=== PATIENT | female | born 1960 | race Caucasian/White ===

== ENCOUNTER 2016-11-16 07:48 | Day surgery (SDC) | payer MEDICARE, MEDICAID ==
[~2016-11-16 07:48] MED LIST: Lactated Ringers 1,000 ML IV SCH; Lidocaine 1% 4 ML ONE; Lidocaine 1%/Sod Bicarbonate in NS 8.4% 1 ML Syringe IV PRN; Propofol 200 MG/20 ML SDV ONE; Sodium Chloride 0.9% 10 ML Syringe FLUSH PRN
--- NOTE | 2016-11-16 08:18 | PCM.PREANE ---
Preanesthetic Assessment - Physical Assessment Height: 1.46 m Weight: 95.708 kg - Allergies Allergies/Adverse Reactions: Allergies Allergy/AdvReac Type Severity Reaction Status Date / Time penicillin V Allergy Cannot Verified 06/10/15 17:02 Remember vancomycin Allergy Cannot Verified 06/10/15 17:02 Remember PreAnesthesia Questionnaire HEENT History: Reports: Glaucoma, Hard of hearing Cardiovascular History: Reports: Arrhythmia, High cholesterol, Hypertension Other Cardiovascular History: svt and pvc Respiratory History: Reports: Sleep apnea Genitourinary History: Reports: STD, Other (see below) Other Genitourinary History: stress incontinence. 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) Other OB/BYN History: menopause Other Musculoskeletal History: congenital musculoskeletal deformity of spine, internal derangement of knee, scoliosis Neurological History: Reports: Other (see below) Other Neuro History: bells palsy Other Psychiatric History: mental retardation, personality disorder Endocrine/Metabolic History: Reports: Diabetes, type II Hematologic History: Reports: Anemia Other Dermatologic History: dermatophytosis of nail - Past Surgical History GI Surgical History: Reports: Cholecystectomy Female Surgical History: Reports: section Other Female Surgeries/Procedures: c/s x2 Other Musculoskeletal Surgeries/Procedures:: lumbago with sciatica left side, neuralgia, neuritis, cranial radiculopathy. neck surgery 5th and 6th cranial nerve root foraminotomy - SUBSTANCE USE Smoking Status *Q: Former Smoker Tobacco Use Within Last Twelve Months: No Other Tobacco Use Within Last Twelve Months: quit in 1988 Recreational Drug Use History: No - HOME MEDS Home Medications: Home Meds Carboxymethylcellulose Sodium [Lubricant Eye Drops] 1 drop EYEBOTH DAILY [History] Cholecalciferol (Vitamin D3) [Vitamin D3] 1 tab PO DAILY 11/13/16 [History] Fluticasone Propionate [Flonase] 50 mcg NASBOTH ASDIRECTED 11/13/16 [History] Garlic 1 tab PO DAILY 11/13/16 [History] Latanoprost [Xalatan 0.005% Ophth Soln] 1 drop EYEBOTH DAILY 11/13/16 [History] Nitroglycerin [Nitrostat] 1 tab SL ASDIRECTED PRN 11/13/16 [History] Simvastatin [Zocor] 40 mg PO DAILY 11/13/16 [History] Valsartan/Hydrochlorothiazide [Valsartan-Hctz 160-12.5 mg Tab] 1 tab PO DAILY [History] Vitamin B6-pyridOXINE 1 tab PO BID 11/13/16 [History] metFORMIN [Glucophage] 500 mg PO BID 11/13/16 [History] - CURRENT (IN HOUSE) MEDS Current Meds: Current Medications Lactated Ringer's (Ringers, Lactated) 1,000 mls @ 125 mls/hr IV ASDIRECTED CANDIE Stop: 11/16/16 23:00 Lidocaine/Sodium Bicarbonate (Buffered Lidocaine 1% In Ns 8.4%) 0.25 ml IV ONETIME PRN PRN Reason: Prior to IV Start Stop: 11/16/16 18:00 Sodium Chloride (Saline Flush) 10 ml FLUSH ASDIRECTED PRN PRN Reason: Keep Vein Open Stop: 11/16/16 18:00 Discontinued Medications Lidocaine HCl (Xylocaine-Mpf 1%) Confirm Administered Dose 4 mls @ as directed .ROUTE .STK-MED ONE Stop: 11/16/16 07:16 Propofol (Diprivan 20 Ml) Confirm Administered Dose 200 mg .ROUTE .STK-MED ONE Stop: 11/16/16 07:16 Preanesthetic Assessment - ANESTHESIA/TRANSFUSION/FAMILY HX Anesthesia/Transfusion History: No Prior Transfusion(s), Prior Anesthesia Type of Anesthesia Reaction: Denies: Allergy, Anesthesia Awareness, Excessive Somnolence, Excessive Nausea/Vomiting, Excessive Itching, Excessive Shivering, Malignant Hyperthermia, Malignant Hyperthermia, Family History, Pseudocholinesterase Deficiency, Pseudocholinesterase Deficiency, Family History of, Urinary Retention, Unknown, Other (see below) Family History of Anesthesia Reaction: No Intubation History: Unknown - 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: no symptoms (Personality disorder and MR noted), numbness ( Lumbago with sciatica of left side noted., neuralgial neuritis, radiculopathy of cervical region (neck surgery of C5 & C60 cervical nerve root forminotomy.) Respiratory: Reports: no symptoms (history of ADEN has CPAP but does not use it currently./quit smoking in 1988) Cardiovascular: Reports: no symptoms (angiogram October 2016:), blood pressure problem (History of PVC's and SVT), dyspnea on exertion, palpitations (Has had history SVT, and PVC's.) GI: Reports: no symptoms (GERD), diarrhea Other: Reports: Diabetes (BS at 0829= 111.), Sinus Problem, Anxiety - PHYSICAL ASSESSMENT HR: 75 O2 Sat by Pulse Oximetry: 90 RR: 16 BP: 132/74 Temp: 36.3 C Height: 1.46 m Weight: 91.172 kg NPO Status Date: 11/15/16 NPO Status Time: 13:00 ASA Class: 2 Mental Status: Alert & Oriented x3 Airway Class: Mallampati = 3 Dentition: Reports: Missing Tooth/Teeth, Caries Thyro-Mental Finger Breadths: 3 Mouth Opening Finger Breadths: 2 ROM/Head Extension: Limited/Partial Respiratory Status: lungs clear to auscultation bilaterally Cardiovascular Status: regular rate & rhythm, normal S1, S2, no murmur - LAB Values: reviewed and noted. - ALLERGIES Allergies/Adverse Reactions: Allergies Allergy/AdvReac Type Severity Reaction Status Date / Time penicillin V Allergy Cannot Verified 06/10/15 17:02 Remember vancomycin Allergy Cannot Verified 06/10/15 17:02 Remember - ANESTHESIA PLAN Preop Beta Bang: No Anesthesia Type Planned: MAC - ACKNOWLEDGEMENTS Pt an Appropriate Candidate for the Planned Anesthesia: Yes Alternatives and Risks of Anesthesia Discussed w Pt/Guardian: Yes Pt/Guardian Understands and Agrees with Anesthesia Plan: Yes
[2016-11-16] MEDS ORDERED: fentaNYL 250 MCG/5 ML SDV ONE ×2 (08:55)
[2016-11-16] MEDS ORDERED: Simethicone Drops 40 MG/0.6 ML 30 ML Bottle ONE (08:58)
--- NOTE | 2016-11-16 09:29 | PCM.OPNOTE ---
- General Post-Op/Procedure Note Date of Surgery/Procedure: 11/16/16 Operative Procedure(s): EG/colonoscopy Pre Op Diagnosis: anemia Post-Op Diagnosis: Same Anesthesia Technique: MAC Primary Surgeon: Shaquille West EBL in mLs: 0 Complications: None Condition: Good
--- NOTE | 2016-11-16 09:43 | PCM48HPAN ---
Post Anesthesia Note - EVALUATION WITHIN 48HRS OF ANESTHETIC Vital Signs in Normal Range: Yes Patient Participated in Evaluation: Yes Respiratory Function Stable: Yes Airway Patent: Yes Cardiovascular Function Stable: Yes Hydration Status Stable: Yes Pain Control Satisfactory: Yes Nausea and Vomiting Control Satisfactory: Yes Mental Status Recovered: Yes
[2016-11-16 09:45] VITALS: BP 140/99
[2016-11-16] MEDS ORDERED: fentaNYL 100 MCG/2 ML SDV ONE (09:46)
--- NOTE | 2016-11-16 14:05 | OR ---
DATE OF OPERATION: 11/16/2016 SURGEON: Shaquille West MD PREOPERATIVE DIAGNOSIS: Anemia. POSTOPERATIVE DIAGNOSIS: Anemia. OPERATION PERFORMED: Esophagogastroscopy. FINDINGS: Large hiatal hernia which would coil the scope and would not allow the scope to advance further. The GE junction did not show any acute disease as was the esophagus. However, because of hypoxia and her obesity and filling up of the stomach with air, it was felt that she is too high risk to proceed further with the upper GI endoscopy. DESCRIPTION OF PROCEDURE: The patient was taken to the endoscopy room, placed in a supine position, connected to monitoring equipment, placed in the left lateral position. Bite block was inserted. Video Olympus gastroscope placed in a posterior oropharynx under direct vision, threaded past the cricopharyngeus, down the esophagus, into the stomach. The stomach, part of it was a large hiatal hernia in which the scope coiled and would not advance in the lower part. Did see the GE junction which did not show any acute disease. However, was unable to advance because of the curl, the scope down into the lower part of the stomach and the duodenum. At this point of the case, she became hypoxic and the scope was slowly withdrawn. No further attempts were made to proceed further. She felt to be high risk. The patient tolerated the procedure and IV sedation will be continued for further endoscopy for anemia, that is colonoscopy. ANESTHESIA: ESTIMATED BLOOD LOSS: MMODAL /[id number]
--- NOTE | 2016-11-16 14:06 | OR ---
DATE OF OPERATION: 11/16/2016 SURGEON: Shaquille West MD PREOPERATIVE DIAGNOSIS: Anemia. POSTOPERATIVE DIAGNOSIS: Anemia. OPERATION PERFORMED: Colonoscopy to cecum. ANESTHESIA: Done under IV sedation. FINDINGS: Normal study. RECOMMENDATION: Repeat colonoscopy in 10 years. DESCRIPTION OF PROCEDURE: The patient having been taken to the operating room and having been given IV sedation for upper GI endoscopy, this was continued for colonoscopy. She was placed in left lateral position. The perianal area was inspected, it was normal. Rectal exam showed good sphincter tone. A video Olympus colonoscope was then introduced into the rectum and threaded up without problem to the cecum, where the appendicular orifice, ileocecal valve was noted. Prep was excellent throughout the colon. [place] Cleansing score grade A and the scope slowly withdrawn showing the cecum, ascending colon, transverse colon, descending colon, sigmoid colon, and rectum. The patient findings were normal study. The patient tolerated the procedure, sent to recovery room in a stable condition, will be followed up in the clinic. ESTIMATED BLOOD LOSS: MMODAL /[id number]
== END 2016-11-16 10:28 | disposition home or self-care (01) ==
LOC: JD.SDS 07:48
PROVIDERS: ATTEND Surgery
PROC: 0DJ08ZZ Inspection of Upper Intestinal Tract, Via Natural or Artificial Opening Endoscopic (ICD-10-PCS; principal; 2016-11-16)
PROC: 0DJD8ZZ Inspection of Lower Intestinal Tract, Via Natural or Artificial Opening Endoscopic (ICD-10-PCS; 2016-11-16)
DX: K44.9 Diaphragmatic hernia without obstruction or gangrene (principal); D64.9 Anemia, unspecified; R09.02 Hypoxemia; E66.9 Obesity, unspecified; Q67.5 Congenital deformity of spine; I10 Essential (primary) hypertension; G47.33 Obstructive sleep apnea (adult) (pediatric); E78.00 Pure hypercholesterolemia, unspecified; E11.9 Type 2 diabetes mellitus without complications; F79 Unspecified intellectual disabilities; Z87.891 Personal history of nicotine dependence; Z88.0 Allergy status to penicillin; Z88.1 Allergy status to other antibiotic agents; Z79.51 Long term (current) use of inhaled steroids; Z79.84 Long term (current) use of oral hypoglycemic drugs; Z79.899 Other long term (current) drug therapy; Z98.890 Other specified postprocedural states; Z90.49 Acquired absence of other specified parts of digestive tract; Z68.41 Body mass index [BMI] 40.0-44.9, adult
CPT/HCPCS: 43235; 45378; 82962; A9270; J3010; J7120; J2704

== ENCOUNTER 2017-05-09 14:57 | Emergency (ER) | payer MEDICARE, MEDICAID ==
[2017-05-09 15:22] VITALS: BP 109/77
[2017-05-09] MEDS ORDERED: Doxycycline 100 MG Cap PO ONE (15:55)
[2017-05-09] MEDS ORDERED: Ibuprofen 600 MG Tab PO ONE (15:56)
--- NOTE | 2017-05-09 16:00 | EDM.PDOC ---
ED HPI GENERAL MEDICAL PROBLEM - General Chief Complaint: Bite:Animal, Insect Stated Complaint: BEE STING ON RIGHT FOOT Time Seen by Provider: 05/09/17 15:45 Source of Information: Reports: Patient History Limitations: Reports: No Limitations - History of Present Illness INITIAL COMMENTS - FREE TEXT/NARRATIVE: 56-year-old female presents to the ED after being stung by either a wasp or bee on the plantar surface of her right foot. She went out to the garbage can and was stung by a wasp or bee that she probably stepped on. She is a diabetic and feet are quite dirty. She was concerned that the stinger might still be in place. Onset: Today Onset Date: 05/09/17 Onset Time: 14:00 Duration: Minutes: Location: Reports: Lower Extremity, Right (Plantar surface medially.) Quality: Reports: Ache, Burning, Throbbing Severity: Moderate Improves with: Reports: None Worsens with: Reports: Other Context: Reports: Other (hymenoptera sting). 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) Right Feet Pain Score (Numeric/FACES): 8 - Related Data Allergies Allergy/AdvReac Type Severity Reaction Status Date / Time penicillin V Allergy Cannot Verified 05/09/17 15:17 Remember vancomycin Allergy Cannot Verified 05/09/17 15:17 Remember Home Meds: Home Meds Carboxymethylcellulose Sodium [Lubricant Eye Drops] 1 drop EYEBOTH DAILY [History] Cholecalciferol (Vitamin D3) [Vitamin D3] 1 tab PO DAILY 11/13/16 [History] Latanoprost [Xalatan 0.005% Ophth Soln] 1 drop EYEBOTH DAILY 11/13/16 [History] Nitroglycerin [Nitrostat] 1 tab SL ASDIRECTED PRN 11/13/16 [History] Simvastatin [Zocor] 40 mg PO DAILY 11/13/16 [History] Valsartan/Hydrochlorothiazide [Valsartan-Hctz 160-12.5 mg Tab] 1 tab PO DAILY [History] Vitamin B6-pyridOXINE 1 tab PO BID 11/13/16 [History] metFORMIN [Glucophage] 500 mg PO BID 11/13/16 [History] Doxycycline [Vibramycin] 100 mg PO Q12HR #10 cap 05/09/17 [Rx] Past Medical History HEENT History: Reports: Glaucoma, Hard of Hearing Cardiovascular History: Reports: Arrhythmia, High Cholesterol, Hypertension Other Cardiovascular History: svt and pvc Respiratory History: Reports: Sleep Apnea Genitourinary History: Reports: STD, Other (See Below) Other Genitourinary History: stress incontinence. 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) Other OB/BYN History: menopause Other Musculoskeletal History: congenital musculoskeletal deformity of spine, internal derangement of knee, scoliosis Neurological History: Reports: Other (See Below) Other Neuro History: bells palsy Other Psychiatric History: mental retardation, personality disorder Endocrine/Metabolic History: Reports: Diabetes, Type II Hematologic History: Reports: Anemia Other Dermatologic History: dermatophytosis of nail - Past Surgical History Female Surgical History: Reports: Section Social & Family History - Tobacco Use Smoking Status *Q: Former Smoker - Recreational Drug Use Recreational Drug Use: No - Living Situation & Occupation Living situation: Reports: Single Occupation: Disabled ED ROS GENERAL - Review of Systems Review Of Systems: See Below Constitutional: Reports: Weakness, Fatigue (Chronically). Denies: Fever, Chills , Malaise HEENT: Reports: No Symptoms, Other (No filling like her throat is closing up.) Respiratory: Reports: Shortness of Breath. Denies: Wheezing, Pleuritic Chest Pain (Only on exertion no worse than normal), Cough, Sputum Cardiovascular: Reports: No Symptoms Endocrine: Reports: Fatigue GI/Abdominal: Reports: No Symptoms : Reports: Frequency, Incontinence (Urgent stress component) Musculoskeletal: Reports: Joint Pain (Knees hips low back and neck at times) Skin: Reports: Other (Hymenoptera sting plantar surface right foot with localized erythema and swelling) Neurological: Reports: No Symptoms Psychiatric: Reports: No Symptoms Hematologic/Lymphatic: Reports: No Symptoms Immunologic: Reports: No Symptoms ED EXAM, ANIMAL BITE - Physical Exam Exam: See Below General Appearance: Alert, WD/WN, No Apparent Distress Eye Exam: Bilateral Eye: Normal Inspection Throat/Mouth: Normal Inspection, Normal Lips, Normal Oropharynx, Other Neck: Normal Inspection (Uvula and floor the mouth are normal.), Supple, Non- Tender, Full Range of Motion. No: Lymphadenopathy (L), Lymphadenopathy (R) Respiratory/Chest: No Respiratory Distress, Lungs Clear, Normal Breath Sounds, No Accessory Muscle Use, Decreased Breath Sounds. No: Wheezing Cardiovascular: Regular Rate, Rhythm. No: Normal Peripheral Pulses Peripheral Pulses: 1+: Posterior Tibial (L), Posterior Tibial (R), Dorsalis Pedis (L), Dorsalis Pedis (R) GI/Abdominal: Normal Bowel Sounds, Soft, Non-Tender, No Organomegaly, Other ( Moderate obesity limits ability to palpate solid organs.) Back Exam: Normal Inspection, Full Range of Motion. No: CVA Tenderness (L), CVA Tenderness (R) Extremities: Other (Inspection of her right foot indicates a puncture wound to the plantar surface medially. There is no stinger in the wound. There is localized erythema and swelling of about 4 cm in diameter. Area is moderately tender to touch.) Neurological: Alert, Oriented, CN II-XII Intact, Normal Cognition. No: Normal Gait Psychiatric: Normal Affect Skin Exam: Normal Color, Warm/Dry Course - Vital Signs Last Recorded V/S: Last Vital Signs Temp 36.6 C 05/09/17 15:17 Pulse 82 05/09/17 15:17 Resp 20 05/09/17 15:17 BP 109/77 05/09/17 15:17 Pulse Ox 90 L 05/09/17 15:17 - Orders/Labs/Meds Meds: Medications Discontinued Medications Generic Name Dose Route Start Last Admin Trade Name Freq PRN Reason Stop Dose Admin Doxycycline Hyclate 200 mg 05/09/17 15:55 05/09/17 16:04 Vibramycin PO 05/09/17 15:56 200 mg ONETIME ONE Administration Ibuprofen 600 mg 05/09/17 15:56 05/09/17 16:03 Motrin PO 05/09/17 15:57 600 mg ONETIME ONE Administration - Radiology Interpretation Free Text/Narrative:: 56-year-old female presents the ED with eye hymenoptera sting to her plantar surface of her right foot. Of note she is a type II diabetic for greater than 6 years. The feet themselves are extremely dirty. I feel the risk of infection is fairly high from the hymenoptera sting. Of note there was no stinger in the wound. There fell out or it was a wasp that stung her. She has a localized allergic reaction. Plan Motrin 600 mg by mouth and doxycycline 200 mg by mouth. Wound was cleansed with Hibiclens and bacitracin and a bandage applied. Continue Motrin as needed for pain relief which is usually only 1 day. Benadryl 50 mg every 6 hours if needed for itch and/or burning although I would prefer her not to take this medication due to her other meds that she has on board. Departure - Departure Time of Disposition: 16:03 Disposition: Home, Self-Care 01 Condition: Fair Clinical Impression: Hymenoptera sting Qualifiers: Encounter type: initial encounter Injury intent: accidental or unintentional Qualified Code(s): T63.481A - Toxic effect of venom of other arthropod, accidental (unintentional), initial encounter - Discharge Information Prescriptions: Doxycycline [Vibramycin] 100 mg PO Q12HR #10 cap Instructions: Insect Bite Referrals: Zak Hopson MD [Physician] - Forms: ED Department Discharge Additional Instructions: Evaluation the emergency room in regards to a bee or wasp sting to the sole of your right foot. No stinger was found in the puncture wound suggesting this was mostly scaly I wasp sting. You have developed a localized allergic response with swelling and redness of 0.4 cm in diameter. Motrin 600 mg every 6 hours as necessary for pain relief for 1 day. May use Benadryl 50 mg every 6 hours if needed for burning and itch. Of note this medication will cause significant sedation however. The wound was cleansed and topical antibiotic was placed in the emergency room. The feet were quite dirty and I think the risk of infection is much higher because of your diabetes. I therefore gave you first dose of antibiotic doxycycline in the emergency room. You need to fill prescription for doxycycline antibiotic 100 mg twice daily for the next 5 days tomorrow. Daily cleanse the wound with soap and water and place bacitracin ointment for the next 3 days to prevent any secondary wound infection or diabetes. If any signs of infection do develop such as increased redness swelling 3 days from now and follow-up with your personal doctor.
== END 2017-05-09 16:26 | disposition home or self-care (01) ==
LOC: JD.ED 14:57
DX: T63.481A Toxic effect of venom of other arthropod, accidental (unintentional), initial encounter (principal); E78.00 Pure hypercholesterolemia, unspecified; I10 Essential (primary) hypertension; E11.9 Type 2 diabetes mellitus without complications; Z88.0 Allergy status to penicillin; Z88.1 Allergy status to other antibiotic agents; Z79.84 Long term (current) use of oral hypoglycemic drugs; Z79.899 Other long term (current) drug therapy; Z87.891 Personal history of nicotine dependence
CPT/HCPCS: 99282; A9270; 99283

== ENCOUNTER 2017-08-24 16:26 | Inpatient (IN) | payer MEDICARE, MEDICAID ==
[2017-08-24] MEDS ORDERED: Sodium Chloride 0.9% 10 ML Syringe FLUSH PRN (16:38)
[2017-08-24] MEDS ORDERED: Albuterol/Ipratropium 3.0-0.5 MG/3 ML Neb Soln NEB ONE (16:40)
[2017-08-24] MEDS ORDERED: methylPREDNISolone Sodium Succinate 125 MG/2 ML SDV IVPUSH ONE (16:40)
[2017-08-24] MEDS ORDERED: Levofloxacin/Dextrose 5%-Water 750 MG in Premix Bag 1 BAG IV ONE (16:40)
[2017-08-24] MEDS ORDERED: Acetaminophen 325 MG Tab PO ONE (16:55)
[2017-08-24] MEDS ORDERED: Sodium Chloride 0.9% 500 ML IV ONE (16:56)
--- NOTE | 2017-08-24 18:29 | EDM.PDOC ---
ED HPI GENERAL MEDICAL PROBLEM - General Chief Complaint: Respiratory Problem Stated Complaint: [facility] Time Seen by Provider: 08/24/17 16:29 Source of Information: Reports: Patient, EMS History Limitations: Reports: No Limitations - History of Present Illness INITIAL COMMENTS - FREE TEXT/NARRATIVE: The patient presents with a cough, fever and shortness of breath. When EMS got there her oxygen saturations were in the 70s. She was given oxygen and a breathing treatment. She says she started feeling sick about 4 days ago. She had a fever, chills, cough, congestion and runny nose. She has no abdominal pain, nausea or vomiting. [facility] takes care of the patient. Onset: Gradual Duration: Day(s): (4) Severity: Moderate Improves with: Reports: None Worsens with: Reports: None Associated Symptoms: Reports: Cough, Fever/Chills, Shortness of Breath. 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, IV/IO, Oxygen, See EMS Report chest area Pain Score (Numeric/FACES): 6 - Related Data Allergies Allergy/AdvReac Type Severity Reaction Status Date / Time penicillin V Allergy Cannot Verified 08/24/17 16:41 Remember vancomycin Allergy Cannot Verified 08/24/17 16:41 Remember Home Meds: Home Meds Carboxymethylcellulose Sodium [Lubricant Eye Drops] 1 drop EYEBOTH DAILY [History] Cholecalciferol (Vitamin D3) [Vitamin D3] 1 tab PO DAILY 11/13/16 [History] Latanoprost [Xalatan 0.005% Ophth Soln] 1 drop EYEBOTH DAILY 11/13/16 [History] Nitroglycerin [Nitrostat] 1 tab SL ASDIRECTED PRN 11/13/16 [History] Simvastatin [Zocor] 40 mg PO DAILY 11/13/16 [History] Valsartan/Hydrochlorothiazide [Valsartan-Hctz 160-12.5 mg Tab] 1 tab PO DAILY [History] Vitamin B6-pyridOXINE 1 tab PO BID 11/13/16 [History] metFORMIN [Glucophage] 500 mg PO BID 11/13/16 [History] Multivitamin with Iron [Multivitamins with Iron] 1 each PO DAILY 08/24/17 [ History] Past Medical History HEENT History: Reports: Glaucoma, Hard of Hearing Cardiovascular History: Reports: Arrhythmia, High Cholesterol, Hypertension Other Cardiovascular History: svt and pvc Respiratory History: Reports: Sleep Apnea Genitourinary History: Reports: STD, Other (See Below) Other Genitourinary History: stress incontinence. 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) Other OB/BYN History: menopause Other Musculoskeletal History: congenital musculoskeletal deformity of spine, internal derangement of knee, scoliosis Neurological History: Reports: Other (See Below) Other Neuro History: bells palsy Other Psychiatric History: mental retardation, personality disorder, SAD Endocrine/Metabolic History: Reports: Diabetes, Type II Hematologic History: Reports: Anemia Other Dermatologic History: dermatophytosis of nail - Past Surgical History Other Respiratory Surgeries/Procedures: states that her CPAP machine "was taken away" GI Surgical History: Reports: Cholecystectomy Female Surgical History: Reports: Section Social & Family History - Family History Family Medical History: Noncontributory - Tobacco Use Smoking Status *Q: Former Smoker Used Tobacco, but Quit: Yes Month Tobacco Last Used: 08/2016 Second Hand Smoke Exposure: No - Caffeine Use Caffeine Use: Reports: Coffee, Soda - Recreational Drug Use Recreational Drug Use: No - Living Situation & Occupation Living situation: Reports: Single Occupation: Disabled ED ROS GENERAL - Review of Systems Review Of Systems: See Below Constitutional: Reports: Fever, Chills, Malaise, Weakness, Fatigue HEENT: Reports: No Symptoms Respiratory: Reports: Shortness of Breath, Cough Cardiovascular: Reports: No Symptoms Endocrine: Reports: Fatigue GI/Abdominal: Reports: No Symptoms : Reports: No Symptoms Musculoskeletal: Reports: No Symptoms ED EXAM, GENERAL - Physical Exam Exam: See Below Exam Limited By: No Limitations General Appearance: Alert, No Apparent Distress Ears: Normal External Exam Nose: Normal Inspection Head: Atraumatic, Normocephalic Neck: Normal Inspection Respiratory/Chest: No Respiratory Distress, Decreased Breath Sounds, Rhonchi Cardiovascular: Regular Rate, Rhythm, No Edema, No Murmur GI/Abdominal: Soft, Non-Tender, No Organomegaly, No Mass Back Exam: Normal Inspection Extremities: Normal Inspection Neurological: Alert, Oriented, No Motor/Sensory Deficits Course - Vital Signs Last Recorded V/S: Last Vital Signs Temp 98.6 F 08/24/17 18:45 Pulse 105 H 08/24/17 16:28 Resp 25 H 08/24/17 18:45 BP 109/76 08/24/17 18:45 Pulse Ox 92 L 08/24/17 18:45 - Orders/Labs/Meds Orders: Active Orders 24 hr Category Date Time Status Cardiac Monitoring [RC] . DIRECTED Care 08/24/17 16:38 Active Oxygen Therapy [RC] PRN Care 08/24/17 16:38 Active Peripheral IV Care [RC] . DIRECTED Care 08/24/17 16:39 Active RT Aerosol Therapy [RC] ASDIRECTED Care 08/24/17 16:40 Active Chest 1V Frontal [CR] Stat Exams 08/24/17 16:39 Taken CULTURE BLOOD [BC] Stat Lab 08/24/17 16:50 Received CULTURE BLOOD [BC] Stat Lab 08/24/17 17:05 Received Sodium Chloride 0.9% [Normal Saline] 2,350 ml Med 08/24/17 17:21 Active IV ONETIME Sodium Chloride 0.9% [Saline Flush] Med 08/24/17 16:38 Active 10 ml FLUSH ASDIRECTED PRN Blood Culture x2 Reflex Set [OM.PC] Stat Oth 08/24/17 16:39 Ordered Peripheral IV Insertion Adult [OM.PC] Stat Oth 08/24/17 16:38 Ordered Medication Orders Sodium Chloride (Normal Saline) 2,350 mls @ 1,000 mls/hr IV ONETIME ONE Stop: 08/24/17 19:41 Sodium Chloride (Saline Flush) 10 ml FLUSH ASDIRECTED PRN PRN Reason: Keep Vein Open Last Admin: 08/24/17 16:53 Dose: 10 ml Labs: Laboratory Tests 08/24/17 08/24/17 08/24/17 Range/Units 16:50 16:50 17:05 WBC 13.45 H (3.98-10.04) K/mm3 RBC 5.06 (3.98-5.22) M/mm3 Hgb 14.5 (11.2-15.7) gm/L Hct 46.8 H (34.1-44.9) % MCV 92.5 (79.4-94.8) fl MCH 28.7 (25.6-32.2) pg MCHC 31.0 L (32.2-35.5) g/dl RDW Std Deviation 46.7 H (36.4-46.3) fL Plt Count 261 (182-369) K/mm3 MPV 9.8 (9.4-12.3) fl Neut % (Auto) 65.2 (34.0-71.1) % Lymph % (Auto) 20.0 (19.3-51.7) % Rich % (Auto) 14.1 H (4.7-12.5) % Eos % (Auto) 0 L (0.7-5.8) Baso % (Auto) 0.6 (0.1-1.2) % Neut # (Auto) 8.77 H (1.56-6.13) K/mm3 Lymph # (Auto) 2.69 (1.18-3.74) K/mm3 Rich # (Auto) 1.89 H (0.24-0.36) K/mm3 Eos # (Auto) 0.00 L (0.04-0.36) K/mm3 Baso # (Auto) 0.08 (0.01-0.08) K/mm3 Manual Slide Review Abnormal smear Sodium 138 (136-145) mEq/L Potassium 3.5 (3.5-5.1) mEq/L Chloride 99 (98-107) mEq/L Carbon Dioxide 30 (21-32) mEq/L Anion Gap 12.5 (5-15) BUN 27 H (7-18) mg/dL Creatinine 1.3 H (0.55-1.02) mg/dL Est Cr Clr Drug Dosing 34.29 mL/min Estimated GFR (MDRD) 42 (>60) mL/min BUN/Creatinine Ratio 20.8 H (14-18) Glucose 138 H (74-106) mg/dL Lactic Acid 1.8 (0.4-2.0) mmol/L Calcium 8.7 (8.5-10.1) mg/dL Total Bilirubin 0.3 (0.2-1.0) mg/dL AST 103 H (15-37) U/L ALT 44 (14-59) U/L Alkaline Phosphatase 87 (46-116) U/L C-Reactive Protein 6.2 H* (<1.0) mg/dL Total Protein 8.1 (6.4-8.2) g/dl Albumin 3.6 (3.4-5.0) g/dl Globulin 4.5 gm/dL Albumin/Globulin Ratio 0.8 L (1-2) Meds: Medications Generic Name Dose Route Start Last Admin Trade Name Sandra PRN Reason Stop Dose Admin Sodium Chloride 2,350 mls @ 1,000 mls/hr 08/24/17 17:21 Normal Saline IV 08/24/17 19:41 ONETIME ONE Sodium Chloride 10 ml 08/24/17 16:38 08/24/17 16:53 Saline Flush FLUSH 10 ml ASDIRECTED PRN Administration Keep Vein Open Discontinued Medications Generic Name Dose Route Start Last Admin Trade Name Sandra PRN Reason Stop Dose Admin Acetaminophen 975 mg 08/24/17 16:55 08/24/17 17:12 Tylenol PO 08/24/17 16:56 975 mg NOW ONE Administration Albuterol/Ipratropium 3 ml 08/24/17 16:40 08/24/17 16:56 Duoneb 3.0-0.5 Mg/3 Ml NEB 08/24/17 16:41 3 ml ONETIME ONE Administration Levofloxacin/Dextrose 750 mg/ 150 mls @ 100 mls/hr 08/24/17 16:40 08/24/17 17 :03 Premix IV 08/24/17 18:09 100 mls/hr ONETIME ONE Administration Sodium Chloride 500 mls @ 1,000 mls/hr 08/24/17 16:56 08/24/17 17:02 Normal Saline IV 08/24/17 17:25 1,000 mls/hr .BOLUS ONE Administration Methylprednisolone Sodium Succinate 125 mg 08/24/17 16:40 08/24/17 17:07 Solu-Medrol IVPUSH 08/24/17 16:41 125 mg ONETIME ONE Administration - Re-Assessments/Exams Free Text/Narrative Re-Assessment/Exam: 08/24/17 18:30 I ordered an IV NS 30mL/kg bolus, oxygen, duoneb, labs, blood cultures and CXR. Her CXR shows a left perihilar infiltrate. Her WBC is elevated at 13.45. Her creatinine was elevated at 1.3. Her glucose was elevated at 138. Her AST was elevated at 103. Her CRP was elevated at 6.2. It appears she is septic from pneumonia. 08/24/17 19:13 Her influenza is negative. I talked with Dr Perez and she agreed to the admission. Departure - Departure Time of Disposition: 19:15 Disposition: Admitted As Inpatient 66 Condition: Serious Clinical Impression: Hypoxia Pneumonia Qualifiers: Pneumonia type: due to unspecified organism Laterality: left Lung location: upper lobe of lung Qualified Code(s): J18.1 - Lobar pneumonia, unspecified organism Sepsis Qualifiers: Sepsis type: sepsis due to unspecified organism Qualified Code(s): A41.9 - Sepsis, unspecified organism - Discharge Information - My Orders Last 24 Hours: My Active Orders 08/24/17 16:38 Cardiac Monitoring [RC] . DIRECTED Oxygen Therapy [RC] PRN Sodium Chloride 0.9% [Saline Flush] 10 ml FLUSH ASDIRECTED PRN Peripheral IV Insertion Adult [OM.PC] Stat 08/24/17 16:39 Peripheral IV Care [RC] . DIRECTED Chest 1V Frontal [CR] Stat Blood Culture x2 Reflex Set [OM.PC] Stat 08/24/17 16:40 RT Aerosol Therapy [RC] ASDIRECTED 08/24/17 16:50 CULTURE BLOOD [BC] Stat 08/24/17 17:05 CULTURE BLOOD [BC] Stat 08/24/17 17:21 Sodium Chloride 0.9% [Normal Saline] 2,350 ml IV ONETIME - Assessment/Plan Last 24 Hours: My Active Orders 08/24/17 16:38 Cardiac Monitoring [RC] . DIRECTED Oxygen Therapy [RC] PRN Sodium Chloride 0.9% [Saline Flush] 10 ml FLUSH ASDIRECTED PRN Peripheral IV Insertion Adult [OM.PC] Stat 08/24/17 16:39 Peripheral IV Care [RC] . DIRECTED Chest 1V Frontal [CR] Stat Blood Culture x2 Reflex Set [OM.PC] Stat 08/24/17 16:40 RT Aerosol Therapy [RC] ASDIRECTED 08/24/17 16:50 CULTURE BLOOD [BC] Stat 08/24/17 17:05 CULTURE BLOOD [BC] Stat 08/24/17 17:21 Sodium Chloride 0.9% [Normal Saline] 2,350 ml IV ONETIME
[2017-08-24] MEDS ORDERED: Sodium Chloride 0.9% 1,000 ML ONE (21:31)
--- NOTE | 2017-08-24 21:54 | PCM.HP ---
H&P History of Present Illness - General Date of Service: 08/24/17 Admit Problem/Dx: Admission Diagnosis/Problem Admission Diagnosis/Problem Pneumonia Source of Information: Patient, Provider, RN, RN Notes Reviewed History Limitations: Reports: No Limitations - History of Present Illness Initial Comments - Free Text/Narative: Alice Jhaveri is a 57yo female who presents to our ED today with a cough, fever, shortness of breath via ambulance. Paramedics reports that the patient's oxygen saturations were in the 70s upon their arrival. They gave her oxygen and a DuoNeb. He reports symptoms began about 4 days prior. She reports fever, chills, cough, congestion, runny nose. She denies abdominal pain, nausea, or vomiting. [facility] take care of her. Upon ED arrival temp was 100.9. Pulse 105. Respirations 25. Blood pressure 176. Saturations 90%. Labs were obtained: The CBC is elevated at 13.45. Hemoglobin 14.5. Hematocrit high at 46.8. She is normocytic. Pulses were good at 261,000. Sodium was good at 138. Potassium 3.5. Chloride 99. Carbon dioxide 30. Anion gap 12.5. BUN is 27. Creatinine 1.3. EGFR is 42. Glucose was high at 138. Lactic acid was 1.8. Calcium was 8.7. Bilirubin 0.3. AST was elevated at 103, ALT was 44, alkaline phosphatase 87. CRP is high at 6.2. She was given 2350 mls NS , which is 30 mL/kg. DuoNeb were given. Blood cultures were obtained. Chest x-ray shows a left perihilar infiltrate. She was given 125 mg grams Solu-Medrol, acetaminophen 975 mg for fever. She is also given 750 mg Levaquin. Influenza was negative. She carries a history of: Glaucoma, arrhythmias of SVT and PVCs, HLD, HTN, sleep apnea, stress incontinence, scoliosis, mental retardation, personality disorder, SED, type II DM, anemia. She reportedly had a CPAP machine however she states it was "taken away." She is a former smoker. She is a full code. Her PCP is Dr. Ty at [facility] here in [place]. chest area Pain Score (Numeric/FACES): 6 - Related Data Allergies/Adverse Reactions: Allergies Allergy/AdvReac Type Severity Reaction Status Date / Time penicillin V Allergy Cannot Verified 08/24/17 16:41 Remember vancomycin Allergy Cannot Verified 08/24/17 16:41 Remember Home Medications: Home Meds Carboxymethylcellulose Sodium [Lubricant Eye Drops] 1 drop EYEBOTH DAILY [History] Cholecalciferol (Vitamin D3) [Vitamin D3] 1 tab PO DAILY 11/13/16 [History] Latanoprost [Xalatan 0.005% Ophth Soln] 1 drop EYEBOTH DAILY 11/13/16 [History] Nitroglycerin [Nitrostat] 1 tab SL ASDIRECTED PRN 11/13/16 [History] Simvastatin [Zocor] 40 mg PO DAILY 11/13/16 [History] Valsartan/Hydrochlorothiazide [Valsartan-Hctz 160-12.5 mg Tab] 1 tab PO DAILY [History] Vitamin B6-pyridOXINE 1 tab PO BID 11/13/16 [History] metFORMIN [Glucophage] 500 mg PO BID 11/13/16 [History] Multivitamin with Iron [Multivitamins with Iron] 1 each PO DAILY 08/24/17 [ History] Past Medical History HEENT History: Reports: Glaucoma, Hard of Hearing Cardiovascular History: Reports: Arrhythmia, High Cholesterol, Hypertension Other Cardiovascular History: svt and pvc Respiratory History: Reports: Sleep Apnea Genitourinary History: Reports: STD, Other (See Below) Other Genitourinary History: stress incontinence. 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) Other OB/BYN History: menopause Musculoskeletal History: Reports: Back Pain, Chronic Other Musculoskeletal History: congenital musculoskeletal deformity of spine, internal derangement of knee, scoliosis Neurological History: Reports: Other (See Below) Other Neuro History: bells palsy Other Psychiatric History: mental retardation, personality disorder, SAD Endocrine/Metabolic History: Reports: Diabetes, Type II Hematologic History: Reports: Anemia Other Dermatologic History: dermatophytosis of nail - Past Surgical History Other Respiratory Surgeries/Procedures: states that her CPAP machine "was taken away" GI Surgical History: Reports: Cholecystectomy Female Surgical History: Reports: Section Neurological Surgical History: Reports: Scoliosis Social & Family History - Family History Family Medical History: Noncontributory - Tobacco Use Smoking Status *Q: Unknown Ever Smoked Used Tobacco, but Quit: Yes Month Tobacco Last Used: 08/2016 Second Hand Smoke Exposure: No - Caffeine Use Caffeine Use: Reports: Coffee, Soda - Recreational Drug Use Recreational Drug Use: No - Living Situation & Occupation Living situation: Reports: Single Occupation: Disabled H&P Review of Systems - Review of Systems: Review Of Systems: See Below General: Reports: Fever, Chills, Malaise, Weakness, Fatigue HEENT: Reports: Rhinitis, Sinus Congestion. Denies: Ear Pain, Eye Pain, Headaches, Sore Throat Pulmonary: Reports: Shortness of Breath, Wheezing, Cough. Denies: Pleuritic Chest Pain, Sputum Cardiovascular: Reports: No Symptoms. Denies: Chest Pain, Palpitations, Dyspnea on Exertion, Edema, Lightheadedness, Blood Pressure Problem Gastrointestinal: Reports: No Symptoms. Denies: Abdominal Pain, Constipation, Diarrhea, Nausea, Vomiting Genitourinary: Reports: No Symptoms. Denies: Dysuria, Frequency, Burning, Pain , Urgency Musculoskeletal: Reports: No Symptoms Skin: Reports: No Symptoms Psychiatric: Reports: No Symptoms Neurological: Reports: No Symptoms Hematologic/Lymphatic: Reports: No Symptoms Immunologic: Reports: No Symptoms Exam - Exam Exam: See Below - Vital Signs Vital Signs: Last Vital Signs Temp 97.8 F 08/24/17 20:00 Pulse 91 08/24/17 20:00 Resp 22 H 08/24/17 20:00 BP 105/57 L 08/24/17 20:00 Pulse Ox 91 L 08/24/17 20:00 Weight: 205 lb 14.4 oz - Exam Quality Assessment: Supplemental Oxygen, Other (Obese) General: Alert, Oriented, Cooperative. No: Mild Distress HEENT: Conjunctiva Clear, EACs Clear, EOMI, Hearing Intact, Mucosa Moist & [place] , Nares Patent, Normal Nasal Septum, Posterior Pharynx Clear, PERRLA Neck: Supple, Trachea Midline. No: JVD, Thyromegaly Lungs: Decreased Breath Sounds, Rhonchi, Wheezing, Other (Tachypneic ) Cardiovascular: Regular Rate, Regular Rhythm. No: Systolic Murmur, Diastolic Murmur GI/Abdominal Exam: Soft, Non-Tender, No Organomegaly, No Distention, No Abnormal Bruit, No Mass, Pelvis Stable, Abnormal Bowel Sounds (hyperactive ) (Female) Exam: Deferred Rectal (Female) Exam: Deferred Back Exam: Normal Inspection Extremities: Normal Inspection, Normal Range of Motion, Non-Tender, No Pedal Edema, Normal Capillary Refill Peripheral Pulses: 2+: Radial (L), Radial (R), Posterior Tibial (L), Posterior Tibial (R), Dorsalis Pedis (L), Dorsalis Pedis (R) Skin: Warm, Dry, Intact Neurological: Cranial Nerves Intact (grossly ) Neuro Extensive - Mental Status: Alert, Oriented x3, Normal Mood/Affect, Memory Intact. No: Normal Cognition Neuro Extensive - Motor, Sensory, Reflexes: CN II-XII Intact (Grossly ), Normal Gait Psychiatric: Alert, Normal Affect, Normal Mood - Patient Data Result Diagrams: 08/24/17 16:50 08/24/17 16:50 *Q Meaningful Use (ADM) - VTE *Q VTE Criteria *Q: - Stroke *Q Stroke Criteria *Q: - AMI *Q AMI Criteria *Q: - Problem List (1) Pneumonia SNOMED Code(s): 355882763 ICD Code: J18.9 - PNEUMONIA, UNSPECIFIED ORGANISM Status: Acute Priority : High Current Visit: Yes Qualifiers: Pneumonia type: due to unspecified organism Laterality: left Lung location: upper lobe of lung Qualified Code(s): J18.1 - Lobar pneumonia, unspecified organism (2) Hypoxia SNOMED Code(s): 497913035 ICD Code: R09.02 - HYPOXEMIA Status: Acute Priority: High Current Visit : Yes (3) Sepsis SNOMED Code(s): 36183690 ICD Code: A41.9 - SEPSIS, UNSPECIFIED ORGANISM Status: Acute Priority: High Current Visit: Yes Qualifiers: Sepsis type: sepsis due to unspecified organism Qualified Code(s): A41.9 - Sepsis, unspecified organism (4) Acute renal failure SNOMED Code(s): 51772343 ICD Code: N17.9 - ACUTE KIDNEY FAILURE, UNSPECIFIED Status: Acute Current Visit: Yes (5) Acute kidney injury SNOMED Code(s): 39341650 ICD Code: N17.9 - ACUTE KIDNEY FAILURE, UNSPECIFIED Status: Acute Priority: Medium Current Visit: Yes Problem List Initiated/Reviewed/Updated: Yes Orders Last 24hrs: Active Orders 24 hr Category Date Time Status Patient Status [ADT] Routine ADT 08/24/17 19:35 Active Medication Orders Sodium Chloride (Saline Flush) 10 ml FLUSH ASDIRECTED PRN PRN Reason: Keep Vein Open Last Admin: 08/24/17 16:53 Dose: 10 ml Assessment/Plan Comment:: I/P: Acute Pneumonia: -Non-productive cough, fever, SOB -EMS found oxygen saturations to be in 70's -Fever of 100.9 in ED - Tylenol given -WBC 13.45 -CRP 6.2 -Levaquin 750mg given in ED - Continue -Of note: She is allergic to PCN and vancomycin -Sputum culture - ordered -RT/IS/Acapella -Duo-Nebs PRN -Humidified O2 and nasal saline for congestion - Titrate O2 as needed, attempt to wean -Solumedrol -Fluids as ordered -Repeat CXR in 48 hours Sepsis -HR>90, tachypneic, hypotension, fever of 100.9, renal injury -Likely due to pneumonia -Lactic acid 1.8 -2350 fluid bolus given in ED -Blood cultures - pending -Fluids as ordered -Treatment as above Acute renal injury -Unsure of baseline -Bun 27, creatinine 1.3, eGFR 42 -Avoid nephrotoxic medications -Pharmacy to renally dose meds -Fluids -Continue to monitor Chronic: Hx/o Arrhythmias - SVT and PVCs HLD HTN - stable Sleep apnea Stress incontinence Scoliosis Mental retardation Personality disorder SAD Type II DM - Insulin per protocol, Glucose checks QIDAC and bedtime Anemia - stable Plan: CM for discharge planning PT/OT Routine AM Labs Other orders as indicated above Home medications as ordered DVT/PE prophylaxis: Lovenox and ambulation Code status: Full Code, PCP is Dr. Ty at [facility] here in [place].
[2017-08-24] MEDS ORDERED: Ondansetron 4 MG Tab.DIS PO PRN (22:19)
[2017-08-24] MEDS ORDERED: Ondansetron 4 MG/2 ML SDV IV PRN (22:19)
[2017-08-24] MEDS ORDERED: Docusate Sodium 100 MG Cap PO PRN (22:19)
[2017-08-24] MEDS ORDERED: Acetaminophen 325 MG Tab PO PRN (22:19)
[2017-08-24] MEDS ORDERED: HYDROmorphone 0.5 MG/0.5 ML Syringe IVPUSH PRN (22:19)
[2017-08-24] MEDS ORDERED: Polyethylene Glycol 3350 Powder 17 GM Packet PO PRN (22:19)
[2017-08-24] MEDS ORDERED: Bisacodyl 5 MG Tab PO PRN (22:19)
[2017-08-24] MEDS ORDERED: 50% Dextrose in Water 50 ML Syringe IVPUSH PRN (22:24)
[2017-08-24] MEDS ORDERED: Sodium Chloride 0.65% Nasal Spray 45 ML Bottle NAS PRN (22:26)
[2017-08-24] MEDS ORDERED: Nitroglycerin 0.4 MG Tab.SL SL PRN (22:34)
[2017-08-25] MEDS: Sodium Chloride 0.9% 1,000 ML IV SCH ×2 (01:16→17:14)
[2017-08-25] MEDS ORDERED: methylPREDNISolone Sodium Succinate 125 MG/2 ML SDV IVPUSH SCH (09:00)
--- NOTE | 2017-08-25 09:15 | CR ---
Chest: Portable view of the chest was obtained. Comparison: No prior chest x-ray. Heart is enlarged. Air is noted behind the heart suspicious for hiatal hernia or diaphragmatic hernia. Pulmonary vessels are congested. Mild atelectasis is seen within the left base. Scoliosis is noted within the spine. No acute bony abnormality is identified. Impression: 1. Mild cardiomegaly. 2. Mild left basilar atelectasis. 3. Possible hiatal hernia or diaphragmatic hernia behind the heart. 4. Mild pulmonary vascular congestion. Diagnostic code #3
[2017-08-25] MEDS: Enoxaparin 40 MG/0.4 ML Syringe SUBCUT SCH (09:25)
[2017-08-25] MEDS: Hydrochlorothiazide 12.5 MG Cap PO SCH (09:26)
[2017-08-25] MEDS: Losartan 100 MG Tab PO SCH (09:26)
[2017-08-25] MEDS: Cholecalciferol (Vitamin D3) 1,000 Unit Tab PO SCH (09:26)
[2017-08-25] MEDS: Vitamin B6-pyridOXINE 50 MG Tab PO SCH ×2 (09:26→20:58)
[2017-08-25] MEDS: Simvastatin 40 MG Tab PO SCH (09:27)
[2017-08-25] MEDS: Multivitamins,Therapeutic Tab PO SCH (09:27)
[2017-08-25] MEDS: Insulin Aspart 100 Units/ML 3 ML Pen SUBCUT SCH ×4 (09:27→21:15)
[2017-08-25] MEDS: Latanoprost 0.005% Ophth Soln 2.5 ML Bottle EYEBOTH SCH (09:28)
[2017-08-25] MEDS: Hypromellose 0.5% Ophth Soln 15 ML Bottle EYEBOTH SCH (09:28)
[2017-08-25] MEDS: Albuterol 0.083% 2.5 MG/3 ML Neb Soln NEB PRN (09:48)
--- NOTE | 2017-08-25 18:05 | PCM.PN ---
- General Info Date of Service: 08/25/17 Functional Status: Reports: Tolerating Diet - Review of Systems General: Reports: Weakness HEENT: Reports: No Symptoms Pulmonary: Reports: Shortness of Breath Cardiovascular: Reports: No Symptoms Gastrointestinal: Reports: No Symptoms Genitourinary: Reports: No Symptoms Musculoskeletal: Reports: No Symptoms Skin: Reports: No Symptoms Neurological: Reports: No Symptoms Psychiatric: Reports: No Symptoms - Patient Data Vitals - Most Recent: Last Vital Signs Temp 37.2 C 08/25/17 16:00 Pulse 82 08/25/17 16:00 Resp 20 08/25/17 16:00 BP 150/93 H 08/25/17 16:00 Pulse Ox 94 L 08/25/17 16:00 Weight - Most Recent: 94.483 kg I&O - Last 24 Hours: Intake & Output 08/25/17 08/25/17 08/25/17 06:59 14:59 22:59 Intake Total 1800 250 923 Output Total 325 Balance 1800 -75 923 Lab Results Last 24 Hours: Laboratory Results - last 24 hr 08/25/17 08/25/17 08/25/17 Range/Units 05:14 05:14 06:39 WBC 9.37 (3.98-10.04) K/mm3 RBC 4.21 (3.98-5.22) M/mm3 Hgb 12.5 (11.2-15.7) gm/L Hct 40.0 (34.1-44.9) % MCV 95.0 H (79.4-94.8) fl MCH 29.7 (25.6-32.2) pg MCHC 31.3 L (32.2-35.5) g/dl RDW Std Deviation 48.2 H (36.4-46.3) fL Plt Count 234 (182-369) K/mm3 MPV 9.9 (9.4-12.3) fl Neut % (Auto) 81.8 H (34.0-71.1) % Lymph % (Auto) 13.4 L (19.3-51.7) % [place] % (Auto) 4.4 L (4.7-12.5) % Eos % (Auto) 0 L (0.7-5.8) Baso % (Auto) 0.4 (0.1-1.2) % Neut # (Auto) 7.66 H (1.56-6.13) K/mm3 Lymph # (Auto) 1.26 (1.18-3.74) K/mm3 [place] # (Auto) 0.41 H (0.24-0.36) K/mm3 Eos # (Auto) 0.00 L (0.04-0.36) K/mm3 Baso # (Auto) 0.04 (0.01-0.08) K/mm3 Sodium 142 (136-145) mEq/L Potassium 4.1 (3.5-5.1) mEq/L Chloride 105 (98-107) mEq/L Carbon Dioxide 28 (21-32) mEq/L Anion Gap 13.1 (5-15) BUN 23 H (7-18) mg/dL Creatinine 0.9 (0.55-1.02) mg/dL Est Cr Clr Drug Dosing 49.54 mL/min Estimated GFR (MDRD) > 60 (>60) mL/min BUN/Creatinine Ratio 25.6 H (14-18) Glucose 151 H (74-106) mg/dL POC Glucose 155 H (70-105) mg/dL Calcium 7.9 L (8.5-10.1) mg/dL Magnesium 2.1 (1.8-2.4) mg/dl C-Reactive Protein 3.5 H* (<1.0) mg/dL 08/25/17 08/25/17 Range/Units 12:55 17:18 WBC (3.98-10.04) K/mm3 RBC (3.98-5.22) M/mm3 Hgb (11.2-15.7) gm/L Hct (34.1-44.9) % MCV (79.4-94.8) fl MCH (25.6-32.2) pg MCHC (32.2-35.5) g/dl RDW Std Deviation (36.4-46.3) fL Plt Count (182-369) K/mm3 MPV (9.4-12.3) fl Neut % (Auto) (34.0-71.1) % Lymph % (Auto) (19.3-51.7) % [place] % (Auto) (4.7-12.5) % Eos % (Auto) (0.7-5.8) Baso % (Auto) (0.1-1.2) % Neut # (Auto) (1.56-6.13) K/mm3 Lymph # (Auto) (1.18-3.74) K/mm3 [place] # (Auto) (0.24-0.36) K/mm3 Eos # (Auto) (0.04-0.36) K/mm3 Baso # (Auto) (0.01-0.08) K/mm3 Sodium (136-145) mEq/L Potassium (3.5-5.1) mEq/L Chloride (98-107) mEq/L Carbon Dioxide (21-32) mEq/L Anion Gap (5-15) BUN (7-18) mg/dL Creatinine (0.55-1.02) mg/dL Est Cr Clr Drug Dosing mL/min Estimated GFR (MDRD) (>60) mL/min BUN/Creatinine Ratio (14-18) Glucose (74-106) mg/dL POC Glucose 129 H 181 H (70-105) mg/dL Calcium (8.5-10.1) mg/dL Magnesium (1.8-2.4) mg/dl C-Reactive Protein (<1.0) mg/dL Med Orders - Current: Current Medications Acetaminophen (Tylenol) 650 mg PO Q4H PRN PRN Reason: Pain (Mild 1-3)/fever Hydrocodone Bitart/Acetaminophen ([place] 325-5 Mg) 1 tab PO Q4H PRN PRN Reason: Pain (moderate 4-6) Albuterol (Proventil Neb Soln) 2.5 mg NEB Q4HRRT PRN PRN Reason: Shortness Of Breath/wheezing Last Admin: 08/25/17 09:48 Dose: 2.5 mg Artificial Tears (Isopto Tears 0.5% Ophth Soln) 0 ml EYEBOTH DAILY [facility] Last Admin: 08/25/17 09:28 Dose: 1 drop Bisacodyl (Dulcolax) 5 mg PO DAILY PRN PRN Reason: Constipation Cholecalciferol (Vitamin D3) 5,000 units PO DAILY [facility] Last Admin: 08/25/17 09:26 Dose: 5,000 units Dextrose/Water (Dextrose 50% In Water) 50 ml IVPUSH ASDIRECTED PRN PRN Reason: hypoglycemia Docusate Sodium (Colace) 100 mg PO BID PRN PRN Reason: Constipation Enoxaparin Sodium (Lovenox) 40 mg SUBCUT DAILY [facility] Last Admin: 08/25/17 09:25 Dose: 40 mg Hydrochlorothiazide (Hydrochlorothiazide) 12.5 mg PO DAILY [facility] Last Admin: 08/25/17 09:26 Dose: 12.5 mg Hydromorphone HCl (Dilaudid) 0.25 mg IVPUSH Q2H PRN PRN Reason: Pain (severe 7-10) Levofloxacin/Dextrose 750 mg/ (Premix) 150 mls @ 100 mls/hr IV Q24H [facility] Sodium Chloride (Normal Saline) 1,000 mls @ 100 mls/hr IV ASDIRECTED [facility] Last Admin: 08/25/17 17:14 Dose: 100 mls/hr Insulin Aspart (Novolog) 0 unit SUBCUT QIDACANDBED [facility] PRN Reason: Protocol Last Admin: 08/25/17 17:22 Dose: 1 unit Latanoprost (Xalatan 0.005% Ophth Soln) 0 ml EYEBOTH DAILY [facility] Last Admin: 08/25/17 09:28 Dose: 1 drop Losartan Potassium (Cozaar) 100 mg PO DAILY [facility] Last Admin: 08/25/17 09:26 Dose: 100 mg Methylprednisolone Sodium Succinate (Solu-Medrol) 80 mg IVPUSH BID [facility] Multivitamins (Thera) 1 each PO DAILY [facility] Last Admin: 08/25/17 09:27 Dose: 1 each Nitroglycerin (Nitrostat) 4 mg SL ASDIRECTED PRN PRN Reason: Chest Pain Ondansetron HCl (Zofran Odt) 4 mg PO Q6H PRN PRN Reason: nausea, able to take PO Ondansetron HCl (Zofran) 4 mg IV Q6H PRN PRN Reason: Nausea/Vomiting Polyethylene Glycol (Miralax) 17 gm PO DAILY PRN PRN Reason: Constipation Pyridoxine HCl (Vitamin B6-Pyridoxine) 50 mg PO BID [facility] Last Admin: 08/25/17 09:26 Dose: 50 mg Senna/Docusate Sodium (Senna Plus) 1 tab PO BID PRN PRN Reason: Constipation Simvastatin (Zocor) 40 mg PO DAILY [facility] Last Admin: 08/25/17 09:27 Dose: 40 mg Sodium Chloride (Saline Flush) 10 ml FLUSH ASDIRECTED PRN PRN Reason: Keep Vein Open Last Admin: 08/24/17 16:53 Dose: 10 ml Sodium Chloride ([place] Nasal [place]) 0 ml ANNETTE Q4H PRN PRN Reason: Nasal dryness Last Admin: 08/25/17 05:00 Dose: 1 spray Temazepam (Restoril) 7.5 mg PO BEDTIME PRN PRN Reason: Sleep Discontinued Medications Acetaminophen (Tylenol) 975 mg PO NOW ONE Stop: 08/24/17 16:56 Last Admin: 08/24/17 17:12 Dose: 975 mg Albuterol/Ipratropium (Duoneb 3.0-0.5 Mg/3 Ml) 3 ml NEB ONETIME ONE Stop: 08/24/17 16:41 Last Admin: 08/24/17 16:56 Dose: 3 ml Levofloxacin/Dextrose 750 mg/ (Premix) 150 mls @ 100 mls/hr IV ONETIME ONE Stop: 08/24/17 18:09 Last Admin: 08/24/17 17:03 Dose: 100 mls/hr Sodium Chloride (Normal Saline) 500 mls @ 1,000 mls/hr IV .BOLUS ONE Stop: 08/24/17 17:25 Last Admin: 08/24/17 17:02 Dose: 1,000 mls/hr Sodium Chloride (Normal Saline) 2,350 mls @ 1,000 mls/hr IV ONETIME ONE Stop: 08/24/17 19:41 Last Admin: 08/24/17 20:08 Dose: 1,000 mls/hr Sodium Chloride (Normal Saline) Confirm Administered Dose 1,000 mls @ as directed .ROUTE .STK-MED ONE Stop: 08/24/17 21:32 Last Admin: 08/25/17 01:15 Dose: 850 ml Methylprednisolone Sodium Succinate (Solu-Medrol) 125 mg IVPUSH ONETIME ONE Stop: 08/24/17 16:41 Last Admin: 08/24/17 17:07 Dose: 125 mg Methylprednisolone Sodium Succinate (Solu-Medrol) 85 mg IVPUSH DAILY [facility] Last Admin: 08/25/17 09:24 Dose: 85 mg - Exam Quality Assessment: Supplemental Oxygen, DVT Prophylaxis General: Alert, Oriented, Cooperative, No Acute Distress HEENT: Pupils Equal, Pupils Reactive Neck: Trachea Midline Lungs: Normal Respiratory Effort, Decreased Breath Sounds, Wheezing Cardiovascular: Regular Rate, Regular Rhythm GI/Abdominal Exam: Normal Bowel Sounds, Soft, Non-Tender, No Organomegaly, No Distention (Female) Exam: Deferred Back Exam: Normal Inspection Extremities: Normal Inspection Skin: Warm Neurological: No New Focal Deficit Psy/Mental Status: Alert, Normal Affect, Normal Mood - Problem List Review Problem List Initiated/Reviewed/Updated: Yes - My Orders Last 24 Hours: My Active Orders 08/25/17 09:00 Hydrochlorothiazide 12.5 mg PO DAILY 08/25/17 11:58 Patient Status [ADT] Routine 08/25/17 15:15 Evaluate for Home Oxygen [RT Evaluate for Home Oxygen] [RC] Click to Edit - Plan Plan:: I/P: Acute Pneumonia: -Non-productive cough, fever, SOB -EMS found oxygen saturations to be in 70's -Fever of 100.9 in ED - Tylenol given -WBC 13.45 -CRP 6.2 -Levaquin 750mg given in ED - Continue -Of note: She is allergic to PCN and vancomycin -Sputum culture - ordered -RT/IS/Acapella -Duo-Nebs PRN -Humidified O2 and nasal saline for congestion - Titrate O2 as needed, attempt to wean -Solumedrol -Fluids as ordered -Repeat CXR in 48 hours Sepsis -HR>90, tachypneic, hypotension, fever of 100.9, renal injury -Likely due to pneumonia -Lactic acid 1.8 -2350 fluid bolus given in ED -Blood cultures - pending -Fluids as ordered -Treatment as above Acute renal injury -Unsure of baseline -Bun 27, creatinine 1.3, eGFR 42 -Avoid nephrotoxic medications -Pharmacy to renally dose meds -Fluids -Continue to monitor Chronic: Hx/o Arrhythmias - SVT and PVCs HLD HTN - stable Sleep apnea Stress incontinence Scoliosis Mental retardation Personality disorder SAD Type II DM - Insulin per protocol, Glucose checks QIDAC and bedtime Anemia - stable Plan: CM for discharge planning PT/OT Routine AM Labs Other orders as indicated above Home medications as ordered DVT/PE prophylaxis: Lovenox and ambulation Code status: Full Code, PCP is Dr. Ty at [facility] here in [place].
[2017-08-25] MEDS: methylPREDNISolone Sodium Succinate 125 MG/2 ML SDV IVPUSH SCH (20:57)
[2017-08-26] MEDS: Albuterol 0.083% 2.5 MG/3 ML Neb Soln NEB PRN ×3 (06:13→15:38)
[2017-08-26] MEDS: Insulin Aspart 100 Units/ML 3 ML Pen SUBCUT SCH ×4 (07:12→23:51)
[2017-08-26] MEDS: Sodium Chloride 0.9% 1,000 ML IV SCH ×2 (07:13→18:41)
[2017-08-26] MEDS: Cholecalciferol (Vitamin D3) 1,000 Unit Tab PO SCH (09:06)
[2017-08-26] MEDS: Enoxaparin 40 MG/0.4 ML Syringe SUBCUT SCH (09:07)
[2017-08-26] MEDS: methylPREDNISolone Sodium Succinate 125 MG/2 ML SDV IVPUSH SCH ×2 (09:07→21:39)
[2017-08-26] MEDS: Vitamin B6-pyridOXINE 50 MG Tab PO SCH ×2 (09:07→21:35)
[2017-08-26] MEDS: Simvastatin 40 MG Tab PO SCH (09:07)
[2017-08-26] MEDS: Multivitamins,Therapeutic Tab PO SCH (09:07)
[2017-08-26] MEDS: Losartan 100 MG Tab PO SCH (09:10)
[2017-08-26] MEDS: Hydrochlorothiazide 12.5 MG Cap PO SCH (09:10)
[2017-08-26] MEDS: Hypromellose 0.5% Ophth Soln 15 ML Bottle EYEBOTH SCH (09:10)
[2017-08-26] MEDS: Latanoprost 0.005% Ophth Soln 2.5 ML Bottle EYEBOTH SCH (09:11)
--- NOTE | 2017-08-26 09:18 | CR ---
Chest: Two views of the chest were obtained. Comparison: Prior chest x-ray of 08/24/17. Elevated left hemidiaphragm versus diaphragmatic hernia is again noted. Lung markings are mildly increased which appear stable. No acute infiltrates are seen. Elevated diaphragm causes left sided atelectasis. Heart is mildly enlarged. Scoliosis is noted within the spine. Impression: 1. Large hiatal hernia or diaphragmatic hernia. This is stable from prior exam. 2. Increased lung markings which appear stable. 3. Other incidental findings. Nothing acute is appreciated. Diagnostic code #3
--- NOTE | 2017-08-26 16:04 | PCM.PN ---
- General Info Date of Service: 08/26/17 Functional Status: Reports: Tolerating Diet - Review of Systems General: Reports: Weakness, Malaise HEENT: Reports: No Symptoms Pulmonary: Reports: Shortness of Breath, Cough Cardiovascular: Reports: No Symptoms Gastrointestinal: Reports: No Symptoms Genitourinary: Reports: No Symptoms Musculoskeletal: Reports: No Symptoms Skin: Reports: No Symptoms Neurological: Reports: No Symptoms Psychiatric: Reports: Confusion - Patient Data Vitals - Most Recent: Last Vital Signs Temp 37.2 C 08/26/17 15:18 Pulse 89 08/26/17 15:18 Resp 21 H 08/26/17 15:18 BP 100/53 L 08/26/17 15:18 Pulse Ox 94 L 08/26/17 15:39 Weight - Most Recent: 96.252 kg I&O - Last 24 Hours: Intake & Output 08/26/17 08/26/17 08/26/17 06:59 14:59 22:59 Intake Total 1423 Balance 1423 Lab Results Last 24 Hours: Laboratory Results - last 24 hr 08/25/17 08/25/17 08/26/17 Range/Units 17:18 20:59 05:58 WBC 15.24 H (3.98-10.04) K/mm3 RBC 4.22 (3.98-5.22) M/mm3 Hgb 12.3 (11.2-15.7) gm/L Hct 40.3 (34.1-44.9) % MCV 95.5 H (79.4-94.8) fl MCH 29.1 (25.6-32.2) pg MCHC 30.5 L (32.2-35.5) g/dl RDW Std Deviation 46.5 H (36.4-46.3) fL Plt Count 212 (182-369) K/mm3 MPV 10.1 (9.4-12.3) fl Neut % (Auto) 85.7 H (34.0-71.1) % Lymph % (Auto) 6.7 L (19.3-51.7) % [place] % (Auto) 7.0 (4.7-12.5) % Eos % (Auto) 0.1 L (0.7-5.8) Baso % (Auto) 0.1 (0.1-1.2) % Neut # (Auto) 13.06 H (1.56-6.13) K/mm3 Lymph # (Auto) 1.02 L (1.18-3.74) K/mm3 [place] # (Auto) 1.07 H (0.24-0.36) K/mm3 Eos # (Auto) 0.01 L (0.04-0.36) K/mm3 Baso # (Auto) 0.02 (0.01-0.08) K/mm3 Manual Slide Review Abnormal smear Sodium (136-145) mEq/L Potassium (3.5-5.1) mEq/L Chloride (98-107) mEq/L Carbon Dioxide (21-32) mEq/L Anion Gap (5-15) BUN (7-18) mg/dL Creatinine (0.55-1.02) mg/dL Est Cr Clr Drug Dosing mL/min Estimated GFR (MDRD) (>60) mL/min BUN/Creatinine Ratio (14-18) Glucose (74-106) mg/dL POC Glucose 181 H 195 H (70-105) mg/dL Calcium (8.5-10.1) mg/dL Magnesium (1.8-2.4) mg/dl C-Reactive Protein (<1.0) mg/dL 08/26/17 08/26/17 08/26/17 Range/Units 05:58 07:07 11:36 WBC (3.98-10.04) K/mm3 RBC (3.98-5.22) M/mm3 Hgb (11.2-15.7) gm/L Hct (34.1-44.9) % MCV (79.4-94.8) fl MCH (25.6-32.2) pg MCHC (32.2-35.5) g/dl RDW Std Deviation (36.4-46.3) fL Plt Count (182-369) K/mm3 MPV (9.4-12.3) fl Neut % (Auto) (34.0-71.1) % Lymph % (Auto) (19.3-51.7) % [place] % (Auto) (4.7-12.5) % Eos % (Auto) (0.7-5.8) Baso % (Auto) (0.1-1.2) % Neut # (Auto) (1.56-6.13) K/mm3 Lymph # (Auto) (1.18-3.74) K/mm3 [place] # (Auto) (0.24-0.36) K/mm3 Eos # (Auto) (0.04-0.36) K/mm3 Baso # (Auto) (0.01-0.08) K/mm3 Manual Slide Review Sodium 140 (136-145) mEq/L Potassium 4.4 (3.5-5.1) mEq/L Chloride 107 (98-107) mEq/L Carbon Dioxide 27 (21-32) mEq/L Anion Gap 10.4 (5-15) BUN 24 H (7-18) mg/dL Creatinine 0.8 (0.55-1.02) mg/dL Est Cr Clr Drug Dosing 55.73 mL/min Estimated GFR (MDRD) > 60 (>60) mL/min BUN/Creatinine Ratio 30.0 H (14-18) Glucose 159 H (74-106) mg/dL POC Glucose 152 H 161 H (70-105) mg/dL Calcium 8.5 (8.5-10.1) mg/dL Magnesium 2.2 (1.8-2.4) mg/dl C-Reactive Protein 1.4 H* (<1.0) mg/dL Med Orders - Current: Current Medications Acetaminophen (Tylenol) 650 mg PO Q4H PRN PRN Reason: Pain (Mild 1-3)/fever Hydrocodone Bitart/Acetaminophen ([place] 325-5 Mg) 1 tab PO Q4H PRN PRN Reason: Pain (moderate 4-6) Albuterol (Proventil Neb Soln) 2.5 mg NEB Q4HRRT PRN PRN Reason: Shortness Of Breath/wheezing Last Admin: 08/26/17 15:38 Dose: 2.5 mg Artificial Tears (Isopto Tears 0.5% Ophth Soln) 0 ml EYEBOTH DAILY [facility] Last Admin: 08/26/17 09:10 Dose: 1 drop Bisacodyl (Dulcolax) 5 mg PO DAILY PRN PRN Reason: Constipation Cholecalciferol (Vitamin D3) 5,000 units PO DAILY [facility] Last Admin: 08/26/17 09:06 Dose: 5,000 units Dextrose/Water (Dextrose 50% In Water) 50 ml IVPUSH ASDIRECTED PRN PRN Reason: hypoglycemia Docusate Sodium (Colace) 100 mg PO BID PRN PRN Reason: Constipation Enoxaparin Sodium (Lovenox) 40 mg SUBCUT DAILY [facility] Last Admin: 08/26/17 09:07 Dose: 40 mg Hydrochlorothiazide (Hydrochlorothiazide) 12.5 mg PO DAILY [facility] Last Admin: 08/26/17 09:10 Dose: 12.5 mg Hydromorphone HCl (Dilaudid) 0.25 mg IVPUSH Q2H PRN PRN Reason: Pain (severe 7-10) Levofloxacin/Dextrose 750 mg/ (Premix) 150 mls @ 100 mls/hr IV Q24H [facility] Sodium Chloride (Normal Saline) 1,000 mls @ 100 mls/hr IV ASDIRECTED [facility] Last Admin: 08/26/17 07:13 Dose: 100 mls/hr Insulin Aspart (Novolog) 0 unit SUBCUT QIDACANDBED [facility] PRN Reason: Protocol Last Admin: 08/26/17 12:00 Dose: 1 unit Latanoprost (Xalatan 0.005% Ophth Soln) 0 ml EYEBOTH DAILY [facility] Last Admin: 08/26/17 09:11 Dose: 1 drop Losartan Potassium (Cozaar) 100 mg PO DAILY [facility] Last Admin: 08/26/17 09:10 Dose: 100 mg Methylprednisolone Sodium Succinate (Solu-Medrol) 80 mg IVPUSH BID [facility] Last Admin: 08/26/17 09:07 Dose: 80 mg Multivitamins (Thera) 1 each PO DAILY [facility] Last Admin: 08/26/17 09:07 Dose: 1 each Nitroglycerin (Nitrostat) 4 mg SL ASDIRECTED PRN PRN Reason: Chest Pain Ondansetron HCl (Zofran Odt) 4 mg PO Q6H PRN PRN Reason: nausea, able to take PO Ondansetron HCl (Zofran) 4 mg IV Q6H PRN PRN Reason: Nausea/Vomiting Polyethylene Glycol (Miralax) 17 gm PO DAILY PRN PRN Reason: Constipation Pyridoxine HCl (Vitamin B6-Pyridoxine) 50 mg PO BID [facility] Last Admin: 08/26/17 09:07 Dose: 50 mg Senna/Docusate Sodium (Senna Plus) 1 tab PO BID PRN PRN Reason: Constipation Simvastatin (Zocor) 40 mg PO DAILY [facility] Last Admin: 08/26/17 09:07 Dose: 40 mg Sodium Chloride (Saline Flush) 10 ml FLUSH ASDIRECTED PRN PRN Reason: Keep Vein Open Last Admin: 08/24/17 16:53 Dose: 10 ml Sodium Chloride ([place] Nasal [place]) 0 ml ANNETTE Q4H PRN PRN Reason: Nasal dryness Last Admin: 08/25/17 05:00 Dose: 1 spray Temazepam (Restoril) 7.5 mg PO BEDTIME PRN PRN Reason: Sleep Discontinued Medications Acetaminophen (Tylenol) 975 mg PO NOW ONE Stop: 08/24/17 16:56 Last Admin: 08/24/17 17:12 Dose: 975 mg Albuterol/Ipratropium (Duoneb 3.0-0.5 Mg/3 Ml) 3 ml NEB ONETIME ONE Stop: 08/24/17 16:41 Last Admin: 08/24/17 16:56 Dose: 3 ml Levofloxacin/Dextrose 750 mg/ (Premix) 150 mls @ 100 mls/hr IV ONETIME ONE Stop: 08/24/17 18:09 Last Admin: 08/24/17 17:03 Dose: 100 mls/hr Sodium Chloride (Normal Saline) 500 mls @ 1,000 mls/hr IV .BOLUS ONE Stop: 08/24/17 17:25 Last Admin: 08/24/17 17:02 Dose: 1,000 mls/hr Sodium Chloride (Normal Saline) 2,350 mls @ 1,000 mls/hr IV ONETIME ONE Stop: 08/24/17 19:41 Last Admin: 08/24/17 20:08 Dose: 1,000 mls/hr Sodium Chloride (Normal Saline) Confirm Administered Dose 1,000 mls @ as directed .ROUTE .STK-MED ONE Stop: 08/24/17 21:32 Last Admin: 08/25/17 01:15 Dose: 850 ml Methylprednisolone Sodium Succinate (Solu-Medrol) 125 mg IVPUSH ONETIME ONE Stop: 08/24/17 16:41 Last Admin: 08/24/17 17:07 Dose: 125 mg Methylprednisolone Sodium Succinate (Solu-Medrol) 85 mg IVPUSH DAILY [facility] Last Admin: 08/25/17 09:24 Dose: 85 mg - Exam Quality Assessment: Supplemental Oxygen, DVT Prophylaxis General: Alert, Oriented, No Acute Distress HEENT: Pupils Equal, Pupils Reactive, EOMI Neck: Trachea Midline Lungs: Normal Respiratory Effort, Decreased Breath Sounds, Wheezing Cardiovascular: Regular Rate GI/Abdominal Exam: Normal Bowel Sounds, Soft, Non-Tender, No Organomegaly, No Distention (Female) Exam: Deferred Back Exam: Normal Inspection Extremities: Normal Inspection Skin: Warm Neurological: No New Focal Deficit, Normal Speech Psy/Mental Status: Alert - Problem List Review Problem List Initiated/Reviewed/Updated: Yes - My Orders Last 24 Hours: My Active Orders 08/25/17 15:15 Evaluate for Home Oxygen [RT Evaluate for Home Oxygen] [RC] Click to Edit 08/26/17 10:21 Consult to Dip Painter [Consult to Diabetic Nurse Specialist] [CONS] Routine - Plan Plan:: I/P: Acute Pneumonia: -Non-productive cough, fever, SOB -EMS found oxygen saturations to be in 70's -Fever of 100.9 in ED - Tylenol given -WBC 13.45 -CRP 6.2 -Levaquin 750mg given in ED - Continue -Of note: She is allergic to PCN and vancomycin -Sputum culture - ordered -RT/IS/Acapella -Duo-Nebs PRN -Humidified O2 and nasal saline for congestion - Titrate O2 as needed, attempt to wean -Solumedrol -Fluids as ordered -Repeat CXR in 48 hours -Stanley martinez, scheduled Sepsis -HR>90, tachypneic, hypotension, fever of 100.9, renal injury -Likely due to pneumonia -Lactic acid 1.8 -2350 fluid bolus given in ED -Blood cultures - pending -Fluids as ordered -Treatment as above Acute renal injury -Unsure of baseline -Bun 27, creatinine 1.3, eGFR 42 -Avoid nephrotoxic medications -Pharmacy to renally dose meds -Fluids -Continue to monitor Chronic: Hx/o Arrhythmias - SVT and PVCs HLD HTN - stable Sleep apnea Stress incontinence Scoliosis Mental retardation Personality disorder SAD Type II DM - Insulin per protocol, Glucose checks QIDAC and bedtime Anemia - stable Plan: CM for discharge planning PT/OT Routine AM Labs Other orders as indicated above Home medications as ordered DVT/PE prophylaxis: Lovenox and ambulation Code status: Full Code, PCP is Dr. Ty at [facility] here in [place].
[2017-08-26] MEDS: Levofloxacin/Dextrose 5%-Water 750 MG in Premix Bag 1 BAG IV SCH (17:25)
[2017-08-26] MEDS ORDERED: guaiFENesin/Dextromethorphan 100-10 MG/5 ML Soln 5 ML Cup PO PRN (19:19)
[2017-08-26] MEDS: Benzonatate 100 MG Cap PO SCH (21:36)
[2017-08-27] MEDS: Sodium Chloride 0.9% 1,000 ML IV SCH (05:11)
[2017-08-27] MEDS: Insulin Aspart 100 Units/ML 3 ML Pen SUBCUT SCH ×4 (06:26→21:44)
[2017-08-27] MEDS: Hydrochlorothiazide 12.5 MG Cap PO SCH (09:41)
[2017-08-27] MEDS: Losartan 100 MG Tab PO SCH (09:42)
[2017-08-27] MEDS: Cholecalciferol (Vitamin D3) 1,000 Unit Tab PO SCH (09:43)
[2017-08-27] MEDS: Simvastatin 40 MG Tab PO SCH (09:46)
[2017-08-27] MEDS: Benzonatate 100 MG Cap PO SCH ×3 (09:46→21:44)
[2017-08-27] MEDS: Vitamin B6-pyridOXINE 50 MG Tab PO SCH ×2 (09:48→21:43)
[2017-08-27] MEDS: Multivitamins,Therapeutic Tab PO SCH (09:49)
[2017-08-27] MEDS: methylPREDNISolone Sodium Succinate 125 MG/2 ML SDV IVPUSH SCH ×2 (09:50→18:30)
[2017-08-27] MEDS: Latanoprost 0.005% Ophth Soln 2.5 ML Bottle EYEBOTH SCH (09:54)
[2017-08-27] MEDS: Hypromellose 0.5% Ophth Soln 15 ML Bottle EYEBOTH SCH (09:56)
[2017-08-27] MEDS: Enoxaparin 40 MG/0.4 ML Syringe SUBCUT SCH (09:59)
[2017-08-27] MEDS ORDERED: Codeine/guaiFENesin 100-10 MG/5 ML Syrup 5 ML Cup PO PRN (10:40)
[2017-08-27] MEDS: Albuterol 0.083% 2.5 MG/3 ML Neb Soln NEB PRN (14:51)
[2017-08-27] MEDS: Levofloxacin/Dextrose 5%-Water 750 MG in Premix Bag 1 BAG IV SCH (17:35)
--- NOTE | 2017-08-27 17:45 | PCM.PN ---
- General Info Date of Service: 08/27/17 Subjective Update: Feels better, but cough and SOB remain a problem. Functional Status: Reports: Tolerating Diet - Review of Systems General: Reports: Weakness, Malaise HEENT: Reports: No Symptoms Pulmonary: Reports: Shortness of Breath Cardiovascular: Reports: No Symptoms Gastrointestinal: Reports: No Symptoms Genitourinary: Reports: No Symptoms Musculoskeletal: Reports: No Symptoms Skin: Reports: No Symptoms Neurological: Reports: No Symptoms Psychiatric: Reports: No Symptoms - Patient Data Vitals - Most Recent: Last Vital Signs Temp 36.8 C 08/27/17 16:35 Pulse 89 08/27/17 17:00 Resp 24 H 08/27/17 16:35 BP 106/68 08/27/17 16:35 Pulse Ox 93 L 08/27/17 17:00 Weight - Most Recent: 98.883 kg I&O - Last 24 Hours: Intake & Output 08/27/17 08/27/17 08/27/17 06:59 14:59 22:59 Intake Total 2300 180 Output Total 850 Balance 1450 180 Lab Results Last 24 Hours: Laboratory Results - last 24 hr 08/26/17 08/27/17 08/27/17 Range/Units 22:33 06:18 07:31 WBC 16.60 H (3.98-10.04) K/mm3 RBC 4.38 (3.98-5.22) M/mm3 Hgb 12.7 (11.2-15.7) gm/L Hct 41.2 (34.1-44.9) % MCV 94.1 (79.4-94.8) fl MCH 29.0 (25.6-32.2) pg MCHC 30.8 L (32.2-35.5) g/dl RDW Std Deviation 46.2 (36.4-46.3) fL Plt Count 246 (182-369) K/mm3 MPV 9.7 (9.4-12.3) fl Neut % (Auto) 87.2 H (34.0-71.1) % Lymph % (Auto) 5.2 L (19.3-51.7) % [place] % (Auto) 6.9 (4.7-12.5) % Eos % (Auto) 0 L (0.7-5.8) Baso % (Auto) 0.1 (0.1-1.2) % Neut # (Auto) 14.47 H (1.56-6.13) K/mm3 Lymph # (Auto) 0.87 L (1.18-3.74) K/mm3 [place] # (Auto) 1.15 H (0.24-0.36) K/mm3 Eos # (Auto) 0.00 L (0.04-0.36) K/mm3 Baso # (Auto) 0.01 (0.01-0.08) K/mm3 Manual Slide Review Abnormal smear Sodium (136-145) mEq/L Potassium (3.5-5.1) mEq/L Chloride (98-107) mEq/L Carbon Dioxide (21-32) mEq/L Anion Gap (5-15) BUN (7-18) mg/dL Creatinine (0.55-1.02) mg/dL Est Cr Clr Drug Dosing mL/min Estimated GFR (MDRD) (>60) mL/min BUN/Creatinine Ratio (14-18) Glucose (74-106) mg/dL POC Glucose 115 H 129 H (70-105) mg/dL Calcium (8.5-10.1) mg/dL Magnesium (1.8-2.4) mg/dl C-Reactive Protein (<1.0) mg/dL Mycoplasma pneumon IgM (NEGATIVE) 08/27/17 08/27/17 08/27/17 Range/Units 07:31 07:31 11:50 WBC (3.98-10.04) K/mm3 RBC (3.98-5.22) M/mm3 Hgb (11.2-15.7) gm/L Hct (34.1-44.9) % MCV (79.4-94.8) fl MCH (25.6-32.2) pg MCHC (32.2-35.5) g/dl RDW Std Deviation (36.4-46.3) fL Plt Count (182-369) K/mm3 MPV (9.4-12.3) fl Neut % (Auto) (34.0-71.1) % Lymph % (Auto) (19.3-51.7) % [place] % (Auto) (4.7-12.5) % Eos % (Auto) (0.7-5.8) Baso % (Auto) (0.1-1.2) % Neut # (Auto) (1.56-6.13) K/mm3 Lymph # (Auto) (1.18-3.74) K/mm3 [place] # (Auto) (0.24-0.36) K/mm3 Eos # (Auto) (0.04-0.36) K/mm3 Baso # (Auto) (0.01-0.08) K/mm3 Manual Slide Review Sodium 142 (136-145) mEq/L Potassium 4.6 (3.5-5.1) mEq/L Chloride 106 (98-107) mEq/L Carbon Dioxide 30 (21-32) mEq/L Anion Gap 10.6 (5-15) BUN 21 H (7-18) mg/dL Creatinine 0.9 (0.55-1.02) mg/dL Est Cr Clr Drug Dosing 49.54 mL/min Estimated GFR (MDRD) > 60 (>60) mL/min BUN/Creatinine Ratio 23.3 H (14-18) Glucose 128 H (74-106) mg/dL POC Glucose 119 H (70-105) mg/dL Calcium 8.6 (8.5-10.1) mg/dL Magnesium 2.1 (1.8-2.4) mg/dl C-Reactive Protein 0.6 (<1.0) mg/dL Mycoplasma pneumon IgM Negative (NEGATIVE) Med Orders - Current: Current Medications Acetaminophen (Tylenol) 650 mg PO Q4H PRN PRN Reason: Pain (Mild 1-3)/fever Hydrocodone Bitart/Acetaminophen ([place] 325-5 Mg) 1 tab PO Q4H PRN PRN Reason: Pain (moderate 4-6) Albuterol (Proventil Neb Soln) 2.5 mg NEB Q4HRRT PRN PRN Reason: Shortness Of Breath/wheezing Last Admin: 08/27/17 14:51 Dose: 2.5 mg Albuterol/Ipratropium (Duoneb 3.0-0.5 Mg/3 Ml) 3 ml NEB QID CANDIE Artificial Tears (Isopto Tears 0.5% Ophth Soln) 0 ml EYEBOTH DAILY [facility] Last Admin: 08/27/17 09:56 Dose: 1 drop Benzonatate (Tessalon Perles) 200 mg PO TID [facility] Last Admin: 08/27/17 15:20 Dose: 200 mg Bisacodyl (Dulcolax) 5 mg PO DAILY PRN PRN Reason: Constipation Cholecalciferol (Vitamin D3) 5,000 units PO DAILY [facility] Last Admin: 08/27/17 09:43 Dose: 5,000 units Dextrose/Water (Dextrose 50% In Water) 50 ml IVPUSH ASDIRECTED PRN PRN Reason: hypoglycemia Docusate Sodium (Colace) 100 mg PO BID PRN PRN Reason: Constipation Enoxaparin Sodium (Lovenox) 40 mg SUBCUT DAILY [facility] Last Admin: 08/27/17 09:59 Dose: 40 mg Guaifenesin/Codeine Phosphate (Robitussin Ac) 10 ml PO Q4H PRN PRN Reason: Cough Last Admin: 08/27/17 17:40 Dose: 10 ml Hydrochlorothiazide (Hydrochlorothiazide) 12.5 mg PO DAILY [facility] Last Admin: 08/27/17 09:41 Dose: 12.5 mg Hydromorphone HCl (Dilaudid) 0.25 mg IVPUSH Q2H PRN PRN Reason: Pain (severe 7-10) Levofloxacin/Dextrose 750 mg/ (Premix) 150 mls @ 100 mls/hr IV Q24H [facility] Stop: 08/27/17 20:00 Last Admin: 08/27/17 17:35 Dose: 100 mls/hr Insulin Aspart (Novolog) 0 unit SUBCUT QIDACANDBED [facility] PRN Reason: Protocol Last Admin: 08/27/17 14:21 Dose: Not Given Latanoprost (Xalatan 0.005% Ophth Soln) 0 ml EYEBOTH DAILY [facility] Last Admin: 08/27/17 09:54 Dose: 1 drop Levofloxacin (Levaquin) 500 mg PO Q24H [facility] Losartan Potassium (Cozaar) 100 mg PO DAILY [facility] Last Admin: 08/27/17 09:42 Dose: 100 mg Methylprednisolone Sodium Succinate (Solu-Medrol) 125 mg IVPUSH Q8H [facility] Multivitamins (Thera) 1 each PO DAILY [facility] Last Admin: 08/27/17 09:49 Dose: 1 each Nitroglycerin (Nitrostat) 4 mg SL ASDIRECTED PRN PRN Reason: Chest Pain Ondansetron HCl (Zofran Odt) 4 mg PO Q6H PRN PRN Reason: nausea, able to take PO Ondansetron HCl (Zofran) 4 mg IV Q6H PRN PRN Reason: Nausea/Vomiting Polyethylene Glycol (Miralax) 17 gm PO DAILY PRN PRN Reason: Constipation Pyridoxine HCl (Vitamin B6-Pyridoxine) 50 mg PO BID [facility] Last Admin: 08/27/17 09:48 Dose: 50 mg Senna/Docusate Sodium (Senna Plus) 1 tab PO BID PRN PRN Reason: Constipation Simvastatin (Zocor) 40 mg PO DAILY [facility] Last Admin: 08/27/17 09:46 Dose: 40 mg Sodium Chloride (Saline Flush) 10 ml FLUSH ASDIRECTED PRN PRN Reason: Keep Vein Open Last Admin: 08/24/17 16:53 Dose: 10 ml Sodium Chloride ([place] Nasal [place]) 0 ml ANNETTE Q4H PRN PRN Reason: Nasal dryness Last Admin: 08/25/17 05:00 Dose: 1 spray Temazepam (Restoril) 7.5 mg PO BEDTIME PRN PRN Reason: Sleep Discontinued Medications Acetaminophen (Tylenol) 975 mg PO NOW ONE Stop: 08/24/17 16:56 Last Admin: 08/24/17 17:12 Dose: 975 mg Albuterol/Ipratropium (Duoneb 3.0-0.5 Mg/3 Ml) 3 ml NEB ONETIME ONE Stop: 08/24/17 16:41 Last Admin: 08/24/17 16:56 Dose: 3 ml Guaifenesin/Phenylephrine HCl (Robitussin Dm) 10 ml PO Q4H PRN PRN Reason: Cough Levofloxacin/Dextrose 750 mg/ (Premix) 150 mls @ 100 mls/hr IV ONETIME ONE Stop: 08/24/17 18:09 Last Admin: 08/24/17 17:03 Dose: 100 mls/hr Sodium Chloride (Normal Saline) 500 mls @ 1,000 mls/hr IV .BOLUS ONE Stop: 08/24/17 17:25 Last Admin: 08/24/17 17:02 Dose: 1,000 mls/hr Sodium Chloride (Normal Saline) 2,350 mls @ 1,000 mls/hr IV ONETIME ONE Stop: 08/24/17 19:41 Last Admin: 08/24/17 20:08 Dose: 1,000 mls/hr Sodium Chloride (Normal Saline) Confirm Administered Dose 1,000 mls @ as directed .ROUTE .STK-MED ONE Stop: 08/24/17 21:32 Last Admin: 08/25/17 01:15 Dose: 850 ml Sodium Chloride (Normal Saline) 1,000 mls @ 100 mls/hr IV ASDIRECTED [facility] Last Admin: 08/27/17 05:11 Dose: 100 mls/hr Methylprednisolone Sodium Succinate (Solu-Medrol) 125 mg IVPUSH ONETIME ONE Stop: 08/24/17 16:41 Last Admin: 08/24/17 17:07 Dose: 125 mg Methylprednisolone Sodium Succinate (Solu-Medrol) 85 mg IVPUSH DAILY [facility] Last Admin: 08/25/17 09:24 Dose: 85 mg Methylprednisolone Sodium Succinate (Solu-Medrol) 80 mg IVPUSH BID [facility] Last Admin: 08/27/17 09:50 Dose: 80 mg - Exam Quality Assessment: Supplemental Oxygen, DVT Prophylaxis General: Alert, Oriented, Cooperative, No Acute Distress HEENT: Pupils Equal, Pupils Reactive Neck: Trachea Midline, No JVD Lungs: Decreased Breath Sounds, Wheezing Cardiovascular: Regular Rate, Regular Rhythm GI/Abdominal Exam: Normal Bowel Sounds, Soft, Non-Tender, No Organomegaly, No Distention (Female) Exam: Deferred Back Exam: Normal Inspection Extremities: Normal Inspection Skin: Warm Neurological: No New Focal Deficit, Normal Speech Psy/Mental Status: Alert - Problem List Review Problem List Initiated/Reviewed/Updated: Yes - My Orders Last 24 Hours: My Active Orders 08/26/17 18:45 STREP PNEUMONIAE ANTIGEN [MREF] Routine 08/26/17 21:00 Benzonatate [Tessalon Perles] 200 mg PO TID 08/27/17 10:40 Codeine/guaiFENesin [Robitussin AC] 10 ml PO Q4H PRN 08/27/17 17:37 RT Aerosol Therapy [RC] ASDIRECTED 08/27/17 17:45 methylPREDNISolone Sod Succ [Solu-MEDROL] 125 mg IVPUSH Q8H 08/27/17 18:00 Albuterol/Ipratropium [DuoNeb 3.0-0.5 MG/3 ML] 3 ml NEB QID 08/28/17 17:00 Levofloxacin [Levaquin] 500 mg PO Q24H - Plan Plan:: I/P: Acute Pneumonia: -Non-productive cough, fever, SOB -EMS found oxygen saturations to be in 70's -Fever of 100.9 in ED - Tylenol given -WBC 13.45 -CRP 6.2 -Levaquin 750mg given in ED - Continue -Of note: She is allergic to PCN and vancomycin -Sputum culture - ordered -RT/IS/Acapella -Duo-Nebs PRN -Humidified O2 and nasal saline for congestion - Titrate O2 as needed, attempt to wean -Solumedrol-->increase -Nebs scheduled and prn; pulmonary toilet -Fluids as ordered -Repeat CXR in 48 hours -Stanley martinez, scheduled Sepsis -HR>90, tachypneic, hypotension, fever of 100.9, renal injury -Likely due to pneumonia -Lactic acid 1.8 -2350 fluid bolus given in ED -Blood cultures - pending -Fluids as ordered -Treatment as above Acute renal injury -Unsure of baseline -Bun 27, creatinine 1.3, eGFR 42 -Avoid nephrotoxic medications -Pharmacy to renally dose meds -Fluids -Continue to monitor Chronic: Hx/o Arrhythmias - SVT and PVCs HLD HTN - stable Sleep apnea Stress incontinence Scoliosis Mental retardation Personality disorder SAD Type II DM - Insulin per protocol, Glucose checks QIDAC and bedtime Anemia - stable Plan: CM for discharge planning PT/OT Routine AM Labs Other orders as indicated above Home medications as ordered DVT/PE prophylaxis: Lovenox and ambulation Code status: Full Code, PCP is Dr. Ty at [facility] here in [place].
[2017-08-27] MEDS: Albuterol/Ipratropium 3.0-0.5 MG/3 ML Neb Soln NEB SCH ×2 (18:08→21:53)
[2017-08-28] MEDS: methylPREDNISolone Sodium Succinate 125 MG/2 ML SDV IVPUSH SCH ×3 (01:26→16:51)
[2017-08-28] MEDS: Albuterol/Ipratropium 3.0-0.5 MG/3 ML Neb Soln NEB SCH ×4 (06:40→21:51)
[2017-08-28] MEDS: Multivitamins,Therapeutic Tab PO SCH (08:57)
[2017-08-28] MEDS: Cholecalciferol (Vitamin D3) 1,000 Unit Tab PO SCH (08:57)
[2017-08-28] MEDS: Losartan 100 MG Tab PO SCH (08:57)
[2017-08-28] MEDS: Latanoprost 0.005% Ophth Soln 2.5 ML Bottle EYEBOTH SCH (08:58)
[2017-08-28] MEDS: Vitamin B6-pyridOXINE 50 MG Tab PO SCH ×2 (08:58→20:48)
[2017-08-28] MEDS: Hypromellose 0.5% Ophth Soln 15 ML Bottle EYEBOTH SCH (08:58)
[2017-08-28] MEDS: Hydrochlorothiazide 12.5 MG Cap PO SCH (08:58)
[2017-08-28] MEDS: Simvastatin 40 MG Tab PO SCH (08:58)
[2017-08-28] MEDS: Benzonatate 100 MG Cap PO SCH ×3 (08:58→20:47)
[2017-08-28] MEDS: Enoxaparin 40 MG/0.4 ML Syringe SUBCUT SCH (08:58)
[2017-08-28] MEDS: Insulin Aspart 100 Units/ML 3 ML Pen SUBCUT SCH ×4 (08:59→21:03)
--- NOTE | 2017-08-28 16:52 | PCM.PN ---
- General Info Date of Service: 08/28/17 Functional Status: Reports: Tolerating Diet, Urinating - Review of Systems General: Reports: Weakness HEENT: Reports: No Symptoms Pulmonary: Reports: Shortness of Breath Cardiovascular: Reports: No Symptoms Gastrointestinal: Reports: No Symptoms Genitourinary: Reports: No Symptoms Musculoskeletal: Reports: No Symptoms Skin: Reports: No Symptoms Neurological: Reports: No Symptoms Psychiatric: Reports: No Symptoms - Patient Data Vitals - Most Recent: Last Vital Signs Temp 36.7 C 08/28/17 12:03 Pulse 96 08/28/17 12:03 Resp 18 08/28/17 12:03 BP 122/76 08/28/17 12:03 Pulse Ox 94 L 08/28/17 15:19 Weight - Most Recent: 98.339 kg I&O - Last 24 Hours: Intake & Output 08/28/17 08/28/17 08/28/17 06:59 14:59 22:59 Intake Total 580 240 200 Output Total 575 475 Balance 5 240 -275 Lab Results Last 24 Hours: Laboratory Results - last 24 hr 08/27/17 08/27/17 08/28/17 Range/Units 17:25 20:53 06:24 WBC (3.98-10.04) K/mm3 RBC (3.98-5.22) M/mm3 Hgb (11.2-15.7) gm/L Hct (34.1-44.9) % MCV (79.4-94.8) fl MCH (25.6-32.2) pg MCHC (32.2-35.5) g/dl RDW Std Deviation (36.4-46.3) fL Plt Count (182-369) K/mm3 MPV (9.4-12.3) fl Neut % (Auto) (34.0-71.1) % Lymph % (Auto) (19.3-51.7) % [place] % (Auto) (4.7-12.5) % Eos % (Auto) (0.7-5.8) Baso % (Auto) (0.1-1.2) % Neut # (Auto) (1.56-6.13) K/mm3 Lymph # (Auto) (1.18-3.74) K/mm3 [place] # (Auto) (0.24-0.36) K/mm3 Eos # (Auto) (0.04-0.36) K/mm3 Baso # (Auto) (0.01-0.08) K/mm3 Manual Slide Review Sodium (136-145) mEq/L Potassium (3.5-5.1) mEq/L Chloride (98-107) mEq/L Carbon Dioxide (21-32) mEq/L Anion Gap (5-15) BUN (7-18) mg/dL Creatinine (0.55-1.02) mg/dL Est Cr Clr Drug Dosing mL/min Estimated GFR (MDRD) (>60) mL/min BUN/Creatinine Ratio (14-18) Glucose (74-106) mg/dL POC Glucose 156 H 186 H 176 H (70-105) mg/dL Calcium (8.5-10.1) mg/dL Magnesium (1.8-2.4) mg/dl C-Reactive Protein (<1.0) mg/dL 08/28/17 08/28/17 08/28/17 Range/Units 06:25 06:25 11:11 WBC 12.51 H (3.98-10.04) K/mm3 RBC 4.20 (3.98-5.22) M/mm3 Hgb 12.2 (11.2-15.7) gm/L Hct 39.5 (34.1-44.9) % MCV 94.0 (79.4-94.8) fl MCH 29.0 (25.6-32.2) pg MCHC 30.9 L (32.2-35.5) g/dl RDW Std Deviation 46.1 (36.4-46.3) fL Plt Count 247 (182-369) K/mm3 MPV 9.5 (9.4-12.3) fl Neut % (Auto) 89.7 H (34.0-71.1) % Lymph % (Auto) 4.7 L (19.3-51.7) % [place] % (Auto) 5.0 (4.7-12.5) % Eos % (Auto) 0 L (0.7-5.8) Baso % (Auto) 0.1 (0.1-1.2) % Neut # (Auto) 11.23 H (1.56-6.13) K/mm3 Lymph # (Auto) 0.59 L (1.18-3.74) K/mm3 [place] # (Auto) 0.62 H (0.24-0.36) K/mm3 Eos # (Auto) 0.00 L (0.04-0.36) K/mm3 Baso # (Auto) 0.01 (0.01-0.08) K/mm3 Manual Slide Review Abnormal smear Sodium 143 (136-145) mEq/L Potassium 4.4 (3.5-5.1) mEq/L Chloride 105 (98-107) mEq/L Carbon Dioxide 32 (21-32) mEq/L Anion Gap 10.4 (5-15) BUN 23 H (7-18) mg/dL Creatinine 0.9 (0.55-1.02) mg/dL Est Cr Clr Drug Dosing 49.54 mL/min Estimated GFR (MDRD) > 60 (>60) mL/min BUN/Creatinine Ratio 25.6 H (14-18) Glucose 167 H (74-106) mg/dL POC Glucose 185 H (70-105) mg/dL Calcium 9.0 (8.5-10.1) mg/dL Magnesium 2.3 (1.8-2.4) mg/dl C-Reactive Protein < 0.2 (<1.0) mg/dL 08/28/17 Range/Units 16:22 WBC (3.98-10.04) K/mm3 RBC (3.98-5.22) M/mm3 Hgb (11.2-15.7) gm/L Hct (34.1-44.9) % MCV (79.4-94.8) fl MCH (25.6-32.2) pg MCHC (32.2-35.5) g/dl RDW Std Deviation (36.4-46.3) fL Plt Count (182-369) K/mm3 MPV (9.4-12.3) fl Neut % (Auto) (34.0-71.1) % Lymph % (Auto) (19.3-51.7) % [place] % (Auto) (4.7-12.5) % Eos % (Auto) (0.7-5.8) Baso % (Auto) (0.1-1.2) % Neut # (Auto) (1.56-6.13) K/mm3 Lymph # (Auto) (1.18-3.74) K/mm3 [place] # (Auto) (0.24-0.36) K/mm3 Eos # (Auto) (0.04-0.36) K/mm3 Baso # (Auto) (0.01-0.08) K/mm3 Manual Slide Review Sodium (136-145) mEq/L Potassium (3.5-5.1) mEq/L Chloride (98-107) mEq/L Carbon Dioxide (21-32) mEq/L Anion Gap (5-15) BUN (7-18) mg/dL Creatinine (0.55-1.02) mg/dL Est Cr Clr Drug Dosing mL/min Estimated GFR (MDRD) (>60) mL/min BUN/Creatinine Ratio (14-18) Glucose (74-106) mg/dL POC Glucose 148 H (70-105) mg/dL Calcium (8.5-10.1) mg/dL Magnesium (1.8-2.4) mg/dl C-Reactive Protein (<1.0) mg/dL Ge Results Last 24 Hours: Microbiology 08/26/17 18:45 Streptococcus pneumoniae Antigen (M - Final Urine - Bladder Med Orders - Current: Current Medications Acetaminophen (Tylenol) 650 mg PO Q4H PRN PRN Reason: Pain (Mild 1-3)/fever Hydrocodone Bitart/Acetaminophen ([place] 325-5 Mg) 1 tab PO Q4H PRN PRN Reason: Pain (moderate 4-6) Albuterol (Proventil Neb Soln) 2.5 mg NEB Q4HRRT PRN PRN Reason: Shortness Of Breath/wheezing Last Admin: 08/27/17 14:51 Dose: 2.5 mg Albuterol/Ipratropium (Duoneb 3.0-0.5 Mg/3 Ml) 3 ml NEB QIDRT [facility] Last Admin: 08/28/17 15:19 Dose: 3 ml Artificial Tears (Isopto Tears 0.5% Ophth Soln) 0 ml EYEBOTH DAILY [facility] Last Admin: 08/28/17 08:58 Dose: 1 drop Benzonatate (Tessalon Perles) 200 mg PO TID [facility] Last Admin: 08/28/17 16:36 Dose: 200 mg Bisacodyl (Dulcolax) 5 mg PO DAILY PRN PRN Reason: Constipation Cholecalciferol (Vitamin D3) 5,000 units PO DAILY [facility] Last Admin: 08/28/17 08:57 Dose: 5,000 units Dextrose/Water (Dextrose 50% In Water) 50 ml IVPUSH ASDIRECTED PRN PRN Reason: hypoglycemia Docusate Sodium (Colace) 100 mg PO BID PRN PRN Reason: Constipation Enoxaparin Sodium (Lovenox) 40 mg SUBCUT DAILY [facility] Last Admin: 08/28/17 08:58 Dose: 40 mg Guaifenesin/Codeine Phosphate (Robitussin Ac) 10 ml PO Q4H PRN PRN Reason: Cough Last Admin: 08/27/17 17:40 Dose: 10 ml Hydrochlorothiazide (Hydrochlorothiazide) 12.5 mg PO DAILY [facility] Last Admin: 08/28/17 08:58 Dose: 12.5 mg Hydromorphone HCl (Dilaudid) 0.25 mg IVPUSH Q2H PRN PRN Reason: Pain (severe 7-10) Insulin Aspart (Novolog) 0 unit SUBCUT QIDACANDBED [facility] PRN Reason: Protocol Last Admin: 08/28/17 16:36 Dose: Not Given Latanoprost (Xalatan 0.005% Ophth Soln) 0 ml EYEBOTH DAILY [facility] Last Admin: 08/28/17 08:58 Dose: 1 drop Levofloxacin (Levaquin) 500 mg PO Q24H [facility] Last Admin: 08/28/17 16:36 Dose: 500 mg Losartan Potassium (Cozaar) 100 mg PO DAILY [facility] Last Admin: 08/28/17 08:57 Dose: 100 mg Methylprednisolone Sodium Succinate (Solu-Medrol) 125 mg IVPUSH Q8H [facility] Last Admin: 08/28/17 08:59 Dose: 125 mg Multivitamins (Thera) 1 each PO DAILY [facility] Last Admin: 08/28/17 08:57 Dose: 1 each Nitroglycerin (Nitrostat) 4 mg SL ASDIRECTED PRN PRN Reason: Chest Pain Ondansetron HCl (Zofran Odt) 4 mg PO Q6H PRN PRN Reason: nausea, able to take PO Ondansetron HCl (Zofran) 4 mg IV Q6H PRN PRN Reason: Nausea/Vomiting Polyethylene Glycol (Miralax) 17 gm PO DAILY PRN PRN Reason: Constipation Pyridoxine HCl (Vitamin B6-Pyridoxine) 50 mg PO BID [facility] Last Admin: 08/28/17 08:58 Dose: 50 mg Senna/Docusate Sodium (Senna Plus) 1 tab PO BID PRN PRN Reason: Constipation Simvastatin (Zocor) 40 mg PO DAILY [facility] Last Admin: 08/28/17 08:58 Dose: 40 mg Sodium Chloride (Saline Flush) 10 ml FLUSH ASDIRECTED PRN PRN Reason: Keep Vein Open Last Admin: 08/24/17 16:53 Dose: 10 ml Sodium Chloride ([place] Nasal [place]) 0 ml ANNETTE Q4H PRN PRN Reason: Nasal dryness Last Admin: 08/25/17 05:00 Dose: 1 spray Temazepam (Restoril) 7.5 mg PO BEDTIME PRN PRN Reason: Sleep Discontinued Medications Acetaminophen (Tylenol) 975 mg PO NOW ONE Stop: 08/24/17 16:56 Last Admin: 08/24/17 17:12 Dose: 975 mg Albuterol/Ipratropium (Duoneb 3.0-0.5 Mg/3 Ml) 3 ml NEB ONETIME ONE Stop: 08/24/17 16:41 Last Admin: 08/24/17 16:56 Dose: 3 ml Albuterol/Ipratropium (Duoneb 3.0-0.5 Mg/3 Ml) 3 ml NEB QID [facility] Last Admin: 08/27/17 21:53 Dose: 3 ml Guaifenesin/Phenylephrine HCl (Robitussin Dm) 10 ml PO Q4H PRN PRN Reason: Cough Levofloxacin/Dextrose 750 mg/ (Premix) 150 mls @ 100 mls/hr IV ONETIME ONE Stop: 08/24/17 18:09 Last Admin: 08/24/17 17:03 Dose: 100 mls/hr Sodium Chloride (Normal Saline) 500 mls @ 1,000 mls/hr IV .BOLUS ONE Stop: 08/24/17 17:25 Last Admin: 08/24/17 17:02 Dose: 1,000 mls/hr Sodium Chloride (Normal Saline) 2,350 mls @ 1,000 mls/hr IV ONETIME ONE Stop: 08/24/17 19:41 Last Admin: 08/24/17 20:08 Dose: 1,000 mls/hr Sodium Chloride (Normal Saline) Confirm Administered Dose 1,000 mls @ as directed .ROUTE .STK-MED ONE Stop: 08/24/17 21:32 Last Admin: 08/25/17 01:15 Dose: 850 ml Levofloxacin/Dextrose 750 mg/ (Premix) 150 mls @ 100 mls/hr IV Q24H [facility] Stop: 08/27/17 20:00 Last Admin: 08/27/17 17:35 Dose: 100 mls/hr Sodium Chloride (Normal Saline) 1,000 mls @ 100 mls/hr IV ASDIRECTED [facility] Last Admin: 08/27/17 05:11 Dose: 100 mls/hr Methylprednisolone Sodium Succinate (Solu-Medrol) 125 mg IVPUSH ONETIME ONE Stop: 08/24/17 16:41 Last Admin: 08/24/17 17:07 Dose: 125 mg Methylprednisolone Sodium Succinate (Solu-Medrol) 85 mg IVPUSH DAILY [facility] Last Admin: 08/25/17 09:24 Dose: 85 mg Methylprednisolone Sodium Succinate (Solu-Medrol) 80 mg IVPUSH BID [facility] Last Admin: 08/27/17 09:50 Dose: 80 mg - Exam Quality Assessment: Supplemental Oxygen, DVT Prophylaxis General: Alert, Oriented, Cooperative, No Acute Distress HEENT: Pupils Equal, Pupils Reactive, EOMI Neck: Supple, Trachea Midline Lungs: Normal Respiratory Effort, Decreased Breath Sounds Cardiovascular: Regular Rate, Regular Rhythm GI/Abdominal Exam: Normal Bowel Sounds, Soft, Non-Tender, No Organomegaly, No Distention (Female) Exam: Deferred Back Exam: Normal Inspection Extremities: Normal Inspection Skin: Warm Neurological: No New Focal Deficit Psy/Mental Status: Alert - Problem List Review Problem List Initiated/Reviewed/Updated: Yes - My Orders Last 24 Hours: My Active Orders 08/27/17 17:37 RT Aerosol Therapy [RC] ASDIRECTED 08/27/17 17:45 methylPREDNISolone Sod Succ [Solu-MEDROL] 125 mg IVPUSH Q8H 08/28/17 06:00 Albuterol/Ipratropium [DuoNeb 3.0-0.5 MG/3 ML] 3 ml NEB QIDRT 08/28/17 17:00 Levofloxacin [Levaquin] 500 mg PO Q24H - Plan Plan:: I/P: Acute Pneumonia: -Non-productive cough, fever, SOB -EMS found oxygen saturations to be in 70's -Fever of 100.9 in ED - Tylenol given -WBC 13.45 -CRP 6.2 -Levaquin 750mg given in ED - Continue -Of note: She is allergic to PCN and vancomycin -Sputum culture - ordered -RT/IS/Acapella -Duo-Nebs PRN -Humidified O2 and nasal saline for congestion - Titrate O2 as needed, attempt to wean -Solumedrol-->increase with decreased wheezing -Nebs scheduled and prn; pulmonary toilet -Fluids as ordered -Repeat CXR in 48 hours -Stanley martinez, scheduled Sepsis -HR>90, tachypneic, hypotension, fever of 100.9, renal injury -Likely due to pneumonia -Lactic acid 1.8 -2350 fluid bolus given in ED -Blood cultures -Fluids as ordered -Treatment as above Acute renal injury -Unsure of baseline -Bun 27, creatinine 1.3, eGFR 42 -Avoid nephrotoxic medications -Pharmacy to renally dose meds -Fluids -Continue to monitor Chronic: Hx/o Arrhythmias - SVT and PVCs HLD HTN - stable Sleep apnea Stress incontinence Scoliosis Mental retardation Personality disorder SAD Type II DM - Insulin per protocol, Glucose checks QIDAC and bedtime Anemia - stable Plan: CM for discharge planning PT/OT Routine AM Labs Other orders as indicated above Home medications as ordered DVT/PE prophylaxis: Lovenox and ambulation Code status: Full Code, PCP is Dr. Ty at [facility] here in [place]. LOS>96 hours with slow response to antibiotics
[2017-08-28] MEDS ORDERED: Levofloxacin 500 MG Tab PO SCH (17:00)
[2017-08-29] MEDS ORDERED: Pneumococcal Polyvalent-23 Vaccine 0.5 ML SDV IM ONE (00:14)
[2017-08-29] MEDS ORDERED: FLU Vacc QS 2017-18 (6mos UP)/PF 60 MCG/0.5 ML Syringe IM ONE (01:00)
[2017-08-29] MEDS: methylPREDNISolone Sodium Succinate 125 MG/2 ML SDV IVPUSH SCH ×3 (01:39→18:16)
[2017-08-29] MEDS ORDERED: methylPREDNISolone Sodium Succinate 125 MG/2 ML SDV IVPUSH SCH (02:00)
[2017-08-29] MEDS: Acetaminophen/HYDROcodone 325-5 MG Tab PO PRN ×2 (05:33→17:08)
[2017-08-29] MEDS: Albuterol/Ipratropium 3.0-0.5 MG/3 ML Neb Soln NEB SCH ×4 (06:17→21:36)
[2017-08-29] MEDS: Insulin Aspart 100 Units/ML 3 ML Pen SUBCUT SCH ×4 (08:18→21:07)
[2017-08-29] MEDS: Cholecalciferol (Vitamin D3) 1,000 Unit Tab PO SCH (09:21)
[2017-08-29] MEDS: Vitamin B6-pyridOXINE 50 MG Tab PO SCH ×2 (09:24→21:06)
[2017-08-29] MEDS: Simvastatin 40 MG Tab PO SCH (09:24)
[2017-08-29] MEDS: Multivitamins,Therapeutic Tab PO SCH (09:24)
[2017-08-29] MEDS: Benzonatate 100 MG Cap PO SCH ×3 (09:24→21:06)
[2017-08-29] MEDS: Losartan 100 MG Tab PO SCH (09:25)
[2017-08-29] MEDS: Hydrochlorothiazide 12.5 MG Cap PO SCH (09:26)
[2017-08-29] MEDS: Enoxaparin 40 MG/0.4 ML Syringe SUBCUT SCH (09:35)
[2017-08-29] MEDS: Latanoprost 0.005% Ophth Soln 2.5 ML Bottle EYEBOTH SCH (09:36)
[2017-08-29] MEDS: Hypromellose 0.5% Ophth Soln 15 ML Bottle EYEBOTH SCH (09:36)
[2017-08-29] MEDS: Levofloxacin 500 MG Tab PO SCH (11:28)
--- NOTE | 2017-08-29 13:23 | PCM.PN ---
- General Info Date of Service: 08/29/17 Functional Status: Reports: Tolerating Diet, Ambulating - Review of Systems General: Reports: Weakness HEENT: Reports: No Symptoms Pulmonary: Reports: No Symptoms Cardiovascular: Reports: No Symptoms Gastrointestinal: Reports: No Symptoms Genitourinary: Reports: No Symptoms Musculoskeletal: Reports: No Symptoms Skin: Reports: No Symptoms Neurological: Reports: No Symptoms Psychiatric: Reports: No Symptoms - Patient Data Vitals - Most Recent: Last Vital Signs Temp 36.8 C 08/29/17 08:14 Pulse 86 08/29/17 08:14 Resp 20 08/29/17 08:14 BP 129/78 08/29/17 09:25 Pulse Ox 86 L 08/29/17 09:39 Weight - Most Recent: 97.432 kg I&O - Last 24 Hours: Intake & Output 08/28/17 08/29/17 08/29/17 22:59 06:59 14:59 Intake Total 380 980 420 Output Total 875 725 Balance -495 255 420 Lab Results Last 24 Hours: Laboratory Results - last 24 hr 08/28/17 08/28/17 08/29/17 Range/Units 16:22 20:46 06:21 POC Glucose 148 H 144 H 158 H (70-105) mg/dL 08/29/17 Range/Units 11:29 POC Glucose 198 H (70-105) mg/dL Ge Results Last 24 Hours: Microbiology 08/26/17 18:45 Streptococcus pneumoniae Antigen (M - Final Urine - Bladder Med Orders - Current: Current Medications Acetaminophen (Tylenol) 650 mg PO Q4H PRN PRN Reason: Pain (Mild 1-3)/fever Hydrocodone Bitart/Acetaminophen ([place] 325-5 Mg) 1 tab PO Q4H PRN PRN Reason: Pain (moderate 4-6) Last Admin: 08/29/17 05:33 Dose: 1 tab Albuterol (Proventil Neb Soln) 2.5 mg NEB Q4HRRT PRN PRN Reason: Shortness Of Breath/wheezing Last Admin: 08/27/17 14:51 Dose: 2.5 mg Albuterol/Ipratropium (Duoneb 3.0-0.5 Mg/3 Ml) 3 ml NEB QIDRT CANDIE Last Admin: 08/29/17 09:39 Dose: 3 ml Artificial Tears (Isopto Tears 0.5% Ophth Soln) 0 ml EYEBOTH DAILY [facility] Last Admin: 08/29/17 09:36 Dose: 1 drop Benzonatate (Tessalon Perles) 200 mg PO TID [facility] Last Admin: 08/29/17 09:24 Dose: 200 mg Bisacodyl (Dulcolax) 5 mg PO DAILY PRN PRN Reason: Constipation Cholecalciferol (Vitamin D3) 5,000 units PO DAILY [facility] Last Admin: 08/29/17 09:21 Dose: 5,000 units Dextrose/Water (Dextrose 50% In Water) 50 ml IVPUSH ASDIRECTED PRN PRN Reason: hypoglycemia Docusate Sodium (Colace) 100 mg PO BID PRN PRN Reason: Constipation Enoxaparin Sodium (Lovenox) 40 mg SUBCUT DAILY [facility] Last Admin: 08/29/17 09:35 Dose: 40 mg Guaifenesin/Codeine Phosphate (Robitussin Ac) 10 ml PO Q4H PRN PRN Reason: Cough Last Admin: 08/27/17 17:40 Dose: 10 ml Hydrochlorothiazide (Hydrochlorothiazide) 12.5 mg PO DAILY [facility] Last Admin: 08/29/17 09:26 Dose: 12.5 mg Hydromorphone HCl (Dilaudid) 0.25 mg IVPUSH Q2H PRN PRN Reason: Pain (severe 7-10) Insulin Aspart (Novolog) 0 unit SUBCUT QIDACANDBED [facility] PRN Reason: Protocol Last Admin: 08/29/17 11:31 Dose: 1 unit Latanoprost (Xalatan 0.005% Ophth Soln) 0 ml EYEBOTH DAILY [facility] Last Admin: 08/29/17 09:36 Dose: 1 drop Levofloxacin (Levaquin) 500 mg PO Q24H [facility] Last Admin: 08/29/17 11:28 Dose: 500 mg Losartan Potassium (Cozaar) 100 mg PO DAILY [facility] Last Admin: 08/29/17 09:25 Dose: 100 mg Methylprednisolone Sodium Succinate (Solu-Medrol) 125 mg IVPUSH Q8H [facility] Last Admin: 08/29/17 09:28 Dose: 125 mg Multivitamins (Thera) 1 each PO DAILY [facility] Last Admin: 08/29/17 09:24 Dose: 1 each Nitroglycerin (Nitrostat) 4 mg SL ASDIRECTED PRN PRN Reason: Chest Pain Ondansetron HCl (Zofran Odt) 4 mg PO Q6H PRN PRN Reason: nausea, able to take PO Ondansetron HCl (Zofran) 4 mg IV Q6H PRN PRN Reason: Nausea/Vomiting Polyethylene Glycol (Miralax) 17 gm PO DAILY PRN PRN Reason: Constipation Pyridoxine HCl (Vitamin B6-Pyridoxine) 50 mg PO BID [facility] Last Admin: 08/29/17 09:24 Dose: 50 mg Senna/Docusate Sodium (Senna Plus) 1 tab PO BID PRN PRN Reason: Constipation Simvastatin (Zocor) 40 mg PO DAILY [facility] Last Admin: 08/29/17 09:24 Dose: 40 mg Sodium Chloride (Saline Flush) 10 ml FLUSH ASDIRECTED PRN PRN Reason: Keep Vein Open Last Admin: 08/24/17 16:53 Dose: 10 ml Sodium Chloride (Weld Nasal [place]) 0 ml ANNETTE Q4H PRN PRN Reason: Nasal dryness Last Admin: 08/25/17 05:00 Dose: 1 spray Temazepam (Restoril) 7.5 mg PO BEDTIME PRN PRN Reason: Sleep Discontinued Medications Acetaminophen (Tylenol) 975 mg PO NOW ONE Stop: 08/24/17 16:56 Last Admin: 08/24/17 17:12 Dose: 975 mg Albuterol/Ipratropium (Duoneb 3.0-0.5 Mg/3 Ml) 3 ml NEB ONETIME ONE Stop: 08/24/17 16:41 Last Admin: 08/24/17 16:56 Dose: 3 ml Albuterol/Ipratropium (Duoneb 3.0-0.5 Mg/3 Ml) 3 ml NEB QID [facility] Last Admin: 08/27/17 21:53 Dose: 3 ml Guaifenesin/Phenylephrine HCl (Robitussin Dm) 10 ml PO Q4H PRN PRN Reason: Cough Levofloxacin/Dextrose 750 mg/ (Premix) 150 mls @ 100 mls/hr IV ONETIME ONE Stop: 08/24/17 18:09 Last Admin: 08/24/17 17:03 Dose: 100 mls/hr Sodium Chloride (Normal Saline) 500 mls @ 1,000 mls/hr IV .BOLUS ONE Stop: 08/24/17 17:25 Last Admin: 08/24/17 17:02 Dose: 1,000 mls/hr Sodium Chloride (Normal Saline) 2,350 mls @ 1,000 mls/hr IV ONETIME ONE Stop: 08/24/17 19:41 Last Admin: 08/24/17 20:08 Dose: 1,000 mls/hr Sodium Chloride (Normal Saline) Confirm Administered Dose 1,000 mls @ as directed .ROUTE .STK-MED ONE Stop: 08/24/17 21:32 Last Admin: 08/25/17 01:15 Dose: 850 ml Levofloxacin/Dextrose 750 mg/ (Premix) 150 mls @ 100 mls/hr IV Q24H [facility] Stop: 08/27/17 20:00 Last Admin: 08/27/17 17:35 Dose: 100 mls/hr Sodium Chloride (Normal Saline) 1,000 mls @ 100 mls/hr IV ASDIRECTED [facility] Last Admin: 08/27/17 05:11 Dose: 100 mls/hr Influenza Virus Vaccine (Pharmacy To Dose - Influenza Vaccine) 1 each IM ONETIME ONE Stop: 08/29/17 00:15 Influenza Virus Vaccine (Flulaval Quad [id number]) 60 mcg IM .ONCE ONE Stop: 08/29/17 01:01 Levofloxacin (Levaquin) 500 mg PO Q24H [facility] Last Admin: 08/28/17 16:36 Dose: 500 mg Methylprednisolone Sodium Succinate (Solu-Medrol) 125 mg IVPUSH ONETIME ONE Stop: 08/24/17 16:41 Last Admin: 08/24/17 17:07 Dose: 125 mg Methylprednisolone Sodium Succinate (Solu-Medrol) 85 mg IVPUSH DAILY [facility] Last Admin: 08/25/17 09:24 Dose: 85 mg Methylprednisolone Sodium Succinate (Solu-Medrol) 80 mg IVPUSH BID [facility] Last Admin: 08/27/17 09:50 Dose: 80 mg Pneumococcal Polyvalent Vaccine (Pneumovax 23) 0.5 ml IM .ONCE ONE Stop: 08/29/17 00:15 - Exam Quality Assessment: DVT Prophylaxis General: Alert, Oriented HEENT: Pupils Equal, Pupils Reactive Neck: Trachea Midline, No JVD Lungs: Normal Respiratory Effort Cardiovascular: Regular Rate, Regular Rhythm GI/Abdominal Exam: Normal Bowel Sounds, Soft, Non-Tender, No Organomegaly, No Distention (Female) Exam: Deferred Back Exam: Normal Inspection Extremities: Normal Inspection, Normal Range of Motion, Non-Tender, No Pedal Edema Skin: Warm Neurological: No New Focal Deficit Psy/Mental Status: Alert - Problem List Review Problem List Initiated/Reviewed/Updated: Yes - My Orders Last 24 Hours: My Active Orders 08/29/17 10:15 Levofloxacin [Levaquin] 500 mg PO Q24H - Plan Plan:: I/P: Acute Pneumonia: -Non-productive cough, fever, SOB -EMS found oxygen saturations to be in 70's -Fever of 100.9 in ED - Tylenol given -WBC 13.45 -CRP 6.2 -Levaquin 750mg given in ED - Continue -Of note: She is allergic to PCN and vancomycin -Sputum culture - ordered -RT/IS/Acapella -Duo-Nebs PRN -Humidified O2 and nasal saline for congestion - Titrate O2 as needed, attempt to wean -Solumedrol-->increase with decreased wheezing -Nebs scheduled and prn; pulmonary toilet -Fluids as ordered -Repeat CXR in 48 hours -Stanley martinez, scheduled Sepsis -HR>90, tachypneic, hypotension, fever of 100.9, renal injury -Likely due to pneumonia -Lactic acid 1.8 -2350 fluid bolus given in ED -Blood cultures -Fluids as ordered -Treatment as above Acute renal injury -Unsure of baseline -Bun 27, creatinine 1.3, eGFR 42 -Avoid nephrotoxic medications -Pharmacy to renally dose meds -Fluids -Continue to monitor Chronic: Hx/o Arrhythmias - SVT and PVCs HLD HTN - stable Sleep apnea Stress incontinence Scoliosis Mental retardation Personality disorder SAD Type II DM - Insulin per protocol, Glucose checks QIDAC and bedtime Anemia - stable Plan: CM for discharge planning PT/OT Routine AM Labs Other orders as indicated above Home medications as ordered DVT/PE prophylaxis: Lovenox and ambulation Code status: Full Code, PCP is Dr. Ty at [facility] here in [place]. LOS>96 hours with slow response to antibiotics; dc 24-48 hours.
[2017-08-29] MEDS ORDERED: Haloperidol Lactate 5 MG/ML SDV IVPUSH ONE (17:50)
[2017-08-29] MEDS ORDERED: LORazepam 2 MG/ML MDV IVPUSH ONE (17:51)
[2017-08-29] MEDS: Temazepam 7.5 MG Cap PO PRN (21:19)
[2017-08-30] MEDS ORDERED: Haloperidol Lactate 5 MG/ML SDV IVPUSH PRN (02:00)
[2017-08-30] MEDS ORDERED: LORazepam 2 MG/ML MDV IVPUSH PRN (02:00)
[2017-08-30] MEDS: methylPREDNISolone Sodium Succinate 125 MG/2 ML SDV IVPUSH SCH ×3 (02:24→18:06)
[2017-08-30] MEDS: Albuterol/Ipratropium 3.0-0.5 MG/3 ML Neb Soln NEB SCH ×4 (06:24→20:42)
--- NOTE | 2017-08-30 08:28 | PCM.DCSUM1 ---
Discharge Summary - Hospital Course Free Text/Narrative:: Alice Jhaveri is a 57yo female who presents to our ED today with a cough, fever, shortness of breath via ambulance. Paramedics reports that the patient's oxygen saturations were in the 70s upon their arrival. They gave her oxygen and a DuoNeb. He reports symptoms began about 4 days prior. She reports fever, chills, cough, congestion, runny nose. She denies abdominal pain, nausea, or vomiting. [facility] [place] take care of her. Upon ED arrival temp was 100.9. Pulse 105. Respirations 25. Blood pressure 176. Saturations 90%. Labs were obtained: The CBC is elevated at 13.45. Hemoglobin 14.5. Hematocrit high at 46.8. She is normocytic. Pulses were good at 261,000. Sodium was good at 138. Potassium 3.5. Chloride 99. Carbon dioxide 30. Anion gap 12.5. BUN is 27. Creatinine 1.3. EGFR is 42. Glucose was high at 138. Lactic acid was 1.8. Calcium was 8.7. Bilirubin 0.3. AST was elevated at 103, ALT was 44, alkaline phosphatase 87. CRP is high at 6.2. She was given 2350 mls NS , which is 30 mL/kg. DuoNeb were given. Blood cultures were obtained. Chest x-ray shows a left perihilar infiltrate. She was given 125 mg grams Solu-Medrol, acetaminophen 975 mg for fever. She is also given 750 mg Levaquin. Influenza was negative. She carries a history of: Glaucoma, arrhythmias of SVT and PVCs, HLD, HTN, sleep apnea, stress incontinence, scoliosis, mental retardation, personality disorder, SED, type II DM, anemia. She reportedly had a CPAP machine however she states it was "taken away." She is a former smoker. She is a full code. Her PCP is Dr. Ty at [facility] here in [place]. - Discharge Data Discharge Date: 08/30/17 (admit date 08/24/17) Discharge Disposition: Home, Self-Care 01 Condition: Fair - Discharge Diagnosis/Problem(s) (1) Pneumonia SNOMED Code(s): 619901159 ICD Code: J18.9 - PNEUMONIA, UNSPECIFIED ORGANISM Status: Acute Priority : High Current Visit: Yes Qualifiers: Pneumonia type: due to unspecified organism Laterality: left Lung location: upper lobe of lung Qualified Code(s): J18.1 - Lobar pneumonia, unspecified organism (2) Sepsis SNOMED Code(s): 72520049 ICD Code: A41.9 - SEPSIS, UNSPECIFIED ORGANISM Status: Resolved Priority : High Current Visit: Yes Qualifiers: Sepsis type: sepsis due to unspecified organism Qualified Code(s): A41.9 - Sepsis, unspecified organism (3) Hypoxia SNOMED Code(s): 359223196 ICD Code: R09.02 - HYPOXEMIA Status: Acute Priority: High Current Visit : Yes (4) Acute renal failure SNOMED Code(s): 33559810 ICD Code: N17.9 - ACUTE KIDNEY FAILURE, UNSPECIFIED Status: Resolved Current Visit: Yes (5) Acute kidney injury SNOMED Code(s): 82082606 ICD Code: N17.9 - ACUTE KIDNEY FAILURE, UNSPECIFIED Status: Resolved Priority: Medium Current Visit: Yes - Patient Summary/Data Operative Procedure(s) Performed: None Complications: None Consults: Consultations 08/24/17 22:19 Consult to Case Management [CONS] Routine OT Evaluation and Treatment [CONS] Routine PT Evaluation and Treatment [CONS] Routine Respiratory Care Assess and Treatment [CONS] Routine 08/26/17 10:21 Consult to Sr. Merchandise Planner [Consult to Diabetic Nurse Specialist] [CONS] Routine Labs Pending at D/C: None Recommended Follow-up Testing/Procedures: Patient DC instructions: Orders at desk to sign for bed with box spring, lift chair, tub transfer bench, bed rail, briefs (depends) bedside commode Home oxygen at 2L/NC at this time, 24 hours per day- Nebulizer treatments 3 times daily Follow up with Dr. Ty within 5 days of discharge. [employer] to increase services to 8 hours per day. Shower or bathe daily. Planned Operative Procedure(s) after DC: None Hospital Course: I/P: Acute Pneumonia: -Non-productive cough, fever, SOB; EMS found oxygen saturations to be in 70's ; Fever of 100.9 in ED - Tylenol given -WBC 13.45 and CRP 6.2 initially -Levaquin 750mg given in ED - Continue, -Of note: She is allergic to PCN and vancomycin -Sputum culture - negative -RT/IS/Acapella; RT/Duo-Nebs PRN -Humidified O2 and nasal saline for congestion - Titrate O2 as needed, attempt to wean -Solumedrol-->increase with decreased wheezing, Will DC on prednisone taper Acute renal injury--resolved and stable renal function -Unsure of baseline -Bun 27, creatinine 1.3, eGFR 42 -Avoid nephrotoxic medications; Pharmacy to renally dose meds -Fluids, Continue to monitor Sepsis--RESOLVED -HR>90, tachypneic, hypotension, fever of 100.9, renal injury -Likely due to pneumonia -Lactic acid 1.8 -2350 fluid bolus given in ED -Blood cultures -Fluids as ordered -Treatment as above Chronic: Hx/o Arrhythmias - SVT and PVCs HLD HTN - stable Sleep apnea Stress incontinence Scoliosis Mental retardation Personality disorder SAD Type II DM - Insulin per protocol, Glucose checks QIDAC and bedtime Anemia - stable Plan: CM for discharge planning--Plans DC home today with increased services from support systems (up to 8 hrs per day) PT/OT DVT/PE prophylaxis: Lovenox and ambulation Code status: Full Code, PCP is Dr. Ty at [facility] here in [place]. LOS>96 hours with slow response to antibiotics; dc 24-48 hours. - Patient Instructions Diet: Heart Healthy Diet, Drink 8-10+ Glasses/Day, Diabetic Diet Activity: Apply Ice (ambulate 4 times daily) Driving: Do Not Drive Showering/Bathing: May Shower (shower daily with assistance as/if needed) Notify Provider of: Fever, Increased Pain, Nausea and/or Vomiting (worsening cough or shortness of breath) - Discharge Plan Prescriptions/Med Rec: Albuterol/Ipratropium [DuoNeb 3.0-0.5 MG/3 ML] 3 ml NEB TID #1 box Benzonatate [Tessalon Perles] 200 mg PO TID #40 cap Bifidobacter. Bifidum/B.Longum [Florajen Bifidoblend] 460 mg PO DAILY #30 capsule Levofloxacin [Levaquin] 500 mg PO DAILY #5 tablet Multivitamins,Therapeutic [Thera] 1 each PO DAILY #30 tablet Prednisone [IJD: Prednisone] 10 mg PO DAILY #30 tab Home Medications: Home Meds Carboxymethylcellulose Sodium [Lubricant Eye Drops] 1 drop EYEBOTH DAILY [History] Cholecalciferol (Vitamin D3) [Vitamin D3] 1 tab PO DAILY 11/13/16 [History] Latanoprost [Xalatan 0.005% Ophth Soln] 1 drop EYEBOTH DAILY 11/13/16 [History] Nitroglycerin [Nitrostat] 1 tab SL ASDIRECTED PRN 11/13/16 [History] Simvastatin [Zocor] 40 mg PO DAILY 11/13/16 [History] Vitamin B6-pyridOXINE 1 tab PO BID 11/13/16 [History] metFORMIN [Glucophage] 500 mg PO BID 11/13/16 [History] B1/B2/B3/B5/B6/Iron/Meth/Choln [Geritol Tonic] 15 ml PO DAILY 08/25/17 [History] Valsartan/Hydrochlorothiazide [Diovan Hct 160-12.5 mg Tab] 1 tab PO DAILY [History] Albuterol/Ipratropium [DuoNeb 3.0-0.5 MG/3 ML] 3 ml NEB TID #1 box 08/30/17 [Rx] Benzonatate [Tessalon Perles] 200 mg PO TID #40 cap 08/30/17 [Rx] Bifidobacter. Bifidum/B.Longum [Florajen Bifidoblend] 460 mg PO DAILY #30 capsule 08/30/17 [Rx] Levofloxacin [Levaquin] 500 mg PO DAILY #5 tablet 08/30/17 [Rx] Multivitamins,Therapeutic [Thera] 1 each PO DAILY #30 tablet 08/30/17 [Rx] Prednisone [IJD: Prednisone] 10 mg PO DAILY #30 tab 08/30/17 [Rx] Patient Handouts: Hypoxemia, Community-Acquired Pneumonia, Adult, [id number] Referrals: Juwan Ty MD [Primary Care Provider] - - Discharge Summary/Plan Comment DC Time >30 min.: Yes (45 min) - General Info Date of Service: 08/30/17 Admission Dx/Problem (Free Text: Admission Diagnosis/Problem Admission Diagnosis/Problem Pneumonia Doing well, VSS; O2 at 2L at 92% currently (patient with [facility], noncompliant with CPAP--does not ever wear; will likely need supplemental oxygen- especially at night retirement) Plans for DC home today with increased services, 8 hrs per day, from [employer]. Functional Status: Reports: Pain Controlled, Tolerating Diet, Ambulating, Urinating, Incentive Spirometry - Review of Systems General: Reports: No Symptoms HEENT: Reports: No Symptoms Pulmonary: Reports: Shortness of Breath (chronic), Cough (improved) Cardiovascular: Reports: No Symptoms. Denies: Chest Pain Gastrointestinal: Reports: No Symptoms. Denies: Abdominal Pain, Diarrhea, Nausea, Vomiting Genitourinary: Reports: No Symptoms Musculoskeletal: Reports: No Symptoms Psychiatric: Reports: Other (demanding and manipulative with staff--consistent with dx personality disorder) - Patient Data Vitals - Most Recent: Last Vital Signs Temp 97.9 F 08/30/17 02:23 Pulse 90 08/30/17 02:23 Resp 20 08/30/17 02:23 BP 130/90 08/30/17 02:23 Pulse Ox 92 L 08/30/17 06:24 Weight - Most Recent: 209 lb 1.6 oz I&O - Last 24 hours: Intake & Output 08/29/17 08/30/17 08/30/17 22:59 06:59 14:59 Intake Total 820 700 Output Total 700 750 Balance 120 -50 Lab Results - Last 24 hrs: Laboratory Results - last 24 hr 08/29/17 08/29/17 08/29/17 Range/Units 11:29 17:12 21:01 WBC (3.98-10.04) K/mm3 RBC (3.98-5.22) M/mm3 Hgb (11.2-15.7) gm/L Hct (34.1-44.9) % MCV (79.4-94.8) fl MCH (25.6-32.2) pg MCHC (32.2-35.5) g/dl RDW Std Deviation (36.4-46.3) fL Plt Count (182-369) K/mm3 MPV (9.4-12.3) fl Neut % (Auto) (34.0-71.1) % Lymph % (Auto) (19.3-51.7) % [place] % (Auto) (4.7-12.5) % Eos % (Auto) (0.7-5.8) Baso % (Auto) (0.1-1.2) % Neut # (Auto) (1.56-6.13) K/mm3 Lymph # (Auto) (1.18-3.74) K/mm3 [place] # (Auto) (0.24-0.36) K/mm3 Eos # (Auto) (0.04-0.36) K/mm3 Baso # (Auto) (0.01-0.08) K/mm3 Manual Slide Review Sodium (136-145) mEq/L Potassium (3.5-5.1) mEq/L Chloride (98-107) mEq/L Carbon Dioxide (21-32) mEq/L Anion Gap (5-15) BUN (7-18) mg/dL Creatinine (0.55-1.02) mg/dL Est Cr Clr Drug Dosing mL/min Estimated GFR (MDRD) (>60) mL/min BUN/Creatinine Ratio (14-18) Glucose (74-106) mg/dL POC Glucose 198 H 256 H 163 H (70-105) mg/dL Calcium (8.5-10.1) mg/dL Magnesium (1.8-2.4) mg/dl C-Reactive Protein (<1.0) mg/dL 08/30/17 08/30/17 08/30/17 Range/Units 06:30 06:30 07:59 WBC 13.05 H (3.98-10.04) K/mm3 RBC 4.46 (3.98-5.22) M/mm3 Hgb 12.9 (11.2-15.7) gm/L Hct 41.6 (34.1-44.9) % MCV 93.3 (79.4-94.8) fl MCH 28.9 (25.6-32.2) pg MCHC 31.0 L (32.2-35.5) g/dl RDW Std Deviation 44.8 (36.4-46.3) fL Plt Count 265 (182-369) K/mm3 MPV 9.7 (9.4-12.3) fl Neut % (Auto) 88.8 H (34.0-71.1) % Lymph % (Auto) 4.8 L (19.3-51.7) % [place] % (Auto) 5.4 (4.7-12.5) % Eos % (Auto) 0 L (0.7-5.8) Baso % (Auto) 0.1 (0.1-1.2) % Neut # (Auto) 11.59 H (1.56-6.13) K/mm3 Lymph # (Auto) 0.63 L (1.18-3.74) K/mm3 [place] # (Auto) 0.70 H (0.24-0.36) K/mm3 Eos # (Auto) 0.00 L (0.04-0.36) K/mm3 Baso # (Auto) 0.01 (0.01-0.08) K/mm3 Manual Slide Review Abnormal smear Sodium 144 (136-145) mEq/L Potassium 3.9 (3.5-5.1) mEq/L Chloride 102 (98-107) mEq/L Carbon Dioxide 37 H (21-32) mEq/L Anion Gap 8.9 (5-15) BUN 27 H (7-18) mg/dL Creatinine 0.9 (0.55-1.02) mg/dL Est Cr Clr Drug Dosing 49.54 mL/min Estimated GFR (MDRD) > 60 (>60) mL/min BUN/Creatinine Ratio 30.0 H (14-18) Glucose 150 H (74-106) mg/dL POC Glucose 164 H (70-105) mg/dL Calcium 8.8 (8.5-10.1) mg/dL Magnesium 2.3 (1.8-2.4) mg/dl C-Reactive Protein < 0.2 (<1.0) mg/dL Med Orders - Current: Current Medications Acetaminophen (Tylenol) 650 mg PO Q4H PRN PRN Reason: Pain (Mild 1-3)/fever Last Admin: 08/29/17 21:15 Dose: 650 mg Albuterol (Proventil Neb Soln) 2.5 mg NEB Q4HRRT PRN PRN Reason: Shortness Of Breath/wheezing Last Admin: 08/27/17 14:51 Dose: 2.5 mg Albuterol/Ipratropium (Duoneb 3.0-0.5 Mg/3 Ml) 3 ml NEB QIDRT [facility] Last Admin: 08/30/17 06:24 Dose: 3 ml Artificial Tears (Isopto Tears 0.5% Ophth Soln) 0 ml EYEBOTH DAILY [facility] Last Admin: 08/29/17 09:36 Dose: 1 drop Benzonatate (Tessalon Perles) 200 mg PO TID [facility] Last Admin: 08/29/17 21:06 Dose: 200 mg Bisacodyl (Dulcolax) 5 mg PO DAILY PRN PRN Reason: Constipation Cholecalciferol (Vitamin D3) 5,000 units PO DAILY [facility] Last Admin: 08/29/17 09:21 Dose: 5,000 units Dextrose/Water (Dextrose 50% In Water) 50 ml IVPUSH ASDIRECTED PRN PRN Reason: hypoglycemia Docusate Sodium (Colace) 100 mg PO BID PRN PRN Reason: Constipation Enoxaparin Sodium (Lovenox) 40 mg SUBCUT DAILY [facility] Last Admin: 08/29/17 09:35 Dose: 40 mg Guaifenesin/Codeine Phosphate (Robitussin Ac) 10 ml PO Q4H PRN PRN Reason: Cough Last Admin: 08/27/17 17:40 Dose: 10 ml Haloperidol Lactate (Haldol) 1 mg IVPUSH Q8H PRN PRN Reason: restlessness Hydrochlorothiazide (Hydrochlorothiazide) 12.5 mg PO DAILY [facility] Last Admin: 08/29/17 09:26 Dose: 12.5 mg Hydromorphone HCl (Dilaudid) 0.25 mg IVPUSH Q2H PRN PRN Reason: Pain (severe 7-10) Insulin Aspart (Novolog) 0 unit SUBCUT QIDACANDBED [facility] PRN Reason: Protocol Last Admin: 08/29/17 21:07 Dose: 1 unit Latanoprost (Xalatan 0.005% Ophth Soln) 0 ml EYEBOTH DAILY [facility] Last Admin: 08/29/17 09:36 Dose: 1 drop Levofloxacin (Levaquin) 500 mg PO Q24H [facility] Last Admin: 08/29/17 11:28 Dose: 500 mg Lorazepam (Ativan) 1 mg IVPUSH Q8H PRN PRN Reason: Anxiety Losartan Potassium (Cozaar) 100 mg PO DAILY [facility] Last Admin: 08/29/17 09:25 Dose: 100 mg Methylprednisolone Sodium Succinate (Solu-Medrol) 80 mg IVPUSH Q8H [facility] Last Admin: 08/30/17 02:24 Dose: 80 mg Multivitamins (Thera) 1 each PO DAILY [facility] Last Admin: 08/29/17 09:24 Dose: 1 each Nitroglycerin (Nitrostat) 4 mg SL ASDIRECTED PRN PRN Reason: Chest Pain Ondansetron HCl (Zofran Odt) 4 mg PO Q6H PRN PRN Reason: nausea, able to take PO Ondansetron HCl (Zofran) 4 mg IV Q6H PRN PRN Reason: Nausea/Vomiting Polyethylene Glycol (Miralax) 17 gm PO DAILY PRN PRN Reason: Constipation Pyridoxine HCl (Vitamin B6-Pyridoxine) 50 mg PO BID [facility] Last Admin: 08/29/17 21:06 Dose: 50 mg Senna/Docusate Sodium (Senna Plus) 1 tab PO BID PRN PRN Reason: Constipation Simvastatin (Zocor) 40 mg PO DAILY [facility] Last Admin: 08/29/17 09:24 Dose: 40 mg Sodium Chloride (Saline Flush) 10 ml FLUSH ASDIRECTED PRN PRN Reason: Keep Vein Open Last Admin: 08/24/17 16:53 Dose: 10 ml Sodium Chloride (Sac Nasal [place]) 0 ml ANNETTE Q4H PRN PRN Reason: Nasal dryness Last Admin: 08/25/17 05:00 Dose: 1 spray Temazepam (Restoril) 7.5 mg PO BEDTIME PRN PRN Reason: Sleep Last Admin: 08/29/17 21:19 Dose: 7.5 mg Discontinued Medications Acetaminophen (Tylenol) 975 mg PO NOW ONE Stop: 08/24/17 16:56 Last Admin: 08/24/17 17:12 Dose: 975 mg Hydrocodone Bitart/Acetaminophen ([place] 325-5 Mg) 1 tab PO Q4H PRN PRN Reason: Pain (moderate 4-6) Last Admin: 08/29/17 17:08 Dose: 1 tab Albuterol/Ipratropium (Duoneb 3.0-0.5 Mg/3 Ml) 3 ml NEB ONETIME ONE Stop: 08/24/17 16:41 Last Admin: 08/24/17 16:56 Dose: 3 ml Albuterol/Ipratropium (Duoneb 3.0-0.5 Mg/3 Ml) 3 ml NEB QID [facility] Last Admin: 08/27/17 21:53 Dose: 3 ml Guaifenesin/Phenylephrine HCl (Robitussin Dm) 10 ml PO Q4H PRN PRN Reason: Cough Haloperidol Lactate (Haldol) 1 mg IVPUSH ONETIME ONE Stop: 08/29/17 17:51 Last Admin: 08/29/17 18:14 Dose: 1 mg Levofloxacin/Dextrose 750 mg/ (Premix) 150 mls @ 100 mls/hr IV ONETIME ONE Stop: 08/24/17 18:09 Last Admin: 08/24/17 17:03 Dose: 100 mls/hr Sodium Chloride (Normal Saline) 500 mls @ 1,000 mls/hr IV .BOLUS ONE Stop: 08/24/17 17:25 Last Admin: 08/24/17 17:02 Dose: 1,000 mls/hr Sodium Chloride (Normal Saline) 2,350 mls @ 1,000 mls/hr IV ONETIME ONE Stop: 08/24/17 19:41 Last Admin: 08/24/17 20:08 Dose: 1,000 mls/hr Sodium Chloride (Normal Saline) Confirm Administered Dose 1,000 mls @ as directed .ROUTE .STK-MED ONE Stop: 08/24/17 21:32 Last Admin: 08/25/17 01:15 Dose: 850 ml Levofloxacin/Dextrose 750 mg/ (Premix) 150 mls @ 100 mls/hr IV Q24H [facility] Stop: 08/27/17 20:00 Last Admin: 08/27/17 17:35 Dose: 100 mls/hr Sodium Chloride (Normal Saline) 1,000 mls @ 100 mls/hr IV ASDIRECTED [facility] Last Admin: 08/27/17 05:11 Dose: 100 mls/hr Influenza Virus Vaccine (Pharmacy To Dose - Influenza Vaccine) 1 each IM ONETIME ONE Stop: 08/29/17 00:15 Influenza Virus Vaccine (Flulaval Quad 0140-1148) 60 mcg IM .ONCE ONE Stop: 08/29/17 01:01 Levofloxacin (Levaquin) 500 mg PO Q24H [facility] Last Admin: 08/28/17 16:36 Dose: 500 mg Lorazepam (Ativan) 1 mg IVPUSH ONETIME ONE Stop: 08/29/17 17:52 Last Admin: 08/29/17 18:11 Dose: 1 mg Methylprednisolone Sodium Succinate (Solu-Medrol) 125 mg IVPUSH ONETIME ONE Stop: 01/02/18 16:41 Last Admin: 08/24/17 17:07 Dose: 125 mg Methylprednisolone Sodium Succinate (Solu-Medrol) 85 mg IVPUSH DAILY [facility] Last Admin: 08/25/17 09:24 Dose: 85 mg Methylprednisolone Sodium Succinate (Solu-Medrol) 80 mg IVPUSH BID [facility] Last Admin: 08/27/17 09:50 Dose: 80 mg Methylprednisolone Sodium Succinate (Solu-Medrol) 125 mg IVPUSH Q8H [facility] Last Admin: 08/29/17 18:16 Dose: 125 mg Methylprednisolone Sodium Succinate (Solu-Medrol) 80 mg IVPUSH Q8H [facility] Pneumococcal Polyvalent Vaccine (Pneumovax 23) 0.5 ml IM .ONCE ONE Stop: 08/29/17 00:15 - Exam Quality Assessment: Reports: Supplemental Oxygen, DVT Prophylaxis General: Reports: Alert, Oriented, Cooperative, No Acute Distress HEENT: Reports: Pupils Equal, EOMI, Mucous Membr. Moist/Rosine Neck: Reports: Supple Lungs: Reports: Normal Respiratory Effort, Decreased Breath Sounds (bases) Cardiovascular: Reports: Regular Rate, Regular Rhythm GI/Abdominal Exam: Normal Bowel Sounds, Soft, Non-Tender (Female) Exam: Deferred Rectal (Female) Exam: Deferred Extremities: Normal Inspection, No Pedal Edema, Normal Capillary Refill Neurological: Reports: No New Focal Deficit Psy/Mental Status: Reports: Alert, Labile Mood (intermittent--consistent with personality disorder) *Q Meaningful Use (DIS) - VTE *Q VTE Criteria *Q: - Stroke *Q Stroke Criteria *Q: - AMI *Q AMI Criteria *Q:
--- NOTE | 2017-08-30 09:31 | CR ---
Chest: Two views of the chest were obtained. Comparison: Prior chest x-ray of 08/26/17. Left-sided diaphragmatic hernia or large hiatal hernia is seen. This is stable from prior exam. Lung markings are mildly increased which appear stable. No acute infiltrates are seen. Scoliosis is noted within the spine. Impression: 1. Findings as noted above which are stable from prior chest x-ray. Nothing acute is appreciated. Diagnostic code #3
[2017-08-30] MEDS: Hydrochlorothiazide 12.5 MG Cap PO SCH (09:41)
[2017-08-30] MEDS: Enoxaparin 40 MG/0.4 ML Syringe SUBCUT SCH (09:42)
[2017-08-30] MEDS: Multivitamins,Therapeutic Tab PO SCH (09:42)
[2017-08-30] MEDS: Losartan 100 MG Tab PO SCH (09:42)
[2017-08-30] MEDS: Simvastatin 40 MG Tab PO SCH (09:42)
[2017-08-30] MEDS: Insulin Aspart 100 Units/ML 3 ML Pen SUBCUT SCH ×4 (09:43→23:20)
[2017-08-30] MEDS: Levofloxacin 500 MG Tab PO SCH (09:43)
[2017-08-30] MEDS: Vitamin B6-pyridOXINE 50 MG Tab PO SCH ×2 (09:43→21:21)
[2017-08-30] MEDS: Benzonatate 100 MG Cap PO SCH ×3 (09:43→21:21)
[2017-08-30] MEDS: Cholecalciferol (Vitamin D3) 1,000 Unit Tab PO SCH (09:44)
[2017-08-30] MEDS: Hypromellose 0.5% Ophth Soln 15 ML Bottle EYEBOTH SCH (09:44)
[2017-08-30] MEDS: Latanoprost 0.005% Ophth Soln 2.5 ML Bottle EYEBOTH SCH (09:45)
--- NOTE | 2017-08-30 13:48 | PCM.SN ---
- Free Text/Narrative Note: DC postponed today, patient is requesting SNF placement; paperwork to be filled out today. She is stable medically however has displayed inappropriate behavior toward the nursing staff, see nursing care notes for details.
[2017-08-31] MEDS: methylPREDNISolone Sodium Succinate 125 MG/2 ML SDV IVPUSH SCH ×3 (01:42→17:37)
[2017-08-31] MEDS: Albuterol/Ipratropium 3.0-0.5 MG/3 ML Neb Soln NEB SCH ×4 (06:29→20:47)
[2017-08-31] MEDS: Insulin Aspart 100 Units/ML 3 ML Pen SUBCUT SCH ×4 (08:58→21:59)
[2017-08-31] MEDS: Hypromellose 0.5% Ophth Soln 15 ML Bottle EYEBOTH SCH (08:59)
[2017-08-31] MEDS: Latanoprost 0.005% Ophth Soln 2.5 ML Bottle EYEBOTH SCH (09:00)
[2017-08-31] MEDS: Benzonatate 100 MG Cap PO SCH ×3 (09:01→21:59)
[2017-08-31] MEDS: Losartan 100 MG Tab PO SCH (09:01)
[2017-08-31] MEDS: Multivitamins,Therapeutic Tab PO SCH (09:01)
[2017-08-31] MEDS: Cholecalciferol (Vitamin D3) 1,000 Unit Tab PO SCH (09:01)
[2017-08-31] MEDS: Vitamin B6-pyridOXINE 50 MG Tab PO SCH ×2 (09:01→21:59)
[2017-08-31] MEDS: Hydrochlorothiazide 12.5 MG Cap PO SCH (09:02)
[2017-08-31] MEDS: Simvastatin 40 MG Tab PO SCH (09:02)
[2017-08-31] MEDS: Enoxaparin 40 MG/0.4 ML Syringe SUBCUT SCH (09:02)
[2017-08-31] MEDS: Levofloxacin 500 MG Tab PO SCH (09:22)
--- NOTE | 2017-08-31 21:54 | PCM.PN ---
- General Info Date of Service: 08/31/17 Admission Dx/Problem (Free Text): Admission Diagnosis/Problem Admission Diagnosis/Problem Pneumonia Subjective Update: Follow Up Functional Status: Reports: Pain Controlled, Tolerating Diet, Ambulating, Urinating. Denies: New Symptoms - Review of Systems General: Denies: Fever, Weakness, Fatigue, Malaise, Chills HEENT: Reports: No Symptoms Pulmonary: Reports: Cough. Denies: Shortness of Breath, Wheezing Cardiovascular: Denies: Chest Pain, Dyspnea on Exertion, Lightheadedness Gastrointestinal: Denies: Abdominal Pain, Nausea, Vomiting Genitourinary: Reports: No Symptoms Musculoskeletal: Reports: No Symptoms Skin: Denies: Cyanosis, Mottled, Pallor, Diaphoresis, Rash Neurological: Denies: Confusion, Difficulty Walking, Weakness, Gait Disturbance Psychiatric: Denies: Depression, Anxiety, Agitation, Hallucinations Systems Review Comment:: No significant overnight or acute issues. She slept okay. She reports no shortness of breath but her sats drop after her walk with PT. She has no trouble with ambulation. She feels a little bit better. Currently, she is on 4L NC sating at 88-92%. Her CO2 is 41 this am. She reports no new complaints. - Patient Data Vitals - Most Recent: Last Vital Signs Temp 37.1 C 08/31/17 20:09 Pulse 89 08/31/17 20:09 Resp 24 H 08/31/17 20:09 BP 132/88 08/31/17 20:09 Pulse Ox 93 L 08/31/17 20:47 Weight - Most Recent: 92.351 kg I&O - Last 24 Hours: Intake & Output 08/31/17 08/31/17 08/31/17 06:59 14:59 22:59 Intake Total 200 120 520 Output Total 900 600 Balance -700 120 -80 Lab Results Last 24 Hours: Laboratory Results - last 24 hr 08/30/17 08/31/17 08/31/17 Range/Units 21:56 06:00 06:21 WBC 13.24 H (3.98-10.04) K/mm3 RBC 4.69 (3.98-5.22) M/mm3 Hgb 13.5 (11.2-15.7) gm/L Hct 43.5 (34.1-44.9) % MCV 92.8 (79.4-94.8) fl MCH 28.8 (25.6-32.2) pg MCHC 31.0 L (32.2-35.5) g/dl RDW Std Deviation 44.1 (36.4-46.3) fL Plt Count 296 (182-369) K/mm3 MPV 9.9 (9.4-12.3) fl Neut % (Auto) 83.9 H (34.0-71.1) % Lymph % (Auto) 4.9 L (19.3-51.7) % Harlan % (Auto) 9.7 (4.7-12.5) % Eos % (Auto) 0 L (0.7-5.8) Baso % (Auto) 0.1 (0.1-1.2) % Neut # (Auto) 11.11 H (1.56-6.13) K/mm3 Lymph # (Auto) 0.65 L (1.18-3.74) K/mm3 Harlan # (Auto) 1.29 H (0.24-0.36) K/mm3 Eos # (Auto) 0.00 L (0.04-0.36) K/mm3 Baso # (Auto) 0.01 (0.01-0.08) K/mm3 Manual Slide Review Normal smear Sodium (136-145) mEq/L Potassium (3.5-5.1) mEq/L Chloride (98-107) mEq/L Carbon Dioxide (21-32) mEq/L Anion Gap (5-15) BUN (7-18) mg/dL Creatinine (0.55-1.02) mg/dL Est Cr Clr Drug Dosing mL/min Estimated GFR (MDRD) (>60) mL/min BUN/Creatinine Ratio (14-18) Glucose (74-106) mg/dL POC Glucose 161 H 139 H (70-105) mg/dL Calcium (8.5-10.1) mg/dL Magnesium (1.8-2.4) mg/dl C-Reactive Protein (<1.0) mg/dL 08/31/17 08/31/17 08/31/17 Range/Units 06:21 10:59 17:20 WBC (3.98-10.04) K/mm3 RBC (3.98-5.22) M/mm3 Hgb (11.2-15.7) gm/L Hct (34.1-44.9) % MCV (79.4-94.8) fl MCH (25.6-32.2) pg MCHC (32.2-35.5) g/dl RDW Std Deviation (36.4-46.3) fL Plt Count (182-369) K/mm3 MPV (9.4-12.3) fl Neut % (Auto) (34.0-71.1) % Lymph % (Auto) (19.3-51.7) % Harlan % (Auto) (4.7-12.5) % Eos % (Auto) (0.7-5.8) Baso % (Auto) (0.1-1.2) % Neut # (Auto) (1.56-6.13) K/mm3 Lymph # (Auto) (1.18-3.74) K/mm3 Harlan # (Auto) (0.24-0.36) K/mm3 Eos # (Auto) (0.04-0.36) K/mm3 Baso # (Auto) (0.01-0.08) K/mm3 Manual Slide Review Sodium 146 H (136-145) mEq/L Potassium 3.7 (3.5-5.1) mEq/L Chloride 99 (98-107) mEq/L Carbon Dioxide 41 H* (21-32) mEq/L Anion Gap 9.7 (5-15) BUN 25 H (7-18) mg/dL Creatinine 0.9 (0.55-1.02) mg/dL Est Cr Clr Drug Dosing 49.54 mL/min Estimated GFR (MDRD) > 60 (>60) mL/min BUN/Creatinine Ratio 27.8 H (14-18) Glucose 133 H (74-106) mg/dL POC Glucose 179 H 180 H (70-105) mg/dL Calcium 8.8 (8.5-10.1) mg/dL Magnesium 2.3 (1.8-2.4) mg/dl C-Reactive Protein < 0.2 (<1.0) mg/dL 08/31/17 Range/Units 21:31 WBC (3.98-10.04) K/mm3 RBC (3.98-5.22) M/mm3 Hgb (11.2-15.7) gm/L Hct (34.1-44.9) % MCV (79.4-94.8) fl MCH (25.6-32.2) pg MCHC (32.2-35.5) g/dl RDW Std Deviation (36.4-46.3) fL Plt Count (182-369) K/mm3 MPV (9.4-12.3) fl Neut % (Auto) (34.0-71.1) % Lymph % (Auto) (19.3-51.7) % Harlan % (Auto) (4.7-12.5) % Eos % (Auto) (0.7-5.8) Baso % (Auto) (0.1-1.2) % Neut # (Auto) (1.56-6.13) K/mm3 Lymph # (Auto) (1.18-3.74) K/mm3 Harlan # (Auto) (0.24-0.36) K/mm3 Eos # (Auto) (0.04-0.36) K/mm3 Baso # (Auto) (0.01-0.08) K/mm3 Manual Slide Review Sodium (136-145) mEq/L Potassium (3.5-5.1) mEq/L Chloride (98-107) mEq/L Carbon Dioxide (21-32) mEq/L Anion Gap (5-15) BUN (7-18) mg/dL Creatinine (0.55-1.02) mg/dL Est Cr Clr Drug Dosing mL/min Estimated GFR (MDRD) (>60) mL/min BUN/Creatinine Ratio (14-18) Glucose (74-106) mg/dL POC Glucose 192 H (70-105) mg/dL Calcium (8.5-10.1) mg/dL Magnesium (1.8-2.4) mg/dl C-Reactive Protein (<1.0) mg/dL Med Orders - Current: Current Medications Acetaminophen (Tylenol) 650 mg PO Q4H PRN PRN Reason: Pain (Mild 1-3)/fever Last Admin: 08/29/17 21:15 Dose: 650 mg Albuterol (Proventil Neb Soln) 2.5 mg NEB Q4HRRT PRN PRN Reason: Shortness Of Breath/wheezing Last Admin: 08/27/17 14:51 Dose: 2.5 mg Albuterol/Ipratropium (Duoneb 3.0-0.5 Mg/3 Ml) 3 ml NEB QIDRT [facility] Last Admin: 08/31/17 20:47 Dose: 3 ml Artificial Tears (Isopto Tears 0.5% Ophth Soln) 0 ml EYEBOTH DAILY [facility] Last Admin: 08/31/17 08:59 Dose: 1 drop Benzonatate (Tessalon Perles) 200 mg PO TID [facility] Last Admin: 08/31/17 14:51 Dose: 200 mg Bisacodyl (Dulcolax) 5 mg PO DAILY PRN PRN Reason: Constipation Cholecalciferol (Vitamin D3) 5,000 units PO DAILY [facility] Last Admin: 08/31/17 09:01 Dose: 5,000 units Dextrose/Water (Dextrose 50% In Water) 50 ml IVPUSH ASDIRECTED PRN PRN Reason: hypoglycemia Docusate Sodium (Colace) 100 mg PO BID PRN PRN Reason: Constipation Enoxaparin Sodium (Lovenox) 40 mg SUBCUT DAILY [facility] Last Admin: 08/31/17 09:02 Dose: 40 mg Guaifenesin/Codeine Phosphate (Robitussin Ac) 10 ml PO Q4H PRN PRN Reason: Cough Last Admin: 08/27/17 17:40 Dose: 10 ml Haloperidol Lactate (Haldol) 1 mg IVPUSH Q8H PRN PRN Reason: restlessness Hydrochlorothiazide (Hydrochlorothiazide) 12.5 mg PO DAILY [facility] Last Admin: 08/31/17 09:02 Dose: 12.5 mg Hydromorphone HCl (Dilaudid) 0.25 mg IVPUSH Q2H PRN PRN Reason: Pain (severe 7-10) Insulin Aspart (Novolog) 0 unit SUBCUT QIDACANDBED [facility] PRN Reason: Protocol Last Admin: 08/31/17 17:37 Dose: 1 unit Latanoprost (Xalatan 0.005% Ophth Soln) 0 ml EYEBOTH DAILY [facility] Last Admin: 08/31/17 09:00 Dose: 1 drop Levofloxacin (Levaquin) 500 mg PO Q24H [facility] Last Admin: 08/31/17 09:22 Dose: 500 mg Lorazepam (Ativan) 1 mg IVPUSH Q8H PRN PRN Reason: Anxiety Losartan Potassium (Cozaar) 100 mg PO DAILY [facility] Last Admin: 08/31/17 09:01 Dose: 100 mg Methylprednisolone Sodium Succinate (Solu-Medrol) 80 mg IVPUSH Q8H [facility] Last Admin: 08/31/17 17:37 Dose: 80 mg Multivitamins (Thera) 1 each PO DAILY [facility] Last Admin: 08/31/17 09:01 Dose: 1 each Nitroglycerin (Nitrostat) 4 mg SL ASDIRECTED PRN PRN Reason: Chest Pain Ondansetron HCl (Zofran Odt) 4 mg PO Q6H PRN PRN Reason: nausea, able to take PO Ondansetron HCl (Zofran) 4 mg IV Q6H PRN PRN Reason: Nausea/Vomiting Polyethylene Glycol (Miralax) 17 gm PO DAILY PRN PRN Reason: Constipation Pyridoxine HCl (Vitamin B6-Pyridoxine) 50 mg PO BID [facility] Last Admin: 08/31/17 09:01 Dose: 50 mg Senna/Docusate Sodium (Senna Plus) 1 tab PO BID PRN PRN Reason: Constipation Last Admin: 08/30/17 09:52 Dose: 1 tab Simvastatin (Zocor) 40 mg PO DAILY [facility] Last Admin: 08/31/17 09:02 Dose: 40 mg Sodium Chloride (Saline Flush) 10 ml FLUSH ASDIRECTED PRN PRN Reason: Keep Vein Open Last Admin: 08/24/17 16:53 Dose: 10 ml Sodium Chloride ([place] Nasal [place]) 0 ml ANNETTE Q4H PRN PRN Reason: Nasal dryness Last Admin: 08/25/17 05:00 Dose: 1 spray Temazepam (Restoril) 7.5 mg PO BEDTIME PRN PRN Reason: Sleep Last Admin: 08/29/17 21:19 Dose: 7.5 mg Discontinued Medications Acetaminophen (Tylenol) 975 mg PO NOW ONE Stop: 08/24/17 16:56 Last Admin: 08/24/17 17:12 Dose: 975 mg Hydrocodone Bitart/Acetaminophen ([place] 325-5 Mg) 1 tab PO Q4H PRN PRN Reason: Pain (moderate 4-6) Last Admin: 08/29/17 17:08 Dose: 1 tab Albuterol/Ipratropium (Duoneb 3.0-0.5 Mg/3 Ml) 3 ml NEB ONETIME ONE Stop: 08/24/17 16:41 Last Admin: 08/24/17 16:56 Dose: 3 ml Albuterol/Ipratropium (Duoneb 3.0-0.5 Mg/3 Ml) 3 ml NEB QID CANDIE Last Admin: 08/27/17 21:53 Dose: 3 ml Guaifenesin/Phenylephrine HCl (Robitussin Dm) 10 ml PO Q4H PRN PRN Reason: Cough Haloperidol Lactate (Haldol) 1 mg IVPUSH ONETIME ONE Stop: 08/29/17 17:51 Last Admin: 08/29/17 18:14 Dose: 1 mg Levofloxacin/Dextrose 750 mg/ (Premix) 150 mls @ 100 mls/hr IV ONETIME ONE Stop: 08/24/17 18:09 Last Admin: 08/24/17 17:03 Dose: 100 mls/hr Sodium Chloride (Normal Saline) 500 mls @ 1,000 mls/hr IV .BOLUS ONE Stop: 08/24/17 17:25 Last Admin: 08/24/17 17:02 Dose: 1,000 mls/hr Sodium Chloride (Normal Saline) 2,350 mls @ 1,000 mls/hr IV ONETIME ONE Stop: 08/24/17 19:41 Last Admin: 08/24/17 20:08 Dose: 1,000 mls/hr Sodium Chloride (Normal Saline) Confirm Administered Dose 1,000 mls @ as directed .ROUTE .STK-MED ONE Stop: 08/24/17 21:32 Last Admin: 08/25/17 01:15 Dose: 850 ml Levofloxacin/Dextrose 750 mg/ (Premix) 150 mls @ 100 mls/hr IV Q24H CANDIE Stop: 08/27/17 20:00 Last Admin: 08/27/17 17:35 Dose: 100 mls/hr Sodium Chloride (Normal Saline) 1,000 mls @ 100 mls/hr IV ASDIRECTED [facility] Last Admin: 08/27/17 05:11 Dose: 100 mls/hr Influenza Virus Vaccine (Pharmacy To Dose - Influenza Vaccine) 1 each IM ONETIME ONE Stop: 08/29/17 00:15 Influenza Virus Vaccine (Flulaval Quad [id number]) 60 mcg IM .ONCE ONE Stop: 08/29/17 01:01 Levofloxacin (Levaquin) 500 mg PO Q24H [facility] Last Admin: 08/28/17 16:36 Dose: 500 mg Lorazepam (Ativan) 1 mg IVPUSH ONETIME ONE Stop: 08/29/17 17:52 Last Admin: 08/29/17 18:11 Dose: 1 mg Methylprednisolone Sodium Succinate (Solu-Medrol) 125 mg IVPUSH ONETIME ONE Stop: 08/24/17 16:41 Last Admin: 08/24/17 17:07 Dose: 125 mg Methylprednisolone Sodium Succinate (Solu-Medrol) 85 mg IVPUSH DAILY [facility] Last Admin: 08/25/17 09:24 Dose: 85 mg Methylprednisolone Sodium Succinate (Solu-Medrol) 80 mg IVPUSH BID [facility] Last Admin: 08/27/17 09:50 Dose: 80 mg Methylprednisolone Sodium Succinate (Solu-Medrol) 125 mg IVPUSH Q8H [facility] Last Admin: 08/29/17 18:16 Dose: 125 mg Methylprednisolone Sodium Succinate (Solu-Medrol) 80 mg IVPUSH Q8H [facility] Pneumococcal Polyvalent Vaccine (Pneumovax 23) 0.5 ml IM .ONCE ONE Stop: 08/29/17 00:15 - Exam Quality Assessment: Supplemental Oxygen General: Alert, Cooperative, No Acute Distress, Other (Morbidly Obese) HEENT: Pupils Equal, Pupils Reactive, EOMI, Mucous Membr. Moist/[place] Neck: Supple, Trachea Midline, No Thyromegaly Lungs: Normal Respiratory Effort, Decreased Breath Sounds Cardiovascular: Regular Rate, Regular Rhythm GI/Abdominal Exam: Normal Bowel Sounds, Soft, Non-Tender, No Organomegaly, No Distention, No Abnormal Bruit, No Mass, Other (Obese) (Female) Exam: Deferred Back Exam: Normal Inspection, Decreased Range of Motion Extremities: Normal Inspection, Normal Range of Motion, Non-Tender, No Pedal Edema, Normal Capillary Refill Peripheral Pulses: 2+: Dorsalis Pedis (L), Dorsalis Pedis (R) Skin: Warm, Dry, Intact Neurological: No New Focal Deficit Psy/Mental Status: Alert, Normal Affect, Normal Mood - Problem List Review Problem List Initiated/Reviewed/Updated: Yes - My Orders Last 24 Hours: My Active Orders 08/31/17 10:05 Consult to Physician [CONS] Routine 08/31/17 10:06 Notify Provider Consults [RC] ASDIRECTED - Plan Plan:: I/P: Acute: Pneumonia -Risk Factor: Large Hiatal Hernia -Non-productive cough, fever, SOB -EMS found oxygen saturations to be in 70's; now at 3-4L NC sating at 88-93% -Afebrile since admission -WBC 13.45-->13.24; CRP 6.2 -->0.2 (normal) -Still on Levaquin 750 mg daily -Of note: She is allergic to PCN and Vancomycin -Sputum culture-ordered; Mycoplasma and Strep pneumonia Ag-negative -Continue RT/IS/Acapella and Duo-Nebs PRN; Humidified O2 and nasal saline for congestion - Titrate O2 as needed, attempt to wean -Solumedrol changed to 60 mg IVP Q12H, Nebs scheduled and prn; pulmonary toilet -Repeat CXR this am: no acute infiltrate -Stanley martinez, scheduled Hypercapnea - CO2 level of 41; has been normal since admission - Carries a hx/o ADEN - Monitor and repeat level Leukocytosis - 2/2 Steroids-dose cut down to 60 mg BID - CRP is normal Left Sided Diaphragmatic Hernia/Large Hiatal Hernia - Stable - H2B for acid reflux Resolved: S/p Sepsis -HR>90, tachypneic, hypotension, fever of 100.9, renal injury -Likely due to pneumonia -Lactic acid 1.8 -2350 fluid bolus given in ED -Blood cultures -Fluids as ordered -Treatment as above S/p Acute Renal Injury -Unsure of baseline -Bun 27, creatinine 1.3, eGFR 42-at baseline -Avoid nephrotoxic medications -Pharmacy to renally dose meds -Fluids -Continue to monitor Chronic: Hx/o Arrhythmias - SVT and PVCs HLD HTN - stable Sleep apnea Stress incontinence Scoliosis Mental retardation Personality disorder SAD Type II DM - Insulin per protocol-changed to Medium level, Glucose checks QIDAC and bedtime Anemia - stable Obesity with BMI of 39.8 Plan: She is clinically stable Continue current treatment with PT/OT SW/CM for discharge planning Routine AM Labs Other orders as indicated above DVT/PE prophylaxis: Lovenox and ambulation Encourage to ambulated as tolerated Code status: Full Code, PCP is Dr. Ty at [facility] here in [place]. LOS>96 hours pending placement to [place]
[2017-08-31] MEDS: Temazepam 7.5 MG Cap PO PRN (21:59)
[2017-09-01] MEDS: methylPREDNISolone Sodium Succinate 125 MG/2 ML SDV IVPUSH SCH ×3 (02:31→18:06)
[2017-09-01] MEDS: Albuterol/Ipratropium 3.0-0.5 MG/3 ML Neb Soln NEB SCH ×4 (06:06→21:04)
[2017-09-01] MEDS: Insulin Aspart 100 Units/ML 3 ML Pen SUBCUT SCH ×4 (06:18→21:51)
[2017-09-01] MEDS ORDERED: methylPREDNISolone Sodium Succinate 40 MG/1 ML SDV IVPUSH SCH (09:00)
--- NOTE | 2017-09-01 09:24 | PCM.PN ---
- General Info Date of Service: 09/01/17 Admission Dx/Problem (Free Text): Admission Diagnosis/Problem Admission Diagnosis/Problem Pneumonia Subjective Update: Follow Up Functional Status: Reports: Pain Controlled, Tolerating Diet, Ambulating, Urinating. Denies: New Symptoms - Review of Systems General: Denies: Fever, Weakness, Chills HEENT: Reports: No Symptoms Pulmonary: Denies: Shortness of Breath Cardiovascular: Denies: Chest Pain, Palpitations, Dyspnea on Exertion Gastrointestinal: Denies: Nausea, Vomiting Genitourinary: Reports: No Symptoms Musculoskeletal: Reports: No Symptoms, Neck Pain Skin: Denies: Cyanosis, Mottled, Pallor, Diaphoresis, Pruritis, Rash Neurological: Denies: Confusion, Difficulty Walking, Weakness, Gait Disturbance Psychiatric: Denies: Depression, Anxiety, Agitation, Hallucinations Systems Review Comment:: No significant overnight or acute issues. She slept good. She report no new complaints except of the lovenox injection. She is alert and awake. - Patient Data Vitals - Most Recent: Last Vital Signs Temp 36.9 C 09/01/17 07:57 Pulse 90 09/01/17 07:57 Resp 19 09/01/17 07:57 BP 114/75 09/01/17 07:57 Pulse Ox 92 L 09/01/17 07:57 Weight - Most Recent: 91.399 kg I&O - Last 24 Hours: Intake & Output 08/31/17 09/01/17 09/01/17 22:59 06:59 14:59 Intake Total 520 250 Output Total 600 750 Balance -80 -500 Lab Results Last 24 Hours: Laboratory Results - last 24 hr 08/31/17 08/31/17 08/31/17 Range/Units 10:59 17:20 21:31 WBC (3.98-10.04) K/mm3 RBC (3.98-5.22) M/mm3 Hgb (11.2-15.7) gm/L Hct (34.1-44.9) % MCV (79.4-94.8) fl MCH (25.6-32.2) pg MCHC (32.2-35.5) g/dl RDW Std Deviation (36.4-46.3) fL Plt Count (182-369) K/mm3 MPV (9.4-12.3) fl Neut % (Auto) (34.0-71.1) % Lymph % (Auto) (19.3-51.7) % [place] % (Auto) (4.7-12.5) % Eos % (Auto) (0.7-5.8) Baso % (Auto) (0.1-1.2) % Neut # (Auto) (1.56-6.13) K/mm3 Lymph # (Auto) (1.18-3.74) K/mm3 [place] # (Auto) (0.24-0.36) K/mm3 Eos # (Auto) (0.04-0.36) K/mm3 Baso # (Auto) (0.01-0.08) K/mm3 Manual Slide Review Sodium (136-145) mEq/L Potassium (3.5-5.1) mEq/L Chloride (98-107) mEq/L Carbon Dioxide (21-32) mEq/L Anion Gap (5-15) BUN (7-18) mg/dL Creatinine (0.55-1.02) mg/dL Est Cr Clr Drug Dosing mL/min Estimated GFR (MDRD) (>60) mL/min BUN/Creatinine Ratio (14-18) Glucose (74-106) mg/dL POC Glucose 179 H 180 H 192 H (70-105) mg/dL Calcium (8.5-10.1) mg/dL Magnesium (1.8-2.4) mg/dl C-Reactive Protein (<1.0) mg/dL 09/01/17 09/01/17 09/01/17 Range/Units 05:55 05:55 06:06 WBC 15.54 H (3.98-10.04) K/mm3 RBC 4.55 (3.98-5.22) M/mm3 Hgb 13.2 (11.2-15.7) gm/L Hct 42.4 (34.1-44.9) % MCV 93.2 (79.4-94.8) fl MCH 29.0 (25.6-32.2) pg MCHC 31.1 L (32.2-35.5) g/dl RDW Std Deviation 45.1 (36.4-46.3) fL Plt Count 283 (182-369) K/mm3 MPV 10.0 (9.4-12.3) fl Neut % (Auto) 78.7 H (34.0-71.1) % Lymph % (Auto) 7.5 L (19.3-51.7) % [place] % (Auto) 12.4 (4.7-12.5) % Eos % (Auto) 0.1 L (0.7-5.8) Baso % (Auto) 0.1 (0.1-1.2) % Neut # (Auto) 12.24 H (1.56-6.13) K/mm3 Lymph # (Auto) 1.17 L (1.18-3.74) K/mm3 [place] # (Auto) 1.93 H (0.24-0.36) K/mm3 Eos # (Auto) 0.01 L (0.04-0.36) K/mm3 Baso # (Auto) 0.01 (0.01-0.08) K/mm3 Manual Slide Review Abnormal smear Sodium 145 (136-145) mEq/L Potassium 3.5 (3.5-5.1) mEq/L Chloride 101 (98-107) mEq/L Carbon Dioxide 38 H (21-32) mEq/L Anion Gap 9.5 (5-15) BUN 28 H (7-18) mg/dL Creatinine 0.9 (0.55-1.02) mg/dL Est Cr Clr Drug Dosing 49.54 mL/min Estimated GFR (MDRD) > 60 (>60) mL/min BUN/Creatinine Ratio 31.1 H (14-18) Glucose 122 H (74-106) mg/dL POC Glucose 96 (70-105) mg/dL Calcium 9.1 (8.5-10.1) mg/dL Magnesium 2.5 H (1.8-2.4) mg/dl C-Reactive Protein < 0.2 (<1.0) mg/dL Med Orders - Current: Current Medications Acetaminophen (Tylenol) 650 mg PO Q4H PRN PRN Reason: Pain (Mild 1-3)/fever Last Admin: 08/29/17 21:15 Dose: 650 mg Albuterol (Proventil Neb Soln) 2.5 mg NEB Q4HRRT PRN PRN Reason: Shortness Of Breath/wheezing Last Admin: 08/27/17 14:51 Dose: 2.5 mg Albuterol/Ipratropium (Duoneb 3.0-0.5 Mg/3 Ml) 3 ml NEB QIDRT [facility] Last Admin: 09/01/17 06:06 Dose: 3 ml Artificial Tears (Isopto Tears 0.5% Ophth Soln) 0 ml EYEBOTH DAILY [facility] Last Admin: 08/31/17 08:59 Dose: 1 drop Benzonatate (Tessalon Perles) 200 mg PO TID [facility] Last Admin: 08/31/17 21:59 Dose: 200 mg Bisacodyl (Dulcolax) 5 mg PO DAILY PRN PRN Reason: Constipation Cholecalciferol (Vitamin D3) 5,000 units PO DAILY [facility] Last Admin: 08/31/17 09:01 Dose: 5,000 units Dextrose/Water (Dextrose 50% In Water) 50 ml IVPUSH ASDIRECTED PRN PRN Reason: hypoglycemia Docusate Sodium (Colace) 100 mg PO BID PRN PRN Reason: Constipation Enoxaparin Sodium (Lovenox) 40 mg SUBCUT DAILY [facility] Last Admin: 08/31/17 09:02 Dose: 40 mg Guaifenesin/Codeine Phosphate (Robitussin Ac) 10 ml PO Q4H PRN PRN Reason: Cough Last Admin: 08/27/17 17:40 Dose: 10 ml Haloperidol Lactate (Haldol) 1 mg IVPUSH Q8H PRN PRN Reason: restlessness Hydrochlorothiazide (Hydrochlorothiazide) 12.5 mg PO DAILY [facility] Last Admin: 08/31/17 09:02 Dose: 12.5 mg Hydromorphone HCl (Dilaudid) 0.25 mg IVPUSH Q2H PRN PRN Reason: Pain (severe 7-10) Insulin Aspart (Novolog) 0 unit SUBCUT QIDACANDBED [facility] PRN Reason: Protocol Last Admin: 09/01/17 06:18 Dose: Not Given Latanoprost (Xalatan 0.005% Ophth Soln) 0 ml EYEBOTH DAILY [facility] Last Admin: 08/31/17 09:00 Dose: 1 drop Levofloxacin (Levaquin) 500 mg PO Q24H [facility] Last Admin: 08/31/17 09:22 Dose: 500 mg Lorazepam (Ativan) 1 mg IVPUSH Q8H PRN PRN Reason: Anxiety Losartan Potassium (Cozaar) 100 mg PO DAILY [facility] Last Admin: 08/31/17 09:01 Dose: 100 mg Methylprednisolone Sodium Succinate (Solu-Medrol) 40 mg IVPUSH Q12H [facility] Multivitamins (Thera) 1 each PO DAILY [facility] Last Admin: 08/31/17 09:01 Dose: 1 each Nitroglycerin (Nitrostat) 4 mg SL ASDIRECTED PRN PRN Reason: Chest Pain Ondansetron HCl (Zofran Odt) 4 mg PO Q6H PRN PRN Reason: nausea, able to take PO Ondansetron HCl (Zofran) 4 mg IV Q6H PRN PRN Reason: Nausea/Vomiting Polyethylene Glycol (Miralax) 17 gm PO DAILY PRN PRN Reason: Constipation Pyridoxine HCl (Vitamin B6-Pyridoxine) 50 mg PO BID [facility] Last Admin: 08/31/17 21:59 Dose: 50 mg Senna/Docusate Sodium (Senna Plus) 1 tab PO BID PRN PRN Reason: Constipation Last Admin: 08/30/17 09:52 Dose: 1 tab Simvastatin (Zocor) 40 mg PO DAILY [facility] Last Admin: 08/31/17 09:02 Dose: 40 mg Sodium Chloride (Saline Flush) 10 ml FLUSH ASDIRECTED PRN PRN Reason: Keep Vein Open Last Admin: 08/24/17 16:53 Dose: 10 ml Sodium Chloride ([place]y Nasal [place]) 0 ml ANNETTE Q4H PRN PRN Reason: Nasal dryness Last Admin: 08/25/17 05:00 Dose: 1 spray Temazepam (Restoril) 7.5 mg PO BEDTIME PRN PRN Reason: Sleep Last Admin: 08/31/17 21:59 Dose: 7.5 mg Discontinued Medications Acetaminophen (Tylenol) 975 mg PO NOW ONE Stop: 08/24/17 16:56 Last Admin: 08/24/17 17:12 Dose: 975 mg Hydrocodone Bitart/Acetaminophen ([place] 325-5 Mg) 1 tab PO Q4H PRN PRN Reason: Pain (moderate 4-6) Last Admin: 08/29/17 17:08 Dose: 1 tab Albuterol/Ipratropium (Duoneb 3.0-0.5 Mg/3 Ml) 3 ml NEB ONETIME ONE Stop: 08/24/17 16:41 Last Admin: 08/24/17 16:56 Dose: 3 ml Albuterol/Ipratropium (Duoneb 3.0-0.5 Mg/3 Ml) 3 ml NEB QID [facility] Last Admin: 08/27/17 21:53 Dose: 3 ml Guaifenesin/Phenylephrine HCl (Robitussin Dm) 10 ml PO Q4H PRN PRN Reason: Cough Haloperidol Lactate (Haldol) 1 mg IVPUSH ONETIME ONE Stop: 08/29/17 17:51 Last Admin: 08/29/17 18:14 Dose: 1 mg Levofloxacin/Dextrose 750 mg/ (Premix) 150 mls @ 100 mls/hr IV ONETIME ONE Stop: 08/24/17 18:09 Last Admin: 08/24/17 17:03 Dose: 100 mls/hr Sodium Chloride (Normal Saline) 500 mls @ 1,000 mls/hr IV .BOLUS ONE Stop: 08/24/17 17:25 Last Admin: 08/24/17 17:02 Dose: 1,000 mls/hr Sodium Chloride (Normal Saline) 2,350 mls @ 1,000 mls/hr IV ONETIME ONE Stop: 08/24/17 19:41 Last Admin: 08/24/17 20:08 Dose: 1,000 mls/hr Sodium Chloride (Normal Saline) Confirm Administered Dose 1,000 mls @ as directed .ROUTE .STK-MED ONE Stop: 08/24/17 21:32 Last Admin: 08/25/17 01:15 Dose: 850 ml Levofloxacin/Dextrose 750 mg/ (Premix) 150 mls @ 100 mls/hr IV Q24H CANDIE Stop: 08/27/17 20:00 Last Admin: 08/27/17 17:35 Dose: 100 mls/hr Sodium Chloride (Normal Saline) 1,000 mls @ 100 mls/hr IV ASDIRECTED [facility] Last Admin: 08/27/17 05:11 Dose: 100 mls/hr Influenza Virus Vaccine (Pharmacy To Dose - Influenza Vaccine) 1 each IM ONETIME ONE Stop: 08/29/17 00:15 Influenza Virus Vaccine (Flulaval Quad [id number]) 60 mcg IM .ONCE ONE Stop: 08/29/17 01:01 Levofloxacin (Levaquin) 500 mg PO Q24H [facility] Last Admin: 08/28/17 16:36 Dose: 500 mg Lorazepam (Ativan) 1 mg IVPUSH ONETIME ONE Stop: 08/29/17 17:52 Last Admin: 08/29/17 18:11 Dose: 1 mg Methylprednisolone Sodium Succinate (Solu-Medrol) 125 mg IVPUSH ONETIME ONE Stop: 08/24/17 16:41 Last Admin: 08/24/17 17:07 Dose: 125 mg Methylprednisolone Sodium Succinate (Solu-Medrol) 85 mg IVPUSH DAILY [facility] Last Admin: 08/25/17 09:24 Dose: 85 mg Methylprednisolone Sodium Succinate (Solu-Medrol) 80 mg IVPUSH BID [facility] Last Admin: 08/27/17 09:50 Dose: 80 mg Methylprednisolone Sodium Succinate (Solu-Medrol) 125 mg IVPUSH Q8H [facility] Last Admin: 08/29/17 18:16 Dose: 125 mg Methylprednisolone Sodium Succinate (Solu-Medrol) 80 mg IVPUSH Q8H [facility] Methylprednisolone Sodium Succinate (Solu-Medrol) 80 mg IVPUSH Q8H [facility] Last Admin: 09/01/17 02:31 Dose: Not Given Pneumococcal Polyvalent Vaccine (Pneumovax 23) 0.5 ml IM .ONCE ONE Stop: 08/29/17 00:15 - Exam Quality Assessment: Supplemental Oxygen General: Alert, Cooperative, No Acute Distress, Other (Morbidly Obese) HEENT: Pupils Equal, Pupils Reactive, EOMI, Mucous Membr. Moist/[place] Neck: Supple, Trachea Midline, No JVD, No Thyromegaly, Other (short and thick) Lungs: Clear to Auscultation, Normal Respiratory Effort, Decreased Breath Sounds Cardiovascular: Regular Rate, Regular Rhythm GI/Abdominal Exam: Normal Bowel Sounds, Soft, Non-Tender, No Organomegaly, No Distention, No Abnormal Bruit, Other (Obese) (Female) Exam: Deferred Back Exam: Normal Inspection, Decreased Range of Motion Extremities: Normal Inspection, Normal Range of Motion, Non-Tender, No Pedal Edema, Normal Capillary Refill Peripheral Pulses: 2+: Dorsalis Pedis (L), Dorsalis Pedis (R) Skin: Warm, Dry, Intact, Ecchymosis (abdomen) Neurological: No New Focal Deficit Psy/Mental Status: Alert, Normal Affect, Normal Mood - Problem List Review Problem List Initiated/Reviewed/Updated: Yes - My Orders Last 24 Hours: My Active Orders 08/31/17 10:05 Consult to Physician [CONS] Routine 08/31/17 10:06 Notify Provider Consults [RC] ASDIRECTED 09/01/17 09:00 methylPREDNISolone Sod Succ [Solu-MEDROL] 40 mg IVPUSH Q12H - Plan Plan:: I/P: Acute: Pneumonia -Risk Factor: Large Hiatal Hernia -Non-productive cough, fever, SOB -EMS found oxygen saturations to be in 70's; now at 3-4L NC sating at 88-93% -Afebrile since admission -WBC 13.45-->13.24; CRP 6.2 -->0.2 (normal) -D/c Levaquin 750 mg daily -Of note: She is allergic to PCN and Vancomycin -Sputum culture-ordered; Mycoplasma and Strep pneumonia Ag-negative -Continue RT/IS/Acapella and Duo-Nebs PRN; Humidified O2 and nasal saline for congestion - Titrate O2 as needed, attempt to wean -D/c Solumedrol changed to 60 mg IVP Q12H -Continue Nebs scheduled and prn; pulmonary toilet -Repeat CXR yesterday: no acute infiltrate -Stanley martinez, scheduled Hypercapnea, Improved - CO2 level of 41--> 38 - Carries a hx/o ADEN - Monitor and repeat level Leukocytosis - 2/2 Steroids-d/c'd - CRP is normal Left Sided Diaphragmatic Hernia/Large Hiatal Hernia - Stable - H2B for acid reflux Resolved: S/p Sepsis -HR>90, tachypneic, hypotension, fever of 100.9, renal injury -Likely due to pneumonia -Lactic acid 1.8 -2350 fluid bolus given in ED -Blood cultures -Fluids as ordered -Treatment as above S/p Acute Renal Injury -Unsure of baseline -Bun 27, creatinine 1.3, eGFR 42-at baseline -Avoid nephrotoxic medications -Pharmacy to renally dose meds -Fluids -Continue to monitor Chronic: Hx/o Arrhythmias - SVT and PVCs HLD HTN - stable Sleep apnea Stress incontinence Scoliosis Mental retardation Personality disorder SAD Type II DM - Improved BS -Insulin per protocol-changed to Medium level, Glucose checks QIDAC and bedtime Anemia - stable Obesity with BMI of 39.8 Plan: She remains is clinically stable Continue current treatment with PT/OT SW/CM for discharge planning Routine AM Labs Other orders as indicated above DVT/PE prophylaxis: Lovenox and ambulation Encourage to ambulated as tolerated Code status: Full Code, PCP is Dr. Ty at [facility] here in [place] Patient will let me know if she wants to switch to SCDs for DVT prophylaxis LOS>96 hours pending placement to NH vs Home
[2017-09-01] MEDS: Simvastatin 40 MG Tab PO SCH (09:41)
[2017-09-01] MEDS: Levofloxacin 500 MG Tab PO SCH (09:41)
[2017-09-01] MEDS: Hydrochlorothiazide 12.5 MG Cap PO SCH (09:41)
[2017-09-01] MEDS: Multivitamins,Therapeutic Tab PO SCH (09:42)
[2017-09-01] MEDS: Vitamin B6-pyridOXINE 50 MG Tab PO SCH ×2 (09:42→22:37)
[2017-09-01] MEDS: Losartan 100 MG Tab PO SCH (09:42)
[2017-09-01] MEDS: Cholecalciferol (Vitamin D3) 1,000 Unit Tab PO SCH (09:43)
[2017-09-01] MEDS: Benzonatate 100 MG Cap PO SCH ×3 (09:43→22:37)
[2017-09-01] MEDS: Enoxaparin 40 MG/0.4 ML Syringe SUBCUT SCH (09:44)
[2017-09-01] MEDS: Hypromellose 0.5% Ophth Soln 15 ML Bottle EYEBOTH SCH (09:53)
[2017-09-01] MEDS: Latanoprost 0.005% Ophth Soln 2.5 ML Bottle EYEBOTH SCH (09:54)
[2017-09-01] MEDS: FLUoxetine 20 MG Cap PO SCH (16:29)
--- NOTE | 2017-09-01 17:58 | CONS ---
CONSULTING PHYSICIAN: Lenin Muñoz MD DATE OF CONSULTATION: 09/01/2017 This is a 60-minute inpatient clinical event. IDENTIFICATION: The patient is a 57-year-old female who was admitted to the inpatient medical unit at [facility] in [place], [place] on 08/24/2017. She is seen for psychiatric evaluation. CHIEF COMPLAINT: "I got pneumonia." HISTORY OF PRESENT ILLNESS: The patient is a 57-year-old female who reports that she is "supposed to go to the halfway in [place]" when she is medically stabilized. She was recently admitted "last Wednesday" about 8 days ago because of complications with shortness of breath and was subsequently diagnosed with pneumonia. The patient states that she has been "feeling a little bit better" since she has been on the medical unit. She does not endorse symptoms of depression. She states that she "just lost a dog in February" that she has been thinking about and she also notes that she had a sister that 3 years ago and then a stepbrother "also " and that not too distant past. The patient states that she gets sad thinking about these losses. She also feels a little bit lonely, tends to isolate and not go out too much because "I do not have much money." She endorses crying episodes and poor sleep patterns. She does deny mood swings and reports she has good appetite. She has never been on any antidepressant medications. She is worried about her dog and 2 cats, but she does have a lady looking after them now and is hopeful once she gets stronger, she will be able to go back home. She denies that she is suicidal or homicidal at this point in time. She denies that she is psychotic delusional paranoid. She is open to trying medications to help with her mood, but she states "I do not want to be on too many medications. I get scared of being overmedicated." MEDICATIONS: At the time of presentation, no psychiatric medications are currently being prescribed. ALLERGIES: 1. Penicillin. 2. Vancomycin. PAST MEDICAL HISTORY: Significant for pneumonia. REVIEW OF SYSTEMS: Aside from pulmonary, all other major organ systems appear intact. Overall, this point in time without any acute difficulties or complications. FAMILY PSYCHIATRIC AND CD HISTORY: None reported. PAST PSYCHIATRIC AND CD HISTORY: The patient denies any past psychiatric medication history or past psychiatric hospitalizations or previous suicide attempts. SOCIAL HISTORY: The patient was born in [place], [place], raised in both [place] and [place]. She has never been . Denies any current relationships. Now, she has 2 girls from a previous relationship and one son in [place] and other one lives in [place]. 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 She lives in [place], [place] by herself with two cats and a dog. She is raised Nondenominational. MENTAL STATUS EXAM: The patient is a 57-year-old white female, in no apparent distress. Speech is of increased latency of response, shortened duration of utterance. Psychomotor activity is within normal limits. There is no abnormal motor movements or tics observed. Gait and station are not observed. The patient is lying in bed during the consult. The patient is cognitively oriented x3. Mood is depressed. Affect is consistent with stated mood restricted and tearful at times throughout the interview, but cooperative overall for the purposes of the inpatient consult. There is no behavioral or stated evidence of acute suicidal or homicidal ideation or acute psychotic, delusional, or paranoid symptoms. Thought processes are significant for some thought blocking. However, there are no manic symptoms, loose associations evident. Judgment and insight appear somewhat impaired secondary to severity of the patient's thought blocking, but motivation for help is good. VITALS: 116/62, 97, 32, 98.4 degrees. IMPRESSION: [place] I. 1. Major depressive disorder, severe, F32.3. [place] II: None. [place] III: 1. Pneumonia. 2. Suspected obesity. [place] IV: Severe. [place] V: 50 to 55. PLAN: 1. Begin Prozac 20 mg q.a.m. for symptoms of depression. 2. Other medications as dosed and prescribed by the patient's primary medical treatment team. 3. Pastoral guidance while the patient remains on the unit. 4. Recommend the patient to follow up with Outpatient Psychiatry to assess overall function efficacy of her newly initiated psychiatric medication regimen within 3-4 weeks after the patient is discharged from the hospital setting and transferred to the halfway setting for further convalescence. 5. We will continue to follow up with the patient on an as-needed basis while she remains on the inpatient medical unit. 6. We will follow up with the patient sooner, if any complications in the interim. 7. Crisis plan is in place. TYSON /[id number]
[2017-09-01] MEDS: Temazepam 7.5 MG Cap PO PRN (22:37)
[2017-09-02] MEDS: Albuterol/Ipratropium 3.0-0.5 MG/3 ML Neb Soln NEB SCH ×4 (05:53→21:13)
[2017-09-02] MEDS: Insulin Aspart 100 Units/ML 3 ML Pen SUBCUT SCH ×4 (07:35→23:40)
[2017-09-02] MEDS: Multivitamins,Therapeutic Tab PO SCH (09:33)
[2017-09-02] MEDS: FLUoxetine 20 MG Cap PO SCH (09:33)
[2017-09-02] MEDS: Vitamin B6-pyridOXINE 50 MG Tab PO SCH ×2 (09:33→21:53)
[2017-09-02] MEDS: Benzonatate 100 MG Cap PO SCH ×3 (09:34→21:52)
[2017-09-02] MEDS: Simvastatin 40 MG Tab PO SCH (09:35)
[2017-09-02] MEDS: Cholecalciferol (Vitamin D3) 1,000 Unit Tab PO SCH (09:36)
[2017-09-02] MEDS: Hydrochlorothiazide 12.5 MG Cap PO SCH (09:37)
[2017-09-02] MEDS: Losartan 100 MG Tab PO SCH (09:38)
[2017-09-02] MEDS: Enoxaparin 40 MG/0.4 ML Syringe SUBCUT SCH (09:39)
[2017-09-02] MEDS: Hypromellose 0.5% Ophth Soln 15 ML Bottle EYEBOTH SCH (09:41)
[2017-09-02] MEDS: Latanoprost 0.005% Ophth Soln 2.5 ML Bottle EYEBOTH SCH (09:41)
--- NOTE | 2017-09-02 14:52 | PCM.PN ---
- General Info Date of Service: 09/02/17 Admission Dx/Problem (Free Text): Admission Diagnosis/Problem Admission Diagnosis/Problem Pneumonia Subjective Update: Follow Up Functional Status: Reports: Pain Controlled, Tolerating Diet, Ambulating, Urinating. Denies: New Symptoms - Review of Systems General: Denies: Fever, Weakness, Fatigue, Malaise, Chills HEENT: Reports: No Symptoms Pulmonary: Denies: Shortness of Breath Cardiovascular: Denies: Chest Pain Gastrointestinal: Denies: Abdominal Pain, Nausea, Vomiting Genitourinary: Reports: No Symptoms Musculoskeletal: Reports: No Symptoms Skin: Denies: Cyanosis, Mottled, Pallor, Diaphoresis Neurological: Denies: Confusion, Difficulty Walking, Weakness, Gait Disturbance Psychiatric: Denies: Depression, Mood Lability, Anxiety, Agitation, Hallucinations, Suicidal Ideation Systems Review Comment:: No significant overnight or acute issues. She is essentially the same. She report no new complaints. - Patient Data Vitals - Most Recent: Last Vital Signs Temp 36.9 C 09/02/17 07:52 Pulse 85 09/02/17 07:52 Resp 19 09/02/17 07:52 BP 122/70 09/02/17 09:38 Pulse Ox 92 L 09/02/17 09:15 Weight - Most Recent: 89.857 kg I&O - Last 24 Hours: Intake & Output 09/01/17 09/02/17 09/02/17 22:59 06:59 14:59 Intake Total 720 550 Output Total 1150 700 Balance -430 -150 Lab Results Last 24 Hours: Laboratory Results - last 24 hr 09/01/17 09/01/17 09/02/17 Range/Units 16:19 21:44 05:44 WBC 16.12 H (3.98-10.04) K/mm3 RBC 4.85 (3.98-5.22) M/mm3 Hgb 14.1 (11.2-15.7) gm/L Hct 45.9 H (34.1-44.9) % MCV 94.6 (79.4-94.8) fl MCH 29.1 (25.6-32.2) pg MCHC 30.7 L (32.2-35.5) g/dl RDW Std Deviation 46.5 H (36.4-46.3) fL Plt Count 290 (182-369) K/mm3 MPV 9.9 (9.4-12.3) fl Neut % (Auto) 71.2 H (34.0-71.1) % Lymph % (Auto) 14.1 L (19.3-51.7) % [place] % (Auto) 13.1 H (4.7-12.5) % Eos % (Auto) 0.7 (0.7-5.8) Baso % (Auto) 0.1 (0.1-1.2) % Neut # (Auto) 11.46 H (1.56-6.13) K/mm3 Lymph # (Auto) 2.28 (1.18-3.74) K/mm3 [place] # (Auto) 2.11 H (0.24-0.36) K/mm3 Eos # (Auto) 0.12 (0.04-0.36) K/mm3 Baso # (Auto) 0.02 (0.01-0.08) K/mm3 Manual Slide Review Normal smear Sodium (136-145) mEq/L Potassium (3.5-5.1) mEq/L Chloride (98-107) mEq/L Carbon Dioxide (21-32) mEq/L Anion Gap (5-15) BUN (7-18) mg/dL Creatinine (0.55-1.02) mg/dL Est Cr Clr Drug Dosing mL/min Estimated GFR (MDRD) (>60) mL/min BUN/Creatinine Ratio (14-18) Glucose (74-106) mg/dL POC Glucose 138 H 126 H (70-105) mg/dL Calcium (8.5-10.1) mg/dL Magnesium (1.8-2.4) mg/dl C-Reactive Protein (<1.0) mg/dL 09/02/17 09/02/17 09/02/17 Range/Units 05:44 06:57 07:22 WBC (3.98-10.04) K/mm3 RBC (3.98-5.22) M/mm3 Hgb (11.2-15.7) gm/L Hct (34.1-44.9) % MCV (79.4-94.8) fl MCH (25.6-32.2) pg MCHC (32.2-35.5) g/dl RDW Std Deviation (36.4-46.3) fL Plt Count (182-369) K/mm3 MPV (9.4-12.3) fl Neut % (Auto) (34.0-71.1) % Lymph % (Auto) (19.3-51.7) % [place] % (Auto) (4.7-12.5) % Eos % (Auto) (0.7-5.8) Baso % (Auto) (0.1-1.2) % Neut # (Auto) (1.56-6.13) K/mm3 Lymph # (Auto) (1.18-3.74) K/mm3 [place] # (Auto) (0.24-0.36) K/mm3 Eos # (Auto) (0.04-0.36) K/mm3 Baso # (Auto) (0.01-0.08) K/mm3 Manual Slide Review Sodium 144 (136-145) mEq/L Potassium 3.6 (3.5-5.1) mEq/L Chloride 102 (98-107) mEq/L Carbon Dioxide 40 H (21-32) mEq/L Anion Gap 5.6 (5-15) BUN 31 H (7-18) mg/dL Creatinine 0.9 (0.55-1.02) mg/dL Est Cr Clr Drug Dosing 49.54 mL/min Estimated GFR (MDRD) > 60 (>60) mL/min BUN/Creatinine Ratio 34.4 H (14-18) Glucose 86 (74-106) mg/dL POC Glucose 75 96 (70-105) mg/dL Calcium 8.7 (8.5-10.1) mg/dL Magnesium 2.5 H (1.8-2.4) mg/dl C-Reactive Protein < 0.2 (<1.0) mg/dL 09/02/17 Range/Units 11:04 WBC (3.98-10.04) K/mm3 RBC (3.98-5.22) M/mm3 Hgb (11.2-15.7) gm/L Hct (34.1-44.9) % MCV (79.4-94.8) fl MCH (25.6-32.2) pg MCHC (32.2-35.5) g/dl RDW Std Deviation (36.4-46.3) fL Plt Count (182-369) K/mm3 MPV (9.4-12.3) fl Neut % (Auto) (34.0-71.1) % Lymph % (Auto) (19.3-51.7) % [place] % (Auto) (4.7-12.5) % Eos % (Auto) (0.7-5.8) Baso % (Auto) (0.1-1.2) % Neut # (Auto) (1.56-6.13) K/mm3 Lymph # (Auto) (1.18-3.74) K/mm3 [place] # (Auto) (0.24-0.36) K/mm3 Eos # (Auto) (0.04-0.36) K/mm3 Baso # (Auto) (0.01-0.08) K/mm3 Manual Slide Review Sodium (136-145) mEq/L Potassium (3.5-5.1) mEq/L Chloride (98-107) mEq/L Carbon Dioxide (21-32) mEq/L Anion Gap (5-15) BUN (7-18) mg/dL Creatinine (0.55-1.02) mg/dL Est Cr Clr Drug Dosing mL/min Estimated GFR (MDRD) (>60) mL/min BUN/Creatinine Ratio (14-18) Glucose (74-106) mg/dL POC Glucose 88 (70-105) mg/dL Calcium (8.5-10.1) mg/dL Magnesium (1.8-2.4) mg/dl C-Reactive Protein (<1.0) mg/dL Med Orders - Current: Current Medications Acetaminophen (Tylenol) 650 mg PO Q4H PRN PRN Reason: Pain (Mild 1-3)/fever Last Admin: 08/29/17 21:15 Dose: 650 mg Albuterol (Proventil Neb Soln) 2.5 mg NEB Q4HRRT PRN PRN Reason: Shortness Of Breath/wheezing Last Admin: 08/27/17 14:51 Dose: 2.5 mg Albuterol/Ipratropium (Duoneb 3.0-0.5 Mg/3 Ml) 3 ml NEB QIDRT CANDIE Last Admin: 09/02/17 09:14 Dose: 3 ml Artificial Tears (Isopto Tears 0.5% Ophth Soln) 0 ml EYEBOTH DAILY [facility] Last Admin: 09/02/17 09:41 Dose: 1 drop Benzonatate (Tessalon Perles) 200 mg PO TID [facility] Last Admin: 09/02/17 09:34 Dose: 200 mg Bisacodyl (Dulcolax) 5 mg PO DAILY PRN PRN Reason: Constipation Cholecalciferol (Vitamin D3) 5,000 units PO DAILY [facility] Last Admin: 09/02/17 09:36 Dose: 5,000 units Dextrose/Water (Dextrose 50% In Water) 50 ml IVPUSH ASDIRECTED PRN PRN Reason: hypoglycemia Docusate Sodium (Colace) 100 mg PO BID PRN PRN Reason: Constipation Enoxaparin Sodium (Lovenox) 40 mg SUBCUT DAILY [facility] Last Admin: 09/02/17 09:39 Dose: 40 mg Fluoxetine HCl (Prozac) 20 mg PO DAILY [facility] Last Admin: 09/02/17 09:33 Dose: 20 mg Guaifenesin/Codeine Phosphate (Robitussin Ac) 10 ml PO Q4H PRN PRN Reason: Cough Last Admin: 08/27/17 17:40 Dose: 10 ml Haloperidol Lactate (Haldol) 1 mg IVPUSH Q8H PRN PRN Reason: restlessness Hydrochlorothiazide (Hydrochlorothiazide) 12.5 mg PO DAILY [facility] Last Admin: 09/02/17 09:37 Dose: 12.5 mg Hydromorphone HCl (Dilaudid) 0.25 mg IVPUSH Q2H PRN PRN Reason: Pain (severe 7-10) Insulin Aspart (Novolog) 0 unit SUBCUT QIDACANDBED [facility] PRN Reason: Protocol Last Admin: 09/02/17 12:19 Dose: Not Given Latanoprost (Xalatan 0.005% Ophth Soln) 0 ml EYEBOTH DAILY [facility] Last Admin: 09/02/17 09:41 Dose: 1 drop Lorazepam (Ativan) 1 mg IVPUSH Q8H PRN PRN Reason: Anxiety Losartan Potassium (Cozaar) 100 mg PO DAILY [facility] Last Admin: 09/02/17 09:38 Dose: 100 mg Multivitamins (Thera) 1 each PO DAILY [facility] Last Admin: 09/02/17 09:33 Dose: 1 each Nitroglycerin (Nitrostat) 4 mg SL ASDIRECTED PRN PRN Reason: Chest Pain Ondansetron HCl (Zofran Odt) 4 mg PO Q6H PRN PRN Reason: nausea, able to take PO Ondansetron HCl (Zofran) 4 mg IV Q6H PRN PRN Reason: Nausea/Vomiting Polyethylene Glycol (Miralax) 17 gm PO DAILY PRN PRN Reason: Constipation Pyridoxine HCl (Vitamin B6-Pyridoxine) 50 mg PO BID [facility] Last Admin: 09/02/17 09:33 Dose: 50 mg Senna/Docusate Sodium (Senna Plus) 1 tab PO BID PRN PRN Reason: Constipation Last Admin: 08/30/17 09:52 Dose: 1 tab Simvastatin (Zocor) 40 mg PO DAILY [facility] Last Admin: 09/02/17 09:35 Dose: 40 mg Sodium Chloride (Saline Flush) 10 ml FLUSH ASDIRECTED PRN PRN Reason: Keep Vein Open Last Admin: 08/24/17 16:53 Dose: 10 ml Sodium Chloride ([place] Nasal [place]) 0 ml ANNETTE Q4H PRN PRN Reason: Nasal dryness Last Admin: 08/25/17 05:00 Dose: 1 spray Temazepam (Restoril) 7.5 mg PO BEDTIME PRN PRN Reason: Sleep Last Admin: 09/01/17 22:37 Dose: 7.5 mg Discontinued Medications Acetaminophen (Tylenol) 975 mg PO NOW ONE Stop: 08/24/17 16:56 Last Admin: 08/24/17 17:12 Dose: 975 mg Hydrocodone Bitart/Acetaminophen ([place] 325-5 Mg) 1 tab PO Q4H PRN PRN Reason: Pain (moderate 4-6) Last Admin: 08/29/17 17:08 Dose: 1 tab Albuterol/Ipratropium (Duoneb 3.0-0.5 Mg/3 Ml) 3 ml NEB ONETIME ONE Stop: 08/24/17 16:41 Last Admin: 08/24/17 16:56 Dose: 3 ml Albuterol/Ipratropium (Duoneb 3.0-0.5 Mg/3 Ml) 3 ml NEB QID [facility] Last Admin: 08/27/17 21:53 Dose: 3 ml Guaifenesin/Phenylephrine HCl (Robitussin Dm) 10 ml PO Q4H PRN PRN Reason: Cough Haloperidol Lactate (Haldol) 1 mg IVPUSH ONETIME ONE Stop: 08/29/17 17:51 Last Admin: 08/29/17 18:14 Dose: 1 mg Levofloxacin/Dextrose 750 mg/ (Premix) 150 mls @ 100 mls/hr IV ONETIME ONE Stop: 08/24/17 18:09 Last Admin: 08/24/17 17:03 Dose: 100 mls/hr Sodium Chloride (Normal Saline) 500 mls @ 1,000 mls/hr IV .BOLUS ONE Stop: 08/24/17 17:25 Last Admin: 08/24/17 17:02 Dose: 1,000 mls/hr Sodium Chloride (Normal Saline) 2,350 mls @ 1,000 mls/hr IV ONETIME ONE Stop: 08/24/17 19:41 Last Admin: 08/24/17 20:08 Dose: 1,000 mls/hr Sodium Chloride (Normal Saline) Confirm Administered Dose 1,000 mls @ as directed .ROUTE .STK-MED ONE Stop: 08/24/17 21:32 Last Admin: 08/25/17 01:15 Dose: 850 ml Levofloxacin/Dextrose 750 mg/ (Premix) 150 mls @ 100 mls/hr IV Q24H [facility] Stop: 08/27/17 20:00 Last Admin: 08/27/17 17:35 Dose: 100 mls/hr Sodium Chloride (Normal Saline) 1,000 mls @ 100 mls/hr IV ASDIRECTED [facility] Last Admin: 08/27/17 05:11 Dose: 100 mls/hr Influenza Virus Vaccine (Pharmacy To Dose - Influenza Vaccine) 1 each IM ONETIME ONE Stop: 08/29/17 00:15 Influenza Virus Vaccine (Flulaval Quad [id number]) 60 mcg IM .ONCE ONE Stop: 08/29/17 01:01 Levofloxacin (Levaquin) 500 mg PO Q24H [facility] Last Admin: 08/28/17 16:36 Dose: 500 mg Levofloxacin (Levaquin) 500 mg PO Q24H [facility] Last Admin: 09/01/17 09:41 Dose: 500 mg Lorazepam (Ativan) 1 mg IVPUSH ONETIME ONE Stop: 08/29/17 17:52 Last Admin: 08/29/17 18:11 Dose: 1 mg Methylprednisolone Sodium Succinate (Solu-Medrol) 125 mg IVPUSH ONETIME ONE Stop: 08/24/17 16:41 Last Admin: 08/24/17 17:07 Dose: 125 mg Methylprednisolone Sodium Succinate (Solu-Medrol) 85 mg IVPUSH DAILY [facility] Last Admin: 08/25/17 09:24 Dose: 85 mg Methylprednisolone Sodium Succinate (Solu-Medrol) 80 mg IVPUSH BID [facility] Last Admin: 08/27/17 09:50 Dose: 80 mg Methylprednisolone Sodium Succinate (Solu-Medrol) 125 mg IVPUSH Q8H [facility] Last Admin: 08/29/17 18:16 Dose: 125 mg Methylprednisolone Sodium Succinate (Solu-Medrol) 80 mg IVPUSH Q8H [facility] Methylprednisolone Sodium Succinate (Solu-Medrol) 80 mg IVPUSH Q8H [facility] Last Admin: 09/01/17 18:06 Dose: Not Given Methylprednisolone Sodium Succinate (Solu-Medrol) 40 mg IVPUSH Q12H [facility] Last Admin: 09/01/17 09:51 Dose: 40 mg Pneumococcal Polyvalent Vaccine (Pneumovax 23) 0.5 ml IM .ONCE ONE Stop: 08/29/17 00:15 - Exam Quality Assessment: Supplemental Oxygen General: Alert, Cooperative, No Acute Distress, Other (Obese) HEENT: Pupils Equal, Pupils Reactive, EOMI, Mucous Membr. Moist/[place] Neck: Supple, Trachea Midline, Other (short and thick) Lungs: Normal Respiratory Effort, Decreased Breath Sounds, Other (poor inspiratory and expiratory effort) Cardiovascular: Regular Rate, Regular Rhythm GI/Abdominal Exam: Normal Bowel Sounds, Soft, Non-Tender, No Organomegaly, No Distention, No Abnormal Bruit, Other (Obese) (Female) Exam: Deferred Back Exam: Normal Inspection, Decreased Range of Motion Extremities: Normal Inspection, Normal Range of Motion, Non-Tender, No Pedal Edema, Normal Capillary Refill Peripheral Pulses: 2+: Dorsalis Pedis (L), Dorsalis Pedis (R) Skin: Warm, Dry, Intact Neurological: No New Focal Deficit Psy/Mental Status: Alert, Normal Affect, Normal Mood - Problem List Review Problem List Initiated/Reviewed/Updated: Yes - My Orders Last 24 Hours: My Active Orders 09/01/17 15:50 Consult to Spiritual Care [CONS] Routine 09/01/17 16:00 FLUoxetine [PROzac] 20 mg PO DAILY - Plan Plan:: I/P: Acute: Pneumonia -Risk Factor: Large Hiatal Hernia -Non-productive cough, fever, SOB -EMS found oxygen saturations to be in 70's; now at 3-4L NC sating at 88-93% -Afebrile since admission -WBC 13.45-->13.24; CRP 6.2 -->0.2 (normal) -D/c Levaquin 750 mg daily; completed appropriate treatment course -Of note: She is allergic to PCN and Vancomycin -Sputum culture-ordered; Mycoplasma and Strep pneumonia Ag-negative -Continue RT/IS/Acapella and Duo-Nebs PRN; Humidified O2 and nasal saline for congestion - Titrate O2 as needed, attempt to wean -D/c Solumedrol changed to 60 mg IVP Q12H -Continue Nebs scheduled and prn; pulmonary toilet -Repeat CXR yesterday: no acute infiltrate -Stanley martinez, scheduled Hypercapnea, Improved - CO2 level of 41--> 38 - Carries a hx/o ADEN - Monitor and repeat level Leukocytosis - 2/2 lingering steroids +/- stress induced from underlying ADEN - CRP is normal Left Sided Diaphragmatic Hernia/Large Hiatal Hernia - Stable - H2B for acid reflux Resolved: S/p Sepsis -HR>90, tachypneic, hypotension, fever of 100.9, renal injury -Likely due to pneumonia -Lactic acid 1.8 -2350 fluid bolus given in ED -Blood cultures -Fluids as ordered -Treatment as above S/p Acute Renal Injury -Unsure of baseline -Bun 27, creatinine 1.3, eGFR 42-at baseline -Avoid nephrotoxic medications -Pharmacy to renally dose meds -Fluids -Continue to monitor Chronic: Hx/o Arrhythmias - SVT and PVCs HLD HTN - stable Sleep apnea Stress incontinence Scoliosis Mental retardation Personality disorder SAD Type II DM - Improved BS -Insulin per protocol-changed to Medium level, Glucose checks QIDAC and bedtime Anemia - stable Obesity with BMI of 39.8 Plan: She is essentially the same Continue current treatment with PT/OT SW/CM for discharge planning Routine AM Labs Other orders as indicated above DVT/PE prophylaxis: Lovenox and ambulation Encourage to ambulated as tolerated Code status: Full Code, PCP is Dr. Ty at here in [place] LOS>96 hours pending placement to [facility] vs SNF/[facility]/. Met up with her SW and Support Care Reps to discuss d/c care plans. SW/CM will keep on working for placement.
[2017-09-03] MEDS: Albuterol/Ipratropium 3.0-0.5 MG/3 ML Neb Soln NEB SCH ×4 (06:31→20:30)
[2017-09-03] MEDS: Insulin Aspart 100 Units/ML 3 ML Pen SUBCUT SCH ×4 (07:42→21:54)
--- NOTE | 2017-09-03 08:22 | PCM.PN ---
- General Info Date of Service: 09/03/17 Admission Dx/Problem (Free Text): Admission Diagnosis/Problem Admission Diagnosis/Problem Pneumonia Subjective Update: Follow Up Functional Status: Reports: Pain Controlled, Tolerating Diet, Ambulating, Urinating. Denies: New Symptoms - Review of Systems General: Denies: Fever, Weakness, Fatigue, Malaise, Chills HEENT: Reports: No Symptoms Pulmonary: Denies: Shortness of Breath Cardiovascular: Denies: Chest Pain, Dyspnea on Exertion, Edema Gastrointestinal: Denies: Abdominal Pain, Nausea, Vomiting Genitourinary: Reports: No Symptoms Musculoskeletal: Reports: No Symptoms Skin: Denies: Cyanosis, Mottled, Pallor, Diaphoresis, Rash Neurological: Denies: Confusion, Difficulty Walking, Weakness, Gait Disturbance Psychiatric: Denies: Depression, Anxiety, Agitation, Hallucinations Systems Review Comment:: No significant overnight or acute issues. She is doing relatively well. She has been ambulating w/o difficulties. She has a one time low blood pressure this morning but she appears comfortable and in no distress. - Patient Data Vitals - Most Recent: Last Vital Signs Temp 36.7 C 09/03/17 01:16 Pulse 78 09/03/17 06:31 Resp 16 09/03/17 01:16 BP 102/58 L 09/03/17 01:16 Pulse Ox 94 L 09/03/17 06:31 Weight - Most Recent: 89.312 kg I&O - Last 24 Hours: Intake & Output 09/02/17 09/03/17 09/03/17 22:59 06:59 14:59 Intake Total 450 540 Output Total 500 550 Balance -50 -10 Lab Results Last 24 Hours: Laboratory Results - last 24 hr 09/02/17 09/02/17 09/02/17 Range/Units 11:04 17:05 21:51 POC Glucose 88 165 H 132 H (70-105) mg/dL 09/03/17 Range/Units 06:38 POC Glucose 99 (70-105) mg/dL Med Orders - Current: Current Medications Acetaminophen (Tylenol) 650 mg PO Q4H PRN PRN Reason: Pain (Mild 1-3)/fever Last Admin: 08/29/17 21:15 Dose: 650 mg Albuterol (Proventil Neb Soln) 2.5 mg NEB Q4HRRT PRN PRN Reason: Shortness Of Breath/wheezing Last Admin: 08/27/17 14:51 Dose: 2.5 mg Albuterol/Ipratropium (Duoneb 3.0-0.5 Mg/3 Ml) 3 ml NEB QIDRT [facility] Last Admin: 09/03/17 06:31 Dose: 3 ml Artificial Tears (Isopto Tears 0.5% Ophth Soln) 0 ml EYEBOTH DAILY [facility] Last Admin: 09/02/17 09:41 Dose: 1 drop Benzonatate (Tessalon Perles) 200 mg PO TID [facility] Last Admin: 09/02/17 21:52 Dose: 200 mg Bisacodyl (Dulcolax) 5 mg PO DAILY PRN PRN Reason: Constipation Cholecalciferol (Vitamin D3) 5,000 units PO DAILY [facility] Last Admin: 09/02/17 09:36 Dose: 5,000 units Dextrose/Water (Dextrose 50% In Water) 50 ml IVPUSH ASDIRECTED PRN PRN Reason: hypoglycemia Docusate Sodium (Colace) 100 mg PO BID PRN PRN Reason: Constipation Enoxaparin Sodium (Lovenox) 40 mg SUBCUT DAILY [facility] Last Admin: 09/02/17 09:39 Dose: 40 mg Fluoxetine HCl (Prozac) 20 mg PO DAILY [facility] Last Admin: 09/02/17 09:33 Dose: 20 mg Guaifenesin/Codeine Phosphate (Robitussin Ac) 10 ml PO Q4H PRN PRN Reason: Cough Last Admin: 08/27/17 17:40 Dose: 10 ml Haloperidol Lactate (Haldol) 1 mg IVPUSH Q8H PRN PRN Reason: restlessness Hydrochlorothiazide (Hydrochlorothiazide) 12.5 mg PO DAILY [facility] Last Admin: 09/02/17 09:37 Dose: 12.5 mg Hydromorphone HCl (Dilaudid) 0.25 mg IVPUSH Q2H PRN PRN Reason: Pain (severe 7-10) Insulin Aspart (Novolog) 0 unit SUBCUT QIDACANDBED [facility] PRN Reason: Protocol Last Admin: 09/03/17 07:42 Dose: Not Given Latanoprost (Xalatan 0.005% Ophth Soln) 0 ml EYEBOTH DAILY [facility] Last Admin: 09/02/17 09:41 Dose: 1 drop Lorazepam (Ativan) 1 mg IVPUSH Q8H PRN PRN Reason: Anxiety Losartan Potassium (Cozaar) 100 mg PO DAILY [facility] Last Admin: 09/02/17 09:38 Dose: 100 mg Multivitamins (Thera) 1 each PO DAILY [facility] Last Admin: 09/02/17 09:33 Dose: 1 each Nitroglycerin (Nitrostat) 4 mg SL ASDIRECTED PRN PRN Reason: Chest Pain Ondansetron HCl (Zofran Odt) 4 mg PO Q6H PRN PRN Reason: nausea, able to take PO Ondansetron HCl (Zofran) 4 mg IV Q6H PRN PRN Reason: Nausea/Vomiting Polyethylene Glycol (Miralax) 17 gm PO DAILY PRN PRN Reason: Constipation Pyridoxine HCl (Vitamin B6-Pyridoxine) 50 mg PO BID [facility] Last Admin: 09/02/17 21:53 Dose: 50 mg Senna/Docusate Sodium (Senna Plus) 1 tab PO BID PRN PRN Reason: Constipation Last Admin: 08/30/17 09:52 Dose: 1 tab Simvastatin (Zocor) 40 mg PO DAILY [facility] Last Admin: 09/02/17 09:35 Dose: 40 mg Sodium Chloride (Saline Flush) 10 ml FLUSH ASDIRECTED PRN PRN Reason: Keep Vein Open Last Admin: 08/24/17 16:53 Dose: 10 ml Sodium Chloride ([place] Nasal [place]) 0 ml ANNETTE Q4H PRN PRN Reason: Nasal dryness Last Admin: 08/25/17 05:00 Dose: 1 spray Temazepam (Restoril) 7.5 mg PO BEDTIME PRN PRN Reason: Sleep Last Admin: 09/01/17 22:37 Dose: 7.5 mg Discontinued Medications Acetaminophen (Tylenol) 975 mg PO NOW ONE Stop: 08/24/17 16:56 Last Admin: 08/24/17 17:12 Dose: 975 mg Hydrocodone Bitart/Acetaminophen ([place] 325-5 Mg) 1 tab PO Q4H PRN PRN Reason: Pain (moderate 4-6) Last Admin: 08/29/17 17:08 Dose: 1 tab Albuterol/Ipratropium (Duoneb 3.0-0.5 Mg/3 Ml) 3 ml NEB ONETIME ONE Stop: 08/24/17 16:41 Last Admin: 08/24/17 16:56 Dose: 3 ml Albuterol/Ipratropium (Duoneb 3.0-0.5 Mg/3 Ml) 3 ml NEB QID [facility] Last Admin: 08/27/17 21:53 Dose: 3 ml Guaifenesin/Phenylephrine HCl (Robitussin Dm) 10 ml PO Q4H PRN PRN Reason: Cough Haloperidol Lactate (Haldol) 1 mg IVPUSH ONETIME ONE Stop: 08/29/17 17:51 Last Admin: 08/29/17 18:14 Dose: 1 mg Levofloxacin/Dextrose 750 mg/ (Premix) 150 mls @ 100 mls/hr IV ONETIME ONE Stop: 08/24/17 18:09 Last Admin: 08/24/17 17:03 Dose: 100 mls/hr Sodium Chloride (Normal Saline) 500 mls @ 1,000 mls/hr IV .BOLUS ONE Stop: 08/24/17 17:25 Last Admin: 08/24/17 17:02 Dose: 1,000 mls/hr Sodium Chloride (Normal Saline) 2,350 mls @ 1,000 mls/hr IV ONETIME ONE Stop: 08/24/17 19:41 Last Admin: 08/24/17 20:08 Dose: 1,000 mls/hr Sodium Chloride (Normal Saline) Confirm Administered Dose 1,000 mls @ as directed .ROUTE .STK-MED ONE Stop: 08/24/17 21:32 Last Admin: 08/25/17 01:15 Dose: 850 ml Levofloxacin/Dextrose 750 mg/ (Premix) 150 mls @ 100 mls/hr IV Q24H [facility] Stop: 08/27/17 20:00 Last Admin: 08/27/17 17:35 Dose: 100 mls/hr Sodium Chloride (Normal Saline) 1,000 mls @ 100 mls/hr IV ASDIRECTED [facility] Last Admin: 08/27/17 05:11 Dose: 100 mls/hr Influenza Virus Vaccine (Pharmacy To Dose - Influenza Vaccine) 1 each IM ONETIME ONE Stop: 08/29/17 00:15 Influenza Virus Vaccine (Flulaval Quad [id number]) 60 mcg IM .ONCE ONE Stop: 08/29/17 01:01 Levofloxacin (Levaquin) 500 mg PO Q24H [facility] Last Admin: 08/28/17 16:36 Dose: 500 mg Levofloxacin (Levaquin) 500 mg PO Q24H [facility] Last Admin: 09/01/17 09:41 Dose: 500 mg Lorazepam (Ativan) 1 mg IVPUSH ONETIME ONE Stop: 08/29/17 17:52 Last Admin: 08/29/17 18:11 Dose: 1 mg Methylprednisolone Sodium Succinate (Solu-Medrol) 125 mg IVPUSH ONETIME ONE Stop: 08/24/17 16:41 Last Admin: 08/24/17 17:07 Dose: 125 mg Methylprednisolone Sodium Succinate (Solu-Medrol) 85 mg IVPUSH DAILY [facility] Last Admin: 08/25/17 09:24 Dose: 85 mg Methylprednisolone Sodium Succinate (Solu-Medrol) 80 mg IVPUSH BID [facility] Last Admin: 08/27/17 09:50 Dose: 80 mg Methylprednisolone Sodium Succinate (Solu-Medrol) 125 mg IVPUSH Q8H [facility] Last Admin: 08/29/17 18:16 Dose: 125 mg Methylprednisolone Sodium Succinate (Solu-Medrol) 80 mg IVPUSH Q8H [facility] Methylprednisolone Sodium Succinate (Solu-Medrol) 80 mg IVPUSH Q8H [facility] Last Admin: 09/01/17 18:06 Dose: Not Given Methylprednisolone Sodium Succinate (Solu-Medrol) 40 mg IVPUSH Q12H [facility] Last Admin: 09/01/17 09:51 Dose: 40 mg Pneumococcal Polyvalent Vaccine (Pneumovax 23) 0.5 ml IM .ONCE ONE Stop: 08/29/17 00:15 - Exam Quality Assessment: Supplemental Oxygen General: Alert, Cooperative, No Acute Distress, Other (Obese) HEENT: Pupils Equal, Pupils Reactive, EOMI, Mucous Membr. Moist/[place] Neck: Supple, Trachea Midline, No JVD Lungs: Normal Respiratory Effort, Decreased Breath Sounds Cardiovascular: Regular Rate, Regular Rhythm GI/Abdominal Exam: Normal Bowel Sounds, Soft, Non-Tender, No Organomegaly, No Distention, No Abnormal Bruit (Female) Exam: Deferred Back Exam: Normal Inspection, Decreased Range of Motion Extremities: Normal Inspection, Normal Range of Motion, Non-Tender, No Pedal Edema, Normal Capillary Refill Peripheral Pulses: 2+: Dorsalis Pedis (L), Dorsalis Pedis (R) Skin: Warm, Dry, Intact Neurological: No New Focal Deficit Psy/Mental Status: Alert, Normal Affect, Normal Mood - Problem List Review Problem List Initiated/Reviewed/Updated: Yes - Plan Plan:: I/P: Acute: Pneumonia -Risk Factor: Large Hiatal Hernia -Non-productive cough, fever, SOB -EMS found oxygen saturations to be in 70's; now at 3-4L NC sating at 88-93% -Afebrile since admission -WBC 13.45-->13.24; CRP 6.2 -->0.2 (normal) -D/c Levaquin 750 mg daily; completed appropriate treatment course -Of note: She is allergic to PCN and Vancomycin -Sputum culture-ordered; Mycoplasma and Strep pneumonia Ag-negative -Continue RT/IS/Acapella and Duo-Nebs PRN; Humidified O2 and nasal saline for congestion - Titrate O2 as needed, attempt to wean -D/c Solumedrol changed to 60 mg IVP Q12H -Continue Nebs scheduled and prn; pulmonary toilet -Repeat CXR yesterday: no acute infiltrate -Stanley martinez, scheduled Relatively Hypotension -Symptomatic -BP of 96/43 mmHg -Hold BP meds - Monitor or re-check later Hypercapnea, Improved -CO2 level of 41--> 38 -Carries a hx/o ADEN -Monitor and repeat level Leukocytosis -2/2 lingering steroids +/- stress induced from underlying ADEN -CRP is normal -Likely improved Left Sided Diaphragmatic Hernia/Large Hiatal Hernia - Stable - H2B for acid reflux Resolved: S/p Sepsis -HR>90, tachypneic, hypotension, fever of 100.9, renal injury -Likely due to pneumonia -Lactic acid 1.8 -2350 fluid bolus given in ED -Blood cultures -Fluids as ordered -Treatment as above S/p Acute Renal Injury -Unsure of baseline -Bun 27, creatinine 1.3, eGFR 42-at baseline -Avoid nephrotoxic medications -Pharmacy to renally dose meds -Fluids -Continue to monitor Chronic: Hx/o Arrhythmias - SVT and PVCs HLD HTN - stable Sleep apnea Stress incontinence Scoliosis Mental retardation Personality disorder SAD Type II DM - Improved BS -Insulin per protocol-changed to Medium level, Glucose checks QIDAC and bedtime Anemia - stable Obesity with BMI of 39.8 Plan: No changes in clinical status Continue current treatment with PT/OT SW/CM for discharge planning Routine AM Labs Other orders as indicated above DVT/PE prophylaxis: Lovenox and ambulation Encourage to ambulated as tolerated Code status: Full Code, PCP is Dr. Ty at [facility] here in [place] D/c pending placement
[2017-09-03] MEDS: Vitamin B6-pyridOXINE 50 MG Tab PO SCH ×2 (09:11→21:54)
[2017-09-03] MEDS: Multivitamins,Therapeutic Tab PO SCH (09:11)
[2017-09-03] MEDS: Benzonatate 100 MG Cap PO SCH ×3 (09:11→21:54)
[2017-09-03] MEDS: Cholecalciferol (Vitamin D3) 1,000 Unit Tab PO SCH (09:12)
[2017-09-03] MEDS: Hydrochlorothiazide 12.5 MG Cap PO SCH ×2 (09:13→09:55)
[2017-09-03] MEDS: FLUoxetine 20 MG Cap PO SCH (09:13)
[2017-09-03] MEDS: Simvastatin 40 MG Tab PO SCH (09:13)
[2017-09-03] MEDS: Hypromellose 0.5% Ophth Soln 15 ML Bottle EYEBOTH SCH ×2 (09:14→09:55)
[2017-09-03] MEDS: Enoxaparin 40 MG/0.4 ML Syringe SUBCUT SCH (09:14)
[2017-09-03] MEDS: Latanoprost 0.005% Ophth Soln 2.5 ML Bottle EYEBOTH SCH ×2 (09:14→09:55)
[2017-09-03] MEDS: Losartan 100 MG Tab PO SCH (09:54)
[2017-09-03] MEDS: Temazepam 7.5 MG Cap PO PRN (21:54)
[2017-09-04] MEDS: Albuterol/Ipratropium 3.0-0.5 MG/3 ML Neb Soln NEB SCH ×4 (06:47→20:54)
--- NOTE | 2017-09-04 06:58 | PCM.PN ---
- General Info Date of Service: 09/04/17 Admission Dx/Problem (Free Text): Admission Diagnosis/Problem Admission Diagnosis/Problem Pneumonia Subjective Update: Follow Up Functional Status: Reports: Pain Controlled, Tolerating Diet, Ambulating - Review of Systems General: Denies: Fever, Weakness, Fatigue, Malaise, Chills HEENT: Reports: No Symptoms Pulmonary: Denies: No Symptoms Cardiovascular: Denies: Chest Pain, Dyspnea on Exertion Gastrointestinal: Denies: Abdominal Pain, Nausea, Vomiting Genitourinary: Reports: Incontinence Musculoskeletal: Reports: No Symptoms Skin: Denies: Cyanosis, Mottled, Pallor, Diaphoresis Neurological: Denies: Confusion, Difficulty Walking, Weakness, Gait Disturbance Psychiatric: Denies: Depression, Anxiety, Agitation, Hallucinations Systems Review Comment:: No overnight or acute issues. She slept well. She report no new complaints. - Patient Data Vitals - Most Recent: Last Vital Signs Temp 37.0 C 09/04/17 03:00 Pulse 79 09/04/17 03:00 Resp 18 09/04/17 03:00 BP 113/59 L 09/04/17 03:00 Pulse Ox 93 L 09/04/17 06:48 Weight - Most Recent: 88.768 kg I&O - Last 24 Hours: Intake & Output 09/03/17 09/03/17 09/04/17 14:59 22:59 06:59 Intake Total 240 180 200 Output Total 300 Balance 240 -120 200 Lab Results Last 24 Hours: Laboratory Results - last 24 hr 09/03/17 09/03/17 09/03/17 Range/Units 12:06 18:13 21:11 POC Glucose 99 114 H 195 H (70-105) mg/dL 09/04/17 Range/Units 06:30 POC Glucose 89 (70-105) mg/dL Med Orders - Current: Current Medications Acetaminophen (Tylenol) 650 mg PO Q4H PRN PRN Reason: Pain (Mild 1-3)/fever Last Admin: 08/29/17 21:15 Dose: 650 mg Albuterol (Proventil Neb Soln) 2.5 mg NEB Q4HRRT PRN PRN Reason: Shortness Of Breath/wheezing Last Admin: 08/27/17 14:51 Dose: 2.5 mg Albuterol/Ipratropium (Duoneb 3.0-0.5 Mg/3 Ml) 3 ml NEB QIDRT [facility] Last Admin: 09/04/17 06:47 Dose: 3 ml Artificial Tears (Isopto Tears 0.5% Ophth Soln) 0 ml EYEBOTH DAILY [facility] Last Admin: 09/03/17 09:55 Dose: Not Given Benzonatate (Tessalon Perles) 200 mg PO TID [facility] Last Admin: 09/03/17 21:54 Dose: 200 mg Bisacodyl (Dulcolax) 5 mg PO DAILY PRN PRN Reason: Constipation Cholecalciferol (Vitamin D3) 5,000 units PO DAILY [facility] Last Admin: 09/03/17 09:12 Dose: 5,000 units Dextrose/Water (Dextrose 50% In Water) 50 ml IVPUSH ASDIRECTED PRN PRN Reason: hypoglycemia Docusate Sodium (Colace) 100 mg PO BID PRN PRN Reason: Constipation Enoxaparin Sodium (Lovenox) 40 mg SUBCUT DAILY [facility] Last Admin: 09/03/17 09:14 Dose: 40 mg Fluoxetine HCl (Prozac) 20 mg PO DAILY [facility] Last Admin: 09/03/17 09:13 Dose: 20 mg Guaifenesin/Codeine Phosphate (Robitussin Ac) 10 ml PO Q4H PRN PRN Reason: Cough Last Admin: 08/27/17 17:40 Dose: 10 ml Haloperidol Lactate (Haldol) 1 mg IVPUSH Q8H PRN PRN Reason: restlessness Hydrochlorothiazide (Hydrochlorothiazide) 12.5 mg PO DAILY [facility] Last Admin: 09/03/17 09:55 Dose: Not Given Hydromorphone HCl (Dilaudid) 0.25 mg IVPUSH Q2H PRN PRN Reason: Pain (severe 7-10) Insulin Aspart (Novolog) 0 unit SUBCUT QIDACANDBED [facility] PRN Reason: Protocol Last Admin: 09/03/17 21:54 Dose: 2 unit Latanoprost (Xalatan 0.005% Ophth Soln) 0 ml EYEBOTH DAILY [facility] Last Admin: 09/03/17 09:55 Dose: Not Given Lorazepam (Ativan) 1 mg IVPUSH Q8H PRN PRN Reason: Anxiety Losartan Potassium (Cozaar) 100 mg PO DAILY [facility] Last Admin: 09/03/17 09:54 Dose: Not Given Multivitamins (Thera) 1 each PO DAILY [facility] Last Admin: 09/03/17 09:11 Dose: 1 each Nitroglycerin (Nitrostat) 4 mg SL ASDIRECTED PRN PRN Reason: Chest Pain Ondansetron HCl (Zofran Odt) 4 mg PO Q6H PRN PRN Reason: nausea, able to take PO Ondansetron HCl (Zofran) 4 mg IV Q6H PRN PRN Reason: Nausea/Vomiting Polyethylene Glycol (Miralax) 17 gm PO DAILY PRN PRN Reason: Constipation Pyridoxine HCl (Vitamin B6-Pyridoxine) 50 mg PO BID [facility] Last Admin: 09/03/17 21:54 Dose: 50 mg Senna/Docusate Sodium (Senna Plus) 1 tab PO BID PRN PRN Reason: Constipation Last Admin: 08/30/17 09:52 Dose: 1 tab Simvastatin (Zocor) 40 mg PO DAILY [facility] Last Admin: 09/03/17 09:13 Dose: 40 mg Sodium Chloride (Saline Flush) 10 ml FLUSH ASDIRECTED PRN PRN Reason: Keep Vein Open Last Admin: 08/24/17 16:53 Dose: 10 ml Sodium Chloride ([place] Nasal [place]) 0 ml ANNETTE Q4H PRN PRN Reason: Nasal dryness Last Admin: 08/25/17 05:00 Dose: 1 spray Temazepam (Restoril) 7.5 mg PO BEDTIME PRN PRN Reason: Sleep Last Admin: 09/03/17 21:54 Dose: 7.5 mg Discontinued Medications Acetaminophen (Tylenol) 975 mg PO NOW ONE Stop: 08/24/17 16:56 Last Admin: 08/24/17 17:12 Dose: 975 mg Hydrocodone Bitart/Acetaminophen ([place] 325-5 Mg) 1 tab PO Q4H PRN PRN Reason: Pain (moderate 4-6) Last Admin: 08/29/17 17:08 Dose: 1 tab Albuterol/Ipratropium (Duoneb 3.0-0.5 Mg/3 Ml) 3 ml NEB ONETIME ONE Stop: 08/24/17 16:41 Last Admin: 08/24/17 16:56 Dose: 3 ml Albuterol/Ipratropium (Duoneb 3.0-0.5 Mg/3 Ml) 3 ml NEB QID [facility] Last Admin: 08/27/17 21:53 Dose: 3 ml Guaifenesin/Phenylephrine HCl (Robitussin Dm) 10 ml PO Q4H PRN PRN Reason: Cough Haloperidol Lactate (Haldol) 1 mg IVPUSH ONETIME ONE Stop: 08/29/17 17:51 Last Admin: 08/29/17 18:14 Dose: 1 mg Levofloxacin/Dextrose 750 mg/ (Premix) 150 mls @ 100 mls/hr IV ONETIME ONE Stop: 08/24/17 18:09 Last Admin: 08/24/17 17:03 Dose: 100 mls/hr Sodium Chloride (Normal Saline) 500 mls @ 1,000 mls/hr IV .BOLUS ONE Stop: 08/24/17 17:25 Last Admin: 08/24/17 17:02 Dose: 1,000 mls/hr Sodium Chloride (Normal Saline) 2,350 mls @ 1,000 mls/hr IV ONETIME ONE Stop: 08/24/17 19:41 Last Admin: 08/24/17 20:08 Dose: 1,000 mls/hr Sodium Chloride (Normal Saline) Confirm Administered Dose 1,000 mls @ as directed .ROUTE .STK-MED ONE Stop: 08/24/17 21:32 Last Admin: 08/25/17 01:15 Dose: 850 ml Levofloxacin/Dextrose 750 mg/ (Premix) 150 mls @ 100 mls/hr IV Q24H [facility] Stop: 08/27/17 20:00 Last Admin: 08/27/17 17:35 Dose: 100 mls/hr Sodium Chloride (Normal Saline) 1,000 mls @ 100 mls/hr IV ASDIRECTED [facility] Last Admin: 08/27/17 05:11 Dose: 100 mls/hr Influenza Virus Vaccine (Pharmacy To Dose - Influenza Vaccine) 1 each IM ONETIME ONE Stop: 08/29/17 00:15 Influenza Virus Vaccine (Flulaval Quad [id number]) 60 mcg IM .ONCE ONE Stop: 08/29/17 01:01 Levofloxacin (Levaquin) 500 mg PO Q24H [facility] Last Admin: 08/28/17 16:36 Dose: 500 mg Levofloxacin (Levaquin) 500 mg PO Q24H [facility] Last Admin: 09/01/17 09:41 Dose: 500 mg Lorazepam (Ativan) 1 mg IVPUSH ONETIME ONE Stop: 08/29/17 17:52 Last Admin: 08/29/17 18:11 Dose: 1 mg Methylprednisolone Sodium Succinate (Solu-Medrol) 125 mg IVPUSH ONETIME ONE Stop: 08/24/17 16:41 Last Admin: 08/24/17 17:07 Dose: 125 mg Methylprednisolone Sodium Succinate (Solu-Medrol) 85 mg IVPUSH DAILY [facility] Last Admin: 08/25/17 09:24 Dose: 85 mg Methylprednisolone Sodium Succinate (Solu-Medrol) 80 mg IVPUSH BID [facility] Last Admin: 08/27/17 09:50 Dose: 80 mg Methylprednisolone Sodium Succinate (Solu-Medrol) 125 mg IVPUSH Q8H [facility] Last Admin: 08/29/17 18:16 Dose: 125 mg Methylprednisolone Sodium Succinate (Solu-Medrol) 80 mg IVPUSH Q8H [facility] Methylprednisolone Sodium Succinate (Solu-Medrol) 80 mg IVPUSH Q8H [facility] Last Admin: 09/01/17 18:06 Dose: Not Given Methylprednisolone Sodium Succinate (Solu-Medrol) 40 mg IVPUSH Q12H [facility] Last Admin: 09/01/17 09:51 Dose: 40 mg Pneumococcal Polyvalent Vaccine (Pneumovax 23) 0.5 ml IM .ONCE ONE Stop: 08/29/17 00:15 - Exam Quality Assessment: Supplemental Oxygen General: Alert, Cooperative, No Acute Distress, Other (Obese) HEENT: Pupils Equal, Pupils Reactive, EOMI, Mucous Membr. Moist/[place] Neck: Supple, Trachea Midline, Other (short and thick) Lungs: Normal Respiratory Effort, Decreased Breath Sounds Cardiovascular: Regular Rate, Regular Rhythm GI/Abdominal Exam: Normal Bowel Sounds, Soft, Non-Tender, No Organomegaly, No Distention, No Abnormal Bruit, Other (Obese) (Female) Exam: Deferred Back Exam: Normal Inspection, Decreased Range of Motion Extremities: Normal Inspection, Normal Range of Motion, Non-Tender, No Pedal Edema, Normal Capillary Refill Peripheral Pulses: 2+: Dorsalis Pedis (L), Dorsalis Pedis (R) Skin: Warm, Dry, Intact Neurological: No New Focal Deficit Psy/Mental Status: Alert, Normal Affect, Normal Mood - Problem List Review Problem List Initiated/Reviewed/Updated: Yes - My Orders Last 24 Hours: My Active Orders 09/04/17 05:11 BMP [BASIC METABOLIC PANEL,BMP] [CHEM] AM CBC WITH AUTO DIFF [HEME] AM MG [MAGNESIUM] [CHEM] AM - Plan Plan:: I/P: Acute: Pneumonia -Risk Factor: Large Hiatal Hernia -Non-productive cough, fever, SOB -EMS found oxygen saturations to be in 70's; now at 3-4L NC sating at 88-93% -Afebrile since admission -WBC 13.45-->13.24; CRP 6.2 -->0.2 (normal) -D/c Levaquin 750 mg daily; completed appropriate treatment course -Of note: She is allergic to PCN and Vancomycin -Sputum culture-ordered; Mycoplasma and Strep pneumonia Ag-negative -Continue RT/IS/Acapella and Duo-Nebs PRN; Humidified O2 and nasal saline for congestion - Titrate O2 as needed, attempt to wean -D/c Solumedrol changed to 60 mg IVP Q12H -Continue Nebs scheduled and prn; pulmonary toilet -Repeat CXR yesterday: no acute infiltrate -Stanley martinez, scheduled Hypercapnea, Improved -CO2 level of 41--> 38--> 34 -Carries a hx/o ADEN/OHS -Monitor and repeat level Leukocytosis - WBC 17K; CRP has been normal -2/2 lingering steroids +/- stress induced from underlying ADEN -CRP is normal -Likely improved Left Sided Diaphragmatic Hernia/Large Hiatal Hernia - Stable - H2B for acid reflux Resolved: S/p Sepsis -HR>90, tachypneic, hypotension, fever of 100.9, renal injury -Likely due to pneumonia -Lactic acid 1.8 -2350 fluid bolus given in ED -Blood cultures -Fluids as ordered -Treatment as above S/p Acute Renal Injury -Unsure of baseline -Bun 27, creatinine 1.3, eGFR 42-at baseline -Avoid nephrotoxic medications -Pharmacy to renally dose meds -Fluids -Continue to monitor S/p Relatively Hypotension -Symptomatic -BP of 96/43 mmHg -Hold BP meds - Monitor or re-check later Chronic: Hx/o Arrhythmias - SVT and PVCs HLD HTN - stable Sleep apnea Stress incontinence Scoliosis Mental retardation Personality disorder SAD Type II DM - Improved BS -Insulin per protocol-changed to Medium level, Glucose checks QIDAC and bedtime Anemia - stable Obesity with BMI of 39.8 Plan: No changes in clinical status Continue current treatment with PT/OT SW/CM for discharge planning Routine AM Labs Other orders as indicated above DVT/PE prophylaxis: Lovenox and ambulation Encourage to ambulated as tolerated Code status: Full Code, PCP is Dr. Ty at [facility] here in [place] D/c pending placement
[2017-09-04] MEDS: Insulin Aspart 100 Units/ML 3 ML Pen SUBCUT SCH ×4 (07:35→21:44)
[2017-09-04] MEDS: Hypromellose 0.5% Ophth Soln 15 ML Bottle EYEBOTH SCH ×2 (08:22→08:51)
[2017-09-04] MEDS: Multivitamins,Therapeutic Tab PO SCH (08:23)
[2017-09-04] MEDS: Vitamin B6-pyridOXINE 50 MG Tab PO SCH ×2 (08:23→21:44)
[2017-09-04] MEDS: Latanoprost 0.005% Ophth Soln 2.5 ML Bottle EYEBOTH SCH (08:23)
[2017-09-04] MEDS: Cholecalciferol (Vitamin D3) 1,000 Unit Tab PO SCH (08:23)
[2017-09-04] MEDS: Enoxaparin 40 MG/0.4 ML Syringe SUBCUT SCH (08:23)
[2017-09-04] MEDS: Losartan 100 MG Tab PO SCH (08:24)
[2017-09-04] MEDS: Hydrochlorothiazide 12.5 MG Cap PO SCH (08:25)
[2017-09-04] MEDS: Simvastatin 40 MG Tab PO SCH (08:26)
[2017-09-04] MEDS: Benzonatate 100 MG Cap PO SCH ×3 (08:26→21:44)
[2017-09-04] MEDS: FLUoxetine 20 MG Cap PO SCH (08:26)
[2017-09-04] MEDS: Potassium Chloride 20 MEQ Tab.ER PO SCH ×2 (12:06→15:07)
[2017-09-05] MEDS: Albuterol/Ipratropium 3.0-0.5 MG/3 ML Neb Soln NEB SCH ×4 (06:23→20:58)
--- NOTE | 2017-09-05 06:34 | PCM.PN ---
- General Info Date of Service: 09/05/17 Admission Dx/Problem (Free Text): Admission Diagnosis/Problem Admission Diagnosis/Problem Pneumonia Subjective Update: Follow Up Functional Status: Reports: Pain Controlled, Tolerating Diet, Ambulating, Urinating. Denies: New Symptoms - Review of Systems General: Denies: Fever, Weakness, Fatigue, Malaise, Chills HEENT: Reports: No Symptoms Pulmonary: Denies: Shortness of Breath Cardiovascular: Denies: Chest Pain Gastrointestinal: Denies: Abdominal Pain, Nausea, Vomiting Genitourinary: Reports: No Symptoms Musculoskeletal: Reports: No Symptoms Skin: Denies: Cyanosis, Mottled, Pallor, Diaphoresis Neurological: Denies: Confusion, Difficulty Walking, Weakness, Gait Disturbance Psychiatric: Denies: Depression, Mood Lability, Anxiety, Agitation Systems Review Comment:: No overnight or acute issues. She is doing relatively fine. She report no new complaints. Her vitals are fairly stable. - Patient Data Vitals - Most Recent: Last Vital Signs Temp 36.6 C 09/05/17 03:43 Pulse 85 09/05/17 03:43 Resp 20 09/05/17 03:43 BP 112/56 L 09/05/17 03:43 Pulse Ox 94 L 09/05/17 06:23 Weight - Most Recent: 88.723 kg I&O - Last 24 Hours: Intake & Output 09/04/17 09/04/17 09/05/17 14:59 22:59 06:59 Intake Total 240 590 540 Balance 240 590 540 Lab Results Last 24 Hours: Laboratory Results - last 24 hr 09/04/17 09/04/17 09/04/17 Range/Units 06:30 06:34 06:34 WBC 17.31 H (3.98-10.04) K/mm3 RBC 4.84 (3.98-5.22) M/mm3 Hgb 13.9 (11.2-15.7) gm/L Hct 45.7 H (34.1-44.9) % MCV 94.4 (79.4-94.8) fl MCH 28.7 (25.6-32.2) pg MCHC 30.4 L (32.2-35.5) g/dl RDW Std Deviation 46.4 H (36.4-46.3) fL Plt Count 263 (182-369) K/mm3 MPV 10.7 (9.4-12.3) fl Neut % (Auto) 72.1 H (34.0-71.1) % Lymph % (Auto) 13.6 L (19.3-51.7) % [place] % (Auto) 11.6 (4.7-12.5) % Eos % (Auto) 1.9 (0.7-5.8) Baso % (Auto) 0.1 (0.1-1.2) % Neut # (Auto) 12.47 H (1.56-6.13) K/mm3 Lymph # (Auto) 2.36 (1.18-3.74) K/mm3 [place] # (Auto) 2.01 H (0.24-0.36) K/mm3 Eos # (Auto) 0.33 (0.04-0.36) K/mm3 Baso # (Auto) 0.02 (0.01-0.08) K/mm3 Manual Slide Review Normal smear Sodium 143 (136-145) mEq/L Potassium 3.7 (3.5-5.1) mEq/L Chloride 102 (98-107) mEq/L Carbon Dioxide 34 H (21-32) mEq/L Anion Gap 10.7 (5-15) BUN 20 H (7-18) mg/dL Creatinine 0.7 (0.55-1.02) mg/dL Est Cr Clr Drug Dosing 63.69 mL/min Estimated GFR (MDRD) > 60 (>60) mL/min BUN/Creatinine Ratio 28.6 H (14-18) Glucose 92 (74-106) mg/dL POC Glucose 89 (70-105) mg/dL Calcium 8.1 L (8.5-10.1) mg/dL Magnesium 2.3 (1.8-2.4) mg/dl 09/04/17 09/04/17 09/04/17 Range/Units 11:19 16:21 21:43 WBC (3.98-10.04) K/mm3 RBC (3.98-5.22) M/mm3 Hgb (11.2-15.7) gm/L Hct (34.1-44.9) % MCV (79.4-94.8) fl MCH (25.6-32.2) pg MCHC (32.2-35.5) g/dl RDW Std Deviation (36.4-46.3) fL Plt Count (182-369) K/mm3 MPV (9.4-12.3) fl Neut % (Auto) (34.0-71.1) % Lymph % (Auto) (19.3-51.7) % Randolph % (Auto) (4.7-12.5) % Eos % (Auto) (0.7-5.8) Baso % (Auto) (0.1-1.2) % Neut # (Auto) (1.56-6.13) K/mm3 Lymph # (Auto) (1.18-3.74) K/mm3 Randolph # (Auto) (0.24-0.36) K/mm3 Eos # (Auto) (0.04-0.36) K/mm3 Baso # (Auto) (0.01-0.08) K/mm3 Manual Slide Review Sodium (136-145) mEq/L Potassium (3.5-5.1) mEq/L Chloride (98-107) mEq/L Carbon Dioxide (21-32) mEq/L Anion Gap (5-15) BUN (7-18) mg/dL Creatinine (0.55-1.02) mg/dL Est Cr Clr Drug Dosing mL/min Estimated GFR (MDRD) (>60) mL/min BUN/Creatinine Ratio (14-18) Glucose (74-106) mg/dL POC Glucose 157 H 118 H 105 (70-105) mg/dL Calcium (8.5-10.1) mg/dL Magnesium (1.8-2.4) mg/dl Med Orders - Current: Current Medications Acetaminophen (Tylenol) 650 mg PO Q4H PRN PRN Reason: Pain (Mild 1-3)/fever Last Admin: 08/29/17 21:15 Dose: 650 mg Albuterol (Proventil Neb Soln) 2.5 mg NEB Q4HRRT PRN PRN Reason: Shortness Of Breath/wheezing Last Admin: 08/27/17 14:51 Dose: 2.5 mg Albuterol/Ipratropium (Duoneb 3.0-0.5 Mg/3 Ml) 3 ml NEB QIDRT CANDIE Last Admin: 09/05/17 06:23 Dose: 3 ml Artificial Tears (Isopto Tears 0.5% Ophth Soln) 0 ml EYEBOTH DAILY [facility] Last Admin: 09/04/17 08:51 Dose: Not Given Benzonatate (Tessalon Perles) 200 mg PO TID [facility] Last Admin: 09/04/17 21:44 Dose: 200 mg Bisacodyl (Dulcolax) 5 mg PO DAILY PRN PRN Reason: Constipation Cholecalciferol (Vitamin D3) 5,000 units PO DAILY [facility] Last Admin: 09/04/17 08:23 Dose: 5,000 units Dextrose/Water (Dextrose 50% In Water) 50 ml IVPUSH ASDIRECTED PRN PRN Reason: hypoglycemia Docusate Sodium (Colace) 100 mg PO BID PRN PRN Reason: Constipation Enoxaparin Sodium (Lovenox) 40 mg SUBCUT DAILY [facility] Last Admin: 09/04/17 08:23 Dose: 40 mg Fluoxetine HCl (Prozac) 20 mg PO DAILY [facility] Last Admin: 09/04/17 08:26 Dose: 20 mg Guaifenesin/Codeine Phosphate (Robitussin Ac) 10 ml PO Q4H PRN PRN Reason: Cough Last Admin: 08/27/17 17:40 Dose: 10 ml Haloperidol Lactate (Haldol) 1 mg IVPUSH Q8H PRN PRN Reason: restlessness Hydrochlorothiazide (Hydrochlorothiazide) 12.5 mg PO DAILY [facility] Last Admin: 09/04/17 08:25 Dose: 12.5 mg Hydromorphone HCl (Dilaudid) 0.25 mg IVPUSH Q2H PRN PRN Reason: Pain (severe 7-10) Insulin Aspart (Novolog) 0 unit SUBCUT QIDACANDBED [facility] PRN Reason: Protocol Last Admin: 09/04/17 21:44 Dose: Not Given Latanoprost (Xalatan 0.005% Ophth Soln) 0 ml EYEBOTH DAILY [facility] Last Admin: 09/04/17 08:23 Dose: 1 drop Lorazepam (Ativan) 1 mg IVPUSH Q8H PRN PRN Reason: Anxiety Losartan Potassium (Cozaar) 100 mg PO DAILY [facility] Last Admin: 09/04/17 08:24 Dose: 100 mg Multivitamins (Thera) 1 each PO DAILY [facility] Last Admin: 09/04/17 08:23 Dose: 1 each Nitroglycerin (Nitrostat) 4 mg SL ASDIRECTED PRN PRN Reason: Chest Pain Ondansetron HCl (Zofran Odt) 4 mg PO Q6H PRN PRN Reason: nausea, able to take PO Ondansetron HCl (Zofran) 4 mg IV Q6H PRN PRN Reason: Nausea/Vomiting Polyethylene Glycol (Miralax) 17 gm PO DAILY PRN PRN Reason: Constipation Potassium Chloride (Pharmacy To Dose - Potassium Replacement) 0 dose .XX ASDIRECTED PRN PRN Reason: RX TO WATCH K LEVELS Pyridoxine HCl (Vitamin B6-Pyridoxine) 50 mg PO BID [facility] Last Admin: 09/04/17 21:44 Dose: 50 mg Senna/Docusate Sodium (Senna Plus) 1 tab PO BID PRN PRN Reason: Constipation Last Admin: 08/30/17 09:52 Dose: 1 tab Simvastatin (Zocor) 40 mg PO DAILY [facility] Last Admin: 09/04/17 08:26 Dose: 40 mg Sodium Chloride (Saline Flush) 10 ml FLUSH ASDIRECTED PRN PRN Reason: Keep Vein Open Last Admin: 08/24/17 16:53 Dose: 10 ml Sodium Chloride ([place] Nasal [place]) 0 ml ANNETTE Q4H PRN PRN Reason: Nasal dryness Last Admin: 08/25/17 05:00 Dose: 1 spray Temazepam (Restoril) 7.5 mg PO BEDTIME PRN PRN Reason: Sleep Last Admin: 09/03/17 21:54 Dose: 7.5 mg Discontinued Medications Acetaminophen (Tylenol) 975 mg PO NOW ONE Stop: 08/24/17 16:56 Last Admin: 08/24/17 17:12 Dose: 975 mg Hydrocodone Bitart/Acetaminophen ([place] 325-5 Mg) 1 tab PO Q4H PRN PRN Reason: Pain (moderate 4-6) Last Admin: 08/29/17 17:08 Dose: 1 tab Albuterol/Ipratropium (Duoneb 3.0-0.5 Mg/3 Ml) 3 ml NEB ONETIME ONE Stop: 08/24/17 16:41 Last Admin: 08/24/17 16:56 Dose: 3 ml Albuterol/Ipratropium (Duoneb 3.0-0.5 Mg/3 Ml) 3 ml NEB QID [facility] Last Admin: 08/27/17 21:53 Dose: 3 ml Guaifenesin/Phenylephrine HCl (Robitussin Dm) 10 ml PO Q4H PRN PRN Reason: Cough Haloperidol Lactate (Haldol) 1 mg IVPUSH ONETIME ONE Stop: 08/29/17 17:51 Last Admin: 08/29/17 18:14 Dose: 1 mg Levofloxacin/Dextrose 750 mg/ (Premix) 150 mls @ 100 mls/hr IV ONETIME ONE Stop: 08/24/17 18:09 Last Admin: 08/24/17 17:03 Dose: 100 mls/hr Sodium Chloride (Normal Saline) 500 mls @ 1,000 mls/hr IV .BOLUS ONE Stop: 08/24/17 17:25 Last Admin: 08/24/17 17:02 Dose: 1,000 mls/hr Sodium Chloride (Normal Saline) 2,350 mls @ 1,000 mls/hr IV ONETIME ONE Stop: 08/24/17 19:41 Last Admin: 08/24/17 20:08 Dose: 1,000 mls/hr Sodium Chloride (Normal Saline) Confirm Administered Dose 1,000 mls @ as directed .ROUTE .STK-MED ONE Stop: 08/24/17 21:32 Last Admin: 08/25/17 01:15 Dose: 850 ml Levofloxacin/Dextrose 750 mg/ (Premix) 150 mls @ 100 mls/hr IV Q24H [facility] Stop: 08/27/17 20:00 Last Admin: 08/27/17 17:35 Dose: 100 mls/hr Sodium Chloride (Normal Saline) 1,000 mls @ 100 mls/hr IV ASDIRECTED [facility] Last Admin: 08/27/17 05:11 Dose: 100 mls/hr Influenza Virus Vaccine (Pharmacy To Dose - Influenza Vaccine) 1 each IM ONETIME ONE Stop: 08/29/17 00:15 Influenza Virus Vaccine (Flulaval Quad [id number]) 60 mcg IM .ONCE ONE Stop: 08/29/17 01:01 Levofloxacin (Levaquin) 500 mg PO Q24H [facility] Last Admin: 08/28/17 16:36 Dose: 500 mg Levofloxacin (Levaquin) 500 mg PO Q24H [facility] Last Admin: 09/01/17 09:41 Dose: 500 mg Lorazepam (Ativan) 1 mg IVPUSH ONETIME ONE Stop: 08/29/17 17:52 Last Admin: 08/29/17 18:11 Dose: 1 mg Methylprednisolone Sodium Succinate (Solu-Medrol) 125 mg IVPUSH ONETIME ONE Stop: 08/24/17 16:41 Last Admin: 08/24/17 17:07 Dose: 125 mg Methylprednisolone Sodium Succinate (Solu-Medrol) 85 mg IVPUSH DAILY [facility] Last Admin: 08/25/17 09:24 Dose: 85 mg Methylprednisolone Sodium Succinate (Solu-Medrol) 80 mg IVPUSH BID [facility] Last Admin: 08/27/17 09:50 Dose: 80 mg Methylprednisolone Sodium Succinate (Solu-Medrol) 125 mg IVPUSH Q8H [facility] Last Admin: 08/29/17 18:16 Dose: 125 mg Methylprednisolone Sodium Succinate (Solu-Medrol) 80 mg IVPUSH Q8H [facility] Methylprednisolone Sodium Succinate (Solu-Medrol) 80 mg IVPUSH Q8H [facility] Last Admin: 09/01/17 18:06 Dose: Not Given Methylprednisolone Sodium Succinate (Solu-Medrol) 40 mg IVPUSH Q12H [facility] Last Admin: 09/01/17 09:51 Dose: 40 mg Pneumococcal Polyvalent Vaccine (Pneumovax 23) 0.5 ml IM .ONCE ONE Stop: 08/29/17 00:15 Potassium Chloride (Klor-Con M20) 20 meq PO Q4H [facility] Stop: 09/04/17 16:01 Last Admin: 09/04/17 15:07 Dose: 20 meq - Exam General: Alert, Cooperative, No Acute Distress, Other (Obese) HEENT: Pupils Equal, Pupils Reactive, EOMI, Mucous Membr. Moist/[place]ck: Supple, Trachea Midline, No JVD, No Thyromegaly, Other (short and thick) Lungs: Normal Respiratory Effort, Decreased Breath Sounds Cardiovascular: Regular Rate, Regular Rhythm GI/Abdominal Exam: Normal Bowel Sounds, Soft, Non-Tender, No Organomegaly, No Distention, No Abnormal Bruit, No Mass, Other (Obese) (Female) Exam: Deferred Back Exam: Normal Inspection, Decreased Range of Motion Extremities: Normal Inspection, Normal Range of Motion, Non-Tender, No Pedal Edema, Normal Capillary Refill Peripheral Pulses: 2+: Dorsalis Pedis (L), Dorsalis Pedis (R) Skin: Warm, Dry, Intact Neurological: No New Focal Deficit Psy/Mental Status: Alert, Normal Affect, Normal Mood - Problem List Review Problem List Initiated/Reviewed/Updated: Yes - My Orders Last 24 Hours: My Active Orders 09/04/17 11:45 Potassium Rep Pharmacy to Dose [Pharmacy to Dose - Potassium Replacement] 0 dose .XX ASDIRECTED PRN - Plan Plan:: I/P: Acute: Pneumonia -Risk Factor: Large Hiatal Hernia -Non-productive cough, fever, SOB -EMS found oxygen saturations to be in 70's; now at 3L NC sating at 91-94% -Afebrile since admission -WBC 13.45-->13.24; CRP 6.2 -->0.2 (normal) -D/c Levaquin 750 mg daily; completed appropriate treatment course -Of note: She is allergic to PCN and Vancomycin -Sputum culture-ordered; Mycoplasma and Strep pneumonia Ag-negative -Continue RT/IS/Acapella and Duo-Nebs PRN; Humidified O2 and nasal saline for congestion - Titrate O2 as needed, attempt to wean -D/c'd Solumedrol -Continue Nebs scheduled and prn; pulmonary toilet and tessalon perles -Repeat CXR: no acute infiltrate Hypercapnea, Improved -CO2 level of 41--> 38--> 34 -Carries a hx/o ADEN/OHS -Monitor and repeat level Leukocytosis - WBC 17K; CRP has been normal -2/2 lingering steroids +/- stress induced from underlying ADEN -CRP is normal -Likely improved Left Sided Diaphragmatic Hernia/Large Hiatal Hernia - Stable - H2B for acid reflux Resolved: S/p Sepsis -HR>90, tachypneic, hypotension, fever of 100.9, renal injury -Likely due to pneumonia -Lactic acid 1.8 -2350 fluid bolus given in ED -Blood cultures -Fluids as ordered -Treatment as above S/p Acute Renal Injury -Unsure of baseline -Bun 27, creatinine 1.3, eGFR 42-at baseline -Avoid nephrotoxic medications -Pharmacy to renally dose meds -Fluids -Continue to monitor S/p Relatively Hypotension -Symptomatic -BP of 96/43 mmHg -Hold BP meds - Monitor or re-check later Chronic: Hx/o Arrhythmias - SVT and PVCs HLD HTN - stable Sleep apnea Stress incontinence Scoliosis Mental retardation Personality disorder SAD Type II DM - Improved BS -Insulin per protocol-changed to Medium level, Glucose checks QIDAC and bedtime Anemia - stable Obesity with BMI of 39.8 Plan: She remains stable Continue current treatment with PT/OT SW/CM for discharge planning Routine AM Labs Other orders as indicated above DVT/PE prophylaxis: Lovenox and ambulation Encourage to ambulated as tolerated Code status: Full Code, PCP is Dr. Ty at [facility] here in [place] D/c pending placement
[2017-09-05] MEDS: Insulin Aspart 100 Units/ML 3 ML Pen SUBCUT SCH ×4 (07:18→21:44)
[2017-09-05] MEDS: Vitamin B6-pyridOXINE 50 MG Tab PO SCH ×2 (09:12→21:43)
[2017-09-05] MEDS: Multivitamins,Therapeutic Tab PO SCH (09:12)
[2017-09-05] MEDS: Benzonatate 100 MG Cap PO SCH ×3 (09:12→21:43)
[2017-09-05] MEDS: Cholecalciferol (Vitamin D3) 1,000 Unit Tab PO SCH (09:13)
[2017-09-05] MEDS: Losartan 100 MG Tab PO SCH (09:14)
[2017-09-05] MEDS: Simvastatin 40 MG Tab PO SCH (09:15)
[2017-09-05] MEDS: Hydrochlorothiazide 12.5 MG Cap PO SCH (09:15)
[2017-09-05] MEDS: FLUoxetine 20 MG Cap PO SCH (09:15)
[2017-09-05] MEDS: Hypromellose 0.5% Ophth Soln 15 ML Bottle EYEBOTH SCH ×2 (09:16→09:33)
[2017-09-05] MEDS: Latanoprost 0.005% Ophth Soln 2.5 ML Bottle EYEBOTH SCH ×3 (09:16→22:18)
[2017-09-05] MEDS: Enoxaparin 40 MG/0.4 ML Syringe SUBCUT SCH (09:21)
[2017-09-06] MEDS: Albuterol/Ipratropium 3.0-0.5 MG/3 ML Neb Soln NEB SCH ×4 (06:04→20:52)
[2017-09-06] MEDS: Multivitamins,Therapeutic Tab PO SCH (08:52)
[2017-09-06] MEDS: Vitamin B6-pyridOXINE 50 MG Tab PO SCH ×2 (08:52→21:55)
[2017-09-06] MEDS: Benzonatate 100 MG Cap PO SCH ×3 (08:52→21:55)
[2017-09-06] MEDS: Cholecalciferol (Vitamin D3) 1,000 Unit Tab PO SCH (08:52)
[2017-09-06] MEDS: FLUoxetine 20 MG Cap PO SCH (08:53)
[2017-09-06] MEDS: Simvastatin 40 MG Tab PO SCH (08:53)
[2017-09-06] MEDS: Losartan 100 MG Tab PO SCH (08:53)
[2017-09-06] MEDS: Enoxaparin 40 MG/0.4 ML Syringe SUBCUT SCH (08:54)
[2017-09-06] MEDS: Hydrochlorothiazide 12.5 MG Cap PO SCH (08:54)
[2017-09-06] MEDS: Hypromellose 0.5% Ophth Soln 15 ML Bottle EYEBOTH SCH (08:54)
[2017-09-06] MEDS: Latanoprost 0.005% Ophth Soln 2.5 ML Bottle EYEBOTH SCH (08:54)
[2017-09-06] MEDS: Insulin Aspart 100 Units/ML 3 ML Pen SUBCUT SCH ×4 (08:59→23:16)
[2017-09-07] MEDS: Albuterol/Ipratropium 3.0-0.5 MG/3 ML Neb Soln NEB SCH ×4 (05:47→20:18)
[2017-09-07] MEDS: Cholecalciferol (Vitamin D3) 1,000 Unit Tab PO SCH (08:57)
[2017-09-07] MEDS: Benzonatate 100 MG Cap PO SCH ×3 (08:57→21:55)
[2017-09-07] MEDS: Multivitamins,Therapeutic Tab PO SCH (08:57)
[2017-09-07] MEDS: Vitamin B6-pyridOXINE 50 MG Tab PO SCH ×2 (08:57→21:55)
[2017-09-07] MEDS: FLUoxetine 20 MG Cap PO SCH (08:58)
[2017-09-07] MEDS: Simvastatin 40 MG Tab PO SCH (08:58)
[2017-09-07] MEDS: Enoxaparin 40 MG/0.4 ML Syringe SUBCUT SCH (08:59)
[2017-09-07] MEDS: Insulin Aspart 100 Units/ML 3 ML Pen SUBCUT SCH ×4 (08:59→21:57)
[2017-09-07] MEDS: Hydrochlorothiazide 12.5 MG Cap PO SCH (09:02)
[2017-09-07] MEDS: Losartan 100 MG Tab PO SCH ×2 (09:02→09:04)
[2017-09-07] MEDS: Latanoprost 0.005% Ophth Soln 2.5 ML Bottle EYEBOTH SCH (09:03)
[2017-09-07] MEDS: Hypromellose 0.5% Ophth Soln 15 ML Bottle EYEBOTH SCH (09:03)
[2017-09-08] MEDS: Albuterol/Ipratropium 3.0-0.5 MG/3 ML Neb Soln NEB SCH (05:39)
[2017-09-08] MEDS: Insulin Aspart 100 Units/ML 3 ML Pen SUBCUT SCH (07:39)
--- NOTE | 2017-09-08 08:01 | PCM.PN ---
- General Info Date of Service: 09/08/17 Subjective Update: Follow Up Functional Status: Reports: Pain Controlled, Tolerating Diet, Ambulating, Urinating. Denies: New Symptoms - Patient Data Vitals - Most Recent: Last Vital Signs Temp 36.8 C 09/08/17 06:13 Pulse 108 H 09/08/17 06:13 Resp 20 09/08/17 06:13 BP 124/69 09/08/17 06:13 Pulse Ox 93 L 09/08/17 06:13 Weight - Most Recent: 88.541 kg I&O - Last 24 Hours: Intake & Output 09/07/17 09/08/17 09/08/17 22:59 06:59 14:59 Intake Total 350 1250 Output Total 900 Balance 350 350 Lab Results Last 24 Hours: Laboratory Results - last 24 hr 09/07/17 09/07/17 09/07/17 Range/Units 08:48 08:48 11:44 WBC 15.67 H (3.98-10.04) K/mm3 RBC 4.92 (3.98-5.22) M/mm3 Hgb 14.2 (11.2-15.7) gm/L Hct 46.2 H (34.1-44.9) % MCV 93.9 (79.4-94.8) fl MCH 28.9 (25.6-32.2) pg MCHC 30.7 L (32.2-35.5) g/dl RDW Std Deviation 46.6 H (36.4-46.3) fL Plt Count 296 (182-369) K/mm3 MPV 9.9 (9.4-12.3) fl Neut % (Auto) 74.0 H (34.0-71.1) % Lymph % (Auto) 12.7 L (19.3-51.7) % [place] % (Auto) 10.8 (4.7-12.5) % Eos % (Auto) 2.0 (0.7-5.8) Baso % (Auto) 0.1 (0.1-1.2) % Neut # (Auto) 11.59 H (1.56-6.13) K/mm3 Lymph # (Auto) 1.99 (1.18-3.74) K/mm3 [place] # (Auto) 1.70 H (0.24-0.36) K/mm3 Eos # (Auto) 0.32 (0.04-0.36) K/mm3 Baso # (Auto) 0.01 (0.01-0.08) K/mm3 Manual Slide Review Abnormal smear Sodium 140 (136-145) mEq/L Potassium 4.0 (3.5-5.1) mEq/L Chloride 100 (98-107) mEq/L Carbon Dioxide 31 (21-32) mEq/L Anion Gap 13.0 (5-15) BUN 21 H (7-18) mg/dL Creatinine 0.8 (0.55-1.02) mg/dL Est Cr Clr Drug Dosing 55.73 mL/min Estimated GFR (MDRD) > 60 (>60) mL/min BUN/Creatinine Ratio 26.3 H (14-18) Glucose 111 H (74-106) mg/dL POC Glucose 122 H (70-105) mg/dL Calcium 9.0 (8.5-10.1) mg/dL Magnesium 2.1 (1.8-2.4) mg/dl C-Reactive Protein 1.9 H* (<1.0) mg/dL 09/07/17 09/07/17 09/08/17 Range/Units 16:47 21:54 06:08 WBC (3.98-10.04) K/mm3 RBC (3.98-5.22) M/mm3 Hgb (11.2-15.7) gm/L Hct (34.1-44.9) % MCV (79.4-94.8) fl MCH (25.6-32.2) pg MCHC (32.2-35.5) g/dl RDW Std Deviation (36.4-46.3) fL Plt Count (182-369) K/mm3 MPV (9.4-12.3) fl Neut % (Auto) (34.0-71.1) % Lymph % (Auto) (19.3-51.7) % [place] % (Auto) (4.7-12.5) % Eos % (Auto) (0.7-5.8) Baso % (Auto) (0.1-1.2) % Neut # (Auto) (1.56-6.13) K/mm3 Lymph # (Auto) (1.18-3.74) K/mm3 [place] # (Auto) (0.24-0.36) K/mm3 Eos # (Auto) (0.04-0.36) K/mm3 Baso # (Auto) (0.01-0.08) K/mm3 Manual Slide Review Sodium (136-145) mEq/L Potassium (3.5-5.1) mEq/L Chloride (98-107) mEq/L Carbon Dioxide (21-32) mEq/L Anion Gap (5-15) BUN (7-18) mg/dL Creatinine (0.55-1.02) mg/dL Est Cr Clr Drug Dosing mL/min Estimated GFR (MDRD) (>60) mL/min BUN/Creatinine Ratio (14-18) Glucose (74-106) mg/dL POC Glucose 117 H 169 H 107 H (70-105) mg/dL Calcium (8.5-10.1) mg/dL Magnesium (1.8-2.4) mg/dl C-Reactive Protein (<1.0) mg/dL Med Orders - Current: Current Medications Acetaminophen (Tylenol) 650 mg PO Q4H PRN PRN Reason: Pain (Mild 1-3)/fever Last Admin: 08/29/17 21:15 Dose: 650 mg Albuterol (Proventil Neb Soln) 2.5 mg NEB Q4HRRT PRN PRN Reason: Shortness Of Breath/wheezing Last Admin: 08/27/17 14:51 Dose: 2.5 mg Albuterol/Ipratropium (Duoneb 3.0-0.5 Mg/3 Ml) 3 ml NEB QIDRT [facility] Last Admin: 09/08/17 05:39 Dose: 3 ml Artificial Tears (Isopto Tears 0.5% Ophth Soln) 0 ml EYEBOTH DAILY [facility] Last Admin: 09/07/17 09:03 Dose: Not Given Benzonatate (Tessalon Perles) 200 mg PO TID [facility] Last Admin: 09/07/17 21:55 Dose: 200 mg Bisacodyl (Dulcolax) 5 mg PO DAILY PRN PRN Reason: Constipation Cholecalciferol (Vitamin D3) 5,000 units PO DAILY [facility] Last Admin: 09/07/17 08:57 Dose: 5,000 units Dextrose/Water (Dextrose 50% In Water) 50 ml IVPUSH ASDIRECTED PRN PRN Reason: hypoglycemia Docusate Sodium (Colace) 100 mg PO BID PRN PRN Reason: Constipation Enoxaparin Sodium (Lovenox) 40 mg SUBCUT DAILY [facility] Last Admin: 09/07/17 08:59 Dose: 40 mg Fluoxetine HCl (Prozac) 20 mg PO DAILY [facility] Last Admin: 09/07/17 08:58 Dose: 20 mg Guaifenesin/Codeine Phosphate (Robitussin Ac) 10 ml PO Q4H PRN PRN Reason: Cough Last Admin: 08/27/17 17:40 Dose: 10 ml Haloperidol Lactate (Haldol) 1 mg IVPUSH Q8H PRN PRN Reason: restlessness Hydrochlorothiazide (Hydrochlorothiazide) 12.5 mg PO DAILY [facility] Last Admin: 09/07/17 09:02 Dose: 12.5 mg Hydromorphone HCl (Dilaudid) 0.25 mg IVPUSH Q2H PRN PRN Reason: Pain (severe 7-10) Insulin Aspart (Novolog) 0 unit SUBCUT QIDACANDBED [facility] PRN Reason: Protocol Last Admin: 09/08/17 07:39 Dose: Not Given Latanoprost (Xalatan 0.005% Ophth Soln) 0 ml EYEBOTH DAILY [facility] Last Admin: 09/07/17 09:03 Dose: Not Given Lorazepam (Ativan) 1 mg IVPUSH Q8H PRN PRN Reason: Anxiety Losartan Potassium (Cozaar) 100 mg PO DAILY [facility] Last Admin: 09/07/17 09:04 Dose: 50 mg Multivitamins (Thera) 1 each PO DAILY [facility] Last Admin: 09/07/17 08:57 Dose: 1 each Nitroglycerin (Nitrostat) 4 mg SL ASDIRECTED PRN PRN Reason: Chest Pain Ondansetron HCl (Zofran Odt) 4 mg PO Q6H PRN PRN Reason: nausea, able to take PO Ondansetron HCl (Zofran) 4 mg IV Q6H PRN PRN Reason: Nausea/Vomiting Polyethylene Glycol (Miralax) 17 gm PO DAILY PRN PRN Reason: Constipation Potassium Chloride (Pharmacy To Dose - Potassium Replacement) 0 dose .XX ASDIRECTED PRN PRN Reason: RX TO WATCH K LEVELS Pyridoxine HCl (Vitamin B6-Pyridoxine) 50 mg PO BID [facility] Last Admin: 09/07/17 21:55 Dose: 50 mg Senna/Docusate Sodium (Senna Plus) 1 tab PO BID PRN PRN Reason: Constipation Last Admin: 08/30/17 09:52 Dose: 1 tab Simvastatin (Zocor) 40 mg PO DAILY [facility] Last Admin: 09/07/17 08:58 Dose: 40 mg Sodium Chloride (Saline Flush) 10 ml FLUSH ASDIRECTED PRN PRN Reason: Keep Vein Open Last Admin: 08/24/17 16:53 Dose: 10 ml Sodium Chloride ([place] Nasal [place]) 0 ml ANNETTE Q4H PRN PRN Reason: Nasal dryness Last Admin: 08/25/17 05:00 Dose: 1 spray Temazepam (Restoril) 7.5 mg PO BEDTIME PRN PRN Reason: Sleep Last Admin: 09/03/17 21:54 Dose: 7.5 mg Discontinued Medications Acetaminophen (Tylenol) 975 mg PO NOW ONE Stop: 08/24/17 16:56 Last Admin: 08/24/17 17:12 Dose: 975 mg Hydrocodone Bitart/Acetaminophen ([place] 325-5 Mg) 1 tab PO Q4H PRN PRN Reason: Pain (moderate 4-6) Last Admin: 08/29/17 17:08 Dose: 1 tab Albuterol/Ipratropium (Duoneb 3.0-0.5 Mg/3 Ml) 3 ml NEB ONETIME ONE Stop: 08/24/17 16:41 Last Admin: 08/24/17 16:56 Dose: 3 ml Albuterol/Ipratropium (Duoneb 3.0-0.5 Mg/3 Ml) 3 ml NEB QID [facility] Last Admin: 08/27/17 21:53 Dose: 3 ml Guaifenesin/Phenylephrine HCl (Robitussin Dm) 10 ml PO Q4H PRN PRN Reason: Cough Haloperidol Lactate (Haldol) 1 mg IVPUSH ONETIME ONE Stop: 08/29/17 17:51 Last Admin: 08/29/17 18:14 Dose: 1 mg Levofloxacin/Dextrose 750 mg/ (Premix) 150 mls @ 100 mls/hr IV ONETIME ONE Stop: 08/24/17 18:09 Last Admin: 08/24/17 17:03 Dose: 100 mls/hr Sodium Chloride (Normal Saline) 500 mls @ 1,000 mls/hr IV .BOLUS ONE Stop: 08/24/17 17:25 Last Admin: 08/24/17 17:02 Dose: 1,000 mls/hr Sodium Chloride (Normal Saline) 2,350 mls @ 1,000 mls/hr IV ONETIME ONE Stop: 08/24/17 19:41 Last Admin: 08/24/17 20:08 Dose: 1,000 mls/hr Sodium Chloride (Normal Saline) Confirm Administered Dose 1,000 mls @ as directed .ROUTE .STK-MED ONE Stop: 08/24/17 21:32 Last Admin: 08/25/17 01:15 Dose: 850 ml Levofloxacin/Dextrose 750 mg/ (Premix) 150 mls @ 100 mls/hr IV Q24H [facility] Stop: 08/27/17 20:00 Last Admin: 08/27/17 17:35 Dose: 100 mls/hr Sodium Chloride (Normal Saline) 1,000 mls @ 100 mls/hr IV ASDIRECTED [facility] Last Admin: 08/27/17 05:11 Dose: 100 mls/hr Influenza Virus Vaccine (Pharmacy To Dose - Influenza Vaccine) 1 each IM ONETIME ONE Stop: 08/29/17 00:15 Influenza Virus Vaccine (Flulaval Quad [id number]) 60 mcg IM .ONCE ONE Stop: 08/29/17 01:01 Levofloxacin (Levaquin) 500 mg PO Q24H [facility] Last Admin: 08/28/17 16:36 Dose: 500 mg Levofloxacin (Levaquin) 500 mg PO Q24H [facility] Last Admin: 09/01/17 09:41 Dose: 500 mg Lorazepam (Ativan) 1 mg IVPUSH ONETIME ONE Stop: 08/29/17 17:52 Last Admin: 08/29/17 18:11 Dose: 1 mg Methylprednisolone Sodium Succinate (Solu-Medrol) 125 mg IVPUSH ONETIME ONE Stop: 08/24/17 16:41 Last Admin: 08/24/17 17:07 Dose: 125 mg Methylprednisolone Sodium Succinate (Solu-Medrol) 85 mg IVPUSH DAILY [facility] Last Admin: 08/25/17 09:24 Dose: 85 mg Methylprednisolone Sodium Succinate (Solu-Medrol) 80 mg IVPUSH BID [facility] Last Admin: 08/27/17 09:50 Dose: 80 mg Methylprednisolone Sodium Succinate (Solu-Medrol) 125 mg IVPUSH Q8H [facility] Last Admin: 08/29/17 18:16 Dose: 125 mg Methylprednisolone Sodium Succinate (Solu-Medrol) 80 mg IVPUSH Q8H [facility] Methylprednisolone Sodium Succinate (Solu-Medrol) 80 mg IVPUSH Q8H [facility] Last Admin: 09/01/17 18:06 Dose: Not Given Methylprednisolone Sodium Succinate (Solu-Medrol) 40 mg IVPUSH Q12H [facility] Last Admin: 09/01/17 09:51 Dose: 40 mg Pneumococcal Polyvalent Vaccine (Pneumovax 23) 0.5 ml IM .ONCE ONE Stop: 08/29/17 00:15 Potassium Chloride (Klor-Con M20) 20 meq PO Q4H [facility] Stop: 09/04/17 16:01 Last Admin: 09/04/17 15:07 Dose: 20 meq - Plan Plan:: I/P: Acute: Pneumonia -Risk Factor: Large Hiatal Hernia -Non-productive cough, fever, SOB -EMS found oxygen saturations to be in 70's; now at 3L NC sating at 91-94% -Afebrile since admission -WBC 13.45-->13.24; CRP 6.2 -->0.2 (normal) -D/c Levaquin 750 mg daily; completed appropriate treatment course -Of note: She is allergic to PCN and Vancomycin -Sputum culture-ordered; Mycoplasma and Strep pneumonia Ag-negative -Continue RT/IS/Acapella and Duo-Nebs PRN; Humidified O2 and nasal saline for congestion - Titrate O2 as needed, attempt to wean -D/c'd Solumedrol -Continue Nebs scheduled and prn; pulmonary toilet and tessalon perles -Repeat CXR: no acute infiltrate Hypercapnea, Improved -CO2 level of 41--> 38--> 34 -Carries a hx/o ADEN/OHS -Monitor and repeat level Leukocytosis - WBC 17K; CRP has been normal -2/2 lingering steroids +/- stress induced from underlying ADEN -CRP is normal -Likely improved Left Sided Diaphragmatic Hernia/Large Hiatal Hernia - Stable - H2B for acid reflux Resolved: S/p Sepsis -HR>90, tachypneic, hypotension, fever of 100.9, renal injury -Likely due to pneumonia -Lactic acid 1.8 -2350 fluid bolus given in ED -Blood cultures -Fluids as ordered -Treatment as above S/p Acute Renal Injury -Unsure of baseline -Bun 27, creatinine 1.3, eGFR 42-at baseline -Avoid nephrotoxic medications -Pharmacy to renally dose meds -Fluids -Continue to monitor S/p Relatively Hypotension -Symptomatic -BP of 96/43 mmHg -Hold BP meds - Monitor or re-check later Chronic: Hx/o Arrhythmias - SVT and PVCs HLD HTN - stable Sleep apnea Stress incontinence Scoliosis Mental retardation Personality disorder SAD Type II DM - Improved BS -Insulin per protocol-changed to Medium level, Glucose checks QIDAC and bedtime Anemia - stable Obesity with BMI of 39.8 Plan: She remains stable Continue current treatment with PT/OT SW/CM for discharge planning Routine AM Labs Other orders as indicated above DVT/PE prophylaxis: Lovenox and ambulation Encourage to ambulated as tolerated Code status: Full Code, PCP is Dr. Ty at [facility] here in [place] D/c pending placement
[2017-09-08] MEDS: Multivitamins,Therapeutic Tab PO SCH (09:01)
[2017-09-08] MEDS: Hypromellose 0.5% Ophth Soln 15 ML Bottle EYEBOTH SCH (09:01)
[2017-09-08] MEDS: Benzonatate 100 MG Cap PO SCH (09:01)
[2017-09-08] MEDS: Cholecalciferol (Vitamin D3) 1,000 Unit Tab PO SCH (09:01)
[2017-09-08] MEDS: Vitamin B6-pyridOXINE 50 MG Tab PO SCH (09:01)
[2017-09-08] MEDS: Latanoprost 0.005% Ophth Soln 2.5 ML Bottle EYEBOTH SCH (09:01)
[2017-09-08] MEDS: Enoxaparin 40 MG/0.4 ML Syringe SUBCUT SCH (09:02)
[2017-09-08] MEDS: Simvastatin 40 MG Tab PO SCH (09:02)
[2017-09-08] MEDS: Hydrochlorothiazide 12.5 MG Cap PO SCH (09:02)
[2017-09-08] MEDS: FLUoxetine 20 MG Cap PO SCH (09:02)
[2017-09-08] MEDS: Losartan 100 MG Tab PO SCH (09:03)
[2017-09-08 09:05] VITALS: BP 130/78
--- NOTE | 2017-09-08 09:40 | PCM.DCSUM1 ---
Discharge Summary - Hospital Course Brief History: Alice Jhaveri is a 57yo female who presents to our ED today with a cough, fever, shortness of breath via ambulance. Paramedics reports that the patient's oxygen saturations were in the 70s upon their arrival. They gave her oxygen and a DuoNeb. He reports symptoms began about 4 days prior. She reports fever, chills, cough, congestion, runny nose. She denies abdominal pain , nausea, or vomiting. [facility] her. - Discharge Data Discharge Date: 09/08/17 Discharge Disposition: DC/Tfer to [place] [address] Condition: Fair - Discharge Diagnosis/Problem(s) (1) MDD (major depressive disorder) SNOMED Code(s): 217490021 ICD Code: F32.9 - MAJOR DEPRESSIVE DISORDER, SINGLE EPISODE, UNSPECIFIED Status: Acute Qualifiers: Major depression recurrence: single episode Major depression episode severity: severe Psychotic features: without psychotic features (2) Pneumonia SNOMED Code(s): 980497686 ICD Code: J18.9 - PNEUMONIA, UNSPECIFIED ORGANISM Status: Acute Priority : High Qualifiers: Pneumonia type: due to unspecified organism Laterality: left Lung location: upper lobe of lung Qualified Code(s): J18.1 - Lobar pneumonia, unspecified organism (3) Type 2 diabetes mellitus SNOMED Code(s): 91046705 ICD Code: E11.9 - TYPE 2 DIABETES MELLITUS WITHOUT COMPLICATIONS Status: Chronic Priority: Medium Qualifiers: Diabetes mellitus complication status: with hyperglycemia Diabetes mellitus intermediate insulin use: without terminal operations manager use Qualified Code(s): E11.65 - Type 2 diabetes mellitus with hyperglycemia (4) Sepsis SNOMED Code(s): 43415740 ICD Code: A41.9 - SEPSIS, UNSPECIFIED ORGANISM Status: Resolved Qualifiers: Sepsis type: sepsis due to unspecified organism Qualified Code(s): A41.9 - Sepsis, unspecified organism (5) Diaphragmatic hernia SNOMED Code(s): 09190508 ICD Code: K44.9 - DIAPHRAGMATIC HERNIA WITHOUT OBSTRUCTION OR GANGRENE Status: Chronic Qualifiers: Obstruction and gangrene presence: without obstruction or gangrene Qualified Code(s): K44.9 - Diaphragmatic hernia without obstruction or gangrene (6) Acute kidney injury SNOMED Code(s): 13384009 ICD Code: N17.9 - ACUTE KIDNEY FAILURE, UNSPECIFIED Status: Resolved Priority: Medium - Patient Summary/Data Operative Procedure(s) Performed: None Complications: None Consults: Consultations 08/24/17 22:19 Consult to Case Management [CONS] Routine OT Evaluation and Treatment [CONS] Routine PT Evaluation and Treatment [CONS] Routine Respiratory Care Assess and Treatment [CONS] Routine 08/26/17 10:21 Consult to Spinneret Person [Consult to Diabetic Nurse Specialist] [CONS] Routine 08/31/17 10:05 Consult to Physician [CONS] Routine 09/01/17 15:50 Consult to Spiritual Care [CONS] Routine Labs Pending at D/C: None Recommended Follow-up Testing/Procedures: None Planned Operative Procedure(s) after DC: None Hospital Course: Patient was primarily admitted for medical management of sepsis secondary to pneumonia. Her risk factor include having a large hiatial hernia that likely predisposed her to aspiration. All blood cultures and infectious work up were all negative. However she was provided routine respiratory care, acid reducing agents, aspiration precautions and appropriate antibiotics to improve her symptoms. Patient slowly improved on this regimen. As for her dehydration which led to acute renal insufficiency, she was adequately hydrated and her renal function responded well with treatment. Her hospital course was uncomplicated and the rest of her chronic medical illness remained stable during this admission. On this admission, the patient's functional status declined from her baseline based on IDT team's assessment. Therefore it was recommended she be placed in a higher level care facility. And after searching for placement, she was eventually admitted to [facility]. Upon discharge she was stable clinically and hemodynamically. She was continued on her supplemental O2 as needed for shortness of breath. She was advised to follow-up with her family doctor in 1 week. She was further advised to practice lifestyle modifications to improve her overall health. The patient expressed understanding and in agreement with the plans as discussed above. All questions were answered. - Patient Instructions Diet: Heart Healthy Diet, Drink 8-10+ Glasses/Day, Diabetic Diet Activity: Apply Ice (ambulate 4 times daily) Driving: Do Not Drive Showering/Bathing: May Shower (shower daily with assistance as/if needed) Notify Provider of: Fever, Increased Pain, Nausea and/or Vomiting (worsening cough or shortness of breath) Other/Special Instructions: - Please take all new medications as directed. - Resume all home medications. - Recommend you exercise regularly, eat properly and lose weight. - Follow up with your doctor in 1 week. - Keep follow up outpatient psychiatry appointment in 3-4 weeks - Discharge Plan Prescriptions/Med Rec: Albuterol/Ipratropium [DuoNeb 3.0-0.5 MG/3 ML] 3 ml NEB TID #1 box Benzonatate [Tessalon Perles] 200 mg PO TID #40 cap FLUoxetine HCl [Prozac] 20 mg PO DAILY #30 capsule Multivitamins,Therapeutic [Thera] 1 each PO DAILY #30 tablet Home Medications: Home Meds Carboxymethylcellulose Sodium [Lubricant Eye Drops] 1 drop EYEBOTH DAILY [History] Cholecalciferol (Vitamin D3) [Vitamin D3] 1 tab PO DAILY 11/13/16 [History] Latanoprost [Xalatan 0.005% Ophth Soln] 1 drop EYEBOTH DAILY 11/13/16 [History] Nitroglycerin [Nitrostat] 1 tab SL ASDIRECTED PRN 11/13/16 [History] Simvastatin [Zocor] 40 mg PO DAILY 11/13/16 [History] Vitamin B6-pyridOXINE 1 tab PO BID 11/13/16 [History] metFORMIN [Glucophage] 500 mg PO BID 11/13/16 [History] B1/B2/B3/B5/B6/Iron/Meth/Choln [Geritol Tonic] 15 ml PO DAILY 08/25/17 [History] Valsartan/Hydrochlorothiazide [Diovan Hct 160-12.5 mg Tab] 1 tab PO DAILY [History] Albuterol/Ipratropium [DuoNeb 3.0-0.5 MG/3 ML] 3 ml NEB TID #1 box 08/30/17 [Rx] Benzonatate [Tessalon Perles] 200 mg PO TID #40 cap 08/30/17 [Rx] Multivitamins,Therapeutic [Thera] 1 each PO DAILY #30 tablet 08/30/17 [Rx] FLUoxetine HCl [Prozac] 20 mg PO DAILY #30 capsule 09/08/17 [Rx] Patient Handouts: Hypoxemia, Community-Acquired Pneumonia, Adult, [id number] Referrals: Juwan Ty MD [Primary Care Provider] - - Discharge Summary/Plan Comment DC Time >30 min.: Yes (45 mins) Discharge Summary/Plan Comment: Discharge to [facility] - General Info Date of Service: 09/08/17 Admission Dx/Problem (Free Text: PNA Subjective Update: Follow Up Functional Status: Reports: Pain Controlled, Tolerating Diet, Ambulating, Urinating. Denies: New Symptoms - Review of Systems General: Denies: Fever, Weakness, Fatigue, Malaise, Chills HEENT: Reports: No Symptoms Pulmonary: Reports: Shortness of Breath Cardiovascular: Denies: Chest Pain Gastrointestinal: Denies: Abdominal Pain, Nausea, Vomiting Genitourinary: Reports: No Symptoms Musculoskeletal: Reports: No Symptoms Skin: Reports: No Symptoms Neurological: Denies: Confusion, Difficulty Walking, Weakness, Gait Disturbance Psychiatric: Denies: Depression, Anxiety, Agitation, Hallucinations Systems Review Comment: No significant overnight or acute issues. She is comfortable and doing just fine. She has no new complaints. Her vitals are stable. - Patient Data Vitals - Most Recent: Last Vital Signs Temp 36.7 C 09/08/17 08:26 Pulse 83 09/08/17 08:26 Resp 24 H 09/08/17 08:26 BP 130/78 09/08/17 09:03 Pulse Ox 91 L 09/08/17 08:26 Weight - Most Recent: 88.541 kg I&O - Last 24 hours: Intake & Output 09/07/17 09/08/17 09/08/17 22:59 06:59 14:59 Intake Total 350 1250 Output Total 900 Balance 350 350 Lab Results - Last 24 hrs: Laboratory Results - last 24 hr 09/07/17 09/07/17 09/07/17 Range/Units 11:44 16:47 21:54 POC Glucose 122 H 117 H 169 H (70-105) mg/dL 09/08/17 Range/Units 06:08 POC Glucose 107 H (70-105) mg/dL Med Orders - Current: Current Medications Acetaminophen (Tylenol) 650 mg PO Q4H PRN PRN Reason: Pain (Mild 1-3)/fever Last Admin: 08/29/17 21:15 Dose: 650 mg Albuterol (Proventil Neb Soln) 2.5 mg NEB Q4HRRT PRN PRN Reason: Shortness Of Breath/wheezing Last Admin: 08/27/17 14:51 Dose: 2.5 mg Albuterol/Ipratropium (Duoneb 3.0-0.5 Mg/3 Ml) 3 ml NEB QIDRT [facility] Last Admin: 09/08/17 05:39 Dose: 3 ml Artificial Tears (Isopto Tears 0.5% Ophth Soln) 0 ml EYEBOTH DAILY [facility] Last Admin: 09/08/17 09:01 Dose: 1 drop Benzonatate (Tessalon Perles) 200 mg PO TID [facility] Last Admin: 09/08/17 09:01 Dose: 200 mg Bisacodyl (Dulcolax) 5 mg PO DAILY PRN PRN Reason: Constipation Cholecalciferol (Vitamin D3) 5,000 units PO DAILY [facility] Last Admin: 09/08/17 09:01 Dose: 5,000 units Dextrose/Water (Dextrose 50% In Water) 50 ml IVPUSH ASDIRECTED PRN PRN Reason: hypoglycemia Docusate Sodium (Colace) 100 mg PO BID PRN PRN Reason: Constipation Enoxaparin Sodium (Lovenox) 40 mg SUBCUT DAILY [facility] Last Admin: 09/08/17 09:02 Dose: 40 mg Fluoxetine HCl (Prozac) 20 mg PO DAILY [facility] Last Admin: 09/08/17 09:02 Dose: 20 mg Guaifenesin/Codeine Phosphate (Robitussin Ac) 10 ml PO Q4H PRN PRN Reason: Cough Last Admin: 08/27/17 17:40 Dose: 10 ml Haloperidol Lactate (Haldol) 1 mg IVPUSH Q8H PRN PRN Reason: restlessness Hydrochlorothiazide (Hydrochlorothiazide) 12.5 mg PO DAILY [facility] Last Admin: 09/08/17 09:02 Dose: 12.5 mg Hydromorphone HCl (Dilaudid) 0.25 mg IVPUSH Q2H PRN PRN Reason: Pain (severe 7-10) Insulin Aspart (Novolog) 0 unit SUBCUT QIDACANDBED [facility] PRN Reason: Protocol Last Admin: 09/08/17 07:39 Dose: Not Given Latanoprost (Xalatan 0.005% Ophth Soln) 0 ml EYEBOTH DAILY [facility] Last Admin: 09/08/17 09:01 Dose: 1 drop Lorazepam (Ativan) 1 mg IVPUSH Q8H PRN PRN Reason: Anxiety Losartan Potassium (Cozaar) 100 mg PO DAILY [facility] Last Admin: 09/08/17 09:03 Dose: 100 mg Multivitamins (Thera) 1 each PO DAILY [facility] Last Admin: 09/08/17 09:01 Dose: 1 each Nitroglycerin (Nitrostat) 4 mg SL ASDIRECTED PRN PRN Reason: Chest Pain Ondansetron HCl (Zofran Odt) 4 mg PO Q6H PRN PRN Reason: nausea, able to take PO Ondansetron HCl (Zofran) 4 mg IV Q6H PRN PRN Reason: Nausea/Vomiting Polyethylene Glycol (Miralax) 17 gm PO DAILY PRN PRN Reason: Constipation Potassium Chloride (Pharmacy To Dose - Potassium Replacement) 0 dose .XX ASDIRECTED PRN PRN Reason: RX TO WATCH K LEVELS Pyridoxine HCl (Vitamin B6-Pyridoxine) 50 mg PO BID [facility] Last Admin: 09/08/17 09:01 Dose: 50 mg Senna/Docusate Sodium (Senna Plus) 1 tab PO BID PRN PRN Reason: Constipation Last Admin: 08/30/17 09:52 Dose: 1 tab Simvastatin (Zocor) 40 mg PO DAILY [facility] Last Admin: 09/08/17 09:02 Dose: 40 mg Sodium Chloride (Saline Flush) 10 ml FLUSH ASDIRECTED PRN PRN Reason: Keep Vein Open Last Admin: 08/24/17 16:53 Dose: 10 ml Sodium Chloride ([place]ody Nasal Citra) 0 ml ANNETTE Q4H PRN PRN Reason: Nasal dryness Last Admin: 08/25/17 05:00 Dose: 1 spray Temazepam (Restoril) 7.5 mg PO BEDTIME PRN PRN Reason: Sleep Last Admin: 09/03/17 21:54 Dose: 7.5 mg Discontinued Medications Acetaminophen (Tylenol) 975 mg PO NOW ONE Stop: 08/24/17 16:56 Last Admin: 08/24/17 17:12 Dose: 975 mg Hydrocodone Bitart/Acetaminophen ([place] 325-5 Mg) 1 tab PO Q4H PRN PRN Reason: Pain (moderate 4-6) Last Admin: 08/29/17 17:08 Dose: 1 tab Albuterol/Ipratropium (Duoneb 3.0-0.5 Mg/3 Ml) 3 ml NEB ONETIME ONE Stop: 08/24/17 16:41 Last Admin: 08/24/17 16:56 Dose: 3 ml Albuterol/Ipratropium (Duoneb 3.0-0.5 Mg/3 Ml) 3 ml NEB QID [facility] Last Admin: 08/27/17 21:53 Dose: 3 ml Guaifenesin/Phenylephrine HCl (Robitussin Dm) 10 ml PO Q4H PRN PRN Reason: Cough Haloperidol Lactate (Haldol) 1 mg IVPUSH ONETIME ONE Stop: 08/29/17 17:51 Last Admin: 08/29/17 18:14 Dose: 1 mg Levofloxacin/Dextrose 750 mg/ (Premix) 150 mls @ 100 mls/hr IV ONETIME ONE Stop: 08/24/17 18:09 Last Admin: 08/24/17 17:03 Dose: 100 mls/hr Sodium Chloride (Normal Saline) 500 mls @ 1,000 mls/hr IV .BOLUS ONE Stop: 08/24/17 17:25 Last Admin: 08/24/17 17:02 Dose: 1,000 mls/hr Sodium Chloride (Normal Saline) 2,350 mls @ 1,000 mls/hr IV ONETIME ONE Stop: 08/24/17 19:41 Last Admin: 08/24/17 20:08 Dose: 1,000 mls/hr Sodium Chloride (Normal Saline) Confirm Administered Dose 1,000 mls @ as directed .ROUTE .STK-MED ONE Stop: 08/24/17 21:32 Last Admin: 08/25/17 01:15 Dose: 850 ml Levofloxacin/Dextrose 750 mg/ (Premix) 150 mls @ 100 mls/hr IV Q24H CANDIE Stop: 08/27/17 20:00 Last Admin: 08/27/17 17:35 Dose: 100 mls/hr Sodium Chloride (Normal Saline) 1,000 mls @ 100 mls/hr IV ASDIRECTED [facility] Last Admin: 08/27/17 05:11 Dose: 100 mls/hr Influenza Virus Vaccine (Pharmacy To Dose - Influenza Vaccine) 1 each IM ONETIME ONE Stop: 08/29/17 00:15 Influenza Virus Vaccine (Flulaval Quad [id number]) 60 mcg IM .ONCE ONE Stop: 08/29/17 01:01 Levofloxacin (Levaquin) 500 mg PO Q24H [facility] Last Admin: 08/28/17 16:36 Dose: 500 mg Levofloxacin (Levaquin) 500 mg PO Q24H [facility] Last Admin: 09/01/17 09:41 Dose: 500 mg Lorazepam (Ativan) 1 mg IVPUSH ONETIME ONE Stop: 08/29/17 17:52 Last Admin: 08/29/17 18:11 Dose: 1 mg Methylprednisolone Sodium Succinate (Solu-Medrol) 125 mg IVPUSH ONETIME ONE Stop: 08/24/17 16:41 Last Admin: 08/24/17 17:07 Dose: 125 mg Methylprednisolone Sodium Succinate (Solu-Medrol) 85 mg IVPUSH DAILY [facility] Last Admin: 08/25/17 09:24 Dose: 85 mg Methylprednisolone Sodium Succinate (Solu-Medrol) 80 mg IVPUSH BID [facility] Last Admin: 08/27/17 09:50 Dose: 80 mg Methylprednisolone Sodium Succinate (Solu-Medrol) 125 mg IVPUSH Q8H [facility] Last Admin: 08/29/17 18:16 Dose: 125 mg Methylprednisolone Sodium Succinate (Solu-Medrol) 80 mg IVPUSH Q8H [facility] Methylprednisolone Sodium Succinate (Solu-Medrol) 80 mg IVPUSH Q8H [facility] Last Admin: 09/01/17 18:06 Dose: Not Given Methylprednisolone Sodium Succinate (Solu-Medrol) 40 mg IVPUSH Q12H [facility] Last Admin: 09/01/17 09:51 Dose: 40 mg Pneumococcal Polyvalent Vaccine (Pneumovax 23) 0.5 ml IM .ONCE ONE Stop: 08/29/17 00:15 Potassium Chloride (Klor-Con M20) 20 meq PO Q4H [facility] Stop: 09/04/17 16:01 Last Admin: 09/04/17 15:07 Dose: 20 meq - Exam Quality Assessment: Reports: Supplemental Oxygen General: Reports: Alert, Cooperative, No Acute Distress, Other (Obese) HEENT: Reports: Pupils Equal, Pupils Reactive, EOMI, Mucous Membr. Moist/[place] Neck: Reports: Supple, Trachea Midline, No JVD, Other (short and thick) Lungs: Reports: Normal Respiratory Effort, Decreased Breath Sounds Cardiovascular: Reports: Regular Rate, Regular Rhythm GI/Abdominal Exam: Normal Bowel Sounds, Soft, Non-Tender, No Organomegaly, No Distention, No Abnormal Bruit, Other (Obese) (Female) Exam: Deferred Rectal (Female) Exam: Deferred Back Exam: Reports: Normal Inspection, Decreased Range of Motion Extremities: Normal Inspection, Normal Range of Motion, Non-Tender, No Pedal Edema, Normal Capillary Refill Skin: Reports: Warm, Dry, Intact Neurological: Reports: No New Focal Deficit Psy/Mental Status: Reports: Alert, Normal Affect, Normal Mood *Q Meaningful Use (DIS) - VTE *Q VTE Criteria *Q: - Stroke *Q Stroke Criteria *Q: - AMI *Q AMI Criteria *Q:
== END 2017-09-08 10:35 | DRG 871 ==
LOC: JD.ED 16:26 → JD.ICU 19:02 → JD.MS 08-25 22:41
PROVIDERS: ADMIT Internal Medicine Cardiovascular Disease; ATTEND Internal Medicine Cardiovascular Disease
DX: A41.9 Sepsis, unspecified organism (principal); J18.9 Pneumonia, unspecified organism; N17.9 Acute kidney failure, unspecified; F32.3 Major depressive disorder, single episode, severe with psychotic features; E78.00 Pure hypercholesterolemia, unspecified; I49.9 Cardiac arrhythmia, unspecified; G47.30 Sleep apnea, unspecified; R09.02 Hypoxemia; I10 Essential (primary) hypertension; E78.5 Hyperlipidemia, unspecified; G47.33 Obstructive sleep apnea (adult) (pediatric); N39.3 Stress incontinence (female) (male); Z87.891 Personal history of nicotine dependence; M41.9 Scoliosis, unspecified; F79 Unspecified intellectual disabilities; F60.9 Personality disorder, unspecified; E11.9 Type 2 diabetes mellitus without complications; D64.9 Anemia, unspecified; K44.9 Diaphragmatic hernia without obstruction or gangrene; R06.89 Other abnormalities of breathing; E66.9 Obesity, unspecified; Z68.39 Body mass index [BMI] 39.0-39.9, adult; I95.9 Hypotension, unspecified; D72.828 Other elevated white blood cell count; H40.9 Unspecified glaucoma; H91.90 Unspecified hearing loss, unspecified ear; Z88.0 Allergy status to penicillin; Z88.1 Allergy status to other antibiotic agents; Z79.84 Long term (current) use of oral hypoglycemic drugs; Z79.899 Other long term (current) drug therapy
CPT/HCPCS: 36415; 71045; 80053; 83605; 85025; 86140; 87040 ×2; 87804 ×2; 94640; 96361; 96365; 96366; 96374; 99285; A9270; J1956; J2930; J7040; J7050; 71046; 71046-26; 80048; 82962; 83036; 83735; 86738; 87899; 94620; 94667; 94668; 94761; 96125-GN; 97110-GO; 97110-GP; 97116-GP; 97162-GP; 97167-GO; 97530-GO; 97530-GP; 97535-GO; J1630; J1650; J1815-GY; J2060; J2920

== ENCOUNTER 2019-01-11 09:54 | Inpatient (IN) | payer MEDICARE, MEDICAID ==
--- NOTE | 2019-01-11 10:59 | EDM.PDOC ---
ED HPI GENERAL MEDICAL PROBLEM - General Chief Complaint: Respiratory Problem Stated Complaint: LOW O2 LEVELS SENT FROM [place] Time Seen by Provider: 01/11/19 10:58 Source of Information: Reports: Patient, RN Notes Reviewed, Other (medical oncology physician) History Limitations: Reports: No Limitations - History of Present Illness INITIAL COMMENTS - FREE TEXT/NARRATIVE: Patient is a 58-year-old female who presents to the ED for the evaluation of low O2 sats. The patient lives at a assisted care facility. The patient's legal support assistant states that the patient complained of feeling sick on Wednesday with a small cough. The legal support assistant notes that her cough got worse Wednesday and has been getting worse since then. The patient notes that she has been getting some white junk up, medium amounts, of white frothy sputum. The legal support assistant noted that the patient's O2 levels were 77% on room air so she was taken to the walk-in clinic. The walk-in clinic subsequently diverted her to the ED. At time of triage she was 76% on room air, 3 L via nasal cannula was applied and she is 92% on that. The patient is not typically on home oxygen , she does have a anatomical abnormality, scoliosis, that pushes on her diaphragm and she monitors her SPO2 levels frequently due to this. The patient reports that her normal oxygen levels are low 90s to high 86. The patient notes that her breathing worsens with lying down. She states that she has had some minor chills, but no chest pain, no swelling to the [place], or other heart issues at this time. She states that she was a former smoker however has quit a long time ago. Her primary care provider is Dr. Ty. The patient states that she does take respiratory medications at home as well. - Related Data Allergies Allergy/AdvReac Type Severity Reaction Status Date / Time penicillin V Allergy Cannot Verified 01/11/19 10:11 Remember vancomycin Allergy Cannot Verified 01/11/19 10:11 Remember Home Meds: Home Meds Carboxymethylcellulose Sodium [Lubricant Eye Drop] 1 drop EYEBOTH DAILY [History] Cholecalciferol (Vitamin D3) [Vitamin D3] 1 tab PO DAILY 11/13/16 [History] Latanoprost [Xalatan 0.005% Ophth Soln] 1 drop EYEBOTH DAILY 11/13/16 [History] Nitroglycerin [Nitrostat] 1 tab SL ASDIRECTED PRN 11/13/16 [History] Vitamin B6-pyridOXINE 1 tab PO BID 11/13/16 [History] metFORMIN [Glucophage] 500 mg PO BID 11/13/16 [History] B1/B2/B3/B5/B6/Iron/Meth/Choln [Geritol Tonic] 15 ml PO DAILY 08/25/17 [History] Citalopram [Citalopram HBr] 20 mg PO DAILY 01/11/19 [History] Fluticasone Propionate [Flonase] 1 spray ANNETTE DAILY PRN 01/11/19 [History] Lactobacil 2-S.thermo-Bifido 1 [High Potency Probiotic 112.5 B] 1 cap PO DAILY 01/11/19 [History] Losartan/Hydrochlorothiazide [Losartan-HCTZ 50-12.5 MG] 1 tab PO DAILY 01/11/19 [History] Rosuvastatin Calcium 40 mg PO DAILY 01/11/19 [History] Sennosides [Senna] 8.6 mg PO DAILY 01/11/19 [History] Past Medical History HEENT History: Reports: Glaucoma, Hard of Hearing Cardiovascular History: Reports: Arrhythmia, High Cholesterol, Hypertension Other Cardiovascular History: svt and pvc Respiratory History: Reports: Sleep Apnea Genitourinary History: Reports: STD, Other (See Below) Other Genitourinary History: stress incontinence. 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: menopause Musculoskeletal History: Reports: Back Pain, Chronic Other Musculoskeletal History: congenital musculoskeletal deformity of spine, internal derangement of knee, scoliosis Neurological History: Reports: Other (See Below) Other Neuro History: bells palsy Psychiatric History: Reports: Schizophrenia, Other (See Below) Other Psychiatric History: mental retardation, personality disorder, SAD Endocrine/Metabolic History: Reports: Diabetes, Type II Hematologic History: Reports: Anemia Other Dermatologic History: dermatophytosis of nail - Past Surgical History Other Respiratory Surgeries/Procedures: states that her CPAP machine "was taken away" GI Surgical History: Reports: Cholecystectomy Female Surgical History: Reports: Section Neurological Surgical History: Reports: Scoliosis Social & Family History - Family History Family Medical History: Noncontributory - Tobacco Use Smoking Status *Q: Former Smoker Used Tobacco, but Quit: Yes Month/Year Tobacco Last Used: 08/1987 Second Hand Smoke Exposure: No - Caffeine Use Caffeine Use: Reports: Coffee, Soda - Recreational Drug Use Recreational Drug Use: No - Living Situation & Occupation Living situation: Reports: Single Occupation: Disabled ED ROS GENERAL - Review of Systems Review Of Systems: See Below Constitutional: Reports: Chills. Denies: Fever Respiratory: Reports: Shortness of Breath, Cough, Sputum. Denies: Wheezing Cardiovascular: Reports: Orthopnea. Denies: Chest Pain, Edema Endocrine: Reports: No Symptoms GI/Abdominal: Reports: No Symptoms : Reports: No Symptoms Musculoskeletal: Reports: No Symptoms Skin: Reports: No Symptoms Neurological: Reports: No Symptoms Psychiatric: Reports: No Symptoms Hematologic/Lymphatic: Reports: No Symptoms Immunologic: Reports: No Symptoms ED EXAM, GENERAL - Physical Exam Exam: See Below Exam Limited By: No Limitations General Appearance: Alert, WD/WN, No Apparent Distress Eye Exam: Bilateral Eye: EOMI, Normal Inspection, PERRL Ears: Normal External Exam, Normal Canal, Hearing Grossly Normal, Normal TMs Nose: Normal Inspection, Normal Mucosa, No Blood Throat/Mouth: Normal Inspection, Normal Lips, Normal Teeth, Normal Gums, Normal Oropharynx, Normal Voice, No Airway Compromise Head: Atraumatic, Normocephalic Neck: Normal Inspection Respiratory/Chest: No Respiratory Distress, No Accessory Muscle Use, Chest Non- Tender, Decreased Breath Sounds, Rales (diffuse bilaterally). No: Respiratory Distress, Wheezing Cardiovascular: Normal Peripheral Pulses, Regular Rate, Rhythm, No Murmur GI/Abdominal: Normal Bowel Sounds, Soft, Non-Tender, No Distention, No Mass Extremities: Normal Inspection, Normal Capillary Refill Neurological: Alert, Oriented, Normal Cognition, No Motor/Sensory Deficits Psychiatric: Normal Affect, Normal Mood Skin Exam: Warm, Dry, Intact, Normal Color, No Rash Course - Vital Signs Last Recorded V/S: Last Vital Signs Temp 98.6 F 01/11/19 10:06 Pulse 96 01/11/19 10:06 Resp 20 01/11/19 10:06 BP 123/65 01/11/19 10:06 Pulse Ox 91 L 01/11/19 11:05 - Orders/Labs/Meds Orders: Active Orders 24 hr Category Date Time Status Admission Status [Patient Status] [ADT] Routine ADT 01/11/19 15:03 Ordered Oxygen Therapy Adult [Oxygen Therapy, ED] [RC] Care 01/11/19 11:06 Ordered ASDIRECTED Peripheral IV Care [RC] . DIRECTED Care 01/11/19 11:06 Ordered RT Aerosol Therapy [RC] ASDIRECTED Care 01/11/19 11:19 Ordered CULTURE BLOOD [BC] Stat Lab 01/11/19 12:26 Ordered CULTURE BLOOD [BC] Stat Lab 01/11/19 12:26 Ordered Sodium Chloride 0.9% [Normal Saline] 1,000 ml Med 01/11/19 15:03 Ordered IV ASDIRECTED Sodium Chloride 0.9% [Saline Flush] Med 01/11/19 11:06 Ordered 10 ml FLUSH ASDIRECTED PRN Blood Culture x2 Reflex Set [OM.PC] Stat Oth 01/11/19 12:26 Ordered Peripheral IV Insertion Adult [OM.PC] Routine Oth 01/11/19 11:06 Ordered Medication Orders Sodium Chloride (Normal Saline) 1,000 mls @ 999 mls/hr IV ASDIRECTED ONE Stop: 01/11/19 16:03 Last Admin: 01/11/19 15:10 Dose: 999 mls/hr Sodium Chloride (Saline Flush) 10 ml FLUSH ASDIRECTED PRN PRN Reason: Keep Vein Open Last Admin: 01/11/19 11:27 Dose: 10 ml Labs: Laboratory Tests 01/11/19 01/11/19 01/11/19 Range/Units 11:25 11:25 11:25 WBC 17.16 H (3.98-10.04) K/mm3 RBC 4.99 (3.98-5.22) M/mm3 Hgb 14.5 (11.2-15.7) gm/L Hct 46.8 H (34.1-44.9) % MCV 93.8 D (79.4-94.8) fl MCH 29.1 (25.6-32.2) pg MCHC 31.0 L (32.2-35.5) g/dl RDW Std Deviation 46.1 (36.4-46.3) fL Plt Count 278 (182-369) K/mm3 MPV 9.9 (9.4-12.3) fl Neutrophils % (Manual) 65 H (40-60) % Band Neutrophils % 0 (0-10) % Lymphocytes % (Manual) 14 L (20-40) % Atypical Lymphs % 0 % Monocytes % (Manual) 16 H (2-10) % Eosinophils % (Manual) 2 (0.7-5.8) % Basophils % (Manual) 3 H (0.1-1.2) Platelet Estimate Adequate RBC Morph Comment Normal Sodium 141 (136-145) mEq/L Potassium 4.1 (3.5-5.1) mEq/L Chloride 98 (98-107) mEq/L Carbon Dioxide 31 (21-32) mEq/L Anion Gap 16.1 H (5-15) BUN 19 H (7-18) mg/dL Creatinine 0.9 (0.55-1.02) mg/dL Est Cr Clr Drug Dosing 51.41 mL/min Estimated GFR (MDRD) > 60 (>60) mL/min BUN/Creatinine Ratio 21.1 H (14-18) Glucose 111 H (74-106) mg/dL Calcium 9.5 (8.5-10.1) mg/dL Total Bilirubin 0.5 (0.2-1.0) mg/dL AST 19 (15-37) U/L ALT 26 (14-59) U/L Alkaline Phosphatase 93 (46-116) U/L NT-Pro-B Natriuret Pep 85 (0-125) pg/mL Total Protein 7.8 (6.4-8.2) g/dl Albumin 3.7 (3.4-5.0) g/dl Globulin 4.1 gm/dL Albumin/Globulin Ratio 0.9 L (1-2) Meds: Medications Generic Name Dose Route Start Last Admin Trade Name Freq PRN Reason Stop Dose Admin Sodium Chloride 1,000 mls @ 999 mls/hr 01/11/19 15:03 01/11/19 15:10 Normal Saline IV 01/11/19 16:03 999 mls/hr ASDIRECTED ONE Administration Sodium Chloride 10 ml 01/11/19 11:06 01/11/19 11:27 Saline Flush FLUSH 10 ml ASDIRECTED PRN Administration Keep Vein Open Discontinued Medications Generic Name Dose Route Start Last Admin Trade Name Freq PRN Reason Stop Dose Admin Albuterol/Ipratropium 3 ml 01/11/19 11:19 01/11/19 11:36 Duoneb 3.0-0.5 Mg/3 Ml NEB 01/11/19 11:20 3 ml ONETIME ONE Administration Ceftriaxone Sodium 2 gm/ 100 mls @ 200 mls/hr 01/11/19 12:26 01/11/19 14:07 Sodium Chloride IV 01/11/19 12:55 200 mls/hr Q24H ONE Administration - Re-Assessments/Exams Free Text/Narrative Re-Assessment/Exam: 01/11/19 11:35 Patient presents to the ED for evaluation of low oxygen levels and a cough. I have ordered a CBC, CMP, chest x-ray, IV to be placed, DuoNeb nebulizer, and oxygen to keep sats greater than 92% during evaluation. 01/11/19 12:15 Patient's CBC is done, and demonstrates a white count of 17,000. The differential has not been complete however. The patient's chest x-ray does demonstrate a left lower lobe pneumonia, I will order some IV antibiotics for initial treatment. The chest x-ray was reviewed by myself and Dr. Edwards. 01/11/19 12:27 2 g Rocephin has been ordered, however I have ordered a lactic acid and blood cultures 2, for further septic workup. 01/11/19 13:21 Patient's CXR has been read by radiology as a left elevated hemidiaphragm which appears stable from previous exam. Mild left basilar compressive atelectasis, with no other acute findings. With the patient's white blood cell count being 17,000 at this time, it is still likely that her symptoms are due to pneumonia. I have ordered a CT of the patient's chest to rule in or rule out the possibility of pneumonia versus the compressive atelectasis. Departure - Departure Time of Disposition: 15:12 Disposition: Admitted As Inpatient 66 Condition: Fair Clinical Impression: Hypoxemia Pneumonia Qualifiers: Pneumonia type: due to unspecified organism Laterality: left Lung location: lower lobe of lung Qualified Code(s): J18.1 - Lobar pneumonia, unspecified organism - Discharge Information *PRESCRIPTION DRUG MONITORING PROGRAM REVIEWED*: No *COPY OF PRESCRIPTION DRUG MONITORING REPORT IN PATIENT ROGERS: No Referrals: Juwan Ty MD [Primary Care Provider] - Forms: ED Department Discharge - My Orders Last 24 Hours: My Active Orders 01/11/19 11:06 Oxygen Therapy Adult [Oxygen Therapy, ED] [RC] ASDIRECTED Peripheral IV Care [RC] . DIRECTED Sodium Chloride 0.9% [Saline Flush] 10 ml FLUSH ASDIRECTED PRN Peripheral IV Insertion Adult [OM.PC] Routine 01/11/19 11:19 RT Aerosol Therapy [RC] ASDIRECTED 01/11/19 12:26 CULTURE BLOOD [BC] Stat CULTURE BLOOD [BC] Stat Blood Culture x2 Reflex Set [OM.PC] Stat 01/11/19 15:03 Admission Status [Patient Status] [ADT] Routine Sodium Chloride 0.9% [Normal Saline] 1,000 ml IV ASDIRECTED - Assessment/Plan Last 24 Hours: My Active Orders 01/11/19 11:06 Oxygen Therapy Adult [Oxygen Therapy, ED] [RC] ASDIRECTED Peripheral IV Care [RC] . DIRECTED Sodium Chloride 0.9% [Saline Flush] 10 ml FLUSH ASDIRECTED PRN Peripheral IV Insertion Adult [OM.PC] Routine 01/11/19 11:19 RT Aerosol Therapy [RC] ASDIRECTED 01/11/19 12:26 CULTURE BLOOD [BC] Stat CULTURE BLOOD [BC] Stat Blood Culture x2 Reflex Set [OM.PC] Stat 01/11/19 15:03 Admission Status [Patient Status] [ADT] Routine Sodium Chloride 0.9% [Normal Saline] 1,000 ml IV ASDIRECTED
[2019-01-11] MEDS ORDERED: Sodium Chloride 0.9% 10 ML Syringe FLUSH PRN ×2 (11:06→17:12)
[2019-01-11] MEDS ORDERED: Albuterol/Ipratropium 3.0-0.5 MG/3 ML Neb Soln NEB ONE (11:19)
[2019-01-11] MEDS ORDERED: cefTRIAXone 2 GM in Sodium Chloride 0.9% 100 ML IV ONE (12:26)
--- NOTE | 2019-01-11 13:09 | CR ---
Chest: Two views of the chest were obtained. Comparison: Prior chest x-ray of 08/30/17. Elevated left hemidiaphragm is seen causing compressive atelectasis within the left base. Right lung is clear. Heart size is difficult to evaluate due to the elevated diaphragm but felt to be minimally enlarged. Scoliosis is noted within the spine. Scattered degenerative change is noted within the spine. Impression: 1. Elevated left hemidiaphragm which appears stable from previous exam. Mild left basilar atelectasis on a compressive basis. 2. Other incidental findings. Nothing acute is suspected. Diagnostic code #3
[2019-01-11] MEDS ORDERED: Sodium Chloride 0.9% 1,000 ML IV ONE (15:03)
--- NOTE | 2019-01-11 15:11 | CT ---
CT chest Technique: Multiple axial sections were obtained from above the lung apices inferiorly through the lung bases. Intravenous contrast was not utilized. Comparison: Previous chest x-ray performed earlier on the same day (11:13 AM) Findings: Elevated left hemidiaphragm is seen. Parenchymal density is seen directly above this finding which shows air bronchograms. Other portions of the left upper lung as well as right lung are clear. Bone window settings were reviewed which shows scoliosis with the spine with scattered degenerative change. No acute osseous abnormality is seen. Impression: 1. Elevated left hemidiaphragm with parenchymal density adjacent to this diaphragm. On the axial views there are air bronchograms present which could represent an area of pneumonia if patient has infectious symptoms. On the reconstructed coronal images this appears more like atelectasis. Decision for treatment can be the decided with clinical symptoms. 2. Other incidental findings. Diagnostic code #3
[2019-01-11] MEDS ORDERED: Azithromycin 500 MG in Sodium Chloride 0.9% 250 ML IV ONE (16:08)
[2019-01-11] MEDS ORDERED: Acetaminophen 325 MG Tab PO PRN (17:12)
--- NOTE | 2019-01-11 17:26 | PCM.HP ---
H&P History of Present Illness - General Date of Service: 01/11/19 Admit Problem/Dx: Admission Diagnosis/Problem Admission Diagnosis/Problem Pneumonia Source of Information: Patient - History of Present Illness Initial Comments - Free Text/Narative: 50-year-old female with four-day history of cough and chills. Patient states that she has been coughing up white phlegm and has had increasing shortness of breath. She is a former smoker. Patient unfortunately is a poor historian so details are difficult to get. Patient does live at an assisted care facility. Apparently the web support engineer noted that the patient's O2 levels were 77% room air and she was taken to the walk-in clinic. From there she was sent to the emergency room where her oxygen saturation was 76% on room air. After 3 L nasal cannula oxygen was applied it did increase to 92%. She does have scoliosis and an elevated left hemidiaphragm. Patient does state that she does have a normally slightly low oxygen saturation in the upper 80s to low 90s. In the emergency room chest x-ray showed left lower lobe pneumonia and a white count of over 17,000. She was given DuoNeb, O2, 2 g Rocephin, and a CT scan of the chest was performed. CT of the chest showed an elevated left hemidiaphragm with parenchymal density adjacent to the diaphragm. On the axial views there are air bronchograms present which could represent an area of pneumonia. - Related Data Allergies/Adverse Reactions: Allergies Allergy/AdvReac Type Severity Reaction Status Date / Time penicillin V Allergy Cannot Verified 01/11/19 10:11 Remember vancomycin Allergy Cannot Verified 01/11/19 10:11 Remember Home Medications: Home Meds Carboxymethylcellulose Sodium [Lubricant Eye Drop] 1 drop EYEBOTH DAILY [History] Cholecalciferol (Vitamin D3) [Vitamin D3] 1 tab PO DAILY 11/13/16 [History] Latanoprost [Xalatan 0.005% Ophth Soln] 1 drop EYEBOTH DAILY 11/13/16 [History] Nitroglycerin [Nitrostat] 1 tab SL ASDIRECTED PRN 11/13/16 [History] Vitamin B6-pyridOXINE 1 tab PO BID 11/13/16 [History] metFORMIN [Glucophage] 500 mg PO BID 11/13/16 [History] B1/B2/B3/B5/B6/Iron/Meth/Choln [Geritol Tonic] 15 ml PO DAILY 08/25/17 [History] Citalopram [Citalopram HBr] 20 mg PO DAILY 01/11/19 [History] Fluticasone Propionate [Flonase] 1 spray ANNETTE DAILY PRN 01/11/19 [History] Lactobacil 2-S.thermo-Bifido 1 [High Potency Probiotic 112.5 B] 1 cap PO DAILY 01/11/19 [History] Losartan/Hydrochlorothiazide [Losartan-HCTZ 50-12.5 MG] 1 tab PO DAILY 01/11/19 [History] Rosuvastatin Calcium 40 mg PO DAILY 01/11/19 [History] Sennosides [Senna] 8.6 mg PO DAILY 01/11/19 [History] Past Medical History HEENT History: Reports: Glaucoma, Impaired Vision Cardiovascular History: Reports: Arrhythmia, High Cholesterol, Hypertension Other Cardiovascular History: svt and pvc Respiratory History: Reports: Pneumonia, Recurrent, Sleep Apnea Gastrointestinal History: Reports: Hemorrhoids, Other (See Below) Other Gastrointestinal History: hernia Genitourinary History: Reports: STD, Other (See Below) Other Genitourinary History: stress incontinence. 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: Reports: Other (See Below) Other OB/BYN History: menopause Musculoskeletal History: Reports: Back Pain, Chronic Other Musculoskeletal History: congenital musculoskeletal deformity of spine, internal derangement of knee, scoliosis Neurological History: Reports: Other (See Below) Other Neuro History: bells palsy Psychiatric History: Reports: Schizophrenia, Other (See Below) Other Psychiatric History: developmental delay, personality disorder, SAD Endocrine/Metabolic History: Reports: Diabetes, Type II, Obesity/BMI 30+ Hematologic History: Reports: Anemia Other Dermatologic History: dermatophytosis of nail - Infectious Disease History Infectious Disease History: Reports: None - Past Surgical History HEENT Surgical History: Reports: Tonsillectomy Cardiovascular Surgical History: Reports: None Respiratory Surgical History: Reports: None Other Respiratory Surgeries/Procedures: states that her CPAP machine "was taken away" d/t improper cleaning GI Surgical History: Reports: Cholecystectomy Female Surgical History: Reports: Section Endocrine Surgical History: Reports: None Neurological Surgical History: Reports: Scoliosis Musculoskeletal Surgical History: Reports: Other (See Below) Other Musculoskeletal Surgeries/Procedures:: cervical surgery Dermatological Surgical History: Reports: None Social & Family History - Family History Family Medical History: Noncontributory - Tobacco Use Smoking Status *Q: Former Smoker Years of Tobacco use: 1 Used Tobacco, but Quit: Yes Month/Year Tobacco Last Used: 21 Second Hand Smoke Exposure: No - Caffeine Use Caffeine Use: Reports: Coffee - Recreational Drug Use Recreational Drug Use: No - Living Situation & Occupation Living situation: Reports: Single Occupation: Disabled H&P Review of Systems - Review of Systems: Review Of Systems: ROS reveals no pertinent complaints other than HPI. Exam - Exam Exam: See Below - Vital Signs Vital Signs: Last Vital Signs Temp 98.6 F 01/11/19 10:06 Pulse 96 01/11/19 10:06 Resp 20 01/11/19 10:06 BP 123/65 01/11/19 10:06 Pulse Ox 91 L 01/11/19 11:05 Weight: 211 lb 4.8 oz - Exam Quality Assessment: Supplemental Oxygen General: Alert, Oriented HEENT: Conjunctiva Clear, Mucosa Moist & [place], Posterior Pharynx Clear Neck: Supple, Trachea Midline Lungs: Clear to Auscultation, Normal Respiratory Effort Cardiovascular: Regular Rate, Regular Rhythm GI/Abdominal Exam: Normal Bowel Sounds, Soft, Non-Tender, No Organomegaly, No Distention Back Exam: Normal Inspection Extremities: Normal Inspection, Normal Range of Motion, No Pedal Edema, Normal Capillary Refill Skin: Warm, Dry, Intact Neuro Extensive - Mental Status: Alert, Oriented x3, Normal Mood/Affect Psychiatric: Alert, Normal Affect - Patient Data Lab Results Last 24 hrs: Laboratory Results - last 24 hr 01/11/19 01/11/19 01/11/19 Range/Units 11:25 11:25 11:25 WBC 17.16 H (3.98-10.04) K/mm3 RBC 4.99 (3.98-5.22) M/mm3 Hgb 14.5 (11.2-15.7) gm/L Hct 46.8 H (34.1-44.9) % MCV 93.8 D (79.4-94.8) fl MCH 29.1 (25.6-32.2) pg MCHC 31.0 L (32.2-35.5) g/dl RDW Std Deviation 46.1 (36.4-46.3) fL Plt Count 278 (182-369) K/mm3 MPV 9.9 (9.4-12.3) fl Neutrophils % (Manual) 65 H (40-60) % Band Neutrophils % 0 (0-10) % Lymphocytes % (Manual) 14 L (20-40) % Atypical Lymphs % 0 % Monocytes % (Manual) 16 H (2-10) % Eosinophils % (Manual) 2 (0.7-5.8) % Basophils % (Manual) 3 H (0.1-1.2) Platelet Estimate Adequate RBC Morph Comment Normal Sodium 141 (136-145) mEq/L Potassium 4.1 (3.5-5.1) mEq/L Chloride 98 (98-107) mEq/L Carbon Dioxide 31 (21-32) mEq/L Anion Gap 16.1 H (5-15) BUN 19 H (7-18) mg/dL Creatinine 0.9 (0.55-1.02) mg/dL Est Cr Clr Drug Dosing 51.41 mL/min Estimated GFR (MDRD) > 60 (>60) mL/min BUN/Creatinine Ratio 21.1 H (14-18) Glucose 111 H (74-106) mg/dL Calcium 9.5 (8.5-10.1) mg/dL Total Bilirubin 0.5 (0.2-1.0) mg/dL AST 19 (15-37) U/L ALT 26 (14-59) U/L Alkaline Phosphatase 93 (46-116) U/L NT-Pro-B Natriuret Pep 85 (0-125) pg/mL Total Protein 7.8 (6.4-8.2) g/dl Albumin 3.7 (3.4-5.0) g/dl Globulin 4.1 gm/dL Albumin/Globulin Ratio 0.9 L (1-2) Result Diagrams: 01/11/19 11:25 01/11/19 11:25 - Problem List (1) Hypoxemia SNOMED Code(s): 659400627 ICD Code: R09.02 - HYPOXEMIA Status: Acute Current Visit: Yes (2) Pneumonia SNOMED Code(s): 353713328 ICD Code: J18.9 - PNEUMONIA, UNSPECIFIED ORGANISM Status: Acute Priority : High Current Visit: Yes Qualifiers: Pneumonia type: due to unspecified organism Laterality: left Lung location: lower lobe of lung Qualified Code(s): J18.1 - Lobar pneumonia, unspecified organism (3) Type 2 diabetes mellitus SNOMED Code(s): 62203351 ICD Code: E11.9 - TYPE 2 DIABETES MELLITUS WITHOUT COMPLICATIONS Status: Chronic Priority: Medium Current Visit: No Qualifiers: Diabetes mellitus detention insulin use: without detention use Diabetes mellitus complication status: with hyperglycemia Qualified Code(s): E11.65 - Type 2 diabetes mellitus with hyperglycemia Problem List Initiated/Reviewed/Updated: Yes Orders Last 24hrs: Active Orders 24 hr Category Date Time Status Admission Status [Patient Status] [ADT] Routine ADT 01/11/19 15:03 Active Oxygen Therapy [RC] PRN Care 01/11/19 17:12 Active Peripheral IV Care [RC] Q2HR Care 01/11/19 11:06 Active RT Aerosol Therapy [RC] ASDIRECTED Care 01/11/19 11:19 Active RT Aerosol Therapy [RC] ASDIRECTED Care 01/11/19 17:14 Active RT Incentive Spirometry [RC] ASDIRECTED Care 01/11/19 17:15 Active Up ad Britta [RC] ASDIRECTED Care 01/11/19 17:12 Active VTE/DVT Education [RC] PER UNIT ROUTINE Care 01/11/19 17:12 Active Vital Signs [RC] Q4H Care 01/11/19 17:12 Active Respiratory Care Assess and Treatment [CONS] Routine Cons 01/11/19 17:12 Active Regular Diet [DIET] Diet 01/11/19 Dinner Active CBC WITH AUTO DIFF [HEME] AM Lab 01/12/19 05:11 Ordered CMP [COMPREHENSIVE METABOLIC PN,CMP] [CHEM] AM Lab 01/12/19 05:11 Ordered CULTURE BLOOD [BC] Stat Lab 01/11/19 13:28 Received CULTURE BLOOD [BC] Stat Lab 01/11/19 13:47 Received INFLUENZA A+B AG SCREEN [RM] Stat Lab 01/11/19 16:07 Ordered LEGIONELLA ANTIGEN [MREF] Routine Lab 01/11/19 16:07 Ordered MAGNESIUM [CHEM] AM Lab 01/12/19 05:11 Ordered RESPIRATORY PANEL Routine Lab 01/11/19 16:07 Ordered STREP PNEUMONIAE ANTIGEN [MREF] Routine Lab 01/11/19 16:07 Ordered Acetaminophen [Tylenol] Med 01/11/19 17:12 Ordered 650 mg PO Q4H PRN Albuterol/Ipratropium [DuoNeb 3.0-0.5 MG/3 ML] Med 01/11/19 17:12 Ordered 3 ml NEB Q4H PRN Azithromycin [Zithromax] 250 mg Med 01/12/19 16:15 Active Sodium Chloride 0.9% [Normal Saline] 250 ml IV Q24H Enoxaparin [Lovenox] Med 01/12/19 09:00 Ordered 40 mg SUBCUT DAILY Sodium Chloride 0.9% [Saline Flush] Med 01/11/19 11:06 Active 10 ml FLUSH ASDIRECTED PRN Sodium Chloride 0.9% [Saline Flush] Med 01/11/19 17:12 Ordered 10 ml FLUSH ASDIRECTED PRN cefTRIAXone [Rocephin] 2 gm Med 01/12/19 12:30 Active Sodium Chloride 0.9% [Normal Saline] 100 ml IV Q24H Blood Culture x2 Reflex Set [OM.PC] Stat Ot 01/11/19 12:26 Ordered Peripheral IV Insertion Adult [OM.PC] Routine Oth 01/11/19 11:06 Ordered Saline Lock Insert [OM.PC] Routine Oth 01/11/19 17:12 Ordered Resuscitation Status Routine Resus Stat 01/11/19 16:52 Ordered Medication Orders Acetaminophen (Tylenol) 650 mg PO Q4H PRN PRN Reason: Pain (Mild 1-3)/fever Albuterol/Ipratropium (Duoneb 3.0-0.5 Mg/3 Ml) 3 ml NEB Q4H PRN PRN Reason: Shortness Of Breath/wheezing Enoxaparin Sodium (Lovenox) 40 mg SUBCUT DAILY [facility] Azithromycin 250 mg/ Sodium (Chloride) 250 mls @ 250 mls/hr IV Q24H [facility] Ceftriaxone Sodium 2 gm/ (Sodium Chloride) 100 mls @ 200 mls/hr IV Q24H [facility] Sodium Chloride (Saline Flush) 10 ml FLUSH ASDIRECTED PRN PRN Reason: Keep Vein Open Last Admin: 01/11/19 11:27 Dose: 10 ml Sodium Chloride (Saline Flush) 10 ml FLUSH ASDIRECTED PRN PRN Reason: Keep Vein Open Assessment/Plan Comment:: Left lower lobe pneumonia * Rocephin and azithromycin IV * DuoNeb every 4 hours when necessary * Follow CBC and C-reactive protein the morning Hypoxia * FiO2 to keep O2 above 92%. * Patient's baseline may be below 92%, therefore she improves we may need to readjust our end goal. Type 2 diabetes * Continue Glucophage 500 mg twice a day * Check hemoglobin A1c and lipid panel in the morning Hypertension * Continue lisinopril with hydrochlorothiazide CODE STATUS: Full code Anticipated Length of stay 2-3 days
[2019-01-11] MEDS: Latanoprost 0.005% Ophth Soln 2.5 ML Bottle EYEBOTH SCH (20:24)
[2019-01-12] MEDS: Albuterol/Ipratropium 3.0-0.5 MG/3 ML Neb Soln NEB PRN (01:08)
--- NOTE | 2019-01-12 07:26 | PCM.PN ---
- General Info Date of Service: 01/12/19 Admission Dx/Problem (Free Text): Admission Diagnosis/Problem Admission Diagnosis/Problem Pneumonia Subjective Update: In to see Alice. She is sitting up on the edge of the bed and working with therapies. She reports she feel about the same as yesterday. Her lung sounds have improved. She remains on 3L. She has no oxygen at home. Will instruct nursing to ambulate with her. She has a cough and reports she may benefit from a cough syrup. Will order TID PRN. Repeat CXR tomorrow. Her labs remain about the same. No patient or nursing concerns. Functional Status: Reports: Pain Controlled, Tolerating Diet, Ambulating, Urinating, Incentive Spirometry, Other (acapella ). Denies: New Symptoms - Review of Systems General: Reports: No Symptoms. Denies: Fever, Weakness, Fatigue, Malaise, Chills HEENT: Reports: No Symptoms. Denies: Headaches, Sore Throat Pulmonary: Reports: Cough. Denies: Shortness of Breath, Pleuritic Chest Pain, Sputum, Wheezing Cardiovascular: Reports: Dyspnea on Exertion. Denies: Chest Pain, Palpitations , Edema Gastrointestinal: Reports: No Symptoms. Denies: Abdominal Pain, Constipation, Diarrhea, Nausea, Vomiting Genitourinary: Reports: No Symptoms. Denies: Dysuria, Pain, Incontinence Musculoskeletal: Reports: No Symptoms Skin: Reports: No Symptoms. Denies: Cyanosis Neurological: Reports: No Symptoms. Denies: Confusion Psychiatric: Reports: No Symptoms - Patient Data Vitals - Most Recent: Last Vital Signs Temp 97.9 F 01/12/19 03:15 Pulse 94 01/12/19 03:15 Resp 24 H 01/12/19 03:15 BP 119/72 01/12/19 03:15 Pulse Ox 93 L 01/12/19 03:15 Weight - Most Recent: 208 lb 8 oz I&O - Last 24 Hours: Intake & Output 01/11/19 01/12/19 01/12/19 22:59 06:59 14:59 Intake Total 420 300 Output Total 200 Balance 420 100 Lab Results Last 24 Hours: Laboratory Results - last 24 hr 01/11/19 01/11/19 01/11/19 Range/Units 11:25 11:25 11:25 WBC 17.16 H (3.98-10.04) K/mm3 RBC 4.99 (3.98-5.22) M/mm3 Hgb 14.5 (11.2-15.7) gm/L Hct 46.8 H (34.1-44.9) % MCV 93.8 D (79.4-94.8) fl MCH 29.1 (25.6-32.2) pg MCHC 31.0 L (32.2-35.5) g/dl RDW Std Deviation 46.1 (36.4-46.3) fL Plt Count 278 (182-369) K/mm3 MPV 9.9 (9.4-12.3) fl Neut % (Auto) (34.0-71.1) % Lymph % (Auto) (19.3-51.7) % Eddy % (Auto) (4.7-12.5) % Eos % (Auto) (0.7-5.8) Baso % (Auto) (0.1-1.2) % Neut # (Auto) (1.56-6.13) K/mm3 Lymph # (Auto) (1.18-3.74) K/mm3 Eddy # (Auto) (0.24-0.36) K/mm3 Eos # (Auto) (0.04-0.36) K/mm3 Baso # (Auto) (0.01-0.08) K/mm3 Neutrophils % (Manual) 65 H (40-60) % Band Neutrophils % 0 (0-10) % Lymphocytes % (Manual) 14 L (20-40) % Atypical Lymphs % 0 % Monocytes % (Manual) 16 H (2-10) % Eosinophils % (Manual) 2 (0.7-5.8) % Basophils % (Manual) 3 H (0.1-1.2) Manual Slide Review Platelet Estimate Adequate RBC Morph Comment Normal Sodium 141 (136-145) mEq/L Potassium 4.1 (3.5-5.1) mEq/L Chloride 98 (98-107) mEq/L Carbon Dioxide 31 (21-32) mEq/L Anion Gap 16.1 H (5-15) BUN 19 H (7-18) mg/dL Creatinine 0.9 (0.55-1.02) mg/dL Est Cr Clr Drug Dosing 51.41 mL/min Estimated GFR (MDRD) > 60 (>60) mL/min BUN/Creatinine Ratio 21.1 H (14-18) Glucose 111 H (74-106) mg/dL POC Glucose (70-105) mg/dL Calcium 9.5 (8.5-10.1) mg/dL Magnesium (1.8-2.4) mg/dl Total Bilirubin 0.5 (0.2-1.0) mg/dL AST 19 (15-37) U/L ALT 26 (14-59) U/L Alkaline Phosphatase 93 (46-116) U/L NT-Pro-B Natriuret Pep 85 (0-125) pg/mL Total Protein 7.8 (6.4-8.2) g/dl Albumin 3.7 (3.4-5.0) g/dl Globulin 4.1 gm/dL Albumin/Globulin Ratio 0.9 L (1-2) Triglycerides (<150) mg/dL Cholesterol (<200) mg/dL LDL Cholesterol Direct (<100) mg/dL HDL Cholesterol (40-59) mg/dL 01/11/19 01/12/19 01/12/19 Range/Units 21:02 05:46 05:46 WBC 17.36 H (3.98-10.04) K/mm3 RBC 4.60 (3.98-5.22) M/mm3 Hgb 13.2 (11.2-15.7) gm/L Hct 43.8 (34.1-44.9) % MCV 95.2 H (79.4-94.8) fl MCH 28.7 (25.6-32.2) pg MCHC 30.1 L (32.2-35.5) g/dl RDW Std Deviation 46.2 (36.4-46.3) fL Plt Count 264 (182-369) K/mm3 MPV 10.0 (9.4-12.3) fl Neut % (Auto) 71.4 H (34.0-71.1) % Lymph % (Auto) 14.2 L (19.3-51.7) % Eddy % (Auto) 12.9 H (4.7-12.5) % Eos % (Auto) 0.8 (0.7-5.8) Baso % (Auto) 0.4 (0.1-1.2) % Neut # (Auto) 12.39 H (1.56-6.13) K/mm3 Lymph # (Auto) 2.47 (1.18-3.74) K/mm3 Eddy # (Auto) 2.24 H (0.24-0.36) K/mm3 Eos # (Auto) 0.14 (0.04-0.36) K/mm3 Baso # (Auto) 0.07 (0.01-0.08) K/mm3 Neutrophils % (Manual) (40-60) % Band Neutrophils % (0-10) % Lymphocytes % (Manual) (20-40) % Atypical Lymphs % % Monocytes % (Manual) (2-10) % Eosinophils % (Manual) (0.7-5.8) % Basophils % (Manual) (0.1-1.2) Manual Slide Review Abnormal smear Platelet Estimate RBC Morph Comment Sodium 137 (136-145) mEq/L Potassium 3.8 (3.5-5.1) mEq/L Chloride 98 (98-107) mEq/L Carbon Dioxide 30 (21-32) mEq/L Anion Gap 12.8 (5-15) BUN 15 (7-18) mg/dL Creatinine 0.8 (0.55-1.02) mg/dL Est Cr Clr Drug Dosing 57.84 mL/min Estimated GFR (MDRD) > 60 (>60) mL/min BUN/Creatinine Ratio 18.8 H (14-18) Glucose 119 H (74-106) mg/dL POC Glucose 175 H (70-105) mg/dL Calcium 8.8 (8.5-10.1) mg/dL Magnesium 1.8 (1.8-2.4) mg/dl Total Bilirubin 0.3 (0.2-1.0) mg/dL AST 21 (15-37) U/L ALT 23 (14-59) U/L Alkaline Phosphatase 84 (46-116) U/L NT-Pro-B Natriuret Pep (0-125) pg/mL Total Protein 7.1 (6.4-8.2) g/dl Albumin 3.2 L (3.4-5.0) g/dl Globulin 3.9 gm/dL Albumin/Globulin Ratio 0.8 L (1-2) Triglycerides 44 (<150) mg/dL Cholesterol 140 (<200) mg/dL LDL Cholesterol Direct 57 (<100) mg/dL HDL Cholesterol 77.0 H (40-59) mg/dL 01/12/19 Range/Units 06:17 WBC (3.98-10.04) K/mm3 RBC (3.98-5.22) M/mm3 Hgb (11.2-15.7) gm/L Hct (34.1-44.9) % MCV (79.4-94.8) fl MCH (25.6-32.2) pg MCHC (32.2-35.5) g/dl RDW Std Deviation (36.4-46.3) fL Plt Count (182-369) K/mm3 MPV (9.4-12.3) fl Neut % (Auto) (34.0-71.1) % Lymph % (Auto) (19.3-51.7) % Eddy % (Auto) (4.7-12.5) % Eos % (Auto) (0.7-5.8) Baso % (Auto) (0.1-1.2) % Neut # (Auto) (1.56-6.13) K/mm3 Lymph # (Auto) (1.18-3.74) K/mm3 Eddy # (Auto) (0.24-0.36) K/mm3 Eos # (Auto) (0.04-0.36) K/mm3 Baso # (Auto) (0.01-0.08) K/mm3 Neutrophils % (Manual) (40-60) % Band Neutrophils % (0-10) % Lymphocytes % (Manual) (20-40) % Atypical Lymphs % % Monocytes % (Manual) (2-10) % Eosinophils % (Manual) (0.7-5.8) % Basophils % (Manual) (0.1-1.2) Manual Slide Review Platelet Estimate RBC Morph Comment Sodium (136-145) mEq/L Potassium (3.5-5.1) mEq/L Chloride (98-107) mEq/L Carbon Dioxide (21-32) mEq/L Anion Gap (5-15) BUN (7-18) mg/dL Creatinine (0.55-1.02) mg/dL Est Cr Clr Drug Dosing mL/min Estimated GFR (MDRD) (>60) mL/min BUN/Creatinine Ratio (14-18) Glucose (74-106) mg/dL POC Glucose 112 H (70-105) mg/dL Calcium (8.5-10.1) mg/dL Magnesium (1.8-2.4) mg/dl Total Bilirubin (0.2-1.0) mg/dL AST (15-37) U/L ALT (14-59) U/L Alkaline Phosphatase (46-116) U/L NT-Pro-B Natriuret Pep (0-125) pg/mL Total Protein (6.4-8.2) g/dl Albumin (3.4-5.0) g/dl Globulin gm/dL Albumin/Globulin Ratio (1-2) Triglycerides (<150) mg/dL Cholesterol (<200) mg/dL LDL Cholesterol Direct (<100) mg/dL HDL Cholesterol (40-59) mg/dL Ge Results Last 24 Hours: Microbiology 01/11/19 17:20 Influenza Type A Antigen Screen - Final Nasopharyngeal Swab NEGATIVE INFLUENZA A VIRUS AG REFERENCE RANGE: NEGATIVE Influenza Type B Antigen Screen - Final NEGATIVE INFLUENZA B VIRUS AG REFERENCE RANGE: NEGATIVE Med Orders - Current: Current Medications Acetaminophen (Tylenol) 650 mg PO Q4H PRN PRN Reason: Pain (Mild 1-3)/fever Albuterol/Ipratropium (Duoneb 3.0-0.5 Mg/3 Ml) 3 ml NEB Q4H PRN PRN Reason: Shortness Of Breath/wheezing Last Admin: 01/12/19 01:08 Dose: 3 ml Citalopram Hydrobromide (Celexa) 20 mg PO DAILY [facility] Enoxaparin Sodium (Lovenox) 40 mg SUBCUT DAILY [facility] Hydrochlorothiazide (Hydrochlorothiazide) 12.5 mg PO DAILY [facility] Azithromycin 250 mg/ Sodium (Chloride) 250 mls @ 250 mls/hr IV Q24H [facility] Ceftriaxone Sodium 2 gm/ (Sodium Chloride) 100 mls @ 200 mls/hr IV Q24H [facility] Latanoprost (Xalatan 0.005% Ophth Soln) 0 ml EYEBOTH BEDTIME CANDIE Last Admin: 01/11/19 20:24 Dose: 1 drop Losartan Potassium (Cozaar) 50 mg PO DAILY [facility] Metformin HCl (Glucophage) 500 mg PO BID [facility] Rosuvastatin Calcium (Crestor) 40 mg PO DAILY [facility] Sodium Chloride (Saline Flush) 10 ml FLUSH ASDIRECTED PRN PRN Reason: Keep Vein Open Last Admin: 01/11/19 11:27 Dose: 10 ml Sodium Chloride (Saline Flush) 10 ml FLUSH ASDIRECTED PRN PRN Reason: Keep Vein Open Discontinued Medications Albuterol/Ipratropium (Duoneb 3.0-0.5 Mg/3 Ml) 3 ml NEB ONETIME ONE Stop: 01/11/19 11:20 Last Admin: 01/11/19 11:36 Dose: 3 ml Ceftriaxone Sodium 2 gm/ (Sodium Chloride) 100 mls @ 200 mls/hr IV Q24H ONE Stop: 01/11/19 12:55 Last Admin: 01/11/19 14:07 Dose: 200 mls/hr Sodium Chloride (Normal Saline) 1,000 mls @ 999 mls/hr IV ASDIRECTED ONE Stop: 01/11/19 16:03 Last Admin: 01/11/19 15:10 Dose: 999 mls/hr Azithromycin 500 mg/ Sodium (Chloride) 250 mls @ 250 mls/hr IV ONETIME ONE Stop: 01/11/19 17:07 Last Admin: 01/11/19 18:03 Dose: 250 mls/hr - Exam Quality Assessment: DVT Prophylaxis General: Alert, Oriented, Cooperative, No Acute Distress HEENT: Pupils Equal, Pupils Reactive, EOMI, Mucous Membr. Moist/[place] Neck: Supple, Trachea Midline, No JVD Lungs: Normal Respiratory Effort, Decreased Breath Sounds. No: Rhonchi, Wheezing Cardiovascular: Regular Rate, Regular Rhythm GI/Abdominal Exam: Normal Bowel Sounds, Soft, Non-Tender, No Organomegaly, No Distention (Female) Exam: Deferred Back Exam: Full Range of Motion Extremities: Normal Inspection, Normal Range of Motion, Non-Tender, No Pedal Edema, Normal Capillary Refill Peripheral Pulses: 2+: Radial (L), Radial (R), Dorsalis Pedis (L), Dorsalis Pedis (R) Skin: Warm, Dry, Intact Neurological: No New Focal Deficit Psy/Mental Status: Alert - Problem List & Annotations (1) Hypoxemia SNOMED Code(s): 426487539 Code(s): R09.02 - HYPOXEMIA Status: Acute Priority: High Current Visit : Yes (2) Pneumonia SNOMED Code(s): 235591470 Code(s): J18.9 - PNEUMONIA, UNSPECIFIED ORGANISM Status: Acute Priority: High Current Visit: Yes Qualifiers: Pneumonia type: due to unspecified organism Laterality: left Lung location: lower lobe of lung Qualified Code(s): J18.1 - Lobar pneumonia, unspecified organism (3) Type 2 diabetes mellitus SNOMED Code(s): 44780832 Code(s): E11.9 - TYPE 2 DIABETES MELLITUS WITHOUT COMPLICATIONS Status: Chronic Priority: Medium Current Visit: No Qualifiers: Diabetes mellitus bed bug exterminator insulin use: without bed bug exterminator use Diabetes mellitus complication status: with hyperglycemia Qualified Code(s): E11.65 - Type 2 diabetes mellitus with hyperglycemia (4) Hypertension SNOMED Code(s): 45889475 Code(s): I10 - ESSENTIAL (PRIMARY) HYPERTENSION Status: Acute Priority: High Current Visit: Yes Qualifiers: Hypertension type: unspecified Qualified Code(s): I10 - Essential (primary ) hypertension - Problem List Review Problem List Initiated/Reviewed/Updated: Yes - Plan Plan:: Left lower lobe pneumonia * Rocephin and azithromycin IV * DuoNeb every 4 hours when necessary * RT/IS/Acapella * CT scan suggests PNA with elevated left hemidiaphragm. * CXR in ED shoes elevated left hemidiaphragm, left basilar atelectasis on a compressive basis and other incidental findings. * Strep pneumo, VRP, Legionella all pending * Influenza negative * Non-productive cough so unable to obtain sputum culture * Robitussin DM TID PRN * O2 as needed to keep saturations above 90% * Ambulate * Blood cultures pending * Repeat CXR in 24-48 hours * Scoliosis * Droplet precautions Hypoxia * FiO2 to keep O2 above 90%. * Patient's baseline may be below 92%, therefore she improves we may need to readjust our end goal. * Likely 2/2 above Type 2 diabetes, stable * Continue Glucophage 500 mg twice a day * Hemoglobin A1c: 6.4 * Lipid panel: Triglycerides 44, Total cholesterol 140, LDL 57, HDL 77 * BID blood glucose checks Hypertension, stable * Continue lisinopril with hydrochlorothiazide Chronic: Glaucoma Hard of hearing Arrhythmias - SVT and PVCs HLD HTN Sleep apnea Cervical HPV Stress incontinence Chronic back pain Congenital musculoskeletal deformity of the spine/scoliosis Internal derangement of the knee Hx/o [place] palsy Schizophrenia Mental retardation Personality disorder SAD Type II DM Anemia Plan: Admit to medical floor Other orders as above PT/OT Home medications as ordered Routine AM labs DVT prophylaxis: Lovenox CODE STATUS: Full code; PCP: Dr. Ty Anticipated Length of stay 2-3 days
[2019-01-12 07:45] LABS: HEMOGLOBIN A1C 6.4 % (4.50-6.20)
[2019-01-12] MEDS: Rosuvastatin 10 MG Tab PO SCH (09:46)
[2019-01-12] MEDS: metFORMIN 500 MG Tab PO SCH ×2 (09:47→20:54)
[2019-01-12] MEDS: Hydrochlorothiazide 12.5 MG Cap PO SCH (09:48)
[2019-01-12] MEDS: Citalopram 20 MG Tab PO SCH (09:48)
[2019-01-12] MEDS: Losartan 25 MG Tab PO SCH (09:48)
[2019-01-12] MEDS: Enoxaparin 40 MG/0.4 ML Syringe SUBCUT SCH (09:49)
[2019-01-12] MEDS: cefTRIAXone 2 GM in Sodium Chloride 0.9% 100 ML IV SCH (12:53)
[2019-01-12] MEDS: Azithromycin 250 MG in Sodium Chloride 0.9% 250 ML IV SCH (17:00)
[2019-01-12] MEDS: guaiFENesin/Dextromethorphan 100-10 MG/5 ML Soln 5 ML Cup PO PRN (17:08)
[2019-01-12] MEDS: Latanoprost 0.005% Ophth Soln 2.5 ML Bottle EYEBOTH SCH (20:54)
--- NOTE | 2019-01-13 07:04 | PCM.PN ---
- General Info Date of Service: 01/13/19 Admission Dx/Problem (Free Text): Admission Diagnosis/Problem Admission Diagnosis/Problem Pneumonia Subjective Update: In to see Alice. she is lying in bed sleeping. She reports that she feels about the same as yesterday. She does appear to have a little bit increased work of breathing and her oxygen demand has gone up. Will order 40 mg by mouth steroid daily with first dose right now. This was decided upon after discussion with Dr. Santana. We'll also order an ABG. Otherwise her white count continues to improve. Labs remained stable. She did have a bowel movement today. she continues to have a nonproductive cough. Chest x-ray looks stable to slightly worse. Questionable pulmonary vascular congestion was suggested however BNP was obtained on admission was low, she also does not have any prior history of heart failure. She also has no pedal edema. Functional Status: Reports: Pain Controlled, Tolerating Diet, Ambulating, Urinating, Incentive Spirometry, Other (acapella ). Denies: New Symptoms - Review of Systems General: Reports: No Symptoms. Denies: Fever, Weakness, Fatigue, Malaise, Chills HEENT: Reports: No Symptoms. Denies: Headaches, Sore Throat Pulmonary: Reports: Shortness of Breath, Cough. Denies: Pleuritic Chest Pain, Sputum, Wheezing Cardiovascular: Reports: No Symptoms, Dyspnea on Exertion. Denies: Chest Pain, Palpitations, Edema Gastrointestinal: Reports: No Symptoms, Diarrhea (episode this AM.). Denies: Abdominal Pain, Constipation, Nausea, Vomiting Genitourinary: Reports: No Symptoms. Denies: Pain Musculoskeletal: Reports: No Symptoms Skin: Reports: No Symptoms. Denies: Cyanosis Neurological: Reports: No Symptoms. Denies: Confusion Psychiatric: Reports: No Symptoms - Patient Data Vitals - Most Recent: Last Vital Signs Temp 98.1 F 01/13/19 01:34 Pulse 92 01/13/19 01:34 Resp 20 01/13/19 01:34 BP 117/82 01/13/19 01:34 Pulse Ox 93 L 01/13/19 01:34 Weight - Most Recent: 210 lb 3 oz I&O - Last 24 Hours: Intake & Output 01/12/19 01/13/19 01/13/19 22:59 06:59 14:59 Intake Total 498 400 Output Total 50 200 Balance 448 200 Lab Results Last 24 Hours: Laboratory Results - last 24 hr 01/11/19 01/12/19 01/12/19 Range/Units 17:20 05:46 05:46 WBC (3.98-10.04) K/mm3 RBC (3.98-5.22) M/mm3 Hgb (11.2-15.7) gm/L Hct (34.1-44.9) % MCV (79.4-94.8) fl MCH (25.6-32.2) pg MCHC (32.2-35.5) g/dl RDW Std Deviation (36.4-46.3) fL Plt Count (182-369) K/mm3 MPV (9.4-12.3) fl Neut % (Auto) (34.0-71.1) % Lymph % (Auto) (19.3-51.7) % Kimble % (Auto) (4.7-12.5) % Eos % (Auto) (0.7-5.8) Baso % (Auto) (0.1-1.2) % Neut # (Auto) (1.56-6.13) K/mm3 Lymph # (Auto) (1.18-3.74) K/mm3 Kimble # (Auto) (0.24-0.36) K/mm3 Eos # (Auto) (0.04-0.36) K/mm3 Baso # (Auto) (0.01-0.08) K/mm3 Manual Slide Review Abnormal smear Sodium (136-145) mEq/L Potassium (3.5-5.1) mEq/L Chloride (98-107) mEq/L Carbon Dioxide (21-32) mEq/L Anion Gap (5-15) BUN (7-18) mg/dL Creatinine (0.55-1.02) mg/dL Est Cr Clr Drug Dosing mL/min Estimated GFR (MDRD) (>60) mL/min BUN/Creatinine Ratio (14-18) Glucose (74-106) mg/dL POC Glucose (70-105) mg/dL Hemoglobin A1c 6.40 H (4.50-6.20) % Calcium (8.5-10.1) mg/dL Magnesium (1.8-2.4) mg/dl C-Reactive Protein (<1.0) mg/dL Adenovirus (PCR) Not detected (Not Detected) B. pertussis DNA (PCR) Not detected (Not Detected) B.parapertussis DNA PCR Not detected (Not Detected) C. pneumoniae DNA (PCR) Not detected (Not Detected) Coronavirus (PCR) Not detected (Not Detected) Human Metapneumovir PCR Not detected (Not Detected) Influenza A (RT-PCR) Not detected (Not Detected) Influenza B (RT-PCR) Not detected (Not Detected) M. pneumoniae (PCR) Not detected (Not Detected) Parainfluen 1,2,3,4 PCR Not detected (Not Detected) RSV (PCR) Not detected (Not Detected) Entero/Rhino (PCR) Not detected (Not Detected) 01/12/19 01/13/19 01/13/19 Range/Units 20:02 05:30 05:30 WBC 15.65 H (3.98-10.04) K/mm3 RBC 4.39 (3.98-5.22) M/mm3 Hgb 12.6 (11.2-15.7) gm/L Hct 42.2 (34.1-44.9) % MCV 96.1 H (79.4-94.8) fl MCH 28.7 (25.6-32.2) pg MCHC 29.9 L (32.2-35.5) g/dl RDW Std Deviation 46.1 (36.4-46.3) fL Plt Count 247 (182-369) K/mm3 MPV 10.7 (9.4-12.3) fl Neut % (Auto) 67.1 (34.0-71.1) % Lymph % (Auto) 17.3 L (19.3-51.7) % Kimble % (Auto) 13.9 H (4.7-12.5) % Eos % (Auto) 1.1 (0.7-5.8) Baso % (Auto) 0.4 (0.1-1.2) % Neut # (Auto) 10.51 H (1.56-6.13) K/mm3 Lymph # (Auto) 2.70 (1.18-3.74) K/mm3 Kimble # (Auto) 2.17 H (0.24-0.36) K/mm3 Eos # (Auto) 0.17 (0.04-0.36) K/mm3 Baso # (Auto) 0.07 (0.01-0.08) K/mm3 Manual Slide Review Sodium 139 (136-145) mEq/L Potassium 3.7 (3.5-5.1) mEq/L Chloride 99 (98-107) mEq/L Carbon Dioxide 32 (21-32) mEq/L Anion Gap 11.7 (5-15) BUN 16 (7-18) mg/dL Creatinine 0.8 (0.55-1.02) mg/dL Est Cr Clr Drug Dosing 57.84 mL/min Estimated GFR (MDRD) > 60 (>60) mL/min BUN/Creatinine Ratio 20.0 H (14-18) Glucose 118 H (74-106) mg/dL POC Glucose 138 H (70-105) mg/dL Hemoglobin A1c (4.50-6.20) % Calcium 9.0 (8.5-10.1) mg/dL Magnesium 2.0 (1.8-2.4) mg/dl C-Reactive Protein 4.5 H* (<1.0) mg/dL Adenovirus (PCR) (Not Detected) B. pertussis DNA (PCR) (Not Detected) B.parapertussis DNA PCR (Not Detected) C. pneumoniae DNA (PCR) (Not Detected) Coronavirus (PCR) (Not Detected) Human Metapneumovir PCR (Not Detected) Influenza A (RT-PCR) (Not Detected) Influenza B (RT-PCR) (Not Detected) M. pneumoniae (PCR) (Not Detected) Parainfluen 1,2,3,4 PCR (Not Detected) RSV (PCR) (Not Detected) Entero/Rhino (PCR) (Not Detected) Ge Results Last 24 Hours: Microbiology 01/11/19 18:00 Legionella Urinary Antigen - Final Urine 01/11/19 13:28 Aerobic Blood Culture - Preliminary Blood - Venous - Lab Draw NO GROWTH AFTER 1 DAY Anaerobic Blood Culture - Preliminary NO GROWTH AFTER 1 DAY 01/11/19 13:47 Aerobic Blood Culture - Preliminary Blood - Venous NO GROWTH AFTER 1 DAY Anaerobic Blood Culture - Preliminary NO GROWTH AFTER 1 DAY Med Orders - Current: Current Medications Acetaminophen (Tylenol) 650 mg PO Q4H PRN PRN Reason: Pain (Mild 1-3)/fever Albuterol/Ipratropium (Duoneb 3.0-0.5 Mg/3 Ml) 3 ml NEB Q4H PRN PRN Reason: Shortness Of Breath/wheezing Last Admin: 01/12/19 01:08 Dose: 3 ml Citalopram Hydrobromide (Celexa) 20 mg PO DAILY [facility] Last Admin: 01/12/19 09:48 Dose: 20 mg Enoxaparin Sodium (Lovenox) 40 mg SUBCUT DAILY [facility] Last Admin: 01/12/19 09:49 Dose: 40 mg Guaifenesin/Phenylephrine HCl (Robitussin Dm) 10 ml PO TID@0700,1400,2100 PRN PRN Reason: Cough Last Admin: 01/12/19 17:08 Dose: 10 ml Hydrochlorothiazide (Hydrochlorothiazide) 12.5 mg PO DAILY [facility] Last Admin: 01/12/19 09:48 Dose: 12.5 mg Azithromycin 250 mg/ Sodium (Chloride) 250 mls @ 250 mls/hr IV Q24H [facility] Last Admin: 01/12/19 17:00 Dose: 250 mls/hr Ceftriaxone Sodium 2 gm/ (Sodium Chloride) 100 mls @ 200 mls/hr IV Q24H [facility] Last Admin: 01/12/19 12:53 Dose: 200 mls/hr Latanoprost (Xalatan 0.005% [facility] Sol) 0 ml EYEBOTH BEDTIME [facility] Last Admin: 01/12/19 20:54 Dose: 1 drop Losartan Potassium (Cozaar) 50 mg PO DAILY [facility] Last Admin: 01/12/19 09:48 Dose: 50 mg Metformin HCl (Glucophage) 500 mg PO BID [facility] Last Admin: 01/12/19 20:54 Dose: 500 mg Rosuvastatin Calcium (Crestor) 40 mg PO DAILY [facility] Last Admin: 01/12/19 09:46 Dose: 40 mg Sodium Chloride (Saline Flush) 10 ml FLUSH ASDIRECTED PRN PRN Reason: Keep Vein Open Last Admin: 01/11/19 11:27 Dose: 10 ml Sodium Chloride (Saline Flush) 10 ml FLUSH ASDIRECTED PRN PRN Reason: Keep Vein Open Discontinued Medications Albuterol/Ipratropium (Duoneb 3.0-0.5 Mg/3 Ml) 3 ml NEB ONETIME ONE Stop: 01/11/19 11:20 Last Admin: 01/11/19 11:36 Dose: 3 ml Ceftriaxone Sodium 2 gm/ (Sodium Chloride) 100 mls @ 200 mls/hr IV Q24H ONE Stop: 01/11/19 12:55 Last Admin: 01/11/19 14:07 Dose: 200 mls/hr Sodium Chloride (Normal Saline) 1,000 mls @ 999 mls/hr IV ASDIRECTED ONE Stop: 01/11/19 16:03 Last Admin: 01/11/19 15:10 Dose: 999 mls/hr Azithromycin 500 mg/ Sodium (Chloride) 250 mls @ 250 mls/hr IV ONETIME ONE Stop: 01/11/19 17:07 Last Admin: 01/11/19 18:03 Dose: 250 mls/hr - Exam Quality Assessment: Supplemental Oxygen, DVT Prophylaxis General: Alert, Oriented, Cooperative, No Acute Distress HEENT: Pupils Equal, Pupils Reactive, EOMI, Mucous Membr. Moist/[place] Neck: Supple, Trachea Midline Lungs: Normal Respiratory Effort, Decreased Breath Sounds. No: Rhonchi, Wheezing Cardiovascular: Regular Rate, Regular Rhythm GI/Abdominal Exam: Normal Bowel Sounds, Soft, Non-Tender, No Distention, No Abnormal Bruit (Female) Exam: Deferred Back Exam: Normal Inspection, Full Range of Motion Extremities: Normal Inspection, Normal Range of Motion, Non-Tender, No Pedal Edema, Normal Capillary Refill Peripheral Pulses: 2+: Radial (L), Radial (R), Dorsalis Pedis (L), Dorsalis Pedis (R) Skin: Warm, Dry, Intact Neurological: No New Focal Deficit Psy/Mental Status: Alert, Normal Affect, Normal Mood - Problem List & Annotations (1) Hypoxemia SNOMED Code(s): 625387818 Code(s): R09.02 - HYPOXEMIA Status: Acute Priority: High Current Visit : Yes (2) Pneumonia SNOMED Code(s): 890304360 Code(s): J18.9 - PNEUMONIA, UNSPECIFIED ORGANISM Status: Acute Priority: High Current Visit: Yes Qualifiers: Pneumonia type: due to unspecified organism Laterality: left Lung location: lower lobe of lung Qualified Code(s): J18.1 - Lobar pneumonia, unspecified organism (3) Type 2 diabetes mellitus SNOMED Code(s): 04201817 Code(s): E11.9 - TYPE 2 DIABETES MELLITUS WITHOUT COMPLICATIONS Status: Chronic Priority: Medium Current Visit: No Qualifiers: Diabetes mellitus senior care insulin use: without intermediate accountant use Diabetes mellitus complication status: with hyperglycemia Qualified Code(s): E11.65 - Type 2 diabetes mellitus with hyperglycemia (4) Hypertension SNOMED Code(s): 67233093 Code(s): I10 - ESSENTIAL (PRIMARY) HYPERTENSION Status: Acute Priority: High Current Visit: Yes Qualifiers: Hypertension type: unspecified Qualified Code(s): I10 - Essential (primary ) hypertension - Problem List Review Problem List Initiated/Reviewed/Updated: Yes - My Orders Last 24 Hours: My Active Orders 01/12/19 12:58 Consult to Occupational Therapy [OT Evaluation and Treatment] [CONS] Routine PT Evaluation and Treatment [CONS] Routine 01/12/19 13:08 Acapella [RT Chest Physiotherapy] [RC] ASDIRECTED 01/12/19 13:34 Ambulate [RC] PER UNIT ROUTINE 01/12/19 13:50 Isolation [COMM] Routine 01/12/19 14:00 Dextromethorphan/guaiFENesin [Robitussin DM] 10 ml PO TID@0700,1400,2100 PRN 01/12/19 Lunch Consistent Carbohydrate Diet [DIET] 01/13/19 05:30 CBC WITH AUTO DIFF [HEME] AM 01/13/19 08:00 CXR [Chest 2V] [CR] Routine 01/14/19 05:11 BASIC METABOLIC PANEL,BMP [CHEM] AM CBC WITH AUTO DIFF [HEME] AM CRP [C-REACTIVE PROTEIN] [CHEM] AM MAGNESIUM [CHEM] AM 01/15/19 05:11 BASIC METABOLIC PANEL,BMP [CHEM] AM CBC WITH AUTO DIFF [HEME] AM CRP [C-REACTIVE PROTEIN] [CHEM] AM MAGNESIUM [CHEM] AM 01/16/19 05:11 BASIC METABOLIC PANEL,BMP [CHEM] AM CBC WITH AUTO DIFF [HEME] AM CRP [C-REACTIVE PROTEIN] [CHEM] AM MAGNESIUM [CHEM] AM - Plan Plan:: Left lower lobe pneumonia * Rocephin and azithromycin IV * DuoNeb every 4 hours when necessary * RT/IS/Acapella * CT scan suggests PNA with elevated left hemidiaphragm. * CXR in ED shoes elevated left hemidiaphragm, left basilar atelectasis on a compressive basis and other incidental findings. * Strep pneumo, VRP, Legionella all negative * Influenza negative * Non-productive cough so unable to obtain sputum culture * Robitussin DM TID scheduled * O2 as needed to keep saturations above 90% * Ambulate * Blood cultures pending * Repeat CXR 01/13/19: * 1. Dilated loop of bowel with air-fluid level beneath an elevated left hemidiaphragm. Uncertain if this represents stomach or bowel. * 2. Questionably increased lung markings with differential including pulmonary vascular congestion versus worsening bronchitis. * Scoliosis * Droplet precautions * Add 40mg daily PO steroid Hypoxia * FiO2 to keep O2 above 90%. * Patient's baseline may be below 92%, therefore she improves we may need to readjust our end goal. 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 Ty Anticipated Length of stay 2-3 days
[2019-01-13] MEDS: guaiFENesin/Dextromethorphan 100-10 MG/5 ML Soln 5 ML Cup PO PRN (08:24)
[2019-01-13] MEDS: Losartan 25 MG Tab PO SCH (08:25)
[2019-01-13] MEDS: Rosuvastatin 10 MG Tab PO SCH (08:25)
[2019-01-13] MEDS: metFORMIN 500 MG Tab PO SCH ×2 (08:26→20:12)
[2019-01-13] MEDS: Hydrochlorothiazide 12.5 MG Cap PO SCH (08:26)
[2019-01-13] MEDS: Citalopram 20 MG Tab PO SCH (08:26)
[2019-01-13] MEDS: Enoxaparin 40 MG/0.4 ML Syringe SUBCUT SCH (08:26)
[2019-01-13] MEDS: Albuterol/Ipratropium 3.0-0.5 MG/3 ML Neb Soln NEB PRN (08:31)
--- NOTE | 2019-01-13 10:18 | CR ---
Chest: Two views of the chest were obtained. Comparison: Prior chest x-ray of 01/11/19. Elevated left hemidiaphragm is seen. Air-fluid level within a dilated loop of bowel is seen within the left upper abdomen. Uncertain as to whether this is stomach or represents other type of bowel. Lung markings are diffusely increased which are questionably more prominent than on prior study with differential including pulmonary vascular congestion versus worsening bronchitis. Scoliosis is noted within the spine. Impression: 1. Dilated loop of bowel with air-fluid level beneath an elevated left hemidiaphragm within the left chest. As mentioned above, uncertain if this is stomach or represents other type of bowel. 2. Questionably increasing lung markings with differential including pulmonary vascular congestion versus worsening bronchitis. Diagnostic code #3
[2019-01-13] MEDS ORDERED: predniSONE 20 MG Tab PO ONE (10:54)
[2019-01-13] MEDS: cefTRIAXone 2 GM in Sodium Chloride 0.9% 100 ML IV SCH (11:31)
[2019-01-13] MEDS: guaiFENesin/Dextromethorphan 100-10 MG/5 ML Soln 5 ML Cup PO SCH ×2 (15:06→20:13)
[2019-01-13] MEDS: Azithromycin 250 MG in Sodium Chloride 0.9% 250 ML IV SCH (15:29)
--- NOTE | 2019-01-13 17:37 | PCM.SN ---
- Free Text/Narrative Note: patient was put on a trial of BiPAP at pressures of 10/5. Blood gas has improved with pH of 7.34, PCO2 of 65.3, PO2 of 55, and HCO3 of 34.4. Oxygen saturation was 88.6. We are going to increase BiPAP pressures to 12/7 and recheck ABG after 2 hours of being on those settings.
[2019-01-13] MEDS: Insulin Lispro 100 Units/ML 3 ML Vial SUBCUT SCH ×2 (17:50→21:21)
[2019-01-13] MEDS: Latanoprost 0.005% Ophth Soln 2.5 ML Bottle EYEBOTH SCH (20:13)
[2019-01-14] MEDS: guaiFENesin/Dextromethorphan 100-10 MG/5 ML Soln 5 ML Cup PO SCH ×3 (06:25→20:28)
[2019-01-14] MEDS: predniSONE 20 MG Tab PO SCH (06:25)
[2019-01-14] MEDS: Insulin Lispro 100 Units/ML 3 ML Vial SUBCUT SCH ×4 (06:57→21:34)
--- NOTE | 2019-01-14 09:20 | CR ---
Chest: Portable view of the chest was obtained. Comparison: Prior chest x-ray of 01/13/19. Decreased air-fluid level within air-filled bowel is seen currently beneath an elevated left hemidiaphragm as was noted on prior study. Decreased lung markings are noted as an interval change from prior exam. Mild persisting atelectasis on a compressive basis is seen above the left hemidiaphragm. Heart is slightly enlarged. Upper mediastinum is stable. Bony structures show nothing acute. Impression: 1. Slightly improved chest from previous study as noted above. Diagnostic code #2
[2019-01-14] MEDS: Rosuvastatin 10 MG Tab PO SCH (10:24)
[2019-01-14] MEDS: Losartan 25 MG Tab PO SCH (10:24)
[2019-01-14] MEDS: metFORMIN 500 MG Tab PO SCH ×2 (10:25→20:27)
[2019-01-14] MEDS: Citalopram 20 MG Tab PO SCH (10:25)
[2019-01-14] MEDS: Hydrochlorothiazide 12.5 MG Cap PO SCH (10:25)
[2019-01-14] MEDS: Enoxaparin 40 MG/0.4 ML Syringe SUBCUT SCH (10:25)
[2019-01-14] MEDS ORDERED: predniSONE 20 MG Tab PO ONE (10:47)
--- NOTE | 2019-01-14 11:11 | PCM.PN ---
- General Info Date of Service: 01/14/19 Admission Dx/Problem (Free Text): Admission Diagnosis/Problem Admission Diagnosis/Problem Pneumonia Subjective Update: January 13, 2019 In to see Alice. she is lying in bed sleeping. She reports that she feels about the same as yesterday. She does appear to have a little bit increased work of breathing and her oxygen demand has gone up. Will order 40 mg by mouth steroid daily with first dose right now. This was decided upon after discussion with Dr. Santana. We'll also order an ABG. Otherwise her white count continues to improve. Labs remained stable. She did have a bowel movement today. she continues to have a nonproductive cough. Chest x-ray looks stable to slightly worse. Questionable pulmonary vascular congestion was suggested however BNP was obtained on admission was low, she also does not have any prior history of heart failure. She also has no pedal edema. January 14, 2019 Patient had a better night last night. She did tolerate her BiPAP 12/ overnight. Blood gases from this morning were also improved with pH of 7.36, PCO2 of 64.2, PO2 of 72.0, and HCO3 of 35.8 on 3 L O2 - Review of Systems General: Reports: No Symptoms HEENT: Reports: No Symptoms Pulmonary: Reports: Shortness of Breath, Cough Cardiovascular: Reports: No Symptoms. Denies: Chest Pain, Palpitations Gastrointestinal: Reports: No Symptoms - Patient Data Vitals - Most Recent: Last Vital Signs Temp 98.8 F 01/14/19 09:04 Pulse 77 01/14/19 09:04 Resp 22 H 01/14/19 09:04 BP 130/90 01/14/19 10:24 Pulse Ox 95 01/14/19 09:04 Weight - Most Recent: 210 lb 6.4 oz I&O - Last 24 Hours: Intake & Output 01/13/19 01/14/19 01/14/19 22:59 06:59 14:59 Intake Total 1230 600 Output Total 100 200 Balance 1130 400 Lab Results Last 24 Hours: Laboratory Results - last 24 hr 01/13/19 01/13/19 01/13/19 Range/Units 11:17 17:20 17:28 WBC (3.98-10.04) K/mm3 RBC (3.98-5.22) M/mm3 Hgb (11.2-15.7) gm/L Hct (34.1-44.9) % MCV (79.4-94.8) fl MCH (25.6-32.2) pg MCHC (32.2-35.5) g/dl RDW Std Deviation (36.4-46.3) fL Plt Count (182-369) K/mm3 MPV (9.4-12.3) fl Neut % (Auto) (34.0-71.1) % Lymph % (Auto) (19.3-51.7) % [place] % (Auto) (4.7-12.5) % Eos % (Auto) (0.7-5.8) Baso % (Auto) (0.1-1.2) % Neut # (Auto) (1.56-6.13) K/mm3 Lymph # (Auto) (1.18-3.74) K/mm3 [place] # (Auto) (0.24-0.36) K/mm3 Eos # (Auto) (0.04-0.36) K/mm3 Baso # (Auto) (0.01-0.08) K/mm3 Manual Slide Review Puncture Site Rt radial Lt radial ABG pH 7.30 L 7.34 L (7.35-7.45) ABG pCO2 71.0 H* 65.3 H (35.0-45.0) mmHg ABG pO2 68.0 L 55.0 L (80.0-100.0) mmHg ABG HCO3 33.5 H 34.4 H (22.0-26.0) meq/L ABG O2 Saturation 94.2 L 88.6 L (96.0-97.0) % ABG Base Excess 5.1 H 7.0 H (-2-2.0) Anup Test Positive Positive A-a Gradient 74 68 mmHg O2 Delivery Device Nasal cannula Bipap Oxygen Flow Rate 4.0 3.0 FiO2 (21.00-100.00) % Blood Gas Comments Sodium (136-145) mEq/L Potassium (3.5-5.1) mEq/L Chloride (98-107) mEq/L Carbon Dioxide (21-32) mEq/L Anion Gap (5-15) BUN (7-18) mg/dL Creatinine (0.55-1.02) mg/dL Est Cr Clr Drug Dosing mL/min Estimated GFR (MDRD) (>60) mL/min BUN/Creatinine Ratio (14-18) Glucose (74-106) mg/dL POC Glucose 162 H (70-105) mg/dL Calcium (8.5-10.1) mg/dL Magnesium (1.8-2.4) mg/dl C-Reactive Protein (<1.0) mg/dL 01/13/19 01/13/19 01/14/19 Range/Units 21:00 21:20 05:15 WBC 14.51 H (3.98-10.04) K/mm3 RBC 4.46 (3.98-5.22) M/mm3 Hgb 12.9 (11.2-15.7) gm/L Hct 42.2 (34.1-44.9) % MCV 94.6 (79.4-94.8) fl MCH 28.9 (25.6-32.2) pg MCHC 30.6 L (32.2-35.5) g/dl RDW Std Deviation 44.7 (36.4-46.3) fL Plt Count 212 (182-369) K/mm3 MPV 11.2 (9.4-12.3) fl Neut % (Auto) 65.6 (34.0-71.1) % Lymph % (Auto) 18.7 L (19.3-51.7) % [place] % (Auto) 13.9 H (4.7-12.5) % Eos % (Auto) 1.1 (0.7-5.8) Baso % (Auto) 0.4 (0.1-1.2) % Neut # (Auto) 9.52 H (1.56-6.13) K/mm3 Lymph # (Auto) 2.71 (1.18-3.74) K/mm3 [place] # (Auto) 2.01 H (0.24-0.36) K/mm3 Eos # (Auto) 0.16 (0.04-0.36) K/mm3 Baso # (Auto) 0.06 (0.01-0.08) K/mm3 Manual Slide Review Abnormal smear Puncture Site Rt radial ABG pH 7.33 L (7.35-7.45) ABG pCO2 69.7 H (35.0-45.0) mmHg ABG pO2 59.0 L (80.0-100.0) mmHg ABG HCO3 35.5 H (22.0-26.0) meq/L ABG O2 Saturation 90.8 L (96.0-97.0) % ABG Base Excess 7.7 H (-2-2.0) Anup Test Positive A-a Gradient 59 mmHg O2 Delivery Device Bipap Oxygen Flow Rate 3.0 FiO2 32.00 (21.00-100.00) % Blood Gas Comments Bipap 12/7 Sodium (136-145) mEq/L Potassium (3.5-5.1) mEq/L Chloride (98-107) mEq/L Carbon Dioxide (21-32) mEq/L Anion Gap (5-15) BUN (7-18) mg/dL Creatinine (0.55-1.02) mg/dL Est Cr Clr Drug Dosing mL/min Estimated GFR (MDRD) (>60) mL/min BUN/Creatinine Ratio (14-18) Glucose (74-106) mg/dL POC Glucose 205 H (70-105) mg/dL Calcium (8.5-10.1) mg/dL Magnesium (1.8-2.4) mg/dl C-Reactive Protein (<1.0) mg/dL 01/14/19 01/14/19 01/14/19 Range/Units 05:15 06:30 07:50 WBC (3.98-10.04) K/mm3 RBC (3.98-5.22) M/mm3 Hgb (11.2-15.7) gm/L Hct (34.1-44.9) % MCV (79.4-94.8) fl MCH (25.6-32.2) pg MCHC (32.2-35.5) g/dl RDW Std Deviation (36.4-46.3) fL Plt Count (182-369) K/mm3 MPV (9.4-12.3) fl Neut % (Auto) (34.0-71.1) % Lymph % (Auto) (19.3-51.7) % [place] % (Auto) (4.7-12.5) % Eos % (Auto) (0.7-5.8) Baso % (Auto) (0.1-1.2) % Neut # (Auto) (1.56-6.13) K/mm3 Lymph # (Auto) (1.18-3.74) K/mm3 [place] # (Auto) (0.24-0.36) K/mm3 Eos # (Auto) (0.04-0.36) K/mm3 Baso # (Auto) (0.01-0.08) K/mm3 Manual Slide Review Puncture Site Rt radial ABG pH 7.37 (7.35-7.45) ABG pCO2 64.2 H (35.0-45.0) mmHg ABG pO2 72.0 L (80.0-100.0) mmHg ABG HCO3 35.8 H (22.0-26.0) meq/L ABG O2 Saturation 95.8 L (96.0-97.0) % ABG Base Excess 8.8 H (-2-2.0) Anup Test Positive A-a Gradient 52 mmHg O2 Delivery Device Bipap Oxygen Flow Rate 3.0 FiO2 32.00 (21.00-100.00) % Blood Gas Comments Bipap 12/7 Sodium 138 (136-145) mEq/L Potassium 4.0 (3.5-5.1) mEq/L Chloride 99 (98-107) mEq/L Carbon Dioxide 34 H (21-32) mEq/L Anion Gap 9.0 (5-15) BUN 19 H (7-18) mg/dL Creatinine 0.8 (0.55-1.02) mg/dL Est Cr Clr Drug Dosing 57.84 mL/min Estimated GFR (MDRD) > 60 (>60) mL/min BUN/Creatinine Ratio 23.8 H (14-18) Glucose 110 H (74-106) mg/dL POC Glucose 102 (70-105) mg/dL Calcium 9.2 (8.5-10.1) mg/dL Magnesium 2.1 (1.8-2.4) mg/dl C-Reactive Protein 3.0 H* (<1.0) mg/dL Ge Results Last 24 Hours: Microbiology 01/11/19 13:28 Aerobic Blood Culture - Preliminary Blood - Venous - Lab Draw NO GROWTH AFTER 2 DAYS Anaerobic Blood Culture - Preliminary NO GROWTH AFTER 2 DAYS 01/11/19 13:47 Aerobic Blood Culture - Preliminary Blood - Venous NO GROWTH AFTER 2 DAYS Anaerobic Blood Culture - Preliminary NO GROWTH AFTER 2 DAYS 01/11/19 18:00 Streptococcus pneumoniae Antigen (M - Final Urine Med Orders - Current: Current Medications Acetaminophen (Tylenol) 650 mg PO Q4H PRN PRN Reason: Pain (Mild 1-3)/fever Albuterol/Ipratropium (Duoneb 3.0-0.5 Mg/3 Ml) 3 ml NEB Q4H PRN PRN Reason: Shortness Of Breath/wheezing Last Admin: 01/13/19 08:31 Dose: 3 ml Citalopram Hydrobromide (Celexa) 20 mg PO DAILY [facility] Last Admin: 01/14/19 10:25 Dose: 20 mg Enoxaparin Sodium (Lovenox) 40 mg SUBCUT DAILY [facility] Last Admin: 01/14/19 10:25 Dose: 40 mg Guaifenesin/Phenylephrine HCl (Robitussin Dm) 10 ml PO TID@0700,1400,2100 [facility] Last Admin: 01/14/19 06:25 Dose: 10 ml Hydrochlorothiazide (Hydrochlorothiazide) 12.5 mg PO DAILY [facility] Last Admin: 01/14/19 10:25 Dose: 12.5 mg Azithromycin 250 mg/ Sodium (Chloride) 250 mls @ 250 mls/hr IV Q24H [facility] Last Admin: 01/13/19 15:29 Dose: 250 mls/hr Ceftriaxone Sodium 2 gm/ (Sodium Chloride) 100 mls @ 200 mls/hr IV Q24H [facility] Last Admin: 01/13/19 11:31 Dose: 200 mls/hr Insulin Human Lispro (Humalog) 0 unit SUBCUT QIDACANDBED [facility]; Protocol Last Admin: 01/14/19 06:57 Dose: Not Given Latanoprost (Xalatan 0.005% [facility] Soln) 0 ml EYEBOTH BEDTIME [facility] Last Admin: 01/13/19 20:13 Dose: 1 drop Losartan Potassium (Cozaar) 50 mg PO DAILY [facility] Last Admin: 01/14/19 10:24 Dose: 50 mg Metformin HCl (Glucophage) 500 mg PO BID [facility] Last Admin: 01/14/19 10:25 Dose: 500 mg Prednisone (Prednisone) 40 mg PO WITHBREAKFAST [facility] Last Admin: 01/14/19 06:25 Dose: 40 mg Rosuvastatin Calcium (Crestor) 40 mg PO DAILY [facility] Last Admin: 01/14/19 10:24 Dose: 40 mg Sodium Chloride (Saline Flush) 10 ml FLUSH ASDIRECTED PRN PRN Reason: Keep Vein Open Discontinued Medications Albuterol/Ipratropium (Duoneb 3.0-0.5 Mg/3 Ml) 3 ml NEB ONETIME ONE Stop: 01/11/19 11:20 Last Admin: 01/11/19 11:36 Dose: 3 ml Guaifenesin/Phenylephrine HCl (Robitussin Dm) 10 ml PO TID@0700,1400,2100 PRN PRN Reason: Cough Last Admin: 01/13/19 08:24 Dose: 10 ml Ceftriaxone Sodium 2 gm/ (Sodium Chloride) 100 mls @ 200 mls/hr IV Q24H ONE Stop: 01/11/19 12:55 Last Admin: 01/11/19 14:07 Dose: 200 mls/hr Sodium Chloride (Normal Saline) 1,000 mls @ 999 mls/hr IV ASDIRECTED ONE Stop: 01/11/19 16:03 Last Admin: 01/11/19 15:10 Dose: 999 mls/hr Azithromycin 500 mg/ Sodium (Chloride) 250 mls @ 250 mls/hr IV ONETIME ONE Stop: 01/11/19 17:07 Last Admin: 01/11/19 18:03 Dose: 250 mls/hr Prednisone (Prednisone) 40 mg PO ONETIME ONE Stop: 01/14/19 10:48 Prednisone (Prednisone) 40 mg PO ONETIME ONE Stop: 01/13/19 10:55 Last Admin: 01/13/19 11:30 Dose: 40 mg Sodium Chloride (Saline Flush) 10 ml FLUSH ASDIRECTED PRN PRN Reason: Keep Vein Open Last Admin: 01/11/19 11:27 Dose: 10 ml - Exam Quality Assessment: Supplemental Oxygen General: Alert, Oriented HEENT: Pupils Equal Neck: Supple Lungs: Clear to Auscultation, Normal Respiratory Effort Cardiovascular: Regular Rate, Regular Rhythm GI/Abdominal Exam: Normal Bowel Sounds, Soft, Non-Tender, No Distention Extremities: Normal Inspection, Non-Tender, Pedal Edema Skin: Warm, Dry, Intact Neurological: No New Focal Deficit Psy/Mental Status: Alert, Normal Affect, Normal Mood - Problem List & Annotations (1) Hypoxemia SNOMED Code(s): 611056836 Code(s): R09.02 - HYPOXEMIA Status: Acute Priority: High Current Visit : Yes (2) Pneumonia SNOMED Code(s): 223595255 Code(s): J18.9 - PNEUMONIA, UNSPECIFIED ORGANISM Status: Acute Priority: High Current Visit: Yes Qualifiers: Pneumonia type: due to unspecified organism Laterality: left Lung location: lower lobe of lung Qualified Code(s): J18.1 - Lobar pneumonia, unspecified organism (3) Type 2 diabetes mellitus SNOMED Code(s): 16450035 Code(s): E11.9 - TYPE 2 DIABETES MELLITUS WITHOUT COMPLICATIONS Status: Chronic Priority: Medium Current Visit: No Qualifiers: Diabetes mellitus 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 * CXR in ED shoes elevated left hemidiaphragm, left basilar atelectasis on a compressive basis and other incidental findings. * Strep pneumo, VRP, Legionella all negative * Influenza negative * Non-productive cough so unable to obtain sputum culture * Robitussin DM TID scheduled * O2 as needed to keep saturations above 90% * Ambulate * Blood cultures pending * Repeat CXR 01/14/19: * slight improvement from previous day's x-ray * Scoliosis * Droplet precautions * Add 40mg daily PO prednisone * Trial off BiPAP this morning and recheck an ABG at 1300 Hypoxia * FiO2 to keep O2 above 90%. * Patient's baseline may be below 92%, therefore she improves we may need to readjust our end goal. 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 Ty Anticipated Length of stay 2-3 days
[2019-01-14] MEDS: cefTRIAXone 2 GM in Sodium Chloride 0.9% 100 ML IV SCH (14:23)
[2019-01-14] MEDS: Azithromycin 250 MG in Sodium Chloride 0.9% 250 ML IV SCH (16:04)
[2019-01-14] MEDS: Latanoprost 0.005% Ophth Soln 2.5 ML Bottle EYEBOTH SCH (20:28)
[2019-01-15] MEDS: Insulin Lispro 100 Units/ML 3 ML Vial SUBCUT SCH ×4 (06:08→22:15)
[2019-01-15] MEDS: predniSONE 20 MG Tab PO SCH (06:09)
[2019-01-15] MEDS: guaiFENesin/Dextromethorphan 100-10 MG/5 ML Soln 5 ML Cup PO SCH ×3 (06:09→20:48)
[2019-01-15] MEDS: Losartan 25 MG Tab PO SCH (08:49)
[2019-01-15] MEDS: metFORMIN 500 MG Tab PO SCH ×2 (08:50→20:48)
[2019-01-15] MEDS: Citalopram 20 MG Tab PO SCH (08:50)
[2019-01-15] MEDS: Enoxaparin 40 MG/0.4 ML Syringe SUBCUT SCH (08:50)
[2019-01-15] MEDS: Hydrochlorothiazide 12.5 MG Cap PO SCH (08:50)
[2019-01-15] MEDS: Rosuvastatin 10 MG Tab PO SCH (08:50)
[2019-01-15] MEDS: Albuterol/Ipratropium 3.0-0.5 MG/3 ML Neb Soln NEB PRN ×3 (08:54→21:09)
--- NOTE | 2019-01-15 11:21 | PCM.PN ---
- General Info Date of Service: 01/15/19 Admission Dx/Problem (Free Text): Admission Diagnosis/Problem Admission Diagnosis/Problem Pneumonia Subjective Update: January 13, 2019 In to see Alice. she is lying in bed sleeping. She reports that she feels about the same as yesterday. She does appear to have a little bit increased work of breathing and her oxygen demand has gone up. Will order 40 mg by mouth steroid daily with first dose right now. This was decided upon after discussion with Dr. Santana. We'll also order an ABG. Otherwise her white count continues to improve. Labs remained stable. She did have a bowel movement today. she continues to have a nonproductive cough. Chest x-ray looks stable to slightly worse. Questionable pulmonary vascular congestion was suggested however BNP was obtained on admission was low, she also does not have any prior history of heart failure. She also has no pedal edema. January 14, 2019 Patient had a better night last night. She did tolerate her BiPAP 12/7 overnight. Blood gases from this morning were also improved with pH of 7.36, PCO2 of 64.2, PO2 of 72.0, and HCO3 of 35.8 on 3 L O2 January 15, 2019 patient continues to improve. She is down to 1.5 L via nasal cannula. Patient did relate to me today that she does have an appointment coming up with pulmonology in January. Apparently her primary care provider is also concerned about her lung function and that her scoliosis is also causing restrictive pulmonary disease and that her elevated diaphragm is also worsening her overall lung function. - Review of Systems General: Reports: No Symptoms HEENT: Reports: No Symptoms Pulmonary: Reports: No Symptoms Cardiovascular: Reports: No Symptoms Gastrointestinal: Reports: No Symptoms Genitourinary: Reports: No Symptoms - Patient Data Vitals - Most Recent: Last Vital Signs Temp 98.1 F 01/15/19 08:45 Pulse 77 01/15/19 08:45 Resp 22 H 01/15/19 08:45 BP 129/88 01/15/19 08:49 Pulse Ox 95 01/15/19 08:55 Weight - Most Recent: 211 lb 4.8 oz I&O - Last 24 Hours: Intake & Output 01/14/19 01/15/19 01/15/19 22:59 06:59 14:59 Intake Total 530 600 Balance 530 600 Lab Results Last 24 Hours: Laboratory Results - last 24 hr 01/14/19 01/14/19 01/14/19 Range/Units 12:10 18:24 21:06 WBC (3.98-10.04) K/mm3 RBC (3.98-5.22) M/mm3 Hgb (11.2-15.7) gm/L Hct (34.1-44.9) % MCV (79.4-94.8) fl MCH (25.6-32.2) pg MCHC (32.2-35.5) g/dl RDW Std Deviation (36.4-46.3) fL Plt Count (182-369) K/mm3 MPV (9.4-12.3) fl Neut % (Auto) (34.0-71.1) % Lymph % (Auto) (19.3-51.7) % [place] % (Auto) (4.7-12.5) % Eos % (Auto) (0.7-5.8) Baso % (Auto) (0.1-1.2) % Neut # (Auto) (1.56-6.13) K/mm3 Lymph # (Auto) (1.18-3.74) K/mm3 [place] # (Auto) (0.24-0.36) K/mm3 Eos # (Auto) (0.04-0.36) K/mm3 Baso # (Auto) (0.01-0.08) K/mm3 Manual Slide Review Sodium (136-145) mEq/L Potassium (3.5-5.1) mEq/L Chloride (98-107) mEq/L Carbon Dioxide (21-32) mEq/L Anion Gap (5-15) BUN (7-18) mg/dL Creatinine (0.55-1.02) mg/dL Est Cr Clr Drug Dosing mL/min Estimated GFR (MDRD) (>60) mL/min BUN/Creatinine Ratio (14-18) Glucose (74-106) mg/dL POC Glucose 170 H 153 H 139 H (70-105) mg/dL Calcium (8.5-10.1) mg/dL Magnesium (1.8-2.4) mg/dl C-Reactive Protein (<1.0) mg/dL 05/26/19 05/26/19 05/26/19 Range/Units 05:42 05:42 06:07 WBC 15.01 H (3.98-10.04) K/mm3 RBC 4.31 (3.98-5.22) M/mm3 Hgb 12.5 (11.2-15.7) gm/L Hct 40.8 (34.1-44.9) % MCV 94.7 (79.4-94.8) fl MCH 29.0 (25.6-32.2) pg MCHC 30.6 L (32.2-35.5) g/dl RDW Std Deviation 44.1 (36.4-46.3) fL Plt Count 278 (182-369) K/mm3 MPV 10.5 (9.4-12.3) fl Neut % (Auto) 61.7 (34.0-71.1) % Lymph % (Auto) 22.8 (19.3-51.7) % [place] % (Auto) 13.3 H (4.7-12.5) % Eos % (Auto) 1.4 (0.7-5.8) Baso % (Auto) 0.5 (0.1-1.2) % Neut # (Auto) 9.27 H (1.56-6.13) K/mm3 Lymph # (Auto) 3.42 (1.18-3.74) K/mm3 [place] # (Auto) 1.99 H (0.24-0.36) K/mm3 Eos # (Auto) 0.21 (0.04-0.36) K/mm3 Baso # (Auto) 0.07 (0.01-0.08) K/mm3 Manual Slide Review Abnormal smear Sodium 139 (136-145) mEq/L Potassium 3.8 (3.5-5.1) mEq/L Chloride 100 (98-107) mEq/L Carbon Dioxide 33 H (21-32) mEq/L Anion Gap 9.8 (5-15) BUN 19 H (7-18) mg/dL Creatinine 0.9 (0.55-1.02) mg/dL Est Cr Clr Drug Dosing 51.41 mL/min Estimated GFR (MDRD) > 60 (>60) mL/min BUN/Creatinine Ratio 21.1 H (14-18) Glucose 89 (74-106) mg/dL POC Glucose 89 (70-105) mg/dL Calcium 9.4 (8.5-10.1) mg/dL Magnesium 1.9 (1.8-2.4) mg/dl C-Reactive Protein 1.6 H* (<1.0) mg/dL Ge Results Last 24 Hours: Microbiology 01/11/19 13:28 Aerobic Blood Culture - Preliminary Blood - Venous - Lab Draw NO GROWTH AFTER 3 DAYS Anaerobic Blood Culture - Preliminary NO GROWTH AFTER 3 DAYS 01/11/19 13:47 Aerobic Blood Culture - Preliminary Blood - Venous NO GROWTH AFTER 3 DAYS Anaerobic Blood Culture - Preliminary NO GROWTH AFTER 3 DAYS Med Orders - Current: Current Medications Acetaminophen (Tylenol) 650 mg PO Q4H PRN PRN Reason: Pain (Mild 1-3)/fever Albuterol/Ipratropium (Duoneb 3.0-0.5 Mg/3 Ml) 3 ml NEB Q4H PRN PRN Reason: Shortness Of Breath/wheezing Last Admin: 01/15/19 08:54 Dose: 3 ml Citalopram Hydrobromide (Celexa) 20 mg PO DAILY [facility] Last Admin: 01/15/19 08:50 Dose: 20 mg Enoxaparin Sodium (Lovenox) 40 mg SUBCUT DAILY [facility] Last Admin: 01/15/19 08:50 Dose: 40 mg Guaifenesin/Phenylephrine HCl (Robitussin Dm) 10 ml PO TID@0700,1400,2100 [facility] Last Admin: 01/15/19 06:09 Dose: 10 ml Hydrochlorothiazide (Hydrochlorothiazide) 12.5 mg PO DAILY [facility] Last Admin: 01/15/19 08:50 Dose: 12.5 mg Azithromycin 250 mg/ Sodium (Chloride) 250 mls @ 250 mls/hr IV Q24H [facility] Last Admin: 01/14/19 16:04 Dose: 250 mls/hr Ceftriaxone Sodium 2 gm/ (Sodium Chloride) 100 mls @ 200 mls/hr IV Q24H [facility] Last Admin: 01/14/19 14:23 Dose: 200 mls/hr Insulin Human Lispro (Humalog) 0 unit SUBCUT QIDACANDBED [facility]; Protocol Last Admin: 01/15/19 06:08 Dose: Not Given Latanoprost (Xalatan 0.005% [facility] Soln) 0 ml EYEBOTH BEDTIME [facility] Last Admin: 01/14/19 20:28 Dose: 1 drop Losartan Potassium (Cozaar) 50 mg PO DAILY [facility] Last Admin: 01/15/19 08:49 Dose: 50 mg Metformin HCl (Glucophage) 500 mg PO BID [facility] Last Admin: 01/15/19 08:50 Dose: 500 mg Prednisone (Prednisone) 40 mg PO WITHBREAKFAST [facility] Last Admin: 01/15/19 06:09 Dose: 40 mg Rosuvastatin Calcium (Crestor) 40 mg PO DAILY [facility] Last Admin: 01/15/19 08:50 Dose: 40 mg Sodium Chloride (Saline Flush) 10 ml FLUSH ASDIRECTED PRN PRN Reason: Keep Vein Open Discontinued Medications Albuterol/Ipratropium (Duoneb 3.0-0.5 Mg/3 Ml) 3 ml NEB ONETIME ONE Stop: 01/11/19 11:20 Last Admin: 01/11/19 11:36 Dose: 3 ml Guaifenesin/Phenylephrine HCl (Robitussin Dm) 10 ml PO TID@0700,1400,2100 PRN PRN Reason: Cough Last Admin: 01/13/19 08:24 Dose: 10 ml Ceftriaxone Sodium 2 gm/ (Sodium Chloride) 100 mls @ 200 mls/hr IV Q24H ONE Stop: 01/11/19 12:55 Last Admin: 01/11/19 14:07 Dose: 200 mls/hr Sodium Chloride (Normal Saline) 1,000 mls @ 999 mls/hr IV ASDIRECTED ONE Stop: 01/11/19 16:03 Last Admin: 01/11/19 15:10 Dose: 999 mls/hr Azithromycin 500 mg/ Sodium (Chloride) 250 mls @ 250 mls/hr IV ONETIME ONE Stop: 01/11/19 17:07 Last Admin: 01/11/19 18:03 Dose: 250 mls/hr Prednisone (Prednisone) 40 mg PO ONETIME ONE Stop: 01/14/19 10:48 Prednisone (Prednisone) 40 mg PO ONETIME ONE Stop: 01/13/19 10:55 Last Admin: 01/13/19 11:30 Dose: 40 mg Sodium Chloride (Saline Flush) 10 ml FLUSH ASDIRECTED PRN PRN Reason: Keep Vein Open Last Admin: 01/11/19 11:27 Dose: 10 ml - Exam Quality Assessment: Supplemental Oxygen General: Alert, Oriented HEENT: Pupils Equal Neck: Supple Lungs: Clear to Auscultation, Normal Respiratory Effort Cardiovascular: Regular Rate, Regular Rhythm GI/Abdominal Exam: Normal Bowel Sounds, Soft, Non-Tender, No Distention Extremities: Normal Inspection, Normal Range of Motion, Non-Tender, No Pedal Edema Skin: Warm, Dry, Intact Neurological: No New Focal Deficit - Problem List & Annotations (1) Hypoxemia SNOMED Code(s): 020419873 Code(s): R09.02 - HYPOXEMIA Status: Acute Priority: High Current Visit : Yes (2) Pneumonia SNOMED Code(s): 150986618 Code(s): J18.9 - PNEUMONIA, UNSPECIFIED ORGANISM Status: Acute Priority: High Current Visit: Yes Qualifiers: Pneumonia type: due to unspecified organism Laterality: left Lung location: lower lobe of lung Qualified Code(s): J18.1 - Lobar pneumonia, unspecified organism (3) Type 2 diabetes mellitus SNOMED Code(s): 46888699 Code(s): E11.9 - TYPE 2 DIABETES MELLITUS WITHOUT COMPLICATIONS Status: Chronic Priority: Medium Current Visit: No Qualifiers: Diabetes mellitus 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 * CXR in ED shoes elevated left hemidiaphragm, left basilar atelectasis on a compressive basis and other incidental findings. * Strep pneumo, VRP, Legionella all negative * Influenza negative * Non-productive cough so unable to obtain sputum culture * Robitussin DM TID scheduled * O2 as needed to keep saturations above 90% * Ambulate * Blood cultures pending * Repeat CXR 01/14/19: * slight improvement from previous day's x-ray * Scoliosis * Droplet precautions * Add 40mg daily PO prednisone * Continue on 1.5 L via nasal cannul. Continue to wean off of O2a Hypoxia/respiratory failure * FiO2 to keep O2 above 90%. * Patient's baseline may be below 92%, therefore she improves we may need to readjust our end goal. 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 Ty Length of stay greater than 96 hours because of hypoxia resolving slowly and worsening of respiratory status on day 2 of admission. Anticipate discharge in the next day or 2.
[2019-01-15] MEDS: Cefdinir 300 MG Cap PO SCH ×2 (11:49→20:47)
[2019-01-15] MEDS ORDERED: Azithromycin 250 MG Tab PO ONE (16:22)
[2019-01-15] MEDS: Latanoprost 0.005% Ophth Soln 2.5 ML Bottle EYEBOTH SCH (20:49)
[2019-01-16] MEDS: guaiFENesin/Dextromethorphan 100-10 MG/5 ML Soln 5 ML Cup PO SCH ×3 (06:21→20:34)
[2019-01-16] MEDS: predniSONE 20 MG Tab PO SCH (06:24)
[2019-01-16] MEDS: Insulin Lispro 100 Units/ML 3 ML Vial SUBCUT SCH ×4 (06:24→21:20)
[2019-01-16] MEDS: Rosuvastatin 10 MG Tab PO SCH (08:44)
[2019-01-16] MEDS: Potassium Chloride 20 MEQ Tab.ER PO SCH ×2 (08:45→20:36)
[2019-01-16] MEDS: Cefdinir 300 MG Cap PO SCH ×2 (08:45→20:35)
[2019-01-16] MEDS: Citalopram 20 MG Tab PO SCH (08:46)
[2019-01-16] MEDS: Losartan 25 MG Tab PO SCH (08:46)
[2019-01-16] MEDS: Hydrochlorothiazide 12.5 MG Cap PO SCH (08:46)
[2019-01-16] MEDS: metFORMIN 500 MG Tab PO SCH ×2 (08:46→20:35)
[2019-01-16] MEDS: Enoxaparin 40 MG/0.4 ML Syringe SUBCUT SCH (08:46)
[2019-01-16] MEDS: Albuterol/Ipratropium 3.0-0.5 MG/3 ML Neb Soln NEB PRN ×2 (09:02→20:57)
--- NOTE | 2019-01-16 15:20 | PCM.PN ---
- General Info Date of Service: 01/16/19 Admission Dx/Problem (Free Text): Admission Diagnosis/Problem Admission Diagnosis/Problem Pneumonia Subjective Update: January 13, 2019 In to see Alice. she is lying in bed sleeping. She reports that she feels about the same as yesterday. She does appear to have a little bit increased work of breathing and her oxygen demand has gone up. Will order 40 mg by mouth steroid daily with first dose right now. This was decided upon after discussion with Dr. Santana. We'll also order an ABG. Otherwise her white count continues to improve. Labs remained stable. She did have a bowel movement today. she continues to have a nonproductive cough. Chest x-ray looks stable to slightly worse. Questionable pulmonary vascular congestion was suggested however BNP was obtained on admission was low, she also does not have any prior history of heart failure. She also has no pedal edema. January 14, 2019 Patient had a better night last night. She did tolerate her BiPAP 12/7 overnight. Blood gases from this morning were also improved with pH of 7.36, PCO2 of 64.2, PO2 of 72.0, and HCO3 of 35.8 on 3 L O2 January 15, 2019 patient continues to improve. She is down to 1.5 L via nasal cannula. Patient did relate to me today that she does have an appointment coming up with pulmonology in January. Apparently her primary care provider is also concerned about her lung function and that her scoliosis is also causing restrictive pulmonary disease and that her elevated diaphragm is also worsening her overall lung function. January 16, 2019 patient did well again overnight. Unfortunately, she was unable to wean lower than 1.5 L via nasal cannula. - Review of Systems General: Reports: No Symptoms HEENT: Reports: No Symptoms Pulmonary: Reports: No Symptoms Cardiovascular: Reports: No Symptoms Gastrointestinal: Reports: No Symptoms Genitourinary: Reports: No Symptoms - Patient Data Vitals - Most Recent: Last Vital Signs Temp 98.2 F 01/16/19 08:09 Pulse 67 01/16/19 08:09 Resp 20 01/16/19 08:09 BP 107/66 01/16/19 08:46 Pulse Ox 93 L 01/16/19 09:02 Weight - Most Recent: 210 lb 11.2 oz I&O - Last 24 Hours: Intake & Output 01/16/19 01/16/19 01/16/19 06:59 14:59 22:59 Intake Total 500 640 Balance 500 640 Lab Results Last 24 Hours: Laboratory Results - last 24 hr 01/15/19 01/15/19 01/16/19 Range/Units 18:07 21:35 04:35 WBC 14.73 H (3.98-10.04) K/mm3 RBC 4.16 (3.98-5.22) M/mm3 Hgb 11.9 (11.2-15.7) gm/L Hct 39.6 (34.1-44.9) % MCV 95.2 H (79.4-94.8) fl MCH 28.6 (25.6-32.2) pg MCHC 30.1 L (32.2-35.5) g/dl RDW Std Deviation 44.7 (36.4-46.3) fL Plt Count 281 (182-369) K/mm3 MPV 10.0 (9.4-12.3) fl Neut % (Auto) 58.8 (34.0-71.1) % Lymph % (Auto) 25.3 (19.3-51.7) % [place] % (Auto) 14.1 H (4.7-12.5) % Eos % (Auto) 1.0 (0.7-5.8) Baso % (Auto) 0.5 (0.1-1.2) % Neut # (Auto) 8.68 H (1.56-6.13) K/mm3 Lymph # (Auto) 3.72 (1.18-3.74) K/mm3 [place] # (Auto) 2.07 H (0.24-0.36) K/mm3 Eos # (Auto) 0.14 (0.04-0.36) K/mm3 Baso # (Auto) 0.07 (0.01-0.08) K/mm3 Manual Slide Review Abnormal smear Sodium (136-145) mEq/L Potassium (3.5-5.1) mEq/L Chloride (98-107) mEq/L Carbon Dioxide (21-32) mEq/L Anion Gap (5-15) BUN (7-18) mg/dL Creatinine (0.55-1.02) mg/dL Est Cr Clr Drug Dosing mL/min Estimated GFR (MDRD) (>60) mL/min BUN/Creatinine Ratio (14-18) Glucose (74-106) mg/dL POC Glucose 125 H 140 H (70-105) mg/dL Calcium (8.5-10.1) mg/dL Magnesium (1.8-2.4) mg/dl C-Reactive Protein (<1.0) mg/dL 01/16/19 01/16/19 01/16/19 Range/Units 04:35 06:22 11:45 WBC (3.98-10.04) K/mm3 RBC (3.98-5.22) M/mm3 Hgb (11.2-15.7) gm/L Hct (34.1-44.9) % MCV (79.4-94.8) fl MCH (25.6-32.2) pg MCHC (32.2-35.5) g/dl RDW Std Deviation (36.4-46.3) fL Plt Count (182-369) K/mm3 MPV (9.4-12.3) fl Neut % (Auto) (34.0-71.1) % Lymph % (Auto) (19.3-51.7) % [place] % (Auto) (4.7-12.5) % Eos % (Auto) (0.7-5.8) Baso % (Auto) (0.1-1.2) % Neut # (Auto) (1.56-6.13) K/mm3 Lymph # (Auto) (1.18-3.74) K/mm3 [place] # (Auto) (0.24-0.36) K/mm3 Eos # (Auto) (0.04-0.36) K/mm3 Baso # (Auto) (0.01-0.08) K/mm3 Manual Slide Review Sodium 140 (136-145) mEq/L Potassium 3.3 L (3.5-5.1) mEq/L Chloride 99 (98-107) mEq/L Carbon Dioxide 35 H (21-32) mEq/L Anion Gap 9.3 (5-15) BUN 20 H (7-18) mg/dL Creatinine 0.9 (0.55-1.02) mg/dL Est Cr Clr Drug Dosing 51.41 mL/min Estimated GFR (MDRD) > 60 (>60) mL/min BUN/Creatinine Ratio 22.2 H (14-18) Glucose 85 (74-106) mg/dL POC Glucose 90 136 H (70-105) mg/dL Calcium 9.1 (8.5-10.1) mg/dL Magnesium 1.8 (1.8-2.4) mg/dl C-Reactive Protein 1.1 H* (<1.0) mg/dL Ge Results Last 24 Hours: Microbiology 01/11/19 13:28 Aerobic Blood Culture - Preliminary Blood - Venous - Lab Draw NO GROWTH AFTER 5 DAYS Anaerobic Blood Culture - Preliminary NO GROWTH AFTER 5 DAYS 01/11/19 13:47 Aerobic Blood Culture - Preliminary Blood - Venous NO GROWTH AFTER 5 DAYS Anaerobic Blood Culture - Preliminary NO GROWTH AFTER 5 DAYS Med Orders - Current: Current Medications Acetaminophen (Tylenol) 650 mg PO Q4H PRN PRN Reason: Pain (Mild 1-3)/fever Albuterol/Ipratropium (Duoneb 3.0-0.5 Mg/3 Ml) 3 ml NEB Q4H PRN PRN Reason: Shortness Of Breath/wheezing Last Admin: 01/16/19 09:02 Dose: 3 ml Cefdinir (Omnicef) 300 mg PO BID [facility] Last Admin: 01/16/19 08:45 Dose: 300 mg Citalopram Hydrobromide (Celexa) 20 mg PO DAILY [facility] Last Admin: 01/16/19 08:46 Dose: 20 mg Enoxaparin Sodium (Lovenox) 40 mg SUBCUT DAILY [facility] Last Admin: 01/16/19 08:46 Dose: 40 mg Guaifenesin/Phenylephrine HCl (Robitussin Dm) 10 ml PO TID@0700,1400,2100 [facility] Last Admin: 01/16/19 14:10 Dose: 10 ml Hydrochlorothiazide (Hydrochlorothiazide) 12.5 mg PO DAILY [facility] Last Admin: 01/16/19 08:46 Dose: 12.5 mg Insulin Human Lispro (Humalog) 0 unit SUBCUT QIDACANDBED [facility]; Protocol Last Admin: 01/16/19 12:13 Dose: Not Given Latanoprost (Xalatan 0.005% Ophth Soln) 0 ml EYEBOTH BEDTIME [facility] Last Admin: 01/15/19 20:49 Dose: 1 drop Losartan Potassium (Cozaar) 50 mg PO DAILY [facility] Last Admin: 01/16/19 08:46 Dose: 50 mg Metformin HCl (Glucophage) 500 mg PO BID [facility] Last Admin: 01/16/19 08:46 Dose: 500 mg Potassium Chloride (Klor-Con M20) 20 meq PO BID [facility] Stop: 01/16/19 21:01 Last Admin: 01/16/19 08:45 Dose: 20 meq Prednisone (Prednisone) 40 mg PO WITHBREAKFAST [facility] Last Admin: 01/16/19 06:24 Dose: 40 mg Rosuvastatin Calcium (Crestor) 40 mg PO DAILY [facility] Last Admin: 01/16/19 08:44 Dose: 40 mg Sodium Chloride (Saline Flush) 10 ml FLUSH ASDIRECTED PRN PRN Reason: Keep Vein Open Discontinued Medications Albuterol/Ipratropium (Duoneb 3.0-0.5 Mg/3 Ml) 3 ml NEB ONETIME ONE Stop: 01/11/19 11:20 Last Admin: 01/11/19 11:36 Dose: 3 ml Azithromycin (Zithromax) 250 mg PO ONETIME ONE Stop: 01/15/19 16:23 Last Admin: 01/15/19 16:36 Dose: 250 mg Guaifenesin/Phenylephrine HCl (Robitussin Dm) 10 ml PO TID@0700,1400,2100 PRN PRN Reason: Cough Last Admin: 01/13/19 08:24 Dose: 10 ml Ceftriaxone Sodium 2 gm/ (Sodium Chloride) 100 mls @ 200 mls/hr IV Q24H ONE Stop: 01/11/19 12:55 Last Admin: 01/11/19 14:07 Dose: 200 mls/hr Sodium Chloride (Normal Saline) 1,000 mls @ 999 mls/hr IV ASDIRECTED ONE Stop: 01/11/19 16:03 Last Admin: 01/11/19 15:10 Dose: 999 mls/hr Azithromycin 500 mg/ Sodium (Chloride) 250 mls @ 250 mls/hr IV ONETIME ONE Stop: 01/11/19 17:07 Last Admin: 01/11/19 18:03 Dose: 250 mls/hr Azithromycin 250 mg/ Sodium (Chloride) 250 mls @ 250 mls/hr IV Q24H [facility] Last Admin: 01/14/19 16:04 Dose: 250 mls/hr Ceftriaxone Sodium 2 gm/ (Sodium Chloride) 100 mls @ 200 mls/hr IV Q24H CANDIE Last Admin: 01/14/19 14:23 Dose: 200 mls/hr Prednisone (Prednisone) 40 mg PO ONETIME ONE Stop: 01/14/19 10:48 Prednisone (Prednisone) 40 mg PO ONETIME ONE Stop: 01/13/19 10:55 Last Admin: 01/13/19 11:30 Dose: 40 mg Sodium Chloride (Saline Flush) 10 ml FLUSH ASDIRECTED PRN PRN Reason: Keep Vein Open Last Admin: 01/11/19 11:27 Dose: 10 ml - Exam Quality Assessment: Supplemental Oxygen General: Alert, Oriented HEENT: Pupils Equal Neck: Supple Lungs: Clear to Auscultation, Normal Respiratory Effort Cardiovascular: Regular Rate, Regular Rhythm GI/Abdominal Exam: Normal Bowel Sounds, Soft, Non-Tender, No Organomegaly, No Distention Extremities: Normal Inspection, Normal Range of Motion, Non-Tender, No Pedal Edema Skin: Warm, Dry, Intact Psy/Mental Status: Alert, Normal Affect, Normal Mood - Problem List & Annotations (1) Hypoxemia SNOMED Code(s): 005793392 Code(s): R09.02 - HYPOXEMIA Status: Acute Priority: High Current Visit : Yes (2) Pneumonia SNOMED Code(s): 277149176 Code(s): J18.9 - PNEUMONIA, UNSPECIFIED ORGANISM Status: Acute Priority: High Current Visit: Yes Qualifiers: Pneumonia type: due to unspecified organism Laterality: left Lung location: lower lobe of lung Qualified Code(s): J18.1 - Lobar pneumonia, unspecified organism (3) Type 2 diabetes mellitus SNOMED Code(s): 21028990 Code(s): E11.9 - TYPE 2 DIABETES MELLITUS WITHOUT COMPLICATIONS Status: Chronic Priority: Medium Current Visit: No Qualifiers: Diabetes mellitus prison insulin use: without prison use Diabetes mellitus complication status: with hyperglycemia Qualified Code(s): E11.65 - Type 2 diabetes mellitus with hyperglycemia - Problem List Review Problem List Initiated/Reviewed/Updated: Yes - My Orders Last 24 Hours: My Active Orders 01/16/19 09:00 Potassium Chloride [Klor-Con M20] 20 meq PO BID - Plan Plan:: Left lower lobe pneumonia * DC Zithromax * DuoNeb every 4 hours when necessary * RT/IS/Acapella * CT scan suggests PNA with elevated left hemidiaphragm. * CXR in ED shoes elevated left hemidiaphragm, left basilar atelectasis on a compressive basis and other incidental findings. * Strep pneumo, VRP, Legionella all negative * Influenza negative * Non-productive cough so unable to obtain sputum culture * Robitussin DM TID scheduled * O2 as needed to keep saturations above 90% * Ambulate * Blood cultures pending - negative so far * Repeat CXR 01/14/19: * slight improvement from previous day's x-ray * Scoliosis * Droplet precautions * Add 40mg daily PO prednisone * Continue on 1.5 L via nasal cannul. * patient was unable to discharge today because of no patient services available to her on . Plan to DC home tomorrow on 1 L via nasal cannula. Hypoxia/respiratory failure * FiO2 to keep O2 above 90%. * Patient's baseline may be below 92%, therefore she improves we may need to readjust our end goal. 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 Ty Length of stay greater than 96 hours because of hypoxia resolving slowly and worsening of respiratory status on day 2 of admission. Anticipate discharge in the next day or 2.
[2019-01-16] MEDS: Latanoprost 0.005% Ophth Soln 2.5 ML Bottle EYEBOTH SCH (20:37)
[2019-01-17] MEDS: predniSONE 20 MG Tab PO SCH ×2 (05:56→06:38)
[2019-01-17] MEDS: guaiFENesin/Dextromethorphan 100-10 MG/5 ML Soln 5 ML Cup PO SCH (06:00)
[2019-01-17] MEDS: Insulin Lispro 100 Units/ML 3 ML Vial SUBCUT SCH (06:01)
--- NOTE | 2019-01-17 06:13 | PCM.DCSUM1 ---
Discharge Summary - Hospital Course HPI Initial Comments: 50-year-old female with four-day history of cough and chills. Patient states that she has been coughing up white phlegm and has had increasing shortness of breath. She is a former smoker. Patient unfortunately is a poor historian so details are difficult to get. Patient does live at an assisted care facility. Apparently the legal support manager noted that the patient's O2 levels were 77% room air and she was taken to the walk-in clinic. From there she was sent to the emergency room where her oxygen saturation was 76% on room air. After 3 L nasal cannula oxygen was applied it did increase to 92%. She does have scoliosis and an elevated left hemidiaphragm. Patient does state that she does have a normally slightly low oxygen saturation in the upper 80s to low 90s. In the emergency room chest x-ray showed left lower lobe pneumonia and a white count of over 17,000. She was given DuoNeb, O2, 2 g Rocephin, and a CT scan of the chest was performed. CT of the chest showed an elevated left hemidiaphragm with parenchymal density adjacent to the diaphragm. On the axial views there are air bronchograms present which could represent an area of pneumonia. Diagnosis: Stroke: No - Discharge Data Discharge Date: 01/17/19 (Admit date: 01/11/19) Discharge Disposition: DC/Tfer to Other 70 Condition: Good - Discharge Diagnosis/Problem(s) (1) Hypoxemia SNOMED Code(s): 549561066 ICD Code: R09.02 - HYPOXEMIA Status: Acute Priority: High Current Visit : Yes (2) Pneumonia SNOMED Code(s): 841082940 ICD Code: J18.9 - PNEUMONIA, UNSPECIFIED ORGANISM Status: Acute Priority : High Current Visit: Yes Qualifiers: Pneumonia type: due to unspecified organism Laterality: left Lung location: lower lobe of lung Qualified Code(s): J18.1 - Lobar pneumonia, unspecified organism (3) Type 2 diabetes mellitus SNOMED Code(s): 34815500 ICD Code: E11.9 - TYPE 2 DIABETES MELLITUS WITHOUT COMPLICATIONS Status: Chronic Priority: Medium Current Visit: No Qualifiers: Diabetes mellitus roasterman insulin use: without roasterman use Diabetes mellitus complication status: with hyperglycemia Qualified Code(s): E11.65 - Type 2 diabetes mellitus with hyperglycemia (4) Hypertension SNOMED Code(s): 97270438 ICD Code: I10 - ESSENTIAL (PRIMARY) HYPERTENSION Status: Acute Priority: High Current Visit: Yes Qualifiers: Hypertension type: unspecified Qualified Code(s): I10 - Essential (primary ) hypertension (5) Compressive atelectasis SNOMED Code(s): 31159420 ICD Code: J98.11 - ATELECTASIS Status: Acute Priority: High Current Visit: Yes - Patient Summary/Data Consults: Consultations 01/11/19 17:12 Respiratory Care Assess and Treatment [CONS] Routine 01/12/19 12:58 Consult to Occupational Therapy [OT Evaluation and Treatment] [CONS] Routine PT Evaluation and Treatment [CONS] Routine Hospital Course: Left lower lobe pneumonia * DC Zithromax * DuoNeb every 4 hours when necessary * RT/IS/Acapella * CT scan suggests PNA with elevated left hemidiaphragm. * CXR in ED shoes elevated left hemidiaphragm, left basilar atelectasis on a compressive basis and other incidental findings. * Strep pneumo, VRP, Legionella all negative * Influenza negative * Non-productive cough so unable to obtain sputum culture * Robitussin DM TID scheduled * O2 as needed to keep saturations above 90% * Ambulate * Blood cultures pending - negative so far * Repeat CXR 01/14/19: * slight improvement from previous day's x-ray * Scoliosis * Droplet precautions * Add 40mg daily PO prednisone * Continue on 1.5 L via nasal cannul. * patient was unable to discharge today because of no patient services available to her on . Plan to DC home tomorrow on 1 L via nasal cannula. Hypoxia/respiratory failure * FiO2 to keep O2 above 90%. * Patient's baseline may be below 92%, therefore she improves we may need to readjust our end goal. 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 Ty Length of stay greater than 96 hours because of hypoxia resolving slowly and worsening of respiratory status on day 2 of admission. Overall Alice did pretty well. She was admitted to possible PNA/bronchitis. She does have an underlying diagnosis of scoliosis with compressive atelectasis as well. It is felt her lung function may be declining and she reportedly has an appointment in the near future with pulmonology, which she should keep. She was brought in on 3L of oxygen and we attempted to wean down several times. She actually was up to 4L at times. Unfortunately we were unable to successfully wean her down and she will be discharged on 1.5L O2 via NC. She also has an underlying sleep apnea diagnosis and has reportedly been non-compliant with her machine, ultimately having it taken away. Per RT they attempted a PFT several months ago and she was unable to participate appropriately. This is something that may be re-considered in the future with her PCP. She was treated with IV Rocephin and azithromycin. The azithromycin was ultimately discontinued. She was then converted from Rocephin to PO Cefdinir. She was treated with 40mg PO daily prednisone. RT was involved in her care and she did utilize IS and Acapella. She was instructed to continue these on discharge until symptoms resolve. At one point her CO2 did increase and she was placed on BiPAP with improvement of repeat ABG. A1C was obtained and was 6.4. Home medications were continued and she was placed on sliding scale insulin, with minimal use. Her blood sugars did increase minimally due to the steroid. Infectious workup was negative. She was also given robitussin DM with improvement in congestion. She will be discharged today on oxygen 1.5L as discussed, two more days of BID cefdinir, with her first dose tonight - 01/17/19, and 5 more days of 40mg PO prednisone at breakfast. She dose have [employer] as a caregiver and they have been updated on her plan. She was instructed to follow-up with her PCP within 7-10 days of discharge and pulmonology as instructed. - Patient Instructions Diet: Usual Diet as Tolerated, Diabetic Diet Activity: As Tolerated Driving: Do Not Drive Notify Provider of: Fever, Increased Pain, Nausea and/or Vomiting - Discharge Plan *PRESCRIPTION DRUG MONITORING PROGRAM REVIEWED*: No *COPY OF PRESCRIPTION DRUG MONITORING REPORT IN PATIENT ROGERS: No Prescriptions/Med Rec: Cefdinir [Omnicef] 300 mg PO BID #5 cap predniSONE 40 mg PO WITHBREAKFAST #10 tablet Home Medications: Home Meds Carboxymethylcellulose Sodium [Lubricant Eye Drop] 1 drop EYEBOTH TID 11/13/16 [ History] Cholecalciferol (Vitamin D3) [Vitamin D3] 5,000 unit PO DAILY 11/13/16 [History] Latanoprost [Xalatan 0.005% Ophth Soln] 1 drop EYEBOTH DAILY 11/13/16 [History] Nitroglycerin [Nitrostat] 0.4 mg SL ASDIRECTED PRN 11/13/16 [History] metFORMIN [Glucophage] 500 mg PO BID 11/13/16 [History] Citalopram [Citalopram HBr] 20 mg PO DAILY 01/11/19 [History] Fluticasone Propionate [Flonase] 1 spray ANNETTE DAILY PRN 01/11/19 [History] Losartan/Hydrochlorothiazide [Losartan-HCTZ 50-12.5 MG] 1 tab PO DAILY 01/11/19 [History] Rosuvastatin Calcium 40 mg PO DAILY 01/11/19 [History] Sennosides [Senna] 8.6 mg PO DAILY 01/11/19 [History] Acetaminophen 325 mg PO Q4H PRN 01/12/19 [History] Loperamide [Imodium] 2 mg PO ASDIRECTED 01/12/19 [History] Multivitamin with Minerals [One Daily Plus Minerals] 1 each PO DAILY 01/12/19 [ History] Phenylephrine-Mineral Oil-Petrolatum. 1 tube RECTAL BID PRN 01/12/19 [History] Cefdinir [Omnicef] 300 mg PO BID #5 cap 01/17/19 [Rx] predniSONE 40 mg PO WITHBREAKFAST #10 tablet 01/17/19 [Rx] Oxygen Therapy Mode: Nasal Cannula Oxygen Flow Rate (L/min): 1.5 Maintain SpO2% greater than: 90 Patient Handouts: Community-Acquired Pneumonia, Adult, [id number] Referrals: Juwan Ty MD [Primary Care Provider] - 01/25/19 2:30 pm (Please follow-up with Dr Ty on WednesdayJanuary 25 at 230pm. ) - Discharge Summary/Plan Comment DC Time >30 min.: Yes (45 minutes ) - General Info Date of Service: 01/17/19 Admission Dx/Problem (Free Text: Admission Diagnosis/Problem Admission Diagnosis/Problem Pneumonia Subjective Update: January 13, 2019 In to see Alice. she is lying in bed sleeping. She reports that she feels about the same as yesterday. She does appear to have a little bit increased work of breathing and her oxygen demand has gone up. Will order 40 mg by mouth steroid daily with first dose right now. This was decided upon after discussion with Dr. Santana. We'll also order an ABG. Otherwise her white count continues to improve. Labs remained stable. She did have a bowel movement today. she continues to have a nonproductive cough. Chest x-ray looks stable to slightly worse. Questionable pulmonary vascular congestion was suggested however BNP was obtained on admission was low, she also does not have any prior history of heart failure. She also has no pedal edema. January 14, 2019 Patient had a better night last night. She did tolerate her BiPAP 12/7 overnight. Blood gases from this morning were also improved with pH of 7.36, PCO2 of 64.2, PO2 of 72.0, and HCO3 of 35.8 on 3 L O2 January 15, 2019 patient continues to improve. She is down to 1.5 L via nasal cannula. Patient did relate to me today that she does have an appointment coming up with pulmonology in January. Apparently her primary care provider is also concerned about her lung function and that her scoliosis is also causing restrictive pulmonary disease and that her elevated diaphragm is also worsening her overall lung function. January 16, 2019 patient did well again overnight. Unfortunately, she was unable to wean lower than 1.5 L via nasal cannula. January 17, 2019 In to see Alice. She is sitting up in bed and nursing is tending to her. Attempted to wean overnight oxygen but were unable. Otherwise she reports she feels pretty good. No patient or nursing concerns. She will be discharged today. Functional Status: Reports: Pain Controlled, Tolerating Diet, Ambulating, Urinating, Incentive Spirometry, Other (acapella ). Denies: New Symptoms - Review of Systems General: Reports: No Symptoms. Denies: Fever, Weakness, Fatigue, Malaise HEENT: Reports: No Symptoms. Denies: Headaches, Sore Throat Pulmonary: Reports: No Symptoms. Denies: Shortness of Breath, Pleuritic Chest Pain, Cough, Wheezing Cardiovascular: Reports: No Symptoms. Denies: Chest Pain, Palpitations, Dyspnea on Exertion, Edema Gastrointestinal: Reports: No Symptoms. Denies: Abdominal Pain, Constipation, Diarrhea, Nausea, Vomiting Genitourinary: Reports: No Symptoms. Denies: Pain Musculoskeletal: Reports: No Symptoms Skin: Reports: No Symptoms. Denies: Cyanosis Neurological: Reports: No Symptoms. Denies: Confusion, Difficulty Walking, Gait Disturbance Psychiatric: Reports: No Symptoms - Patient Data Vitals - Most Recent: Last Vital Signs Temp 98.1 F 01/17/19 03:11 Pulse 71 01/17/19 03:14 Resp 24 H 01/17/19 03:11 BP 123/79 01/17/19 03:11 Pulse Ox 92 L 01/17/19 03:38 Weight - Most Recent: 209 lb 4.8 oz I&O - Last 24 hours: Intake & Output 01/16/19 01/16/19 01/17/19 14:59 22:59 06:59 Intake Total 640 860 500 Balance 640 860 500 Lab Results - Last 24 hrs: Laboratory Results - last 24 hr 01/16/19 01/16/19 01/16/19 Range/Units 04:35 06:22 11:45 Manual Slide Review Abnormal smear POC Glucose 90 136 H (70-105) mg/dL 01/16/19 01/16/19 01/17/19 Range/Units 16:27 21:12 05:49 Manual Slide Review POC Glucose 127 H 115 H 84 (70-105) mg/dL GIOVANNA Results - Last 24 hrs: Microbiology 01/11/19 13:28 Aerobic Blood Culture - Preliminary Blood - Venous - Lab Draw NO GROWTH AFTER 5 DAYS Anaerobic Blood Culture - Preliminary NO GROWTH AFTER 5 DAYS 01/11/19 13:47 Aerobic Blood Culture - Preliminary Blood - Venous NO GROWTH AFTER 5 DAYS Anaerobic Blood Culture - Preliminary NO GROWTH AFTER 5 DAYS Med Orders - Current: Current Medications Acetaminophen (Tylenol) 650 mg PO Q4H PRN PRN Reason: Pain (Mild 1-3)/fever Albuterol/Ipratropium (Duoneb 3.0-0.5 Mg/3 Ml) 3 ml NEB Q4H PRN PRN Reason: Shortness Of Breath/wheezing Last Admin: 01/16/19 20:57 Dose: 3 ml Cefdinir (Omnicef) 300 mg PO BID [facility] Last Admin: 01/16/19 20:35 Dose: 300 mg Citalopram Hydrobromide (Celexa) 20 mg PO DAILY [facility] Last Admin: 01/16/19 08:46 Dose: 20 mg Enoxaparin Sodium (Lovenox) 40 mg SUBCUT DAILY [facility] Last Admin: 01/16/19 08:46 Dose: 40 mg Guaifenesin/Phenylephrine HCl (Robitussin Dm) 10 ml PO TID@0700,1400,2100 [facility] Last Admin: 01/17/19 06:00 Dose: 10 ml Hydrochlorothiazide (Hydrochlorothiazide) 12.5 mg PO DAILY [facility] Last Admin: 01/16/19 08:46 Dose: 12.5 mg Insulin Human Lispro (Humalog) 0 unit SUBCUT QIDACANDBED [facility]; Protocol Last Admin: 01/17/19 06:01 Dose: Not Given Latanoprost (Xalatan 0.005% Ophth Soln) 0 ml EYEBOTH BEDTIME [facility] Last Admin: 01/16/19 20:37 Dose: 1 drop Losartan Potassium (Cozaar) 50 mg PO DAILY [facility] Last Admin: 01/16/19 08:46 Dose: 50 mg Metformin HCl (Glucophage) 500 mg PO BID [facility] Last Admin: 01/16/19 20:35 Dose: 500 mg Prednisone (Prednisone) 40 mg PO WITHBREAKFAST [facility] Last Admin: 01/17/19 05:56 Dose: 40 mg Rosuvastatin Calcium (Crestor) 40 mg PO DAILY [facility] Last Admin: 01/16/19 08:44 Dose: 40 mg Sodium Chloride (Saline Flush) 10 ml FLUSH ASDIRECTED PRN PRN Reason: Keep Vein Open Discontinued Medications Albuterol/Ipratropium (Duoneb 3.0-0.5 Mg/3 Ml) 3 ml NEB ONETIME ONE Stop: 01/11/19 11:20 Last Admin: 01/11/19 11:36 Dose: 3 ml Azithromycin (Zithromax) 250 mg PO ONETIME ONE Stop: 01/15/19 16:23 Last Admin: 01/15/19 16:36 Dose: 250 mg Guaifenesin/Phenylephrine HCl (Robitussin Dm) 10 ml PO TID@0700,1400,2100 PRN PRN Reason: Cough Last Admin: 01/13/19 08:24 Dose: 10 ml Ceftriaxone Sodium 2 gm/ (Sodium Chloride) 100 mls @ 200 mls/hr IV Q24H ONE Stop: 01/11/19 12:55 Last Admin: 01/11/19 14:07 Dose: 200 mls/hr Sodium Chloride (Normal Saline) 1,000 mls @ 999 mls/hr IV ASDIRECTED ONE Stop: 01/11/19 16:03 Last Admin: 01/11/19 15:10 Dose: 999 mls/hr Azithromycin 500 mg/ Sodium (Chloride) 250 mls @ 250 mls/hr IV ONETIME ONE Stop: 01/11/19 17:07 Last Admin: 01/11/19 18:03 Dose: 250 mls/hr Azithromycin 250 mg/ Sodium (Chloride) 250 mls @ 250 mls/hr IV Q24H [facility] Last Admin: 01/14/19 16:04 Dose: 250 mls/hr Ceftriaxone Sodium 2 gm/ (Sodium Chloride) 100 mls @ 200 mls/hr IV Q24H [facility] Last Admin: 01/14/19 14:23 Dose: 200 mls/hr Potassium Chloride (Klor-Con M20) 20 meq PO BID [facility] Stop: 01/16/19 21:01 Last Admin: 01/16/19 20:36 Dose: 20 meq Prednisone (Prednisone) 40 mg PO ONETIME ONE Stop: 01/14/19 10:48 Prednisone (Prednisone) 40 mg PO ONETIME ONE Stop: 01/13/19 10:55 Last Admin: 01/13/19 11:30 Dose: 40 mg Sodium Chloride (Saline Flush) 10 ml FLUSH ASDIRECTED PRN PRN Reason: Keep Vein Open Last Admin: 01/11/19 11:27 Dose: 10 ml - Exam Quality Assessment: Reports: Supplemental Oxygen (0.5), DVT Prophylaxis General: Reports: Alert, Oriented, Cooperative, No Acute Distress HEENT: Reports: Pupils Equal, Pupils Reactive, EOMI, Mucous Membr. Moist/[place] Neck: Reports: Supple, Trachea Midline Lungs: Reports: Clear to Auscultation, Normal Respiratory Effort, Decreased Breath Sounds Cardiovascular: Reports: Regular Rate, Regular Rhythm GI/Abdominal Exam: Normal Bowel Sounds, Soft, Non-Tender, No Distention, No Abnormal Bruit (Female) Exam: Deferred Rectal (Female) Exam: Deferred Back Exam: Reports: Full Range of Motion, Other (Scoliosis) Extremities: Normal Inspection, Normal Range of Motion, Non-Tender, No Pedal Edema, Normal Capillary Refill Skin: Reports: Warm, Dry, Intact Neurological: Reports: No New Focal Deficit Psy/Mental Status: Reports: Alert, Normal Affect, Normal Mood
[2019-01-17] MEDS: metFORMIN 500 MG Tab PO SCH (08:41)
[2019-01-17] MEDS: Hydrochlorothiazide 12.5 MG Cap PO SCH (08:41)
[2019-01-17] MEDS: Losartan 25 MG Tab PO SCH (08:41)
[2019-01-17] MEDS: Citalopram 20 MG Tab PO SCH (08:41)
[2019-01-17 08:42] VITALS: BP 115/71
[2019-01-17] MEDS: Enoxaparin 40 MG/0.4 ML Syringe SUBCUT SCH (08:42)
[2019-01-17] MEDS: Cefdinir 300 MG Cap PO SCH (08:42)
[2019-01-17] MEDS: Rosuvastatin 10 MG Tab PO SCH (08:42)
== END 2019-01-17 11:07 | disposition other institution (70) | DRG 193 ==
LOC: JD.ED 09:54 → JD.MS 15:03
PROVIDERS: ADMIT Family Medicine; ATTEND Family Medicine
DX: J18.1 Lobar pneumonia, unspecified organism (principal); R09.02 Hypoxemia; J96.91 Respiratory failure, unspecified with hypoxia; Q76.3 Congenital scoliosis due to congenital bony malformation; I47.1 Supraventricular tachycardia; E78.00 Pure hypercholesterolemia, unspecified; I10 Essential (primary) hypertension; G47.30 Sleep apnea, unspecified; N39.3 Stress incontinence (female) (male); M54.9 Dorsalgia, unspecified; E11.65 Type 2 diabetes mellitus with hyperglycemia; I49.3 Ventricular premature depolarization; G89.29 Other chronic pain; E78.5 Hyperlipidemia, unspecified; E11.9 Type 2 diabetes mellitus without complications; G51.0 Bell's palsy; H40.9 Unspecified glaucoma; H91.90 Unspecified hearing loss, unspecified ear; F20.9 Schizophrenia, unspecified; F79 Unspecified intellectual disabilities; D64.9 Anemia, unspecified; Z90.49 Acquired absence of other specified parts of digestive tract; Z87.891 Personal history of nicotine dependence; F60.9 Personality disorder, unspecified; I49.9 Cardiac arrhythmia, unspecified; R09.3 Abnormal sputum; R05 Cough; R06.02 Shortness of breath; Z88.1 Allergy status to other antibiotic agents; Z88.0 Allergy status to penicillin; Z79.899 Other long term (current) drug therapy; Z79.84 Long term (current) use of oral hypoglycemic drugs; Z78.0 Asymptomatic menopausal state
CPT/HCPCS: 36415; 71046; 71250; 80053; 83880; 85007; 85027; 87040 ×2; 94640; 96365; 99285; J0696; J7030; 36600; 71045; 71045-26; 80048; 80061; 82803; 82962; 83036; 83735; 85025; 86140; 87486; 87581; 87632; 87798; 87804; 87899; 94660; 94667; 94668; 94761; 97110-GO; 97110-GP; 97162-GP; 97165-GO; 97530-GO; 97530-GP; A9270-GY; J0456; J1650; J1815-GY; J7040; J7050; J7620-GY

== ENCOUNTER 2019-02-06 12:50 | Emergency (ER) | payer MEDICARE, MEDICAID ==
[2019-02-06 13:09] VITALS: BP 102/60
--- NOTE | 2019-02-06 14:51 | CR ---
Chest: Portable view of the chest was obtained. Comparison: Prior chest x-ray of 01/14/19. Elevated left hemidiaphragm or diaphragmatic hernia is noted. This is stable from prior chest x-ray. Slight compressive atelectasis is noted within the left base which is stable. Left upper lung and right lung are clear. Heart size and mediastinum are stable. Bony structures are also stable. Impression: 1. Findings as noted above. No significant change from previous chest x-ray is seen. Diagnostic code #2
--- NOTE | 2019-02-06 17:34 | EDM.PDOCBH ---
ED HPI GENERAL MEDICAL PROBLEM - General Chief Complaint: Behavioral/Psych Stated Complaint: ANXIETY/WEAKNESS Time Seen by Provider: 02/06/19 13:30 Source of Information: Reports: Patient History Limitations: Reports: No Limitations - History of Present Illness INITIAL COMMENTS - FREE TEXT/NARRATIVE: 58-year-old female is brought in by her able caseworkers for evaluation and treatment of anxiety and weakness. Patient reports feeling weak since leaving the hospital when she was hospice about a month ago for pneumonia. She reports symptoms of fevers, chills, cough and one episode of diarrhea. She denies any chest pain, shortness breath, abdominal pain or any vomiting. Able caseworkers reports when she arrived in the ER she was complaining that her face feels numb ad her tongue felt swollen. Able is also worried about anxiety. They state that she has been not acting like her turning over in the hospital. she has been calling maintenance and the nurse managed at all hours of the night. For the has been calling 911 and was instructed to no longer call 911. She expresses that she feels depressed and anxious. Patient denies any suicidal thoughts or plan and denies any homicidal thoughts or plan. Patient was on anxiety medication previously but was taken off by her primary care provider. Review the patient's records show that she was hospitalized with pneumonia just about a month ago. Sent home antibiotics for this, has since completed the antibiotics. Primary care providers Dr. Ty, they have not yet followed up with him since leaving the hospital. An appointment to see him Wednesday. - Related Data Allergies Allergy/AdvReac Type Severity Reaction Status Date / Time penicillin V Allergy Cannot Verified 01/11/19 10:11 Remember vancomycin Allergy Cannot Verified 01/11/19 10:11 Remember Home Meds: Home Meds Carboxymethylcellulose Sodium [Lubricant Eye Drop] 1 drop EYEBOTH TID 11/13/16 [ History] Cholecalciferol (Vitamin D3) [Vitamin D3] 5,000 unit PO DAILY 11/13/16 [History] Latanoprost [Xalatan 0.005% Ophth Soln] 1 drop EYEBOTH DAILY 11/13/16 [History] Nitroglycerin [Nitrostat] 0.4 mg SL ASDIRECTED PRN 11/13/16 [History] metFORMIN [Glucophage] 500 mg PO BID 11/13/16 [History] Citalopram [Citalopram HBr] 20 mg PO DAILY 01/11/19 [History] Fluticasone Propionate [Flonase] 1 spray ANNETTE DAILY PRN 01/11/19 [History] Losartan/Hydrochlorothiazide [Losartan-HCTZ 50-12.5 MG] 1 tab PO DAILY 01/11/19 [History] Rosuvastatin Calcium 40 mg PO DAILY 01/11/19 [History] Sennosides [Senna] 8.6 mg PO DAILY 01/11/19 [History] Acetaminophen 325 mg PO Q4H PRN 01/12/19 [History] Loperamide [Imodium] 2 mg PO ASDIRECTED 01/12/19 [History] Multivitamin with Minerals [One Daily Plus Minerals] 1 each PO DAILY 01/12/19 [ History] Phenylephrine-Mineral Oil-Petrolatum. 1 tube RECTAL BID PRN 01/12/19 [History] Cefdinir [Omnicef] 300 mg PO BID #5 cap 01/17/19 [Rx] predniSONE 40 mg PO WITHBREAKFAST #10 tablet 01/17/19 [Rx] LORazepam [Ativan] 0.5 mg PO BID PRN #10 tablet 02/06/19 [Rx] Past Medical History HEENT History: Reports: Glaucoma, Impaired Vision Cardiovascular History: Reports: Arrhythmia, High Cholesterol, Hypertension Other Cardiovascular History: svt and pvc Respiratory History: Reports: Pneumonia, Recurrent, Sleep Apnea Gastrointestinal History: Reports: Hemorrhoids, Other (See Below) Other Gastrointestinal History: hernia Genitourinary History: Reports: STD, Other (See Below) Other Genitourinary History: stress incontinence. cervical hpv TIER AND DETONATOR History: Reports: Other (See Below) Other TIER AND DETONATOR History: menopause Musculoskeletal History: Reports: Back Pain, Chronic Other Musculoskeletal History: congenital musculoskeletal deformity of spine, internal derangement of knee, scoliosis Neurological History: Reports: Other (See Below) Other Neuro History: bells palsy Psychiatric History: Reports: Schizophrenia, Other (See Below) Other Psychiatric History: developmental delay, personality disorder, SAD Endocrine/Metabolic History: Reports: Diabetes, Type II, Obesity/BMI 30+ Hematologic History: Reports: Anemia Dermatologic History: Reports: Other (See Below) Other Dermatologic History: dermatophytosis of nail - Infectious Disease History Infectious Disease History: Reports: None - Past Surgical History HEENT Surgical History: Reports: Tonsillectomy Cardiovascular Surgical History: Reports: None Respiratory Surgical History: Reports: None Other Respiratory Surgeries/Procedures: states that her CPAP machine "was taken away" d/t improper cleaning GI Surgical History: Reports: Cholecystectomy Female Surgical History: Reports: Section Endocrine Surgical History: Reports: None Neurological Surgical History: Reports: Scoliosis Musculoskeletal Surgical History: Reports: Other (See Below) Other Musculoskeletal Surgeries/Procedures:: cervical surgery Dermatological Surgical History: Reports: None Social & Family History - Family History Family Medical History: Noncontributory - Tobacco Use Smoking Status *Q: Current Status Unknown - Caffeine Use Caffeine Use: Reports: Coffee - Living Situation & Occupation Living situation: Reports: Single Occupation: Disabled ED ROS GENERAL - Review of Systems Review Of Systems: See Below Constitutional: Reports: Fever, Chills, Weakness HEENT: Reports: Ear Pain, Throat Pain Respiratory: Reports: Cough. Denies: Shortness of Breath Cardiovascular: Denies: Chest Pain GI/Abdominal: Denies: Abdominal Pain, Vomiting Psychiatric: Reports: Anxiety, Depression. Denies: Homicidal Ideation, Suicidal Ideation ED EXAM, BEHAVIORAL HEALTH - Physical Exam Exam: See Below Exam Limited By: No Limitations General Appearance: Alert, WD/WN, No Apparent Distress, Anxious Eye Exam: Bilateral Eye: Normal Inspection Ears: Normal External Exam Nose: Normal Inspection Throat/Mouth: Normal Inspection, Normal Lips, Normal Voice, No Airway Compromise Neck: Normal Inspection, Full Range of Motion Respiratory/Chest: No Respiratory Distress, Lungs Clear, Normal Breath Sounds Cardiovascular: Normal Peripheral Pulses, Regular Rate, Rhythm, No Murmur GI/Abdominal: Normal Bowel Sounds, Soft, Non-Tender Extremities: Normal Inspection Neurological: Alert Psychiatric: Alert, Flat Affect. No: Homicidal Thoughts, Suicidal Plan, Suicidal Thoughts, Threatening Behavior Skin Exam: Warm, Dry, Normal color COURSE, BEHAVIORAL HEALTH COMP - Course Vital Signs: Last Vital Signs Temp 98.1 F 02/06/19 13:05 Pulse 91 02/06/19 13:05 Resp 20 02/06/19 13:05 BP 102/60 02/06/19 13:05 Pulse Ox Orders, Labs, Meds: Laboratory Tests 02/06/19 02/06/19 02/06/19 Range/Units 14:50 14:55 14:55 WBC 11.77 H (3.98-10.04) K/mm3 RBC 4.61 (3.98-5.22) M/mm3 Hgb 13.5 (11.2-15.7) gm/L Hct 42.8 (34.1-44.9) % MCV 92.8 (79.4-94.8) fl MCH 29.3 (25.6-32.2) pg MCHC 31.5 L (32.2-35.5) g/dl RDW Std Deviation 45.3 (36.4-46.3) fL Plt Count 267 (182-369) K/mm3 MPV 10.1 (9.4-12.3) fl Neutrophils % (Manual) 72 H (40-60) % Band Neutrophils % 0 (0-10) % Lymphocytes % (Manual) 20 (20-40) % Atypical Lymphs % 2 % Monocytes % (Manual) 3 (2-10) % Eosinophils % (Manual) 1 (0.7-5.8) % Basophils % (Manual) 2 H (0.1-1.2) Platelet Estimate Adequate RBC Morph Comment Normal Sodium 140 (136-145) mEq/L Potassium 3.4 L (3.5-5.1) mEq/L Chloride 99 (98-107) mEq/L Carbon Dioxide 30 (21-32) mEq/L Anion Gap 14.4 (5-15) BUN 17 (7-18) mg/dL Creatinine 0.8 (0.55-1.02) mg/dL Est Cr Clr Drug Dosing 55.06 mL/min Estimated GFR (MDRD) > 60 (>60) mL/min BUN/Creatinine Ratio 21.3 H (14-18) Glucose 96 (74-106) mg/dL Calcium 9.6 (8.5-10.1) mg/dL Total Bilirubin 0.3 (0.2-1.0) mg/dL AST 24 (15-37) U/L ALT 30 (14-59) U/L Alkaline Phosphatase 82 (46-116) U/L C-Reactive Protein 0.3 (<1.0) mg/dL Total Protein 6.9 (6.4-8.2) g/dl Albumin 3.6 (3.4-5.0) g/dl Globulin 3.3 gm/dL Albumin/Globulin Ratio 1.1 (1-2) TSH 3rd Generation 1.127 (0.358-3.74) uIU/mL Urine Color Yellow (Yellow) Urine Appearance Clear (Clear) Urine pH 6.0 (5.0-8.0) Ur Specific [place] 1.025 (1.005-1.030) Urine Protein Negative (Negative) Urine Glucose (UA) Negative (Negative) Urine Ketones Trace H (Negative) Urine Occult Blood Negative (Negative) Urine Nitrite Negative (Negative) Urine Bilirubin Negative (Negative) Urine Urobilinogen 0.2 (0.2-1.0) Ur Leukocyte Esterase Negative (Negative) Urine RBC 0-5 (0-5) /hpf Urine WBC 0-5 (0-5) /hpf Ur Squamous Epith Cells 5-10 H (0-5) /hpf Urine Bacteria Few (FEW) /hpf Urine Mucus Few (FEW) /hpf Medications Discontinued Medications Generic Name Dose Route Start Last Admin Trade Name Freq PRN Reason Stop Dose Admin Lorazepam 0.5 mg 02/06/19 17:57 02/06/19 18:11 Ativan PO 02/06/19 17:58 0.5 mg ONETIME ONE Administration Re-Assessment/Re-Exam: Chest: Portable view of the chest was obtained. Comparison: Prior chest x-ray of 01/14/19. Elevated left hemidiaphragm or diaphragmatic hernia is noted. This is stable from prior chest x-ray. Slight compressive atelectasis is noted within the left base which is stable. Left upper lung and right lung are clear. Heart size and mediastinum are stable. Bony structures are also stable. Impression: 1. Findings as noted above. No significant change from previous chest x-ray is seen. EKG done 14:24 shows a normal sinus rhythm of 79 bpm. ectopic atial rhythm with some sinus beats. No obvious ischmic changes. Reviewed by myself and Dr. Thurston. 17:55 I have reviewed the labs, ekg and imaging the patient. She was insistent that her throat is very sore. Slight erythema on exam but no exudates. Rapid strep preformed and was negative. Will discharge home today. They have follow-up for recent hospitalization in the next few days. Recommended keeping this. Weakness may be from recent pneumonia. Will prescribed some ativan to try for the anxiety. Discharge instructions as documented. Departure - Departure Time of Disposition: 17:55 Disposition: Home, Self-Care 01 Condition: Good Clinical Impression: Anxiety - Discharge Information *PRESCRIPTION DRUG MONITORING PROGRAM REVIEWED*: No *COPY OF PRESCRIPTION DRUG MONITORING REPORT IN PATIENT ROGERS: No Prescriptions: LORazepam [Ativan] 0.5 mg PO BID PRN #10 tablet PRN Reason: Anxiety Instructions: Generalized Anxiety Disorder, Adult Referrals: Juwan Ty MD [Primary Care Provider] - Forms: ED Department Discharge Additional Instructions: Take the Ativan as prescribed. 1 tab twice a day as needed for anxiety. Follow up with your primary care provider this week as planned. Follow-up with a psychiatrist. Recommend Dr. kraus at [facility] or one of the psychiatrists associated with health psychiatry at [facility]. call [phone] to ask about scheduling with one of these providers. make sure you are drinking plenty of fluids and getting plenty of rest. Please return to the ER for symptoms change or worsen.
[2019-02-06] MEDS ORDERED: LORazepam 0.5 MG Tab PO ONE (17:57)
== END 2019-02-06 18:18 | disposition home or self-care (01) ==
LOC: JD.ED 12:50
DX: F41.9 Anxiety disorder, unspecified (principal); E11.9 Type 2 diabetes mellitus without complications; E66.9 Obesity, unspecified; I10 Essential (primary) hypertension; Z98.890 Other specified postprocedural states; Z86.2 Personal history of diseases of the blood and blood-forming organs and certain disorders involving the immune mechanism; Z90.49 Acquired absence of other specified parts of digestive tract; Z88.0 Allergy status to penicillin; Z88.1 Allergy status to other antibiotic agents; Z79.899 Other long term (current) drug therapy; Z87.01 Personal history of pneumonia (recurrent); Z79.84 Long term (current) use of oral hypoglycemic drugs
CPT/HCPCS: 36415; 71045; 80053; 81001; 84443; 85007; 85027; 86140; 87081; 87430; 93005; 99284; A9270

== ENCOUNTER 2019-04-18 06:29 | Emergency (ER) | payer MEDICARE, MEDICAID ==
[2019-04-18] MEDS ORDERED: Sodium Chloride 0.9% 10 ML Syringe FLUSH PRN (06:47)
[2019-04-18] MEDS ORDERED: Albuterol/Ipratropium 3.0-0.5 MG/3 ML Neb Soln NEB ONE (06:48)
--- NOTE | 2019-04-18 08:21 | EDM.PDOC ---
ED HPI GENERAL MEDICAL PROBLEM - General Chief Complaint: Respiratory Problem Stated Complaint: [facility] Time Seen by Provider: 04/18/19 06:33 Source of Information: Reports: Patient, EMS, Alf Records History Limitations: Reports: No Limitations - History of Present Illness INITIAL COMMENTS - FREE TEXT/NARRATIVE: The patient presents by [facility] from [facility] for shortness of breath and low oxygen saturations. She also has a cough. She denies any fever here. She has no chest pain. She has no abdominal pain, nausea or vomiting. She has a history of pneumonia and she was sent to the [facility] on oxygen. Through the night they had to increase her oxygen. She was 85% on room air when she arrived. Onset: Gradual Duration: Day(s): (Last night) Improves with: Reports: None Worsens with: Reports: None Associated Symptoms: Reports: Cough, Fever/Chills, Nausea/Vomiting. Denies: Chest Pain - Related Data Allergies Allergy/AdvReac Type Severity Reaction Status Date / Time penicillin V Allergy Cannot Verified 04/18/19 06:42 Remember vancomycin Allergy Cannot Verified 04/18/19 06:42 Remember Home Meds: Home Meds Carboxymethylcellulose Sodium [Lubricant Eye Drop] 1 drop EYEBOTH TID 11/13/16 [ History] Cholecalciferol (Vitamin D3) [Vitamin D3] 5,000 unit PO DAILY 11/13/16 [History] Latanoprost [Xalatan 0.005% Ophth Soln] 1 drop EYEBOTH DAILY 11/13/16 [History] Nitroglycerin [Nitrostat] 0.4 mg SL ASDIRECTED PRN 11/13/16 [History] metFORMIN [Glucophage] 500 mg PO BID 11/13/16 [History] Citalopram [Citalopram HBr] 20 mg PO DAILY 01/11/19 [History] Fluticasone Propionate [Flonase] 1 spray ANNETTE DAILY PRN 01/11/19 [History] Losartan/Hydrochlorothiazide [Losartan-HCTZ 50-12.5 MG] 1 tab PO DAILY 01/11/19 [History] Rosuvastatin Calcium 40 mg PO DAILY 01/11/19 [History] Sennosides [Senna] 8.6 mg PO DAILY 01/11/19 [History] Acetaminophen 325 mg PO Q4H PRN 01/12/19 [History] Loperamide [Imodium] 2 mg PO ASDIRECTED 01/12/19 [History] Multivitamin with Minerals [One Daily Plus Minerals] 1 each PO DAILY 01/12/19 [ History] Phenylephrine-Mineral Oil-Petrolatum. 1 tube RECTAL BID PRN 01/12/19 [History] Cefdinir [Omnicef] 300 mg PO BID #5 cap 01/17/19 [Rx] predniSONE 40 mg PO WITHBREAKFAST #10 tablet 01/17/19 [Rx] LORazepam [Ativan] 0.5 mg PO BID PRN #10 tablet 02/06/19 [Rx] Albuterol/Ipratropium [DuoNeb 3.0-0.5 MG/3 ML] 3 ml NEB Q6HR PRN #25 neb [Rx] Doxycycline [Vibramycin] 100 mg PO BID #20 cap 04/18/19 [Rx] Past Medical History HEENT History: Reports: Glaucoma, Impaired Vision Cardiovascular History: Reports: Arrhythmia, High Cholesterol, Hypertension Other Cardiovascular History: svt and pvc Respiratory History: Reports: Pneumonia, Recurrent, Sleep Apnea Gastrointestinal History: Reports: Hemorrhoids, Other (See Below) Other Gastrointestinal History: hernia Genitourinary History: Reports: STD, Other (See Below) Other Genitourinary History: stress incontinence. cervical hpv SOCIAL SCIENCES INSTRUCTOR History: Reports: Other (See Below) Other SOCIAL SCIENCES INSTRUCTOR History: menopause Musculoskeletal History: Reports: Back Pain, Chronic Other Musculoskeletal History: congenital musculoskeletal deformity of spine, internal derangement of knee, scoliosis Neurological History: Reports: Other (See Below) Other Neuro History: bells palsy Psychiatric History: Reports: Schizophrenia, Other (See Below) Other Psychiatric History: developmental delay, personality disorder, SAD Endocrine/Metabolic History: Reports: Diabetes, Type II, Obesity/BMI 30+ Hematologic History: Reports: Anemia Dermatologic History: Reports: Other (See Below) Other Dermatologic History: dermatophytosis of nail - Infectious Disease History Infectious Disease History: Reports: None - Past Surgical History HEENT Surgical History: Reports: Tonsillectomy Cardiovascular Surgical History: Reports: None Respiratory Surgical History: Reports: None Other Respiratory Surgeries/Procedures: states that her CPAP machine "was taken away" d/t improper cleaning GI Surgical History: Reports: Cholecystectomy Female Surgical History: Reports: Section Endocrine Surgical History: Reports: None Neurological Surgical History: Reports: Scoliosis Musculoskeletal Surgical History: Reports: Other (See Below) Other Musculoskeletal Surgeries/Procedures:: cervical surgery Dermatological Surgical History: Reports: None Social & Family History - Family History Family Medical History: Noncontributory - Tobacco Use Smoking Status *Q: Never Smoker - Caffeine Use Caffeine Use: Reports: Coffee - Living Situation & Occupation Living situation: Reports: Single Occupation: Disabled ED ROS GENERAL - Review of Systems Review Of Systems: See Below Constitutional: Reports: No Symptoms HEENT: Reports: No Symptoms Respiratory: Reports: Shortness of Breath, Cough Cardiovascular: Reports: No Symptoms Endocrine: Reports: No Symptoms GI/Abdominal: Reports: No Symptoms : Reports: No Symptoms ED EXAM, GENERAL - Physical Exam Exam: See Below Exam Limited By: No Limitations General Appearance: Alert, No Apparent Distress Ears: Normal External Exam Nose: Normal Inspection Head: Atraumatic, Normocephalic Neck: Normal Inspection Respiratory/Chest: No Respiratory Distress, Decreased Breath Sounds Cardiovascular: Regular Rate, Rhythm, No Edema, No Murmur GI/Abdominal: Soft, Non-Tender, No Organomegaly, No Mass Back Exam: Normal Inspection Course - Vital Signs Last Recorded V/S: Last Vital Signs Temp 97.9 F 04/18/19 06:33 Pulse 74 04/18/19 06:33 Resp 20 04/18/19 06:33 BP 115/71 04/18/19 06:33 Pulse Ox 94 L 04/18/19 07:01 - Orders/Labs/Meds Orders: Active Orders 24 hr Category Date Time Status Cardiac Monitoring [RC] . DIRECTED Care 04/18/19 06:47 Active EKG Documentation Completion [RC] STAT Care 04/18/19 06:47 Active Oxygen Therapy [RC] PRN Care 04/18/19 06:47 Active Peripheral IV Care [RC] . DIRECTED Care 04/18/19 06:48 Active RT Aerosol Therapy [RC] ASDIRECTED Care 04/18/19 06:48 Active Chest 1V Frontal [CR] Stat Exams 04/18/19 06:48 Taken Sodium Chloride 0.9% [Saline Flush] Med 04/18/19 06:47 Active 10 ml FLUSH ASDIRECTED PRN Peripheral IV Insertion Adult [OM.PC] Stat Oth 04/18/19 06:47 Ordered Medication Orders Sodium Chloride (Saline Flush) 10 ml FLUSH ASDIRECTED PRN PRN Reason: Keep Vein Open Labs: Laboratory Tests 04/18/19 04/18/19 04/18/19 Range/Units 07:06 07:06 07:06 WBC 13.24 H (3.98-10.04) K/mm3 RBC 4.26 (3.98-5.22) M/mm3 Hgb 12.5 (11.2-15.7) gm/L Hct 41.4 (34.1-44.9) % MCV 97.2 H D (79.4-94.8) fl MCH 29.3 (25.6-32.2) pg MCHC 30.2 L (32.2-35.5) g/dl RDW Std Deviation 50.8 H (36.4-46.3) fL Plt Count 277 (182-369) K/mm3 MPV 9.6 (9.4-12.3) fl Neut % (Auto) 51.8 (34.0-71.1) % Lymph % (Auto) 27.6 (19.3-51.7) % [place] % (Auto) 10.8 (4.7-12.5) % Eos % (Auto) 8.3 H (0.7-5.8) Baso % (Auto) 1.2 (0.1-1.2) % Neut # (Auto) 6.86 H (1.56-6.13) K/mm3 Lymph # (Auto) 3.65 (1.18-3.74) K/mm3 [place] # (Auto) 1.43 H (0.24-0.36) K/mm3 Eos # (Auto) 1.10 H (0.04-0.36) K/mm3 Baso # (Auto) 0.16 H (0.01-0.08) K/mm3 Sodium 145 (136-145) mEq/L Potassium 4.2 (3.5-5.1) mEq/L Chloride 105 (98-107) mEq/L Carbon Dioxide 37 H (21-32) mEq/L Anion Gap 7.2 (5-15) BUN 15 (7-18) mg/dL Creatinine 0.7 (0.55-1.02) mg/dL Est Cr Clr Drug Dosing TNP Estimated GFR (MDRD) > 60 (>60) mL/min BUN/Creatinine Ratio 21.4 H (14-18) Glucose 98 (74-106) mg/dL Calcium 8.9 (8.5-10.1) mg/dL Total Bilirubin 0.2 (0.2-1.0) mg/dL AST 16 (15-37) U/L ALT 24 (14-59) U/L Alkaline Phosphatase 85 (46-116) U/L Troponin I < 0.017 (0.00-0.056) ng/mL NT-Pro-B Natriuret Pep 103 (0-125) pg/mL Total Protein 6.8 (6.4-8.2) g/dl Albumin 3.2 L (3.4-5.0) g/dl Globulin 3.6 gm/dL Albumin/Globulin Ratio 0.9 L (1-2) Meds: Medications Generic Name Dose Route Start Last Admin Trade Name Freq PRN Reason Stop Dose Admin Sodium Chloride 10 ml 04/18/19 06:47 Saline Flush FLUSH ASDIRECTED PRN Keep Vein Open Discontinued Medications Generic Name Dose Route Start Last Admin Trade Name Freq PRN Reason Stop Dose Admin Albuterol/Ipratropium 3 ml 04/18/19 06:48 04/18/19 07:00 Duoneb 3.0-0.5 Mg/3 Ml NEB 04/18/19 06:49 3 ml ONETIME ONE Administration - Re-Assessments/Exams Free Text/Narrative Re-Assessment/Exam: 04/18/19 08:24 I ordered oxygen, duoneb, IV saline lock, EKG, CXR and labs. She did not want an IV. Her CXR shows an elevated left hemidiaphragm with infiltrate on the left. Her WBC is elevated at 13.24. 04/18/19 08:25 Her troponin is negative. Her EKG shows a NSR with no acute changes. I feel she has an early pneumnia. I will start her on some doxycycline, oxygen and duonebs. Departure - Departure Time of Disposition: 08:30 Disposition: Home, Self-Care 01 Condition: Good Clinical Impression: Hypoxia Pneumonia Qualifiers: Pneumonia type: due to unspecified organism Laterality: left Lung location: lower lobe of lung Qualified Code(s): J18.1 - Lobar pneumonia, unspecified organism - Discharge Information *PRESCRIPTION DRUG MONITORING PROGRAM REVIEWED*: No *COPY OF PRESCRIPTION DRUG MONITORING REPORT IN PATIENT ROGERS: No Prescriptions: Albuterol/Ipratropium [DuoNeb 3.0-0.5 MG/3 ML] 3 ml NEB Q6HR PRN #25 neb PRN Reason: Shortness Of Breath Doxycycline [Vibramycin] 100 mg PO BID #20 cap Referrals: Juwan Ty MD [Primary Care Provider] - 1 Week Additional Instructions: Take the doxycycline 2 times per day for 10 days. Use the duoneb every 6 hours as needed for shortness of breath. Use the oxygen at 2L [place] to keep saturations above 92%. Please return if you are worse. - My Orders Last 24 Hours: My Active Orders 04/18/19 06:47 Cardiac Monitoring [RC] . DIRECTED EKG Documentation Completion [RC] STAT Oxygen Therapy [RC] PRN Sodium Chloride 0.9% [Saline Flush] 10 ml FLUSH ASDIRECTED PRN Peripheral IV Insertion Adult [OM.PC] Stat 04/18/19 06:48 Peripheral IV Care [RC] . DIRECTED RT Aerosol Therapy [RC] ASDIRECTED Chest 1V Frontal [CR] Stat - Assessment/Plan Last 24 Hours: My Active Orders 04/18/19 06:47 Cardiac Monitoring [RC] . DIRECTED EKG Documentation Completion [RC] STAT Oxygen Therapy [RC] PRN Sodium Chloride 0.9% [Saline Flush] 10 ml FLUSH ASDIRECTED PRN Peripheral IV Insertion Adult [OM.PC] Stat 04/18/19 06:48 Peripheral IV Care [RC] . DIRECTED RT Aerosol Therapy [RC] ASDIRECTED Chest 1V Frontal [CR] Stat
[2019-04-18] MEDS ORDERED: cefTRIAXone 1 GM, Lidocaine 1% 2.1 ML IM SCH ×2 (08:45)
--- NOTE | 2019-04-18 08:57 | CR ---
Chest: Portable view of the chest was obtained. Comparison: Prior chest x-ray of 02/06/19. Elevated left hemidiaphragm is seen. Air-filled bowel is noted beneath the hemidiaphragm. Elevated diaphragm causes mild compressive atelectasis. Lungs otherwise are clear. Heart size difficult to evaluate due to the elevated left hemidiaphragm. Bony structures are grossly intact. Impression: 1. Elevated left hemidiaphragm with air filled bowel beneath this diaphragm. Mild compressive atelectasis is noted. 2. Nothing acute is appreciated. No change is appreciated from prior chest x-ray. Diagnostic code #2
[2019-04-18 09:46] VITALS: BP 114/87
== END 2019-04-18 09:30 | disposition home or self-care (01) ==
LOC: JD.ED 06:29
DX: J18.1 Lobar pneumonia, unspecified organism (principal); R09.02 Hypoxemia; E78.00 Pure hypercholesterolemia, unspecified; I10 Essential (primary) hypertension; E11.9 Type 2 diabetes mellitus without complications; Z88.0 Allergy status to penicillin; Z88.1 Allergy status to other antibiotic agents; Z79.899 Other long term (current) drug therapy; Z79.84 Long term (current) use of oral hypoglycemic drugs
CPT/HCPCS: 36415; 71045; 80053; 83880; 84484; 85025; 93005; 94640; 96372; 99285; J0696; J2001; J7620-GY

== ENCOUNTER 2019-05-09 15:01 | Inpatient (IN) | payer MEDICARE, MEDICAID ==
--- NOTE | 2019-05-09 17:48 | EDM.PDOC ---
ED HPI GENERAL MEDICAL PROBLEM - General Chief Complaint: Respiratory Problem Stated Complaint: [facility] Time Seen by Provider: 05/09/19 17:39 Source of Information: Reports: Patient History Limitations: Reports: Respiratory Distress (Patient is mentally handicapped.), Other (Appears to be mildly mentally handicapped.) - History of Present Illness INITIAL COMMENTS - FREE TEXT/NARRATIVE: 58-year-old female presents to the ED per [facility] with reported increased fever chills and productive cough in spite of being treated as an outpatient with Levaquin 500 mg IV for 6 days for pneumonia. Confirmation of this information is not yet available to me. She apparently seen physician clinical data assistant Clair Law in the clinic about a week ago. is unsure. She is usually followed by Dr. Ty who is out of the clinic this week. She states her appetite is still good. She states that she has had some diarrhea from the antibiotics. She doesn't comment on how much. Doesn't think there is any blood in the stool. She is still coughing paroxysmal he. She denies bringing up any sputum. O2 sats were apparently 87-88% earlier today on 1 L/m of oxygen. Placed on 4 L/m by nasal cannula by triage nurse. She was also incontinent of urine twice today which is unusual for her. Onset: Other (Has been sick for a week.) Onset Date: 05/02/19 Duration: Day(s):, Getting Worse Location: Reports: Chest (Persistent fever increasing hypoxia shortness of breath and productive cough. She claims she's not coughing any sputum up over.) Quality: Reports: Other (Fever chills productive cough) Severity: Moderate Improves with: Reports: Rest Worsens with: Reports: Movement Context: Denies: Activity, Exercise (Worse with trying to walk even from the bathroom to the bedroom.), Lifting, Sick Contact, Trauma, Other Associated Symptoms: Reports: Cough, cough w sputum, Fever/Chills, Loss of Appetite, Malaise, Shortness of Breath, Weakness. 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 below) - Related Data Allergies Allergy/AdvReac Type Severity Reaction Status Date / Time penicillin V Allergy Cannot Verified 05/09/19 15:10 Remember vancomycin Allergy Cannot Verified 05/09/19 15:10 Remember Home Meds: Home Meds Carboxymethylcellulose Sodium [Lubricant Eye Drop] 1 drop EYEBOTH TID 11/13/16 [ History] Cholecalciferol (Vitamin D3) [Vitamin D3] 5,000 unit PO DAILY 11/13/16 [History] Latanoprost [Xalatan 0.005% Ophth Soln] 1 drop EYEBOTH DAILY 11/13/16 [History] Nitroglycerin [Nitrostat] 0.4 mg SL ASDIRECTED PRN 11/13/16 [History] metFORMIN [Glucophage] 500 mg PO BID 11/13/16 [History] Citalopram [Citalopram HBr] 20 mg PO DAILY 01/11/19 [History] Fluticasone Propionate [Flonase] 1 spray ANNETTE DAILY PRN 01/11/19 [History] Losartan/Hydrochlorothiazide [Losartan-HCTZ 50-12.5 MG] 1 tab PO DAILY 01/11/19 [History] Rosuvastatin Calcium 40 mg PO DAILY 01/11/19 [History] Sennosides [Senna] 8.6 mg PO DAILY 01/11/19 [History] Acetaminophen 325 mg PO Q4H PRN 01/12/19 [History] Loperamide [Imodium] 2 mg PO ASDIRECTED 01/12/19 [History] Multivitamin with Minerals [One Daily Plus Minerals] 1 each PO DAILY 01/12/19 [ History] Phenylephrine-Mineral Oil-Petrolatum. 1 tube RECTAL BID PRN 01/12/19 [History] Cefdinir [Omnicef] 300 mg PO BID #5 cap 01/17/19 [Rx] predniSONE 40 mg PO WITHBREAKFAST #10 tablet 01/17/19 [Rx] LORazepam [Ativan] 0.5 mg PO BID PRN #10 tablet 02/06/19 [Rx] Albuterol/Ipratropium [DuoNeb 3.0-0.5 MG/3 ML] 3 ml NEB Q6HR PRN #25 neb [Rx] Doxycycline [Vibramycin] 100 mg PO BID #20 cap 04/18/19 [Rx] Past Medical History HEENT History: Reports: Glaucoma, Impaired Vision Cardiovascular History: Reports: Arrhythmia, High Cholesterol, Hypertension Other Cardiovascular History: svt and pvc Respiratory History: Reports: Pneumonia, Recurrent, Sleep Apnea Gastrointestinal History: Reports: Hemorrhoids, Other (See Below) Other Gastrointestinal History: hernia Genitourinary History: Reports: STD, Other (See Below) Other Genitourinary History: stress incontinence. 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: Other (See Below) Other CONTINUOUS ABSORPTION PROCESS OPERATOR History: menopause Musculoskeletal History: Reports: Back Pain, Chronic Other Musculoskeletal History: congenital musculoskeletal deformity of spine, internal derangement of knee, scoliosis Neurological History: Reports: Other (See Below) Other Neuro History: bells palsy Psychiatric History: Reports: Schizophrenia, Other (See Below) Other Psychiatric History: developmental delay, personality disorder, SAD Endocrine/Metabolic History: Reports: Diabetes, Type II, Obesity/BMI 30+ Hematologic History: Reports: Anemia Dermatologic History: Reports: Other (See Below) Other Dermatologic History: dermatophytosis of nail - Infectious Disease History Infectious Disease History: Reports: None - Past Surgical History HEENT Surgical History: Reports: Tonsillectomy Cardiovascular Surgical History: Reports: None Respiratory Surgical History: Reports: None Other Respiratory Surgeries/Procedures: states that her CPAP machine "was taken away" d/t improper cleaning GI Surgical History: Reports: Cholecystectomy Female Surgical History: Reports: Section Endocrine Surgical History: Reports: None Neurological Surgical History: Reports: Scoliosis Musculoskeletal Surgical History: Reports: Other (See Below) Other Musculoskeletal Surgeries/Procedures:: cervical surgery Dermatological Surgical History: Reports: None Social & Family History - Family History Family Medical History: Noncontributory - Tobacco Use Smoking Status *Q: Never Smoker - Caffeine Use Caffeine Use: Reports: Coffee - Recreational Drug Use Recreational Drug Use: No - Living Situation & Occupation Living situation: Reports: Single, Extended Care Facility (Patient is currently a resident at [facility]. She's no longer in a retirement setting) Occupation: Disabled ED ROS GENERAL - Review of Systems Review Of Systems: See Below Constitutional: Reports: Fever, Chills, Malaise, Weakness, Fatigue. Denies: Decreased Appetite HEENT: Reports: Hearing Loss Respiratory: Reports: Shortness of Breath, Cough, Sputum Cardiovascular: Reports: Dyspnea on Exertion (Chronically lower extremities), Edema. Denies: Chest Pain, Blood Pressure Problem, Claudication, Lightheadedness, Orthopnea Endocrine: Reports: Fatigue ( eating worse.) GI/Abdominal: Reports: Diarrhea, Other (Reported blood in the stool.). Denies: Abdominal Pain, Anorexia, Black Stool, Bloody Stool, Decreased Appetite (She seems to have some loose stools well since being on the Levaquin.) : Reports: Frequency, Incontinence (I'm unclear if this is cough related), Urgency Musculoskeletal: Reports: Neck Pain, Shoulder Pain, Back Pain, Joint Pain Skin: Reports: No Symptoms Neurological: Reports: Difficulty Walking. Denies: Confusion, Dizziness, Headache, Numbness, Syncope, Tingling, Tremors, Trouble Speaking (Chronically), Weakness, Change in Speech, Gait Disturbance Psychiatric: Reports: Confusion (Apparently she was acting more confused to) Hematologic/Lymphatic: Reports: No Symptoms ( care workers today.) Immunologic: Reports: No Symptoms ED EXAM, GENERAL - Physical Exam Exam: See Below Exam Limited By: Respiratory Distress (Patient appears to be mentally challenged. She is working hard to breathe with a respiratory to 32-36/m with O2 sats of 92% on 4 L.) General Appearance: Alert, WD/WN, No Apparent Distress (Espino's that she's no worse for wear.) Eye Exam: Bilateral Eye: Normal Inspection Throat/Mouth: Normal Inspection, Normal Oropharynx, Other (Lips are chapped and dry.). No: Normal Lips, Normal Teeth Head: Atraumatic, Normocephalic Neck: Limited Range of Motion, Other (Patient has a very short stocky neck. He has a face suggesting almost acromegaly.). No: Normal Inspection, Carotid Bruit , Lymphadenopathy (L), Lymphadenopathy (R), Thyromegaly Respiratory/Chest: Respiratory Distress (Marked tachypnea at rest 32/m.), Decreased Breath Sounds, Other. No: Rales (Breath sounds are diminished in the lower 25% of lung lees posteriorly.), Rhonchi, Wheezing Cardiovascular: No Gallop, No Murmur, No Rub. No: Normal Peripheral Pulses Peripheral Pulses: 1+: Posterior Tibial (L), Posterior Tibial (R), Dorsalis Pedis (L), Dorsalis Pedis (R) GI/Abdominal: Normal Bowel Sounds, Soft, Non-Tender, No Organomegaly, No Abnormal Bruit, No Mass, Pelvis Stable Back Exam: Decreased Range of Motion, Other. No: Full Range of Motion Extremities: Pedal Edema, Joint Swelling (1-2+ pitting edema both lower extremities. Knees with very limited range of motion of her hips on internal/ external rotation suggesting significant arthritis bilaterally.) Neurological: Alert, Oriented, CN II-XII Intact, Other (Appears to have short- term memory impairment. He denies being incontinent today.) Psychiatric: Other Skin Exam: Warm (Somewhat grouchy demeanor.), Dry, Intact, Normal Color, No Rash EKG INTERPRETATION EKG Date: 05/09/19 Time: 18:20 Rhythm: A-Fib (With a rate of 72-1 10/m) Rate (Beats/Min): 90 Purcell: Normal P-Wave: Variable QRS: Other (There is early R-wave transition consider right ventricular hypertrophy pattern versus septal hypertrophy pattern. There is decreased voltage in the limb leads.) ST-T: Normal QT: Normal EKG Interpretation Comments: Abnormal ECG Course - Vital Signs Last Recorded V/S: Last Vital Signs Temp 38.5 C H 05/09/19 15:06 Pulse 86 05/09/19 15:06 Resp 32 H 05/09/19 15:06 BP 122/85 05/09/19 15:06 Pulse Ox 92 L 05/09/19 15:06 - Orders/Labs/Meds Orders: Active Orders 24 hr Category Date Time Status Patient Status [ADT] Routine ADT 05/09/19 19:09 Active EKG Documentation Completion [RC] STAT Care 05/09/19 17:44 Active Oxygen Therapy [RC] ASDIRECTED Care 05/09/19 17:45 Active RT Aerosol Therapy [RC] ASDIRECTED Care 05/09/19 18:01 Active Chest 1V Frontal [CR] Stat Exams 05/09/19 17:44 Taken CULTURE BLOOD [BC] Stat Lab 05/09/19 15:42 Received CULTURE BLOOD [BC] Stat Lab 05/09/19 15:58 Received LACTIC ACID [CHEM] Stat Lab 05/09/19 18:32 Received URINALYSIS W/MICROSCOPIC [UA W/MICROSCOPIC] [URIN] Stat Lab 05/09/19 17:45 Ordered Linezolid [Zyvox] 600 mg Med 05/09/19 18:56 Active Premix Bag 1 bag IV ONETIME Sodium Chloride 0.9% [Normal Saline] 1,000 ml Med 09/17/19 17:45 Active IV ASDIRECTED Blood Culture x2 Reflex Set [OM.PC] Stat Oth 05/09/19 15:13 Ordered Medication Orders Sodium Chloride (Normal Saline) 1,000 mls @ 100 mls/hr IV ASDIRECTED CANDIE Last Admin: 05/09/19 18:36 Dose: 100 mls/hr Linezolid 600 mg/ Premix 300 mls @ 300 mls/hr IV ONETIME ONE Stop: 05/09/19 19:55 Last Admin: 05/09/19 19:10 Dose: 300 mls/hr Labs: Laboratory Tests 05/09/19 05/09/19 05/09/19 Range/Units 15:42 15:42 15:42 WBC 14.22 H (3.98-10.04) K/mm3 RBC 4.02 (3.98-5.22) M/mm3 Hgb 11.9 (11.2-15.7) gm/dl Hct 40.7 (34.1-44.9) % MCV 101.2 H D (79.4-94.8) fl MCH 29.6 (25.6-32.2) pg MCHC 29.2 L (32.2-35.5) g/dl RDW Std Deviation 50.2 H (36.4-46.3) fL Plt Count 262 (182-369) K/mm3 MPV 9.8 (9.4-12.3) fl Neut % (Auto) 59.5 (34.0-71.1) % Lymph % (Auto) 19.3 (19.3-51.7) % Benton % (Auto) 13.2 H (4.7-12.5) % Eos % (Auto) 6.5 H (0.7-5.8) Baso % (Auto) 1.3 H (0.1-1.2) % Neut # (Auto) 8.45 H (1.56-6.13) K/mm3 Lymph # (Auto) 2.75 (1.18-3.74) K/mm3 Benton # (Auto) 1.88 H (0.24-0.36) K/mm3 Eos # (Auto) 0.93 H (0.04-0.36) K/mm3 Baso # (Auto) 0.18 H (0.01-0.08) K/mm3 Manual Slide Review Abnormal smear PT (9.7-12.0) SECONDS INR Puncture Site ABG pH (7.35-7.45) ABG pCO2 (35.0-45.0) mmHg ABG pO2 (80.0-100.0) mmHg ABG HCO3 (22.0-26.0) meq/L ABG O2 Saturation (96.0-97.0) % ABG Base Excess (-2-2.0) Anup Test A-a Gradient mmHg O2 Delivery Device Oxygen Flow Rate FiO2 (21.00-100.00) % Sodium 143 (136-145) mEq/L Potassium 4.3 (3.5-5.1) mEq/L Chloride 104 (98-107) mEq/L Carbon Dioxide 40 H (21-32) mEq/L Anion Gap 3.3 L (5-15) BUN 11 (7-18) mg/dL Creatinine 0.8 (0.55-1.02) mg/dL Est Cr Clr Drug Dosing 55.06 mL/min Estimated GFR (MDRD) > 60 (>60) mL/min BUN/Creatinine Ratio 13.8 L (14-18) Glucose 105 (74-106) mg/dL Calcium 9.6 (8.5-10.1) mg/dL Magnesium 2.2 (1.8-2.4) mg/dl Total Bilirubin 0.3 (0.2-1.0) mg/dL AST 13 L (15-37) U/L ALT 23 (14-59) U/L Alkaline Phosphatase 86 (46-116) U/L CK-MB (CK-2) 0.5 (0-3.6) ng/ml Troponin I < 0.017 (0.00-0.056) ng/mL C-Reactive Protein 1.4 H* (<1.0) mg/dL NT-Pro-B Natriuret Pep (0-125) pg/mL Total Protein 7.0 (6.4-8.2) g/dl Albumin 3.3 L (3.4-5.0) g/dl Globulin 3.7 gm/dL Albumin/Globulin Ratio 0.9 L (1-2) TSH 3rd Generation (0.358-3.74) uIU/mL 05/09/19 05/09/19 05/09/19 Range/Units 15:42 18:03 18:32 WBC (3.98-10.04) K/mm3 RBC (3.98-5.22) M/mm3 Hgb (11.2-15.7) gm/dl Hct (34.1-44.9) % MCV (79.4-94.8) fl MCH (25.6-32.2) pg MCHC (32.2-35.5) g/dl RDW Std Deviation (36.4-46.3) fL Plt Count (182-369) K/mm3 MPV (9.4-12.3) fl Neut % (Auto) (34.0-71.1) % Lymph % (Auto) (19.3-51.7) % Benton % (Auto) (4.7-12.5) % Eos % (Auto) (0.7-5.8) Baso % (Auto) (0.1-1.2) % Neut # (Auto) (1.56-6.13) K/mm3 Lymph # (Auto) (1.18-3.74) K/mm3 Benton # (Auto) (0.24-0.36) K/mm3 Eos # (Auto) (0.04-0.36) K/mm3 Baso # (Auto) (0.01-0.08) K/mm3 Manual Slide Review PT 11.2 (9.7-12.0) SECONDS INR 1.03 Puncture Site Rt radial ABG pH 7.37 (7.35-7.45) ABG pCO2 71.8 H* (35.0-45.0) mmHg ABG pO2 68.0 L (80.0-100.0) mmHg ABG HCO3 40.7 H (22.0-26.0) meq/L ABG O2 Saturation 93.2 L (96.0-97.0) % ABG Base Excess 12.8 H (-2-2.0) Anup Test Positive A-a Gradient 71 mmHg O2 Delivery Device Nasal cannula Oxygen Flow Rate 3.0 FiO2 32.00 (21.00-100.00) % Sodium (136-145) mEq/L Potassium (3.5-5.1) mEq/L Chloride (98-107) mEq/L Carbon Dioxide (21-32) mEq/L Anion Gap (5-15) BUN (7-18) mg/dL Creatinine (0.55-1.02) mg/dL Est Cr Clr Drug Dosing mL/min Estimated GFR (MDRD) (>60) mL/min BUN/Creatinine Ratio (14-18) Glucose (74-106) mg/dL Calcium (8.5-10.1) mg/dL Magnesium (1.8-2.4) mg/dl Total Bilirubin (0.2-1.0) mg/dL AST (15-37) U/L ALT (14-59) U/L Alkaline Phosphatase (46-116) U/L CK-MB (CK-2) (0-3.6) ng/ml Troponin I (0.00-0.056) ng/mL C-Reactive Protein (<1.0) mg/dL NT-Pro-B Natriuret Pep (0-125) pg/mL Total Protein (6.4-8.2) g/dl Albumin (3.4-5.0) g/dl Globulin gm/dL Albumin/Globulin Ratio (1-2) TSH 3rd Generation 1.365 (0.358-3.74) uIU/mL 05/09/19 Range/Units 18:32 WBC (3.98-10.04) K/mm3 RBC (3.98-5.22) M/mm3 Hgb (11.2-15.7) gm/dl Hct (34.1-44.9) % MCV (79.4-94.8) fl MCH (25.6-32.2) pg MCHC (32.2-35.5) g/dl RDW Std Deviation (36.4-46.3) fL Plt Count (182-369) K/mm3 MPV (9.4-12.3) fl Neut % (Auto) (34.0-71.1) % Lymph % (Auto) (19.3-51.7) % Benton % (Auto) (4.7-12.5) % Eos % (Auto) (0.7-5.8) Baso % (Auto) (0.1-1.2) % Neut # (Auto) (1.56-6.13) K/mm3 Lymph # (Auto) (1.18-3.74) K/mm3 Benton # (Auto) (0.24-0.36) K/mm3 Eos # (Auto) (0.04-0.36) K/mm3 Baso # (Auto) (0.01-0.08) K/mm3 Manual Slide Review PT (9.7-12.0) SECONDS INR Puncture Site ABG pH (7.35-7.45) ABG pCO2 (35.0-45.0) mmHg ABG pO2 (80.0-100.0) mmHg ABG HCO3 (22.0-26.0) meq/L ABG O2 Saturation (96.0-97.0) % ABG Base Excess (-2-2.0) Anup Test A-a Gradient mmHg O2 Delivery Device Oxygen Flow Rate FiO2 (21.00-100.00) % Sodium (136-145) mEq/L Potassium (3.5-5.1) mEq/L Chloride (98-107) mEq/L Carbon Dioxide (21-32) mEq/L Anion Gap (5-15) BUN (7-18) mg/dL Creatinine (0.55-1.02) mg/dL Est Cr Clr Drug Dosing mL/min Estimated GFR (MDRD) (>60) mL/min BUN/Creatinine Ratio (14-18) Glucose (74-106) mg/dL Calcium (8.5-10.1) mg/dL Magnesium (1.8-2.4) mg/dl Total Bilirubin (0.2-1.0) mg/dL AST (15-37) U/L ALT (14-59) U/L Alkaline Phosphatase (46-116) U/L CK-MB (CK-2) (0-3.6) ng/ml Troponin I (0.00-0.056) ng/mL C-Reactive Protein (<1.0) mg/dL NT-Pro-B Natriuret Pep 247 H (0-125) pg/mL Total Protein (6.4-8.2) g/dl Albumin (3.4-5.0) g/dl Globulin gm/dL Albumin/Globulin Ratio (1-2) TSH 3rd Generation (0.358-3.74) uIU/mL Meds: Medications Generic Name Dose Route Start Last Admin Trade Name Freq PRN Reason Stop Dose Admin Sodium Chloride 1,000 mls @ 100 mls/hr 09/17/19 17:45 05/09/19 18:36 Normal Saline IV 100 mls/hr ASDIRECTED CANDIE Administration Linezolid 600 mg/ Premix 300 mls @ 300 mls/hr 05/09/19 18:56 05/09/19 19:10 IV 05/09/19 19:55 300 mls/hr ONETIME ONE Administration Discontinued Medications Generic Name Dose Route Start Last Admin Trade Name Sandra PRN Reason Stop Dose Admin Albuterol/Ipratropium 3 ml 05/09/19 18:00 Duoneb 3.0-0.5 Mg/3 Ml NEB 05/09/19 18:01 ONETIME ONE - Radiology Interpretation Free Text/Narrative:: 58-year-old female who appears much older than her stated age presents to the ED at the request of her care providers from the retirement setting that she lives in. Patient apparently has been on Levaquin presumably 500 mg orally daily for the last week for diagnosed pneumonia by Clair Law at [facility]. Today she seemed to spike a fever again and O2 sats remained 88-89% on 1 L/m by nasal cannula. She was also incontinent of urine 2 today which is unusual for her. Apparently she has been eating fairly well. Patient is mentally challenge and therefore an accurate history is difficult to obtain. She is deathly hypoxic on room air. ABGs will be done. She will be placed on 4 L of oxygen by nasal cannula. She will have an ECG. Portal chest x-ray septic workup to include lactic acid blood cultures 2. Urine by catheterization. ABGs are also to be done. - Re-Assessments/Exams Free Text/Narrative Re-Assessment/Exam: 05/09/19 18:48 she is achieving sats of 92-93% and occasional to 94% on 3 L/m. Her ABGs show that she is a CO2 retainer with a PCO2 of 71.8. PH was 7.37. PaO2 is 68. Sats were 93.2% on 3 L/m. With her current mental handicap status I do not believe she would tolerate a Venturi mask or BiPAP. Therefore going to leave well enough alone at 3 L/m for now. Her chest x-ray reveals a chronically elevated left hemidiaphragm with a large amount of gas filled colon up underneath the diaphragm. This compresses about 50% of the lung field. There is an infiltrate along the right cardiac border which well may be fluid versus pneumonia. 05/09/19 18:54 White count is elevated at 14.2 to with an auto differential of 59.5% neutrophils. Hemoglobin is 11.9 with hematocrit of 40.7. MCV is mildly elevated at 101.2. Platelet count is 2 or 62,000.. Sodium is 143 with a potassium of 4.3. Chloride is 104 the bicarbonate of 40. This indicates she is a CO2 retainer which is confirmed by blood gases. Anion gap is low at 3.3. BUN is 11 with a creatinine of 0.8. GFR is greater than 60. Glucose is 105 calcium is 9.6. Magnesium is 2.2. Liver function is normal. CK-MB fraction 0.5 with a troponin I of less than 0.017. C-reactive protein is 1.4 barely elevated. BNP is 247. Total protein 7.0 with an albumin fraction slightly low at 3.3. Globulin is normal at 3.7. TSH is normal at 1.365. The labs suggest that she still has a pulmonary infiltrate or pneumonia. Her antibiotic will be changed to Zyvox 600 mg IV. 05/09/19 19:15 CODE STATUS listed on her form from [facility] is full code. Patient will therefore be admitted under the care of Dr. Irma Melo [facility] hospitalist to [facility] telemetry floor. Diagnosis is pneumonia with hypoxemia. Also hypercarbia causing transient confusion disorientation and incontinence of urine today 2 Departure - Departure Time of Disposition: 19:15 Disposition: Admitted As Inpatient 66 Condition: Poor Clinical Impression: Hypoxemia, Acute respiratory failure with hypoxia and hypercarbia, Confusion associated with infection, Atrial fibrillation by electrocardiogram Pneumonia Qualifiers: Pneumonia type: due to unspecified organism Laterality: left Lung location: lower lobe of lung Qualified Code(s): J18.1 - Lobar pneumonia, unspecified organism - Discharge Information *PRESCRIPTION DRUG MONITORING PROGRAM REVIEWED*: Not Applicable *COPY OF PRESCRIPTION DRUG MONITORING REPORT IN PATIENT ROGERS: Not Applicable Instructions: Hypoxemia, Confusion, Shortness of Breath, Adult, [id number], Chronic Obstructive Pulmonary Disease Exacerbation, [id number] Referrals: Juwan Ty MD [Primary Care Provider] - Forms: ED Department Discharge - My Orders Last 24 Hours: My Active Orders 05/09/19 15:13 Blood Culture x2 Reflex Set [OM.PC] Stat 05/09/19 15:42 CULTURE BLOOD [BC] Stat 05/09/19 15:58 CULTURE BLOOD [BC] Stat 05/09/19 17:44 EKG Documentation Completion [RC] STAT Chest 1V Frontal [CR] Stat 05/09/19 17:45 Oxygen Therapy [RC] ASDIRECTED URINALYSIS W/MICROSCOPIC [UA W/MICROSCOPIC] [URIN] Stat Sodium Chloride 0.9% [Normal Saline] 1,000 ml IV ASDIRECTED 05/09/19 18:01 RT Aerosol Therapy [RC] ASDIRECTED 05/09/19 18:32 LACTIC ACID [CHEM] Stat 05/09/19 18:56 Linezolid [Zyvox] 600 mg Premix Bag 1 bag IV ONETIME 05/09/19 19:09 Patient Status [ADT] Routine - Assessment/Plan Last 24 Hours: My Active Orders 05/09/19 15:13 Blood Culture x2 Reflex Set [OM.PC] Stat 05/09/19 15:42 CULTURE BLOOD [BC] Stat 05/09/19 15:58 CULTURE BLOOD [BC] Stat 05/09/19 17:44 EKG Documentation Completion [RC] STAT Chest 1V Frontal [CR] Stat 05/09/19 17:45 Oxygen Therapy [RC] ASDIRECTED URINALYSIS W/MICROSCOPIC [UA W/MICROSCOPIC] [URIN] Stat Sodium Chloride 0.9% [Normal Saline] 1,000 ml IV ASDIRECTED 05/09/19 18:01 RT Aerosol Therapy [RC] ASDIRECTED 05/09/19 18:32 LACTIC ACID [CHEM] Stat 05/09/19 18:56 Linezolid [Zyvox] 600 mg Premix Bag 1 bag IV ONETIME 05/09/19 19:09 Patient Status [ADT] Routine
[2019-05-09] MEDS ORDERED: Albuterol/Ipratropium 3.0-0.5 MG/3 ML Neb Soln NEB ONE (18:00)
[2019-05-09] MEDS: Sodium Chloride 0.9% 1,000 ML IV SCH (18:36)
[2019-05-09] MEDS ORDERED: Linezolid 600 MG in Premix Bag 1 BAG IV ONE (18:56)
[2019-05-09] MEDS ORDERED: Promethazine 6.25 MG in Sodium Chloride 0.9% 50 ML IV PRN (20:54)
[2019-05-09] MEDS ORDERED: Acetaminophen/HYDROcodone 325-5 MG Tab PO PRN (20:54)
[2019-05-09] MEDS ORDERED: Ondansetron 4 MG/2 ML SDV IV PRN (20:54)
[2019-05-09] MEDS ORDERED: Temazepam 15 MG Cap PO PRN (20:54)
[2019-05-09] MEDS ORDERED: Docusate Sodium 100 MG Cap PO PRN (20:54)
[2019-05-09] MEDS ORDERED: Bisacodyl 5 MG Tab PO PRN (20:54)
[2019-05-09] MEDS ORDERED: Albuterol/Ipratropium 3.0-0.5 MG/3 ML Neb Soln NEB PRN (20:54)
[2019-05-09] MEDS ORDERED: Acetaminophen 325 MG Tab PO PRN (20:54)
[2019-05-09] MEDS ORDERED: guaiFENesin/Dextromethorphan 100-10 MG/5 ML Soln 5 ML Cup PO PRN (20:58)
[2019-05-09] MEDS ORDERED: Albuterol 0.083% 2.5 MG/3 ML Neb Soln NEB PRN (22:25)
[2019-05-09] MEDS ORDERED: Nitroglycerin 0.4 MG Tab.SL SL PRN (22:25)
[2019-05-09] MEDS ORDERED: Ipratropium 0.02% 0.5 MG/2.5 ML Neb Soln INH PRN (22:25)
[2019-05-09] MEDS: Saccharomyces Boulardii (Probiotic) 250 MG Cap PO SCH (22:29)
[2019-05-09] MEDS: Meropenem Premix 500 MG in Premix Bag 1 BAG IV SCH (22:30)
[2019-05-10] MEDS: Albuterol 0.083% 2.5 MG/3 ML Neb Soln NEB SCH ×3 (05:12→22:02)
[2019-05-10] MEDS: Meropenem Premix 500 MG in Premix Bag 1 BAG IV SCH ×3 (05:18→18:19)
[2019-05-10] MEDS: Sodium Chloride 0.9% 1,000 ML IV SCH ×2 (05:19→15:24)
--- NOTE | 2019-05-10 07:22 | PCM.HP.2 ---
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 She was diagnosed with presumptive pneumonia and was being treated with oral Levaquin for 6 days. Unfortunately, her symptoms did not improve. Her cough was wet but she was not able to bring it up. She arrived in ED with O2 sat in the upper 80s on 1L NC but improved once she was increased to 4 liters. Her initial work up in ED showed a CBC remarkable for WBC of 14.22, MCV of 101.2 , MCHC of 29.2, RDW of 50.2, Monocytes of 13.2%, Eosinophils of 6.5% and Basophils of 1.3%. Her ABG showed pH of 7.37, pCO2 of 71.8, pO2 of 68, HCO3 of 40.7, sating at 93% on 3L NC. Her Chemistry is significant for CO2 of 40, AG of 3.3, AST of 13 and Albumin of 3.3. Her UA was negative for UTI. Her chest x-ray report read as chronic elevated diaphragm, nothing acute is seen. Patient was admitted overnight for treatment of community acquired pneumonia. - Related Data Allergies/Adverse Reactions: Allergies Allergy/AdvReac Type Severity Reaction Status Date / Time penicillin V Allergy Cannot Verified 05/09/19 15:10 Remember vancomycin Allergy Cannot Verified 05/09/19 15:10 Remember Home Medications: Home Meds Latanoprost [Xalatan 0.005% Ophth Soln] 1 drop EYEBOTH QPM 11/13/16 [History] Nitroglycerin [Nitrostat] 0.4 mg SL ASDIRECTED PRN 11/13/16 [History] metFORMIN [Glucophage] 500 mg PO BID 11/13/16 [History] Citalopram [Citalopram HBr] 40 mg PO QPM 01/11/19 [History] Fluticasone Propionate [Flonase] 1 spray ANNETTE DAILY 01/11/19 [History] Rosuvastatin Calcium 40 mg PO QPM 01/11/19 [History] Sennosides [Senna] 8.6 mg PO DAILY 01/11/19 [History] Multivitamin with Minerals [One Daily Plus Minerals] 1 each PO DAILY 01/12/19 [ History] ARIPiprazole [Abilify] 2 mg PO QPM 05/09/19 [History] Albuterol Sulfate 2.5 mg IH Q6HR PRN 05/09/19 [History] Albuterol Sulfate 2.5 mg IH TID 05/09/19 [History] Ipratropium [place] 1 inh INH TID PRN 05/09/19 [History] LORazepam [Ativan] 0.5 mg PO Q6HR PRN 05/09/19 [History] Losartan [Cozaar] 50 mg PO DAILY 05/09/19 [History] OLANZapine [ZyPREXA] 5 mg PO QPM 05/09/19 [History] Polyvinyl Alcohol/Povidone/Pf [Refresh Classic Eye Drops] 1 drop EYEBOTH TID [History] Triamcinolone Acetonide [Triamcinolone Acetonide 0.025%] 1 applic TOP BID [History] guaiFENesin [Mucinex] 600 mg PO BID 05/09/19 [History] levoFLOXacin [Levaquin] 500 mg PO QPM 05/09/19 [History] Past Medical History HEENT History: Reports: Glaucoma, Impaired Vision Cardiovascular History: Reports: Arrhythmia, High Cholesterol, Hypertension Other Cardiovascular History: svt and pvc, heart disease Respiratory History: Reports: Pneumonia, Recurrent, Sleep Apnea Other Respiratory History: SOB Gastrointestinal History: Reports: Hemorrhoids, Other (See Below) Other Gastrointestinal History: hernia, constipation Genitourinary History: Reports: STD, Other (See Below) Other Genitourinary History: stress incontinence. 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 History: Reports: Other (See Below) Other OB/BYN History: menopause Musculoskeletal History: Reports: Back Pain, Chronic Other Musculoskeletal History: congenital musculoskeletal deformity of spine, internal derangement of knee, scoliosis Neurological History: Reports: Other (See Below) Other Neuro History: bells palsy Psychiatric History: Reports: Schizophrenia, Other (See Below) Other Psychiatric History: developmental delay, personality disorder, SAD, anxiety, intellectual disabilities, dementia, Endocrine/Metabolic History: Reports: Diabetes, Type II, Obesity/BMI 30+ Hematologic History: Reports: Anemia Dermatologic History: Reports: Other (See Below) Other Dermatologic History: dermatophytosis of nail - Infectious Disease History Infectious Disease History: Reports: None - Past Surgical History HEENT Surgical History: Reports: Tonsillectomy Cardiovascular Surgical History: Reports: None Respiratory Surgical History: Reports: None Other Respiratory Surgeries/Procedures: states that her CPAP machine "was taken away" d/t improper cleaning GI Surgical History: Reports: Cholecystectomy Female Surgical History: Reports: Section Endocrine Surgical History: Reports: None Neurological Surgical History: Reports: Scoliosis Musculoskeletal Surgical History: Reports: Other (See Below) Other Musculoskeletal Surgeries/Procedures:: cervical surgery Dermatological Surgical History: Reports: None Social & Family History - Family History Family Medical History: Noncontributory - Tobacco Use Smoking Status *Q: Never Smoker - Caffeine Use Caffeine Use: Reports: Soda - Recreational Drug Use Recreational Drug Use: No - Living Situation & Occupation Living situation: Reports: Single, Extended Care Facility (Patient is currently a resident at [facility]. She's no longer in a care home setting) Occupation: Disabled H&P Review of Systems - Review of Systems: Review Of Systems: See Below General: Reports: Fever, Malaise, Weakness, Fatigue, Decreased Appetite. Denies : Chills HEENT: Reports: No Symptoms Pulmonary: Reports: Shortness of Breath, Cough, Sputum, Other (hypoxia) Cardiovascular: Reports: Dyspnea on Exertion, Edema. Denies: Chest Pain, Lightheadedness Gastrointestinal: Reports: Diarrhea. Denies: Abdominal Pain, Nausea, Vomiting Genitourinary: Reports: Incontinence Musculoskeletal: Reports: No Symptoms Skin: Denies: Cyanosis, Bruising, Erythema, Wound Psychiatric: Reports: Confusion (more confused then baseline). Denies: Depression, Mood Lability, Anxiety, Agitation, Hallucinations Neurological: Reports: Difficulty Walking, Gait Disturbance. Denies: Confusion , Weakness Hematologic/Lymphatic: Reports: No Symptoms Immunologic: Reports: No Symptoms Review of Systems Comment:: She feels better this morning Exam - Exam Exam: See Below - Vital Signs Vital Signs: Last Vital Signs Temp 36.8 C 05/10/19 02:37 Pulse 81 05/10/19 02:54 Resp 20 05/10/19 02:37 BP 138/65 05/10/19 02:37 Pulse Ox 91 L 05/10/19 05:14 Weight: 91.898 kg - Exam Quality Assessment: Supplemental Oxygen General: Alert, Oriented, Cooperative HEENT: Conjunctiva Clear, EACs Clear, EOMI, Hearing Intact, Mucosa Moist & Ideal , Nares Patent, Normal Nasal Septum, Posterior Pharynx Clear, Pupils Equal Neck: Supple, Trachea Midline, Full Range of Motion, Other (neck short and thick ). No: Thyromegaly Lungs: Normal Respiratory Effort, Decreased Breath Sounds Cardiovascular: Regular Rate, Regular Rhythm GI/Abdominal Exam: Normal Bowel Sounds, Soft, Non-Tender, No Organomegaly, No Distention (Female) Exam: Deferred Rectal (Female) Exam: Deferred Back Exam: Normal Inspection, Decreased Range of Motion Extremities: Normal Inspection, Normal Range of Motion, Non-Tender, No Pedal Edema, Normal Capillary Refill Peripheral Pulses: 2+: Dorsalis Pedis (L), Dorsalis Pedis (R) Skin: Warm, Dry, Intact Neuro Extensive - Mental Status: Oriented x3, Normal Cognition, Memory Intact Neuro Extensive - Motor, Sensory, Reflexes: CN II-XII Intact (limited but grossly intact). No: Normal Gait Psychiatric: Alert, Normal Affect, Normal Mood - Patient Data Lab Results Last 24 hrs: Laboratory Results - last 24 hr 05/09/19 05/09/19 05/09/19 Range/Units 15:42 15:42 15:42 WBC 14.22 H (3.98-10.04) K/mm3 RBC 4.02 (3.98-5.22) M/mm3 Hgb 11.9 (11.2-15.7) gm/dl Hct 40.7 (34.1-44.9) % MCV 101.2 H D (79.4-94.8) fl MCH 29.6 (25.6-32.2) pg MCHC 29.2 L (32.2-35.5) g/dl RDW Std Deviation 50.2 H (36.4-46.3) fL Plt Count 262 (182-369) K/mm3 MPV 9.8 (9.4-12.3) fl Neut % (Auto) 59.5 (34.0-71.1) % Lymph % (Auto) 19.3 (19.3-51.7) % [place] % (Auto) 13.2 H (4.7-12.5) % Eos % (Auto) 6.5 H (0.7-5.8) Baso % (Auto) 1.3 H (0.1-1.2) % Neut # (Auto) 8.45 H (1.56-6.13) K/mm3 Lymph # (Auto) 2.75 (1.18-3.74) K/mm3 [place] # (Auto) 1.88 H (0.24-0.36) K/mm3 Eos # (Auto) 0.93 H (0.04-0.36) K/mm3 Baso # (Auto) 0.18 H (0.01-0.08) K/mm3 Manual Slide Review Abnormal smear PT (9.7-12.0) SECONDS INR Puncture Site ABG pH (7.35-7.45) ABG pCO2 (35.0-45.0) mmHg ABG pO2 (80.0-100.0) mmHg ABG HCO3 (22.0-26.0) meq/L ABG O2 Saturation (96.0-97.0) % ABG Base Excess (-2-2.0) Anup Test A-a Gradient mmHg O2 Delivery Device Oxygen Flow Rate FiO2 (21.00-100.00) % Sodium 143 (136-145) mEq/L Potassium 4.3 (3.5-5.1) mEq/L Chloride 104 (98-107) mEq/L Carbon Dioxide 40 H (21-32) mEq/L Anion Gap 3.3 L (5-15) BUN 11 (7-18) mg/dL Creatinine 0.8 (0.55-1.02) mg/dL Est Cr Clr Drug Dosing 55.06 mL/min Estimated GFR (MDRD) > 60 (>60) mL/min BUN/Creatinine Ratio 13.8 L (14-18) Glucose 105 (74-106) mg/dL POC Glucose (70-105) mg/dL Lactic Acid (0.4-2.0) mmol/L Calcium 9.6 (8.5-10.1) mg/dL Magnesium 2.2 (1.8-2.4) mg/dl Total Bilirubin 0.3 (0.2-1.0) mg/dL AST 13 L (15-37) U/L ALT 23 (14-59) U/L Alkaline Phosphatase 86 (46-116) U/L CK-MB (CK-2) 0.5 (0-3.6) ng/ml Troponin I < 0.017 (0.00-0.056) ng/mL C-Reactive Protein 1.4 H* (<1.0) mg/dL NT-Pro-B Natriuret Pep (0-125) pg/mL Total Protein 7.0 (6.4-8.2) g/dl Albumin 3.3 L (3.4-5.0) g/dl Globulin 3.7 gm/dL Albumin/Globulin Ratio 0.9 L (1-2) TSH 3rd Generation (0.358-3.74) uIU/mL Urine Color (Yellow) Urine Appearance (Clear) Urine pH (5.0-8.0) Ur Specific [place] (1.005-1.030) Urine Protein (Negative) Urine Glucose (UA) (Negative) Urine Ketones (Negative) Urine Occult Blood (Negative) Urine Nitrite (Negative) Urine Bilirubin (Negative) Urine Urobilinogen (0.2-1.0) Ur Leukocyte Esterase (Negative) Urine RBC (0-5) /hpf Urine WBC (0-5) /hpf Ur Squamous Epith Cells (0-5) /hpf Urine Bacteria (FEW) /hpf Urine Mucus (FEW) /hpf Mycoplasma pneumon IgM (NEGATIVE) MRSA (PCR) 05/09/19 05/09/19 05/09/19 Range/Units 15:42 18:03 18:32 WBC (3.98-10.04) K/mm3 RBC (3.98-5.22) M/mm3 Hgb (11.2-15.7) gm/dl Hct (34.1-44.9) % MCV (79.4-94.8) fl MCH (25.6-32.2) pg MCHC (32.2-35.5) g/dl RDW Std Deviation (36.4-46.3) fL Plt Count (182-369) K/mm3 MPV (9.4-12.3) fl Neut % (Auto) (34.0-71.1) % Lymph % (Auto) (19.3-51.7) % [place] % (Auto) (4.7-12.5) % Eos % (Auto) (0.7-5.8) Baso % (Auto) (0.1-1.2) % Neut # (Auto) (1.56-6.13) K/mm3 Lymph # (Auto) (1.18-3.74) K/mm3 [place] # (Auto) (0.24-0.36) K/mm3 Eos # (Auto) (0.04-0.36) K/mm3 Baso # (Auto) (0.01-0.08) K/mm3 Manual Slide Review PT 11.2 (9.7-12.0) SECONDS INR 1.03 Puncture Site Rt radial ABG pH 7.37 (7.35-7.45) ABG pCO2 71.8 H* (35.0-45.0) mmHg ABG pO2 68.0 L (80.0-100.0) mmHg ABG HCO3 40.7 H (22.0-26.0) meq/L ABG O2 Saturation 93.2 L (96.0-97.0) % ABG Base Excess 12.8 H (-2-2.0) Anup Test Positive A-a Gradient 71 mmHg O2 Delivery Device Nasal cannula Oxygen Flow Rate 3.0 FiO2 32.00 (21.00-100.00) % Sodium (136-145) mEq/L Potassium (3.5-5.1) mEq/L Chloride (98-107) mEq/L Carbon Dioxide (21-32) mEq/L Anion Gap (5-15) BUN (7-18) mg/dL Creatinine (0.55-1.02) mg/dL Est Cr Clr Drug Dosing mL/min Estimated GFR (MDRD) (>60) mL/min BUN/Creatinine Ratio (14-18) Glucose (74-106) mg/dL POC Glucose (70-105) mg/dL Lactic Acid (0.4-2.0) mmol/L Calcium (8.5-10.1) mg/dL Magnesium (1.8-2.4) mg/dl Total Bilirubin (0.2-1.0) mg/dL AST (15-37) U/L ALT (14-59) U/L Alkaline Phosphatase (46-116) U/L CK-MB (CK-2) (0-3.6) ng/ml Troponin I (0.00-0.056) ng/mL C-Reactive Protein (<1.0) mg/dL NT-Pro-B Natriuret Pep (0-125) pg/mL Total Protein (6.4-8.2) g/dl Albumin (3.4-5.0) g/dl Globulin gm/dL Albumin/Globulin Ratio (1-2) TSH 3rd Generation 1.365 (0.358-3.74) uIU/mL Urine Color (Yellow) Urine Appearance (Clear) Urine pH (5.0-8.0) Ur Specific [place] (1.005-1.030) Urine Protein (Negative) Urine Glucose (UA) (Negative) Urine Ketones (Negative) Urine Occult Blood (Negative) Urine Nitrite (Negative) Urine Bilirubin (Negative) Urine Urobilinogen (0.2-1.0) Ur Leukocyte Esterase (Negative) Urine RBC (0-5) /hpf Urine WBC (0-5) /hpf Ur Squamous Epith Cells (0-5) /hpf Urine Bacteria (FEW) /hpf Urine Mucus (FEW) /hpf Mycoplasma pneumon IgM (NEGATIVE) MRSA (PCR) 05/09/19 05/09/19 05/09/19 Range/Units 18:32 18:32 18:32 WBC (3.98-10.04) K/mm3 RBC (3.98-5.22) M/mm3 Hgb (11.2-15.7) gm/dl Hct (34.1-44.9) % MCV (79.4-94.8) fl MCH (25.6-32.2) pg MCHC (32.2-35.5) g/dl RDW Std Deviation (36.4-46.3) fL Plt Count (182-369) K/mm3 MPV (9.4-12.3) fl Neut % (Auto) (34.0-71.1) % Lymph % (Auto) (19.3-51.7) % [place] % (Auto) (4.7-12.5) % Eos % (Auto) (0.7-5.8) Baso % (Auto) (0.1-1.2) % Neut # (Auto) (1.56-6.13) K/mm3 Lymph # (Auto) (1.18-3.74) K/mm3 [place] # (Auto) (0.24-0.36) K/mm3 Eos # (Auto) (0.04-0.36) K/mm3 Baso # (Auto) (0.01-0.08) K/mm3 Manual Slide Review PT (9.7-12.0) SECONDS INR Puncture Site ABG pH (7.35-7.45) ABG pCO2 (35.0-45.0) mmHg ABG pO2 (80.0-100.0) mmHg ABG HCO3 (22.0-26.0) meq/L ABG O2 Saturation (96.0-97.0) % ABG Base Excess (-2-2.0) Anup Test A-a Gradient mmHg O2 Delivery Device Oxygen Flow Rate FiO2 (21.00-100.00) % Sodium (136-145) mEq/L Potassium (3.5-5.1) mEq/L Chloride (98-107) mEq/L Carbon Dioxide (21-32) mEq/L Anion Gap (5-15) BUN (7-18) mg/dL Creatinine (0.55-1.02) mg/dL Est Cr Clr Drug Dosing mL/min Estimated GFR (MDRD) (>60) mL/min BUN/Creatinine Ratio (14-18) Glucose (74-106) mg/dL POC Glucose (70-105) mg/dL Lactic Acid 0.6 (0.4-2.0) mmol/L Calcium (8.5-10.1) mg/dL Magnesium (1.8-2.4) mg/dl Total Bilirubin (0.2-1.0) mg/dL AST (15-37) U/L ALT (14-59) U/L Alkaline Phosphatase (46-116) U/L CK-MB (CK-2) (0-3.6) ng/ml Troponin I (0.00-0.056) ng/mL C-Reactive Protein (<1.0) mg/dL NT-Pro-B Natriuret Pep 247 H (0-125) pg/mL Total Protein (6.4-8.2) g/dl Albumin (3.4-5.0) g/dl Globulin gm/dL Albumin/Globulin Ratio (1-2) TSH 3rd Generation (0.358-3.74) uIU/mL Urine Color (Yellow) Urine Appearance (Clear) Urine pH (5.0-8.0) Ur Specific [place] (1.005-1.030) Urine Protein (Negative) Urine Glucose (UA) (Negative) Urine Ketones (Negative) Urine Occult Blood (Negative) Urine Nitrite (Negative) Urine Bilirubin (Negative) Urine Urobilinogen (0.2-1.0) Ur Leukocyte Esterase (Negative) Urine RBC (0-5) /hpf Urine WBC (0-5) /hpf Ur Squamous Epith Cells (0-5) /hpf Urine Bacteria (FEW) /hpf Urine Mucus (FEW) /hpf Mycoplasma pneumon IgM Negative (NEGATIVE) MRSA (PCR) 05/09/19 05/09/19 05/10/19 Range/Units 19:38 20:54 06:20 WBC 13.42 H (3.98-10.04) K/mm3 RBC 3.62 L (3.98-5.22) M/mm3 Hgb 10.7 L (11.2-15.7) gm/dl Hct 36.7 (34.1-44.9) % MCV 101.4 H (79.4-94.8) fl MCH 29.6 (25.6-32.2) pg MCHC 29.2 L (32.2-35.5) g/dl RDW Std Deviation 49.5 H (36.4-46.3) fL Plt Count 233 (182-369) K/mm3 MPV 9.6 (9.4-12.3) fl Neut % (Auto) 60.2 (34.0-71.1) % Lymph % (Auto) 18.7 L (19.3-51.7) % [place] % (Auto) 11.6 (4.7-12.5) % Eos % (Auto) 8.4 H (0.7-5.8) Baso % (Auto) 0.9 (0.1-1.2) % Neut # (Auto) 8.07 H (1.56-6.13) K/mm3 Lymph # (Auto) 2.51 (1.18-3.74) K/mm3 [place] # (Auto) 1.56 H (0.24-0.36) K/mm3 Eos # (Auto) 1.13 H (0.04-0.36) K/mm3 Baso # (Auto) 0.12 H (0.01-0.08) K/mm3 Manual Slide Review Abnormal smear PT (9.7-12.0) SECONDS INR Puncture Site ABG pH (7.35-7.45) ABG pCO2 (35.0-45.0) mmHg ABG pO2 (80.0-100.0) mmHg ABG HCO3 (22.0-26.0) meq/L ABG O2 Saturation (96.0-97.0) % ABG Base Excess (-2-2.0) Anup Test A-a Gradient mmHg O2 Delivery Device Oxygen Flow Rate FiO2 (21.00-100.00) % Sodium (136-145) mEq/L Potassium (3.5-5.1) mEq/L Chloride (98-107) mEq/L Carbon Dioxide (21-32) mEq/L Anion Gap (5-15) BUN (7-18) mg/dL Creatinine (0.55-1.02) mg/dL Est Cr Clr Drug Dosing mL/min Estimated GFR (MDRD) (>60) mL/min BUN/Creatinine Ratio (14-18) Glucose (74-106) mg/dL POC Glucose (70-105) mg/dL Lactic Acid (0.4-2.0) mmol/L Calcium (8.5-10.1) mg/dL Magnesium (1.8-2.4) mg/dl Total Bilirubin (0.2-1.0) mg/dL AST (15-37) U/L ALT (14-59) U/L Alkaline Phosphatase (46-116) U/L CK-MB (CK-2) (0-3.6) ng/ml Troponin I (0.00-0.056) ng/mL C-Reactive Protein (<1.0) mg/dL NT-Pro-B Natriuret Pep (0-125) pg/mL Total Protein (6.4-8.2) g/dl Albumin (3.4-5.0) g/dl Globulin gm/dL Albumin/Globulin Ratio (1-2) TSH 3rd Generation (0.358-3.74) uIU/mL Urine Color Yellow (Yellow) Urine Appearance Clear (Clear) Urine pH 6.0 (5.0-8.0) Ur Specific [place] 1.020 (1.005-1.030) Urine Protein Negative (Negative) Urine Glucose (UA) Negative (Negative) Urine Ketones Negative (Negative) Urine Occult Blood Trace-intact H (Negative) Urine Nitrite Negative (Negative) Urine Bilirubin Negative (Negative) Urine Urobilinogen 0.2 (0.2-1.0) Ur Leukocyte Esterase Negative (Negative) Urine RBC 0-5 (0-5) /hpf Urine WBC 0-5 (0-5) /hpf Ur Squamous Epith Cells 0-5 (0-5) /hpf Urine Bacteria Few (FEW) /hpf Urine Mucus Few (FEW) /hpf Mycoplasma pneumon IgM (NEGATIVE) MRSA (PCR) Negative 05/10/19 05/10/19 Range/Units 06:20 06:22 WBC (3.98-10.04) K/mm3 RBC (3.98-5.22) M/mm3 Hgb (11.2-15.7) gm/dl Hct (34.1-44.9) % MCV (79.4-94.8) fl MCH (25.6-32.2) pg MCHC (32.2-35.5) g/dl RDW Std Deviation (36.4-46.3) fL Plt Count (182-369) K/mm3 MPV (9.4-12.3) fl Neut % (Auto) (34.0-71.1) % Lymph % (Auto) (19.3-51.7) % [place] % (Auto) (4.7-12.5) % Eos % (Auto) (0.7-5.8) Baso % (Auto) (0.1-1.2) % Neut # (Auto) (1.56-6.13) K/mm3 Lymph # (Auto) (1.18-3.74) K/mm3 [place] # (Auto) (0.24-0.36) K/mm3 Eos # (Auto) (0.04-0.36) K/mm3 Baso # (Auto) (0.01-0.08) K/mm3 Manual Slide Review PT (9.7-12.0) SECONDS INR Puncture Site ABG pH (7.35-7.45) ABG pCO2 (35.0-45.0) mmHg ABG pO2 (80.0-100.0) mmHg ABG HCO3 (22.0-26.0) meq/L ABG O2 Saturation (96.0-97.0) % ABG Base Excess (-2-2.0) Anup Test A-a Gradient mmHg O2 Delivery Device Oxygen Flow Rate FiO2 (21.00-100.00) % Sodium 144 (136-145) mEq/L Potassium 4.1 (3.5-5.1) mEq/L Chloride 103 (98-107) mEq/L Carbon Dioxide 37 H (21-32) mEq/L Anion Gap 8.1 (5-15) BUN 9 (7-18) mg/dL Creatinine 0.7 (0.55-1.02) mg/dL Est Cr Clr Drug Dosing 62.92 mL/min Estimated GFR (MDRD) > 60 (>60) mL/min BUN/Creatinine Ratio 12.9 L (14-18) Glucose 100 (74-106) mg/dL POC Glucose 94 (70-105) mg/dL Lactic Acid (0.4-2.0) mmol/L Calcium 8.5 (8.5-10.1) mg/dL Magnesium 1.9 (1.8-2.4) mg/dl Total Bilirubin (0.2-1.0) mg/dL AST (15-37) U/L ALT (14-59) U/L Alkaline Phosphatase (46-116) U/L CK-MB (CK-2) (0-3.6) ng/ml Troponin I (0.00-0.056) ng/mL C-Reactive Protein 1.0 (<1.0) mg/dL NT-Pro-B Natriuret Pep (0-125) pg/mL Total Protein (6.4-8.2) g/dl Albumin (3.4-5.0) g/dl Globulin gm/dL Albumin/Globulin Ratio (1-2) TSH 3rd Generation (0.358-3.74) uIU/mL Urine Color (Yellow) Urine Appearance (Clear) Urine pH (5.0-8.0) Ur Specific [place] (1.005-1.030) Urine Protein (Negative) Urine Glucose (UA) (Negative) Urine Ketones (Negative) Urine Occult Blood (Negative) Urine Nitrite (Negative) Urine Bilirubin (Negative) Urine Urobilinogen (0.2-1.0) Ur Leukocyte Esterase (Negative) Urine RBC (0-5) /hpf Urine WBC (0-5) /hpf Ur Squamous Epith Cells (0-5) /hpf Urine Bacteria (FEW) /hpf Urine Mucus (FEW) /hpf Mycoplasma pneumon IgM (NEGATIVE) MRSA (PCR) Result Diagrams: 05/11/19 05:24 05/11/19 05:24 Problem List Initiated/Reviewed/Updated: Yes Orders Last 24hrs: Active Orders 24 hr Category Date Time Status Admission Status [Patient Status] [ADT] Routine ADT 05/09/19 19:21 Active Patient Status [ADT] Routine ADT 05/09/19 19:09 Active Blood Glucose Check, Bedside [RC] QIDACANDBED Care 05/09/19 22:24 Active CPAP Adult [RT BiPAP/CPAP] [RC] ASDIRECTED Care 05/09/19 22:25 Inactive Cardiac Monitoring [RC] CONTINUOUS Care 05/09/19 20:55 Active Height and Weight [RC] 04 Care 05/09/19 20:54 Active Intake and Output [RC] 04,16 Care 05/09/19 20:54 Active Oxygen Therapy [RC] ASDIRECTED Care 05/09/19 17:45 Active Oxygen Therapy [RC] PRN Care 05/09/19 20:54 Active RT Aerosol Therapy [RC] ASDIRECTED Care 05/09/19 18:01 Active Up With Assistance [RC] BID Care 05/09/19 20:54 Active Up ad Britta [RC] BID Care 05/09/19 20:54 Active VTE/DVT Education [RC] DAILY Care 05/09/19 20:54 Active Vital Signs [RC] Q4HR Care 05/09/19 20:54 Active Consult to Case Management/Retail Sales Associate Seasonal [CONS] Cons 05/09/19 20:54 Active Routine Consult to Paid Search Marketing Analyst [CONS] Routine Cons 05/09/19 20:54 Active Consult to Spiritual Care [CONS] Routine Cons 05/09/19 20:54 Active OT Evaluation and Treatment [CONS] Routine Cons 05/09/19 20:54 Active PT Evaluation and Treatment [CONS] Routine Cons 05/09/19 20:54 Active Respiratory Care Assess and Treatment [CONS] Routine Cons 05/09/19 20:54 Active Heart Healthy Diet [DIET] Diet 05/10/19 Breakfast Active Chest 1V Frontal [CR] Stat Exams 05/09/19 17:44 Taken BASIC METABOLIC PANEL,BMP [CHEM] AM Lab 05/11/19 05:11 Ordered BASIC METABOLIC PANEL,BMP [CHEM] AM Lab 05/12/19 05:11 Ordered BASIC METABOLIC PANEL,BMP [CHEM] AM Lab 05/13/19 05:11 Ordered BASIC METABOLIC PANEL,BMP [CHEM] AM Lab 05/14/19 05:11 Ordered C-REACTIVE PROTEIN [CHEM] AM Lab 05/11/19 05:11 Ordered C-REACTIVE PROTEIN [CHEM] AM Lab 05/12/19 05:11 Ordered C-REACTIVE PROTEIN [CHEM] AM Lab 05/13/19 05:11 Ordered C-REACTIVE PROTEIN [CHEM] AM Lab 05/14/19 05:11 Ordered CBC WITH AUTO DIFF [HEME] AM Lab 05/11/19 05:11 Ordered CBC WITH AUTO DIFF [HEME] AM Lab 05/12/19 05:11 Ordered CBC WITH AUTO DIFF [HEME] AM Lab 05/13/19 05:11 Ordered CBC WITH AUTO DIFF [HEME] AM Lab 05/14/19 05:11 Ordered CULTURE BLOOD [BC] Stat Lab 05/09/19 15:42 Received CULTURE BLOOD [BC] Stat Lab 05/09/19 15:58 Received CULTURE SPUTUM + SMEAR [RM] Stat Lab 05/09/19 20:54 Ordered MAGNESIUM [CHEM] AM Lab 05/11/19 05:11 Ordered MAGNESIUM [CHEM] AM Lab 05/12/19 05:11 Ordered MAGNESIUM [CHEM] AM Lab 05/13/19 05:11 Ordered MAGNESIUM [CHEM] AM Lab 05/14/19 05:11 Ordered PROCALCITONIN [REF] Stat Lab 05/09/19 18:32 Received STREP PNEUMONIAE ANTIGEN [MREF] Stat Lab 05/09/19 19:38 Received ARIPiprazole [Abilify] Med 05/10/19 18:00 Active 2 mg PO QPM Acetaminophen [Tylenol] Med 05/09/19 20:54 Active 650 mg PO Q4H PRN Acetaminophen/HYDROcodone [[place] 325-5 MG] Med 05/09/19 20:54 Active 1 tab PO Q4H PRN Albuterol [Proventil Neb Soln] Med 05/09/19 22:25 Active 2.5 mg NEB Q6HR PRN Albuterol [Proventil Neb Soln] Med 05/10/19 06:00 Active 2.5 mg NEB TIDRT Albuterol/Ipratropium [DuoNeb 3.0-0.5 MG/3 ML] Med 05/09/19 20:54 Active 3 ml NEB Q4H PRN Bisacodyl [Dulcolax] Med 05/09/19 20:54 Active 5 mg PO DAILY PRN Carboxymethylcellulose Sodium [Refresh Liquigel 1%] Med 05/10/19 09:00 Active 0 ml EYEBOTH TID Citalopram [Celexa] Med 05/10/19 18:00 Active 40 mg PO QPM Dextromethorphan/guaiFENesin [Robitussin DM] Med 05/09/19 20:58 Active 10 ml PO Q4H PRN Docusate Sodium [Colace] Med 05/09/19 20:54 Active 100 mg PO BID PRN Docusate Sodium/Sennosides [Senna Plus] Med 05/09/19 20:54 Active 1 tab PO BID PRN Enoxaparin [Lovenox] Med 05/10/19 09:00 Active 40 mg SUBCUT DAILY Fluticasone Propionate [Flonase] Med 05/10/19 09:00 Active 0 gm ANNETTE DAILY Ipratropium [Atrovent] Med 05/09/19 22:25 Active 0.5 mg INH TIDRT PRN LORazepam [Ativan] Med 05/09/19 22:25 Active 0.5 mg PO Q6HR PRN Latanoprost [Xalatan 0.005% Ophth Soln] Med 05/10/19 18:00 Active 0 ml EYEBOTH QPM Linezolid [Zyvox] 600 mg Med 05/10/19 09:00 Pending Premix Bag 1 bag IV Q12H Meropenem Premix [Meropenem] 500 mg Med 05/09/19 21:00 Active Premix Bag 1 bag IV Q8H Multivitamins,Therapeutic [Thera] Med 05/10/19 09:00 Active 1 each PO DAILY Nitroglycerin [Nitrostat] Med 05/09/19 22:25 Active 0.4 mg SL ASDIRECTED PRN OLANZapine [ZyPREXA] Med 05/10/19 18:00 Active 5 mg PO QPM Ondansetron [Zofran] Med 05/09/19 20:54 Active 4 mg IV Q6H PRN Promethazine [Phenergan] 6.25 mg Med 05/09/19 20:54 Active Sodium Chloride 0.9% [Normal Saline] 50 ml IV Q6H Rosuvastatin [Crestor] Med 05/10/19 18:00 Active 40 mg PO QPM Saccharomyces Boulardii [Florastor] Med 05/09/19 21:00 Active 250 mg PO BID Sennosides [Senna] Med 05/10/19 09:00 Active 8.6 mg PO DAILY Sodium Chloride 0.9% [Normal Saline] 1,000 ml Med 05/09/19 17:45 Active IV ASDIRECTED Temazepam [Restoril] Med 05/09/19 20:54 Active 15 mg PO BEDTIME PRN Triamcinolone Acetonide [Triamcinolone Acetonide 0.1% Med 05/10/19 09:00 Active Crm] 0 gm TOP BID guaiFENesin [Mucinex] Med 05/10/19 09:00 Active 600 mg PO BID Blood Culture x2 Reflex Set [OM.PC] Stat Oth 05/09/19 15:13 Ordered Resuscitation Status Routine Resus Stat 05/09/19 20:43 Ordered Medication Orders Acetaminophen (Tylenol) 650 mg PO Q4H PRN PRN Reason: Pain (Mild 1-3)/fever Hydrocodone Bitart/Acetaminophen ([place] 325-5 Mg) 1 tab PO Q4H PRN PRN Reason: Pain (moderate 4-6) Albuterol (Proventil Neb Soln) 2.5 mg NEB TIDRT [facility] Last Admin: 05/10/19 05:12 Dose: 2.5 mg Albuterol (Proventil Neb Soln) 2.5 mg NEB Q6HR PRN PRN Reason: Shortness of Breath Albuterol/Ipratropium (Duoneb 3.0-0.5 Mg/3 Ml) 3 ml NEB Q4H PRN PRN Reason: Shortness Of Breath/wheezing Aripiprazole (Abilify) 2 mg PO QPM [facility] Artificial Tears (Refresh Liquigel 1%) 0 ml EYEBOTH TID [facility] Bisacodyl (Dulcolax) 5 mg PO DAILY PRN PRN Reason: Constipation Citalopram Hydrobromide (Celexa) 40 mg PO QPM [facility] Docusate Sodium (Colace) 100 mg PO BID PRN PRN Reason: Constipation Enoxaparin Sodium (Lovenox) 40 mg SUBCUT DAILY [facility] Fluticasone Propionate (Flonase) 0 gm ANNETTE DAILY [facility] Guaifenesin (Mucinex) 600 mg PO BID [facility] Guaifenesin/Phenylephrine HCl (Robitussin Dm) 10 ml PO Q4H PRN PRN Reason: Cough Sodium Chloride (Normal Saline) 1,000 mls @ 100 mls/hr IV ASDIRECTED [facility] Last Admin: 05/10/19 05:19 Dose: 100 mls/hr Infusion: 05/10/19 04:36 Dose: 100 mls/hr Admin: 05/09/19 18:36 Dose: 100 mls/hr Linezolid 600 mg/ Premix 300 mls @ 300 mls/hr IV Q12H [facility] Meropenem/Sodium Chloride 500 (mg/ Premix) 50 mls @ 100 mls/hr IV Q8H [facility] Last Admin: 05/10/19 05:18 Dose: 100 mls/hr Infusion: 05/09/19 23:00 Dose: 100 mls/hr Admin: 05/09/19 22:30 Dose: 100 mls/hr Promethazine HCl 6.25 mg/ (Sodium Chloride) 50.25 mls @ 100 mls/hr IV Q6H PRN PRN Reason: Nausea/Vomiting Ipratropium [place] (Atrovent) 0.5 mg INH TIDRT PRN PRN Reason: Shortness of Breath Latanoprost (Xalatan 0.005% Ophth Soln) 0 ml EYEBOTH QPM [facility] Lorazepam (Ativan) 0.5 mg PO Q6HR PRN PRN Reason: Anxiety Multivitamins (Thera) 1 each PO DAILY [facility] Nitroglycerin (Nitrostat) 0.4 mg SL ASDIRECTED PRN PRN Reason: Chest Pain Olanzapine (Zyprexa) 5 mg PO QPM [facility] Ondansetron HCl (Zofran) 4 mg IV Q6H PRN PRN Reason: Nausea/Vomiting Rosuvastatin Calcium (Crestor) 40 mg PO QPM [facility] Saccharomyces Boulardii (Florastor) 250 mg PO BID [facility] Last Admin: 05/09/19 22:29 Dose: 250 mg Senna (Senna) 8.6 mg PO DAILY [facility] Senna/Docusate Sodium (Senna Plus) 1 tab PO BID PRN PRN Reason: Constipation Temazepam (Restoril) 15 mg PO BEDTIME PRN PRN Reason: Sleep Last Admin: 05/09/19 22:30 Dose: 15 mg Triamcinolone Acetonide (Triamcinolone Acetonide 0.1% Crm) 0 gm TOP BID [facility] Assessment/Plan Comment:: Assessment/Plan: Acute: Probable Sepsis - 2/2 CAP/Bronchitis - Meets criteria: Temp of 38.5, RR of > 20s - WBC of 14K - CRP and LA -normal - Pending Procal level - Sepsis treatment CAP/Bronchitis - CXR report read as chronic elevated diaphragm, nothing acute is seen - Sputum culture, Mycoplasma/Strep Pneumonia Ag and Blood Culture - Decongestant/Expectorant - IS/FV as directed - IV Antibiotics Leukocytosis - WBC of 14-->13K - Treat underlying cause Hypercapnea - Likely acute on chronic - 2/2 ADEN/OHS and Abnormal Anatomy (Lung restriction with elevated diaphragm) - Serum CO2 of 40-->37 - ABG shows pCO2 of 71.8 - Currently on 3L Supplemental O2 sating at anywhere bet 90-95% Morbid Obesity - BMI of 40 - Dietary consult for weight management Chronic: Impaired Vision, Hx/o Arrhythmia, HTN, HLD, ADEN, Recurrent Pneumonia, Hemorrhoids, Hx/o STD, Stress Incontinence, Chronic back pain, Scoliosis, Internal Derangement of the Knee, Congenital Spinal Deformity, [place] Palsy, Schizophrenia, PD, SAD, Developmental Delay, Intellectual Disability, Chronic Anemia, DM2 and Morbid Obesity Plan: Admitted overnight to [facility] Resume Some Home Meds Routine AM Labs Fall Precautions AHA diet GI/DVT Prophylaxis PT/OT to assess and treat SW/CM for d/c planning Code status: full Additional orders as above - Mortality Measure Prognosis:: Good
[2019-05-10] MEDS ORDERED: diphenhydrAMINE 50 MG/ML SDV IVPUSH ONE ×2 (07:30→10:30)
--- NOTE | 2019-05-10 07:50 | CR ---
Chest: Portable view of the chest was obtained. Comparison: Previous chest x-ray of 04/18/19. Elevated left hemidiaphragm is seen causing some left sided atelectasis. No acute parenchymal change is seen when compared to prior exam. Heart is felt to be mildly enlarged. Bony structures are grossly intact. Impression: 1. Elevated left hemidiaphragm. Other findings which are believed to be stable. Nothing acute is definitely seen on portable chest x-ray. Diagnostic code #2
[2019-05-10] MEDS ORDERED: Vancomycin 1 GM, Vancomycin 250 MG in Sodium Chloride 0.9% 250 ML IV ONE (08:00)
[2019-05-10] MEDS ORDERED: Linezolid 600 MG in Premix Bag 1 BAG IV SCH (09:00)
[2019-05-10] MEDS: methylPREDNISolone Sodium Succinate 40 MG/1 ML SDV IVPUSH SCH ×3 (10:00→23:07)
[2019-05-10] MEDS: Enoxaparin 40 MG/0.4 ML Syringe SUBCUT SCH (10:02)
[2019-05-10] MEDS: Fluticasone Propionate Nasal Spray 16 GM Bottle NAS SCH (10:03)
[2019-05-10] MEDS: Triamcinolone Acetonide 0.1% Crm 15 GM Tube TOP SCH ×2 (10:09→21:50)
[2019-05-10] MEDS: Carboxymethylcellulose Sodium 1% Ophth Gel 15 ML Bottle EYEBOTH SCH ×3 (10:10→21:43)
[2019-05-10] MEDS: Saccharomyces Boulardii (Probiotic) 250 MG Cap PO SCH ×3 (10:11→21:42)
[2019-05-10] MEDS: guaiFENesin 600 MG Tab.ER PO SCH ×2 (10:22→21:41)
[2019-05-10] MEDS: Sennosides 8.6 MG Tab PO SCH (10:23)
[2019-05-10] MEDS: Multivitamins,Therapeutic Tab PO SCH (10:23)
[2019-05-10] MEDS: LORazepam 0.5 MG Tab PO PRN (11:46)
[2019-05-10] MEDS: Latanoprost 0.005% Ophth Soln 2.5 ML Bottle EYEBOTH SCH (17:01)
[2019-05-10] MEDS: Citalopram 20 MG Tab PO SCH (17:02)
[2019-05-10] MEDS: Rosuvastatin 10 MG Tab PO SCH (17:02)
[2019-05-10] MEDS: OLANZapine 5 MG Tab PO SCH (17:03)
[2019-05-10] MEDS ORDERED: Rosuvastatin 10 MG Tab PO SCH (18:00)
[2019-05-11] MEDS: Meropenem Premix 500 MG in Premix Bag 1 BAG IV SCH ×2 (01:18→06:14)
[2019-05-11] MEDS: Albuterol 0.083% 2.5 MG/3 ML Neb Soln NEB SCH ×3 (06:52→20:58)
[2019-05-11] MEDS: methylPREDNISolone Sodium Succinate 40 MG/1 ML SDV IVPUSH SCH ×3 (07:10→23:00)
--- NOTE | 2019-05-11 07:28 | PCM.PN ---
- General Info Date of Service: 05/11/19 Subjective Update: Follow Up Functional Status: Reports: Pain Controlled, Tolerating Diet, Ambulating, Urinating. Denies: New Symptoms - Review of Systems General: Denies: Fever, Weakness, Fatigue, Malaise, Chills HEENT: Reports: No Symptoms Pulmonary: Reports: Shortness of Breath Cardiovascular: Denies: Chest Pain, Dyspnea on Exertion, Lightheadedness Gastrointestinal: Denies: Abdominal Pain, Nausea, Vomiting Genitourinary: Reports: No Symptoms Musculoskeletal: Reports: No Symptoms Skin: Denies: Cyanosis, Diaphoresis, Bruising, Other Neurological: Reports: Gait Disturbance. Denies: Confusion, Difficulty Walking , Weakness Psychiatric: Reports: Confusion (baseline intellectual disability). Denies: Depression, Anxiety, Agitation, Hallucinations - Patient Data Vitals - Most Recent: Last Vital Signs Temp 36.8 C 05/10/19 21:39 Pulse 72 05/10/19 22:02 Resp 22 H 05/10/19 21:39 BP 102/89 05/10/19 21:39 Pulse Ox 92 L 05/11/19 06:52 Weight - Most Recent: 93.213 kg I&O - Last 24 Hours: Intake & Output 05/10/19 05/11/19 05/11/19 22:59 06:59 14:59 Intake Total 1910 700 Output Total 1250 650 Balance 660 50 Lab Results Last 24 Hours: Laboratory Results - last 24 hr 05/09/19 05/10/19 05/10/19 Range/Units 18:32 11:13 16:58 WBC (3.98-10.04) K/mm3 RBC (3.98-5.22) M/mm3 Hgb (11.2-15.7) gm/dl Hct (34.1-44.9) % MCV (79.4-94.8) fl MCH (25.6-32.2) pg MCHC (32.2-35.5) g/dl RDW Std Deviation (36.4-46.3) fL Plt Count (182-369) K/mm3 MPV (9.4-12.3) fl Neut % (Auto) (34.0-71.1) % Lymph % (Auto) (19.3-51.7) % [place] % (Auto) (4.7-12.5) % Eos % (Auto) (0.7-5.8) Baso % (Auto) (0.1-1.2) % Neut # (Auto) (1.56-6.13) K/mm3 Lymph # (Auto) (1.18-3.74) K/mm3 [place] # (Auto) (0.24-0.36) K/mm3 Eos # (Auto) (0.04-0.36) K/mm3 Baso # (Auto) (0.01-0.08) K/mm3 Sodium (136-145) mEq/L Potassium (3.5-5.1) mEq/L Chloride (98-107) mEq/L Carbon Dioxide (21-32) mEq/L Anion Gap (5-15) BUN (7-18) mg/dL Creatinine (0.55-1.02) mg/dL Est Cr Clr Drug Dosing mL/min Estimated GFR (MDRD) (>60) mL/min BUN/Creatinine Ratio (14-18) Glucose (74-106) mg/dL POC Glucose 114 H 188 H (70-105) mg/dL Calcium (8.5-10.1) mg/dL Magnesium (1.8-2.4) mg/dl C-Reactive Protein (<1.0) mg/dL Procalcitonin <0.05 (<0.10) ng/mL 05/10/19 05/11/19 05/11/19 Range/Units 23:05 05:24 05:24 WBC 12.89 H (3.98-10.04) K/mm3 RBC 3.77 L (3.98-5.22) M/mm3 Hgb 11.0 L (11.2-15.7) gm/dl Hct 37.5 (34.1-44.9) % MCV 99.5 H (79.4-94.8) fl MCH 29.2 (25.6-32.2) pg MCHC 29.3 L (32.2-35.5) g/dl RDW Std Deviation 48.2 H (36.4-46.3) fL Plt Count 247 (182-369) K/mm3 MPV 10.4 (9.4-12.3) fl Neut % (Auto) 86.5 H (34.0-71.1) % Lymph % (Auto) 10.1 L (19.3-51.7) % [place] % (Auto) 2.8 L (4.7-12.5) % Eos % (Auto) 0 L (0.7-5.8) Baso % (Auto) 0.2 (0.1-1.2) % Neut # (Auto) 11.15 H (1.56-6.13) K/mm3 Lymph # (Auto) 1.30 (1.18-3.74) K/mm3 [place] # (Auto) 0.36 (0.24-0.36) K/mm3 Eos # (Auto) 0.00 L (0.04-0.36) K/mm3 Baso # (Auto) 0.03 (0.01-0.08) K/mm3 Sodium 144 (136-145) mEq/L Potassium 4.2 (3.5-5.1) mEq/L Chloride 103 (98-107) mEq/L Carbon Dioxide 35 H (21-32) mEq/L Anion Gap 10.2 (5-15) BUN 14 (7-18) mg/dL Creatinine 0.7 (0.55-1.02) mg/dL Est Cr Clr Drug Dosing 62.92 mL/min Estimated GFR (MDRD) > 60 (>60) mL/min BUN/Creatinine Ratio 20.0 H (14-18) Glucose 199 H (74-106) mg/dL POC Glucose 200 H (70-105) mg/dL Calcium 8.7 (8.5-10.1) mg/dL Magnesium 2.2 (1.8-2.4) mg/dl C-Reactive Protein 0.5 (<1.0) mg/dL Procalcitonin (<0.10) ng/mL 05/11/19 Range/Units 06:38 WBC (3.98-10.04) K/mm3 RBC (3.98-5.22) M/mm3 Hgb (11.2-15.7) gm/dl Hct (34.1-44.9) % MCV (79.4-94.8) fl MCH (25.6-32.2) pg MCHC (32.2-35.5) g/dl RDW Std Deviation (36.4-46.3) fL Plt Count (182-369) K/mm3 MPV (9.4-12.3) fl Neut % (Auto) (34.0-71.1) % Lymph % (Auto) (19.3-51.7) % [place] % (Auto) (4.7-12.5) % Eos % (Auto) (0.7-5.8) Baso % (Auto) (0.1-1.2) % Neut # (Auto) (1.56-6.13) K/mm3 Lymph # (Auto) (1.18-3.74) K/mm3 [place] # (Auto) (0.24-0.36) K/mm3 Eos # (Auto) (0.04-0.36) K/mm3 Baso # (Auto) (0.01-0.08) K/mm3 Sodium (136-145) mEq/L Potassium (3.5-5.1) mEq/L Chloride (98-107) mEq/L Carbon Dioxide (21-32) mEq/L Anion Gap (5-15) BUN (7-18) mg/dL Creatinine (0.55-1.02) mg/dL Est Cr Clr Drug Dosing mL/min Estimated GFR (MDRD) (>60) mL/min BUN/Creatinine Ratio (14-18) Glucose (74-106) mg/dL POC Glucose 156 H (70-105) mg/dL Calcium (8.5-10.1) mg/dL Magnesium (1.8-2.4) mg/dl C-Reactive Protein (<1.0) mg/dL Procalcitonin (<0.10) ng/mL Ge Results Last 24 Hours: Microbiology 05/11/19 02:53 Gram Stain - Preliminary Sputum - Expectorated 05/09/19 19:38 Streptococcus pneumoniae Antigen (M - Final Urine 05/09/19 15:58 Aerobic Blood Culture - Preliminary Blood - Venous - Lab Draw NO GROWTH AFTER 1 DAY Anaerobic Blood Culture - Preliminary NO GROWTH AFTER 1 DAY 05/09/19 15:42 Aerobic Blood Culture - Preliminary Blood - Venous NO GROWTH AFTER 1 DAY Anaerobic Blood Culture - Preliminary NO GROWTH AFTER 1 DAY Med Orders - Current: Current Medications Acetaminophen (Tylenol) 650 mg PO Q4H PRN PRN Reason: Pain (Mild 1-3)/fever Hydrocodone Bitart/Acetaminophen ([place] 325-5 Mg) 1 tab PO Q4H PRN PRN Reason: Pain (moderate 4-6) Albuterol (Proventil Neb Soln) 2.5 mg NEB TIDRT [facility] Last Admin: 05/11/19 06:52 Dose: 2.5 mg Albuterol (Proventil Neb Soln) 2.5 mg NEB Q6HR PRN PRN Reason: Shortness of Breath Albuterol/Ipratropium (Duoneb 3.0-0.5 Mg/3 Ml) 3 ml NEB Q4H PRN PRN Reason: Shortness Of Breath/wheezing Aripiprazole (Abilify) 2 mg PO QPM [facility] Last Admin: 05/10/19 17:02 Dose: 2 mg Artificial Tears (Refresh Liquigel 1%) 0 ml EYEBOTH TID [facility] Last Admin: 05/10/19 21:43 Dose: 1 drop Bisacodyl (Dulcolax) 5 mg PO DAILY PRN PRN Reason: Constipation Citalopram Hydrobromide (Celexa) 40 mg PO QPM [facility] Last Admin: 05/10/19 17:02 Dose: 40 mg Docusate Sodium (Colace) 100 mg PO BID PRN PRN Reason: Constipation Enoxaparin Sodium (Lovenox) 40 mg SUBCUT DAILY [facility] Last Admin: 05/10/19 10:02 Dose: 40 mg Fluticasone Propionate (Flonase) 0 gm ANNETTE DAILY [facility] Last Admin: 05/10/19 10:03 Dose: 1 spray Guaifenesin (Mucinex) 600 mg PO BID [facility] Last Admin: 05/10/19 21:41 Dose: 600 mg Guaifenesin/Phenylephrine HCl (Robitussin Dm) 10 ml PO Q4H PRN PRN Reason: Cough Promethazine HCl 6.25 mg/ (Sodium Chloride) 50.25 mls @ 100 mls/hr IV Q6H PRN PRN Reason: Nausea/Vomiting Vancomycin HCl 1 gm/ Sodium (Chloride) 250 mls @ 250 mls/hr IV Q12H [facility] Last Admin: 05/10/19 21:41 Dose: 250 mls/hr Meropenem/Sodium Chloride 500 (mg/ Premix) 50 mls @ 100 mls/hr IV Q6H [facility] Last Admin: 05/11/19 06:14 Dose: 100 mls/hr Ipratropium [place] (Atrovent) 0.5 mg INH TIDRT PRN PRN Reason: Shortness of Breath Latanoprost (Xalatan 0.005% Ophth Soln) 0 ml EYEBOTH QPM [facility] Last Admin: 05/10/19 17:01 Dose: 1 drop Lorazepam (Ativan) 0.5 mg PO Q6HR PRN PRN Reason: Anxiety Last Admin: 05/10/19 11:46 Dose: 0.5 mg Methylprednisolone Sodium Succinate (Solu-Medrol) 80 mg IVPUSH Q8H [facility] Last Admin: 05/11/19 07:10 Dose: 80 mg Multivitamins (Thera) 1 each PO DAILY [facility] Last Admin: 05/10/19 10:23 Dose: 1 each Nitroglycerin (Nitrostat) 0.4 mg SL ASDIRECTED PRN PRN Reason: Chest Pain Olanzapine (Zyprexa) 5 mg PO QPM [facility] Last Admin: 05/10/19 17:03 Dose: 5 mg Ondansetron HCl (Zofran) 4 mg IV Q6H PRN PRN Reason: Nausea/Vomiting Rosuvastatin Calcium (Crestor) 40 mg PO QPM [facility] Last Admin: 05/10/19 17:02 Dose: 40 mg Saccharomyces Boulardii (Florastor) 250 mg PO BID [facility] Last Admin: 05/10/19 21:42 Dose: 250 mg Senna (Senna) 8.6 mg PO DAILY [facility] Last Admin: 05/10/19 10:23 Dose: 8.6 mg Senna/Docusate Sodium (Senna Plus) 1 tab PO BID PRN PRN Reason: Constipation Temazepam (Restoril) 15 mg PO BEDTIME PRN PRN Reason: Sleep Last Admin: 05/09/19 22:30 Dose: 15 mg Triamcinolone Acetonide (Triamcinolone Acetonide 0.1% Crm) 0 gm TOP BID [facility] Last Admin: 05/10/19 21:50 Dose: 1 applic Vancomycin HCl (Pharmacy To Dose - Vancomycin) 0 dose .XX ASDIRECTED PRN PRN Reason: RX TO DOSE VANCO Discontinued Medications Albuterol/Ipratropium (Duoneb 3.0-0.5 Mg/3 Ml) 3 ml NEB ONETIME ONE Stop: 05/09/19 18:01 Last Admin: 05/09/19 19:12 Dose: 3 ml Diphenhydramine HCl (Benadryl) 25 mg IVPUSH ONETIME ONE Stop: 05/10/19 10:31 Last Admin: 05/10/19 10:16 Dose: 25 mg Sodium Chloride (Normal Saline) 1,000 mls @ 100 mls/hr IV ASDIRECTED [facility] Last Admin: 05/10/19 15:24 Dose: 100 mls/hr Linezolid 600 mg/ Premix 300 mls @ 300 mls/hr IV ONETIME ONE Stop: 05/09/19 19:55 Last Admin: 05/09/19 19:10 Dose: 300 mls/hr Linezolid 600 mg/ Premix 300 mls @ 300 mls/hr IV Q12H [facility] Meropenem/Sodium Chloride 500 (mg/ Premix) 50 mls @ 100 mls/hr IV Q8H [facility] Last Admin: 05/10/19 05:18 Dose: 100 mls/hr Vancomycin HCl 1 gm/Vancomycin HCl 250 mg/ Sodium Chloride 250 mls @ 166.667 mls/hr IV ONETIME ONE Stop: 05/10/19 09:29 Last Admin: 05/10/19 10:20 Dose: 166.667 mls/hr Rosuvastatin Calcium (Crestor) 40 mg PO QPM [facility] - Exam General: Alert, Cooperative, No Acute Distress, Other (Morbidly Obese) HEENT: Pupils Equal, Pupils Reactive, EOMI, Mucous Membr. Moist/[place] Neck: Supple Lungs: Normal Respiratory Effort, Decreased Breath Sounds, Other (Poor inspiratory effort ) Cardiovascular: Regular Rate, Regular Rhythm GI/Abdominal Exam: Normal Bowel Sounds, Soft, Non-Tender, No Organomegaly, No Distention, No Abnormal Bruit (Female) Exam: Deferred Back Exam: Normal Inspection, Decreased Range of Motion Extremities: Normal Inspection, Normal Range of Motion, Non-Tender, Normal Capillary Refill, Pedal Edema Peripheral Pulses: 2+: Dorsalis Pedis (L), Dorsalis Pedis (R) Skin: Warm, Dry, Intact Neurological: No New Focal Deficit. No: Normal Gait Psy/Mental Status: Alert, Normal Affect, Normal Mood - Problem List Review Problem List Initiated/Reviewed/Updated: Yes - My Orders Last 24 Hours: My Active Orders 05/10/19 07:30 methylPREDNISolone Sod Succ [Solu-MEDROL] 80 mg IVPUSH Q8H 05/10/19 07:32 Pharmacy to Dose - Vancomycin 0 dose .XX ASDIRECTED PRN 05/10/19 09:00 Carboxymethylcellulose Sodium [Refresh Liquigel 1%] 0 ml EYEBOTH TID Enoxaparin [Lovenox] 40 mg SUBCUT DAILY Fluticasone Propionate [Flonase] 0 gm ANNETTE DAILY Multivitamins,Therapeutic [Thera] 1 each PO DAILY Sennosides [Senna] 8.6 mg PO DAILY Triamcinolone Acetonide [Triamcinolone Acetonide 0.1% Crm] 0 gm TOP BID guaiFENesin [Mucinex] 600 mg PO BID 05/10/19 13:00 Meropenem Premix [Meropenem] 500 mg Premix Bag 1 bag IV Q6H 05/10/19 18:00 ARIPiprazole [Abilify] 2 mg PO QPM Citalopram [Celexa] 40 mg PO QPM Latanoprost [Xalatan 0.005% Ophth Soln] 0 ml EYEBOTH QPM OLANZapine [ZyPREXA] 5 mg PO QPM Rosuvastatin [Crestor] 40 mg PO QPM 05/10/19 20:00 Vancomycin 1 gm Sodium Chloride 0.9% [Normal Saline] 250 ml IV Q12H 05/10/19 Breakfast Heart Healthy Diet [DIET] 05/11/19 05:24 CBC WITH AUTO DIFF [HEME] AM 05/11/19 19:00 VANCOMYCIN TROUGH [CHEM] Timed 05/12/19 05:11 BASIC METABOLIC PANEL,BMP [CHEM] AM C-REACTIVE PROTEIN [CHEM] AM CBC WITH AUTO DIFF [HEME] AM MAGNESIUM [CHEM] AM 05/13/19 05:11 BASIC METABOLIC PANEL,BMP [CHEM] AM C-REACTIVE PROTEIN [CHEM] AM CBC WITH AUTO DIFF [HEME] AM MAGNESIUM [CHEM] AM 05/14/19 05:11 BASIC METABOLIC PANEL,BMP [CHEM] AM C-REACTIVE PROTEIN [CHEM] AM CBC WITH AUTO DIFF [HEME] AM MAGNESIUM [CHEM] AM - Plan Plan:: Assessment/Plan: Acute: S/p Probable Sepsis - 2/2 CAP/Bronchitis - Meets criteria: Temp of 38.5, RR of > 20s - WBC of 14K - CRP, Procal and LA - all normal CAP/Bronchitis - CXR report read as chronic elevated diaphragm, nothing acute is seen - Sputum culture, Mycoplasma/Strep Pneumonia Ag and Blood Culture - Decongestant/Expectorant - IS/FV as directed - IV Antibiotics - Repeat chest x-ray in AM Leukocytosis, Improving - WBC of 14-->13K-->12.89K - Treat underlying cause Hypercapnea, Continue to Improve - Likely acute on chronic - 2/2 ADEN/OHS and Abnormal Anatomy (Lung restriction with elevated diaphragm) - ABG shows pCO2 of 71.8 - CO2 40-->37-->35 - Currently on 3L Supplemental O2 sating at anywhere bet 90-95% Morbid Obesity - BMI of 40 - Dietary consult for weight management Chronic: Impaired Vision, Hx/o Arrhythmia, HTN, HLD, ADEN, Recurrent Pneumonia, Hemorrhoids, Hx/o STD, Stress Incontinence, Chronic back pain, Scoliosis, Internal Derangement of the Knee, Congenital Spinal Deformity, [place] Palsy, Schizophrenia, PD, SAD, Developmental Delay, Intellectual Disability, Chronic Anemia, DM2 and Morbid Obesity Plan: She is clinically stable Routine AM Labs Fall Precautions AHA diet GI/DVT Prophylaxis PT/OT to assess and treat SW/CM for d/c planning Encourage to use IS and ambulate as tolerated Code status: full Possible discharge in AM
[2019-05-11] MEDS: Triamcinolone Acetonide 0.1% Crm 15 GM Tube TOP SCH ×2 (09:18→21:33)
[2019-05-11] MEDS: Fluticasone Propionate Nasal Spray 16 GM Bottle NAS SCH (09:18)
[2019-05-11] MEDS: Carboxymethylcellulose Sodium 1% Ophth Gel 15 ML Bottle EYEBOTH SCH ×3 (09:18→21:32)
[2019-05-11] MEDS: Sennosides 8.6 MG Tab PO SCH (09:19)
[2019-05-11] MEDS: Saccharomyces Boulardii (Probiotic) 250 MG Cap PO SCH ×2 (09:19→21:31)
[2019-05-11] MEDS: Enoxaparin 40 MG/0.4 ML Syringe SUBCUT SCH (09:19)
[2019-05-11] MEDS: guaiFENesin 600 MG Tab.ER PO SCH ×2 (09:19→21:31)
[2019-05-11] MEDS: Multivitamins,Therapeutic Tab PO SCH (09:19)
[2019-05-11] MEDS: LORazepam 0.5 MG Tab PO PRN (10:09)
[2019-05-11] MEDS: Azithromycin 250 MG Tab PO SCH (11:39)
[2019-05-11] MEDS: OLANZapine 5 MG Tab PO SCH (18:15)
[2019-05-11] MEDS: Rosuvastatin 10 MG Tab PO SCH (18:15)
[2019-05-11] MEDS: Citalopram 20 MG Tab PO SCH (18:15)
[2019-05-11] MEDS: Latanoprost 0.005% Ophth Soln 2.5 ML Bottle EYEBOTH SCH (18:15)
[2019-05-12] MEDS: methylPREDNISolone Sodium Succinate 40 MG/1 ML SDV IVPUSH SCH (06:51)
[2019-05-12] MEDS: Albuterol 0.083% 2.5 MG/3 ML Neb Soln NEB SCH ×2 (06:56→14:12)
[2019-05-12] MEDS: guaiFENesin 600 MG Tab.ER PO SCH (08:36)
[2019-05-12] MEDS: Multivitamins,Therapeutic Tab PO SCH (08:36)
[2019-05-12] MEDS: Sennosides 8.6 MG Tab PO SCH (08:36)
[2019-05-12] MEDS: Saccharomyces Boulardii (Probiotic) 250 MG Cap PO SCH (08:36)
[2019-05-12] MEDS: Carboxymethylcellulose Sodium 1% Ophth Gel 15 ML Bottle EYEBOTH SCH (08:36)
[2019-05-12] MEDS: Fluticasone Propionate Nasal Spray 16 GM Bottle NAS SCH (08:36)
[2019-05-12] MEDS: Enoxaparin 40 MG/0.4 ML Syringe SUBCUT SCH (08:36)
[2019-05-12] MEDS: Triamcinolone Acetonide 0.1% Crm 15 GM Tube TOP SCH (08:37)
--- NOTE | 2019-05-12 08:57 | CR ---
Chest: Portable view of the chest was obtained. Comparison: Previous chest x-ray of 05/09/19. Elevated left hemidiaphragm is again noted. This causes mild increased density within the left base. Right lung is clear. Heart is enlarged. Tortuous thoracic aorta is seen. Scoliosis is noted within the spine. Impression: 1. Elevated left hemidiaphragm obscuring a large portion of left lung base. This causes some adjacent atelectasis. 2. Findings within the chest are fairly stable from previous exam. Diagnostic code #2 I mostly agree with preliminary report from [facility] (I do not believe the air space disease is worsening from previous exam), finalized on 05/11/19, 9:57 PM Central Time, code #2
[2019-05-12] MEDS: LORazepam 0.5 MG Tab PO PRN (09:41)
[2019-05-12 12:10] VITALS: BP 112/60; PULSE 60
[2019-05-12] MEDS: Azithromycin 250 MG Tab PO SCH (12:23)
--- NOTE | 2019-05-12 12:23 | PCM.DCSUM1 ---
Discharge Summary - Hospital Course Free Text/Narrative:: This is a 58 yo white female with past medical hx/o Impaired Vision, Hx/o Arrhythmia, HTN, HLD, ADEN, Recurrent Pneumonia, Hemorrhoids, Hx/o STD, Stress Incontinence, Chronic Back Pain, Scoliosis, Internal Derangement of the Knee, Congenital Spinal Deformity, [place] Palsy, Schizophrenia, PD, SAD, Developmental Delay, Intellectual Disability, Chronic Anemia, DM2 and Morbid Obesity who presented to ED yesterday with complaints of fever and chills associated with productive cough. She was diagnosed with presumptive pneumonia and was being treated with oral Levaquin for 6 days. Unfortunately, her symptoms did not improve. Her cough was wet but she was not able to bring it up. She arrived in ED with O2 sat in the upper 80s on 1L NC but improved once she was increased to 4 liters. Her initial work up in ED showed a CBC remarkable for WBC of 14.22, MCV of 101.2 , MCHC of 29.2, RDW of 50.2, Monocytes of 13.2%, Eosinophils of 6.5% and Basophils of 1.3%. Her ABG showed pH of 7.37, pCO2 of 71.8, pO2 of 68, HCO3 of 40.7, sating at 93% on 3L NC. Her Chemistry is significant for CO2 of 40, AG of 3.3, AST of 13 and Albumin of 3.3. Her UA was negative for UTI. Her chest x-ray report read as chronic elevated diaphragm, nothing acute is seen. Patient was admitted overnight for treatment of community acquired pneumonia. Diagnosis: Stroke: No Modified Blayne Scale: No Symptoms at All Modified Blayne Scale Score: 0 - Discharge Data Discharge Date: 05/12/19 Discharge Disposition: Home, Self-Care 01 Condition: Good - Referral to Home Health Primary Care Physician: Juwan Ty MD - Patient Summary/Data Operative Procedure(s) Performed: None Complications: None Consults: Consultations 05/09/19 20:54 Consult to Case Management/Computer Trainer [CONS] Routine Consult to Manager Performance Improvement [CONS] Routine Consult to Spiritual Care [CONS] Routine OT Evaluation and Treatment [CONS] Routine PT Evaluation and Treatment [CONS] Routine Respiratory Care Assess and Treatment [CONS] Routine Labs Pending at D/C: None Recommended Follow-up Testing/Procedures: chest x-ray in 1 week Planned Operative Procedure(s) after DC: None Hospital Course: Patient was primarily admitted for community acquired pneumonia who failed outpatient treatment. Her chest x-ray revealed no acute abnormal findings. Her blood and sputum cultures showed no significant organismal growth. However she was treated with intravenous antibiotics and she slowly improved on this regimen. Her hospital course uncomplicated and the rest of her chronic medical illness remained stable during this hospitalization. Once medically stable, she was then sent back home with additional course of oral antibiotic. She was advised to use IS as directed and to follow up with PCP 1 week after discharge. - Patient Instructions Diet: Heart Healthy Diet, Usual Diet as Tolerated, Weight Loss Diet Activity: As Tolerated Driving: Do Not Drive Showering/Bathing: May Shower Notify Provider of: Fever, Increased Pain, Swelling and Redness, Nausea and/or Vomiting Other/Special Instructions: - Please take all new medications as directed. - Resume routine home medications and activity as tolerated. - Use incentive spirometry as directed. - Call or follow up with your doctor for any concerns or issues after discharge. - Follow up with your doctor in 1 week with repeat chest x-ray. - Come back or seek immediate care should your symptoms persist or get worse - Discharge Plan *PRESCRIPTION DRUG MONITORING PROGRAM REVIEWED*: Not Applicable *COPY OF PRESCRIPTION DRUG MONITORING REPORT IN PATIENT ROGERS: Not Applicable Prescriptions/Med Rec: Levofloxacin [Levaquin] 750 mg PO DAILY #5 tablet Saccharomyces Boulardii [Florastor] 250 mg PO DAILY #5 capsule Home Medications: Home Meds Latanoprost [Xalatan 0.005% Ophth Soln] 1 drop EYEBOTH QPM 11/13/16 [History] Nitroglycerin [Nitrostat] 0.4 mg SL ASDIRECTED PRN 11/13/16 [History] metFORMIN [Glucophage] 500 mg PO BID 11/13/16 [History] Citalopram [Citalopram HBr] 40 mg PO QPM 01/11/19 [History] Fluticasone Propionate [Flonase] 1 spray ANNETTE DAILY 01/11/19 [History] Rosuvastatin Calcium 40 mg PO QPM 01/11/19 [History] Sennosides [Senna] 8.6 mg PO DAILY 01/11/19 [History] Multivitamin with Minerals [One Daily Plus Minerals] 1 each PO DAILY 01/12/19 [ History] ARIPiprazole [Abilify] 2 mg PO QPM 05/09/19 [History] Albuterol Sulfate 2.5 mg IH Q6HR PRN 05/09/19 [History] Albuterol Sulfate 2.5 mg IH TID 05/09/19 [History] Ipratropium [place] 1 inh INH TID PRN 05/09/19 [History] LORazepam [Ativan] 0.5 mg PO Q6HR PRN 05/09/19 [History] OLANZapine [ZyPREXA] 5 mg PO QPM 05/09/19 [History] Polyvinyl Alcohol/Povidone/Pf [Refresh Classic Eye Drops] 1 drop EYEBOTH TID [History] Triamcinolone Acetonide [Triamcinolone Acetonide 0.025%] 1 applic TOP BID [History] guaiFENesin [Mucinex] 600 mg PO BID 05/09/19 [History] Levofloxacin [Levaquin] 750 mg PO DAILY #5 tablet 05/12/19 [Rx] Losartan [Cozaar] 50 mg PO DAILY #0 05/12/19 [Rx] Saccharomyces Boulardii [Florastor] 250 mg PO DAILY #5 capsule 05/12/19 [Rx] Oxygen Therapy Mode: Room Air Patient Handouts: Chronic Obstructive Pulmonary Disease Exacerbation, Easy-to- Read, Shortness of Breath, Adult, [id number], Hypoxemia, Confusion, Community- Acquired Pneumonia, Adult, [id number] Referrals: Juwan Ty MD [Primary Care Provider] - - Discharge Summary/Plan Comment DC Time >30 min.: No Discharge Summary/Plan Comment: Discharge to Home - General Info Date of Service: 05/12/19 Admission Dx/Problem (Free Text: Admission Diagnosis/Problem Admission Diagnosis/Problem Pneumonia Subjective Update: Follow Up Functional Status: Reports: Pain Controlled, Tolerating Diet, Ambulating, Urinating - Review of Systems General: Denies: Fever, Chills HEENT: Reports: No Symptoms Pulmonary: Reports: Shortness of Breath, Cough Gastrointestinal: Denies: Abdominal Pain, Nausea, Vomiting Genitourinary: Reports: No Symptoms Musculoskeletal: Reports: No Symptoms Skin: Denies: Cyanosis, Pallor, Diaphoresis, Bruising Neurological: Reports: Gait Disturbance. Denies: Difficulty Walking, Weakness Psychiatric: Denies: Depression, Anxiety, Agitation, Hallucinations Systems Review Comment: No overnight or acute issues. She feels "okay" and has no complaints. - Patient Data Vitals - Most Recent: Last Vital Signs Temp 36.6 C 05/12/19 07:13 Pulse 60 05/12/19 11:13 Resp 16 05/12/19 11:10 BP 112/60 05/12/19 11:10 Pulse Ox 92 L 05/12/19 11:13 Weight - Most Recent: 93.984 kg I&O - Last 24 hours: Intake & Output 05/11/19 05/12/19 05/12/19 22:59 06:59 14:59 Intake Total 1070 340 420 Output Total 1000 1300 Balance 70 -960 420 Lab Results - Last 24 hrs: Laboratory Results - last 24 hr 05/11/19 05/11/19 05/12/19 Range/Units 17:11 21:30 05:40 WBC 16.72 H (3.98-10.04) K/mm3 RBC 3.83 L (3.98-5.22) M/mm3 Hgb 11.6 (11.2-15.7) gm/dl Hct 37.9 (34.1-44.9) % MCV 99.0 H (79.4-94.8) fl MCH 30.3 (25.6-32.2) pg MCHC 30.6 L (32.2-35.5) g/dl RDW Std Deviation 49.1 H (36.4-46.3) fL Plt Count 251 (182-369) K/mm3 MPV 9.9 (9.4-12.3) fl Neut % (Auto) 88.1 H (34.0-71.1) % Lymph % (Auto) 8.3 L (19.3-51.7) % [place] % (Auto) 3.5 L (4.7-12.5) % Eos % (Auto) 0 L (0.7-5.8) Baso % (Auto) 0.1 (0.1-1.2) % Neut # (Auto) 14.74 H (1.56-6.13) K/mm3 Lymph # (Auto) 1.38 (1.18-3.74) K/mm3 [place] # (Auto) 0.59 H (0.24-0.36) K/mm3 Eos # (Auto) 0.00 L (0.04-0.36) K/mm3 Baso # (Auto) 0.01 (0.01-0.08) K/mm3 Manual Slide Review Abnormal smear Sodium (136-145) mEq/L Potassium (3.5-5.1) mEq/L Chloride (98-107) mEq/L Carbon Dioxide (21-32) mEq/L Anion Gap (5-15) BUN (7-18) mg/dL Creatinine (0.55-1.02) mg/dL Est Cr Clr Drug Dosing mL/min Estimated GFR (MDRD) (>60) mL/min BUN/Creatinine Ratio (14-18) Glucose (74-106) mg/dL POC Glucose 151 H 317 H (70-105) mg/dL Calcium (8.5-10.1) mg/dL Magnesium (1.8-2.4) mg/dl C-Reactive Protein (<1.0) mg/dL 05/12/19 05/12/19 05/12/19 Range/Units 05:40 06:56 11:05 WBC (3.98-10.04) K/mm3 RBC (3.98-5.22) M/mm3 Hgb (11.2-15.7) gm/dl Hct (34.1-44.9) % MCV (79.4-94.8) fl MCH (25.6-32.2) pg MCHC (32.2-35.5) g/dl RDW Std Deviation (36.4-46.3) fL Plt Count (182-369) K/mm3 MPV (9.4-12.3) fl Neut % (Auto) (34.0-71.1) % Lymph % (Auto) (19.3-51.7) % [place] % (Auto) (4.7-12.5) % Eos % (Auto) (0.7-5.8) Baso % (Auto) (0.1-1.2) % Neut # (Auto) (1.56-6.13) K/mm3 Lymph # (Auto) (1.18-3.74) K/mm3 [place] # (Auto) (0.24-0.36) K/mm3 Eos # (Auto) (0.04-0.36) K/mm3 Baso # (Auto) (0.01-0.08) K/mm3 Manual Slide Review Sodium 145 (136-145) mEq/L Potassium 4.6 (3.5-5.1) mEq/L Chloride 103 (98-107) mEq/L Carbon Dioxide 36 H (21-32) mEq/L Anion Gap 10.6 (5-15) BUN 22 H (7-18) mg/dL Creatinine 0.8 (0.55-1.02) mg/dL Est Cr Clr Drug Dosing 55.06 mL/min Estimated GFR (MDRD) > 60 (>60) mL/min BUN/Creatinine Ratio 27.5 H (14-18) Glucose 150 H (74-106) mg/dL POC Glucose 144 H 141 H (70-105) mg/dL Calcium 9.0 (8.5-10.1) mg/dL Magnesium 2.4 (1.8-2.4) mg/dl C-Reactive Protein 0.3 (<1.0) mg/dL GIOVANNA Results - Last 24 hrs: Microbiology 05/11/19 02:53 Gram Stain - Final Sputum - Expectorated Sputum Culture - Preliminary 05/09/19 15:58 Aerobic Blood Culture - Preliminary Blood - Venous - Lab Draw NO GROWTH AFTER 2 DAYS Anaerobic Blood Culture - Preliminary NO GROWTH AFTER 2 DAYS 05/09/19 15:42 Aerobic Blood Culture - Preliminary Blood - Venous NO GROWTH AFTER 2 DAYS Anaerobic Blood Culture - Preliminary NO GROWTH AFTER 2 DAYS Med Orders - Current: Current Medications Acetaminophen (Tylenol) 650 mg PO Q4H PRN PRN Reason: Pain (Mild 1-3)/fever Hydrocodone Bitart/Acetaminophen ([place] 325-5 Mg) 1 tab PO Q4H PRN PRN Reason: Pain (moderate 4-6) Albuterol (Proventil Neb Soln) 2.5 mg NEB TIDRT CANDIE Last Admin: 05/12/19 06:56 Dose: 2.5 mg Albuterol (Proventil Neb Soln) 2.5 mg NEB Q6HR PRN PRN Reason: Shortness of Breath Albuterol/Ipratropium (Duoneb 3.0-0.5 Mg/3 Ml) 3 ml NEB Q4H PRN PRN Reason: Shortness Of Breath/wheezing Last Admin: 05/11/19 13:10 Dose: 3 ml Aripiprazole (Abilify) 2 mg PO QPM [facility] Last Admin: 05/11/19 18:15 Dose: 2 mg Artificial Tears (Refresh Liquigel 1%) 0 ml EYEBOTH TID [facility] Last Admin: 05/12/19 08:36 Dose: 1 drop Azithromycin (Zithromax) 250 mg PO Q24H [facility] Last Admin: 05/11/19 11:39 Dose: 250 mg Bisacodyl (Dulcolax) 5 mg PO DAILY PRN PRN Reason: Constipation Citalopram Hydrobromide (Celexa) 40 mg PO QPM [facility] Last Admin: 05/11/19 18:15 Dose: 40 mg Docusate Sodium (Colace) 100 mg PO BID PRN PRN Reason: Constipation Enoxaparin Sodium (Lovenox) 40 mg SUBCUT DAILY [facility] Last Admin: 05/12/19 08:36 Dose: 40 mg Fluticasone Propionate (Flonase) 0 gm ANNETTE DAILY [facility] Last Admin: 05/12/19 08:36 Dose: 1 spray Guaifenesin (Mucinex) 600 mg PO BID [facility] Last Admin: 05/12/19 08:36 Dose: 600 mg Guaifenesin/Phenylephrine HCl (Robitussin Dm) 10 ml PO Q4H PRN PRN Reason: Cough Promethazine HCl 6.25 mg/ (Sodium Chloride) 50.25 mls @ 100 mls/hr IV Q6H PRN PRN Reason: Nausea/Vomiting Ipratropium [place] (Atrovent) 0.5 mg INH TIDRT PRN PRN Reason: Shortness of Breath Latanoprost (Xalatan 0.005% Ophth Soln) 0 ml EYEBOTH QPM [facility] Last Admin: 05/11/19 18:15 Dose: 1 drop Lorazepam (Ativan) 0.5 mg PO Q6HR PRN PRN Reason: Anxiety Last Admin: 05/12/19 09:41 Dose: 0.5 mg Methylprednisolone Sodium Succinate (Solu-Medrol) 80 mg IVPUSH Q8H [facility] Last Admin: 05/12/19 06:51 Dose: 80 mg Multivitamins (Thera) 1 each PO DAILY [facility] Last Admin: 05/12/19 08:36 Dose: 1 each Nitroglycerin (Nitrostat) 0.4 mg SL ASDIRECTED PRN PRN Reason: Chest Pain Olanzapine (Zyprexa) 5 mg PO QPM [facility] Last Admin: 05/11/19 18:15 Dose: 5 mg Ondansetron HCl (Zofran) 4 mg IV Q6H PRN PRN Reason: Nausea/Vomiting Rosuvastatin Calcium (Crestor) 40 mg PO QPM [facility] Last Admin: 05/11/19 18:15 Dose: 40 mg Saccharomyces Boulardii (Florastor) 250 mg PO BID [facility] Last Admin: 05/12/19 08:36 Dose: 250 mg Senna (Senna) 8.6 mg PO DAILY [facility] Last Admin: 05/12/19 08:36 Dose: 8.6 mg Senna/Docusate Sodium (Senna Plus) 1 tab PO BID PRN PRN Reason: Constipation Temazepam (Restoril) 15 mg PO BEDTIME PRN PRN Reason: Sleep Last Admin: 05/09/19 22:30 Dose: 15 mg Triamcinolone Acetonide (Triamcinolone Acetonide 0.1% Crm) 0 gm TOP BID [facility] Last Admin: 05/12/19 08:37 Dose: 1 applic Discontinued Medications Albuterol/Ipratropium (Duoneb 3.0-0.5 Mg/3 Ml) 3 ml NEB ONETIME ONE Stop: 05/09/19 18:01 Last Admin: 05/09/19 19:12 Dose: 3 ml Diphenhydramine HCl (Benadryl) 25 mg IVPUSH ONETIME ONE Stop: 05/10/19 10:31 Last Admin: 05/10/19 10:16 Dose: 25 mg Sodium Chloride (Normal Saline) 1,000 mls @ 100 mls/hr IV ASDIRECTED [facility] Last Admin: 05/10/19 15:24 Dose: 100 mls/hr Linezolid 600 mg/ Premix 300 mls @ 300 mls/hr IV ONETIME ONE Stop: 05/09/19 19:55 Last Admin: 05/09/19 19:10 Dose: 300 mls/hr Linezolid 600 mg/ Premix 300 mls @ 300 mls/hr IV Q12H [facility]ANDIE Meropenem/Sodium Chloride 500 (mg/ Premix) 50 mls @ 100 mls/hr IV Q8H [facility] Last Admin: 05/10/19 05:18 Dose: 100 mls/hr Vancomycin HCl 1 gm/Vancomycin HCl 250 mg/ Sodium Chloride 250 mls @ 166.667 mls/hr IV ONETIME ONE Stop: 05/10/19 09:29 Last Admin: 05/10/19 10:20 Dose: 166.667 mls/hr Vancomycin HCl 1 gm/ Sodium (Chloride) 250 mls @ 250 mls/hr IV Q12H [facility] Last Admin: 05/11/19 09:19 Dose: 250 mls/hr Meropenem/Sodium Chloride 500 (mg/ Premix) 50 mls @ 100 mls/hr IV Q6H [facility] Last Admin: 05/11/19 06:14 Dose: 100 mls/hr Rosuvastatin Calcium (Crestor) 40 mg PO QPM [facility] Vancomycin HCl (Pharmacy To Dose - Vancomycin) 0 dose .XX ASDIRECTED PRN PRN Reason: RX TO DOSE VANCO - Exam Quality Assessment: Reports: Supplemental Oxygen General: Reports: Alert, Cooperative, No Acute Distress, Other (Morbidly Obese) HEENT: Reports: Pupils Equal, Pupils Reactive, Mucous Membr. Moist/[place] Neck: Reports: Supple, Other (neck short and thick) Lungs: Reports: Normal Respiratory Effort, Decreased Breath Sounds, Rhonchi Cardiovascular: Reports: Regular Rate, Regular Rhythm GI/Abdominal Exam: Normal Bowel Sounds, Soft, Non-Tender, No Organomegaly, No Distention, No Abnormal Bruit (Female) Exam: Deferred Rectal (Female) Exam: Deferred Back Exam: Reports: Normal Inspection, Decreased Range of Motion Extremities: Normal Inspection, Normal Range of Motion, Non-Tender, No Pedal Edema, Normal Capillary Refill Skin: Reports: Warm, Dry, Intact Neurological: Reports: No New Focal Deficit. Denies: Normal Gait Psy/Mental Status: Reports: Alert, Normal Affect, Normal Mood
== END 2019-05-12 13:15 | disposition home or self-care (01) | DRG 871 ==
LOC: JD.ED 15:01 → JD.MS 19:15
PROVIDERS: ADMIT Internal Medicine; ATTEND Internal Medicine
DX: A41.9 Sepsis, unspecified organism (principal); J18.1 Lobar pneumonia, unspecified organism; J96.02 Acute respiratory failure with hypercapnia; J96.01 Acute respiratory failure with hypoxia; R41.0 Disorientation, unspecified; I48.91 Unspecified atrial fibrillation; J18.9 Pneumonia, unspecified organism; H54.7 Unspecified visual loss; I10 Essential (primary) hypertension; G47.33 Obstructive sleep apnea (adult) (pediatric); G47.30 Sleep apnea, unspecified; E66.01 Morbid (severe) obesity due to excess calories; M54.9 Dorsalgia, unspecified; H40.9 Unspecified glaucoma; E11.9 Type 2 diabetes mellitus without complications; E66.9 Obesity, unspecified; E78.00 Pure hypercholesterolemia, unspecified; Z88.1 Allergy status to other antibiotic agents; G89.29 Other chronic pain; Z79.899 Other long term (current) drug therapy; F60.9 Personality disorder, unspecified; F20.9 Schizophrenia, unspecified; Z88.0 Allergy status to penicillin; Z79.84 Long term (current) use of oral hypoglycemic drugs; Z68.41 Body mass index [BMI] 40.0-44.9, adult
CPT/HCPCS: 36415; 36600; 71045; 80053; 82553; 82803; 83605; 83735; 83880; 84145; 84443; 84484; 85025; 85610; 86140; 86738; 87040 ×2; 93005; 94640; 96361; 96365; 99285; J2020; J7040; 80048; 81001; 82962; 87070; 87205; 87641; 87899; 93010; 94760; 94761; 97110-GP; 97116-GP; 97161-GP; 97165-GO; A9270-GY; J1200; J1650; J2185; J2920; J3370; J7050; J7620-GY

== ENCOUNTER 2019-05-19 10:15 | Emergency (ER) | payer MEDICARE, MEDICAID ==
[2019-05-19 10:26] VITALS: BP 107/73; PULSE 74
--- NOTE | 2019-05-19 10:40 | EDM.PDOC ---
ED HPI GENERAL MEDICAL PROBLEM - General Chief Complaint: Respiratory Problem Stated Complaint: [facility] Time Seen by Provider: 05/19/19 10:24 Source of Information: Reports: Patient, EMS History Limitations: Reports: No Limitations - History of Present Illness INITIAL COMMENTS - FREE TEXT/NARRATIVE: 58-year-old female from [facility] sent over for evaluation of decreased 02 sats . She's been on 3 L of oxygen per nasal cannula at all times since discharge from the hospital on the of this month. She was admitted on the with suspect pneumonia. This pneumonia was diagnosed by Cliar Law at [facility] May 02 the patient had been on Levaquin 500 mg daily for a week and not getting better. Patient was brought over at that time because she was so hypoxic. is mentally challenged and therefore an accurate history is difficult to obtain from the patient. Blood gases done at that time showed that she is a CO2 retainer with a PCO2 of 71.8 and PO2 82 was 68. Toward 93.2% on 3 L/m. White count was elevated at that time to 14.2 with an auto differential of 59% neutrophils. BNP was minimally elevated at 247 cardiac markers were normal. C-reactive protein was 1.4. Chest x-ray revealed arrange for infiltrate along the right cardiac border which could be fluid versus pneumonia. Patient was admitted to hospital with Dr. Solis because of hypercarbia causing confusion and her persistent hypoxia. Paramedics gave her a albuterol treatment en route to the hospital and her O2 sats improved to 94% on 3 L/m which she is on at present. She is alert oriented and afebrile. Blood pressure is 107/73. Onset: Other (Patient was diagnosed with pneumonia on May 02 treated with a week of Levaquin 500 mg daily. Seen through the ED on May 09 by me and did have a right middle lobar infiltrate suggestive of pneumonia. She was admitted to the hospital because of hypercarbia on blood gas exam and persistent hypoxemia. This was remedied by oxygen 4 L/m by nasal cannula. She remained hospital for 3 days and was discharged back to [facility]. She was sent back today because of increasing hypoxia.) Onset Date: 05/02/19 (Diagnosed with right lower lobar pneumonia on May 02. Admitted to the hospital May 09 after failing to improve in a week course of Levaquin 500 mg daily with hypoxemia and hypercarbia. Gait and also for 3 days was discharged back to [facility] on the .) Duration: Day(s):, Getting Worse (Reportedly more hypoxic this morning and lethargic. She states she did have all her medications and did eat breakfast.) Location: Reports: Chest (Dyspnea with hypoxia reported.) Severity: Moderate Improves with: Reports: Other (Patient sats are 94% at present after receiving an albuterol treatment and on oxygen at 3 L/m by nasal cannula which was discharged back to the correction on.) Worsens with: Reports: Movement Context: Denies: Activity, Exercise (Activity.), Lifting, Sick Contact, Trauma, Other Associated Symptoms: Reports: Cough, Malaise, Shortness of Breath, Weakness. Denies: No Other Symptoms, Confusion, Chest Pain (States she has a cough but no nonproductive.), cough w sputum, Diaphoresis, Fever/Chills, Headaches, Loss of Appetite, Nausea/Vomiting, Rash, Seizure, Syncope Treatments MANAGER ZONE: Reports: Other (see below) (None.) - Related Data Allergies Allergy/AdvReac Type Severity Reaction Status Date / Time penicillin V Allergy Cannot Verified 05/19/19 10:25 Remember vancomycin Allergy Cannot Verified 05/19/19 10:25 Remember Home Meds: Home Meds Latanoprost [Xalatan 0.005% Ophth Soln] 1 drop EYEBOTH QPM 11/13/16 [History] Nitroglycerin [Nitrostat] 0.4 mg SL ASDIRECTED PRN 11/13/16 [History] metFORMIN [Glucophage] 500 mg PO BID 11/13/16 [History] Citalopram [Citalopram HBr] 40 mg PO QPM 01/11/19 [History] Fluticasone Propionate [Flonase] 1 spray ANNETTE DAILY 01/11/19 [History] Rosuvastatin Calcium 40 mg PO QPM 01/11/19 [History] Sennosides [Senna] 8.6 mg PO DAILY 01/11/19 [History] Multivitamin with Minerals [One Daily Plus Minerals] 1 each PO DAILY 01/12/19 [ History] ARIPiprazole [Abilify] 2 mg PO QPM 05/09/19 [History] Albuterol Sulfate 2.5 mg IH Q6HR PRN 05/09/19 [History] Albuterol Sulfate 2.5 mg IH TID 05/09/19 [History] Ipratropium White 1 inh INH TID PRN 05/09/19 [History] LORazepam [Ativan] 0.5 mg PO Q6HR PRN 05/09/19 [History] OLANZapine [ZyPREXA] 5 mg PO QPM 05/09/19 [History] Polyvinyl Alcohol/Povidone/Pf [Refresh Classic Eye Drops] 1 drop EYEBOTH TID [History] Triamcinolone Acetonide [Triamcinolone Acetonide 0.025%] 1 applic TOP BID [History] guaiFENesin [Mucinex] 600 mg PO BID 05/09/19 [History] Levofloxacin [Levaquin] 750 mg PO DAILY #5 tablet 05/12/19 [Rx] Losartan [Cozaar] 50 mg PO DAILY #0 05/12/19 [Rx] Saccharomyces Boulardii [Florastor] 250 mg PO DAILY #5 capsule 05/12/19 [Rx] Sulfamethoxazole/Trimethoprim [Bactrim Ds Tablet] 1 each PO BID #12 tablet 05/19 [Rx] Past Medical History HEENT History: Reports: Glaucoma, Impaired Vision Cardiovascular History: Reports: Arrhythmia, High Cholesterol, Hypertension Other Cardiovascular History: svt and pvc, heart disease Respiratory History: Reports: Pneumonia, Recurrent, Sleep Apnea Other Respiratory History: SOB Gastrointestinal History: Reports: Hemorrhoids, Other (See Below) Other Gastrointestinal History: hernia, constipation Genitourinary History: Reports: STD, Other (See Below) Other Genitourinary History: stress incontinence. cervical hpv PHOTORESIST PRINTER History: Reports: Other (See Below) Other PHOTORESIST PRINTER History: menopause Musculoskeletal History: Reports: Back Pain, Chronic Other Musculoskeletal History: congenital musculoskeletal deformity of spine, internal derangement of knee, scoliosis Neurological History: Reports: Other (See Below) Other Neuro History: bells palsy Psychiatric History: Reports: Schizophrenia, Other (See Below) Other Psychiatric History: developmental delay, personality disorder, SAD, anxiety, intellectual disabilities, dementia, Endocrine/Metabolic History: Reports: Diabetes, Type II, Obesity/BMI 30+ Hematologic History: Reports: Anemia Dermatologic History: Reports: Other (See Below) Other Dermatologic History: dermatophytosis of nail - Infectious Disease History Infectious Disease History: Reports: None - Past Surgical History HEENT Surgical History: Reports: Tonsillectomy Cardiovascular Surgical History: Reports: None Respiratory Surgical History: Reports: None Other Respiratory Surgeries/Procedures: states that her CPAP machine "was taken away" d/t improper cleaning GI Surgical History: Reports: Cholecystectomy Female Surgical History: Reports: Section Endocrine Surgical History: Reports: None Neurological Surgical History: Reports: Scoliosis Musculoskeletal Surgical History: Reports: Other (See Below) Other Musculoskeletal Surgeries/Procedures:: cervical surgery Dermatological Surgical History: Reports: None Social & Family History - Family History Family Medical History: Noncontributory - Caffeine Use Caffeine Use: Reports: Soda - Living Situation & Occupation Living situation: Reports: Single, Extended Care Facility (Patient is currently a resident at [facility]. She's no longer in a senior living setting) Occupation: Disabled ED ROS GENERAL - Review of Systems Review Of Systems: See Below Constitutional: Reports: Malaise, Weakness, Fatigue. Denies: Fever, Chills, Decreased Appetite HEENT: Reports: Other. Denies: Vision Change Respiratory: Reports: Shortness of Breath, Cough. Denies: Wheezing, Pleuritic Chest Pain, Sputum, Hemoptysis (Nonproductive) Cardiovascular: Reports: Dyspnea on Exertion (Mild lower extremities.), Edema, Lightheadedness. Denies: Blood Pressure Problem, Claudication, Orthopnea Endocrine: Reports: Fatigue GI/Abdominal: Reports: Constipation (Occasional positive constipation) : Reports: Frequency, Incontinence (Stress and urgency components) Musculoskeletal: Reports: Back Pain, Joint Pain (Knees hips neck and shoulders at times) Skin: Reports: Other (Dry skin.) Neurological: Reports: Difficulty Walking, Weakness. Denies: Confusion, Dizziness, Headache, Numbness, Pre-Existing Deficit, Syncope, Tingling, Tremors , Trouble Speaking Psychiatric: Reports: Anxiety Hematologic/Lymphatic: Reports: No Symptoms Immunologic: Reports: No Symptoms ED EXAM, GENERAL - Physical Exam Exam: See Below Exam Limited By: Other (Patient is mentally handicapped but she answers all questions to the best of her ability which are quite accurate.) General Appearance: Alert, WD/WN, No Apparent Distress, Other (Temperatures 36.8. Pulse is 74 cm respiratory is 18. BP 107/73. Current O2 sats on 3 L are 94 %. She has somewhat of a acromegalic structure to her face.) Eye Exam: Bilateral Eye: Normal Inspection Ears: Normal TMs Throat/Mouth: Normal Inspection, Normal Lips, Normal Oropharynx. No: Normal Teeth Head: Atraumatic, Normocephalic Neck: Normal Inspection, Limited Range of Motion, Tender Lateral. No: Full Range of Motion, Lymphadenopathy (R) Respiratory/Chest: No Respiratory Distress, Decreased Breath Sounds (Severely decreased air entry to both lower lungs over 50% bilaterally. Worse on the left as compared to the right.). No: Rales, Rhonchi, Wheezing Cardiovascular: Regular Rate, Rhythm, No Edema, No Gallop, Diastolic Murmur ( Grade 1-206.). No: Normal Peripheral Pulses Peripheral Pulses: 1+: Posterior Tibial (L), Posterior Tibial (R), Dorsalis Pedis (L), Dorsalis Pedis (R) GI/Abdominal: Normal Bowel Sounds, Soft, Non-Tender, No Organomegaly, Pelvis Stable, Other (Moderately obese.) Extremities: Pedal Edema (Trace pedal edema bilaterally.), Other (Evidence of osteophytic changes in both knees and very limited range of motion in internal/ external rotation of both hips.) Neurological: Alert, Oriented, CN II-XII Intact, Slow to Respond. No: Disoriented Psychiatric: Normal Affect, Normal Mood Skin Exam: Warm, Dry, Intact, Normal Color, No Rash EKG INTERPRETATION EKG Date: 05/19/19 Time: 11:07 Rhythm: NSR Rate (Beats/Min): 71 [place]: Normal QRS: Other (Mildly decreased voltage limb and precordial leads due to thickness of her chest.) ST-T: Normal QT: Normal EKG Interpretation Comments: Borderline ECG Course - Vital Signs Last Recorded V/S: Last Vital Signs Temp 36.8 C 05/19/19 10:22 Pulse 74 05/19/19 10:22 Resp 18 05/19/19 10:22 BP 107/73 05/19/19 10:22 Pulse Ox 94 L 05/19/19 10:22 - Orders/Labs/Meds Orders: Active Orders 24 hr Category Date Time Status EKG Documentation Completion [RC] STAT Care 05/19/19 10:44 Active Oxygen Therapy [RC] ASDIRECTED Care 05/19/19 10:44 Active Peripheral IV Care [RC] . DIRECTED Care 05/19/19 10:45 Active CULTURE URINE [RM] Routine Lab 05/19/19 10:49 Received Sodium Chloride 0.9% [Saline Flush] Med 05/19/19 10:45 Active 10 ml FLUSH ASDIRECTED PRN Peripheral IV Insertion Adult [OM.PC] Stat Oth 05/19/19 10:45 Ordered Medication Orders Sodium Chloride (Saline Flush) 10 ml FLUSH ASDIRECTED PRN PRN Reason: Keep Vein Open Last Admin: 05/19/19 10:55 Dose: 10 ml Labs: Laboratory Tests 05/19/19 05/19/19 05/19/19 Range/Units 10:49 10:55 10:55 WBC 13.20 H (3.98-10.04) K/mm3 RBC 4.11 (3.98-5.22) M/mm3 Hgb 12.1 (11.2-15.7) gm/dl Hct 41.5 (34.1-44.9) % MCV 101.0 H (79.4-94.8) fl MCH 29.4 (25.6-32.2) pg MCHC 29.2 L (32.2-35.5) g/dl RDW Std Deviation 49.3 H (36.4-46.3) fL Plt Count 251 (182-369) K/mm3 MPV 10.0 (9.4-12.3) fl Neut % (Auto) 63.2 (34.0-71.1) % Lymph % (Auto) 16.7 L (19.3-51.7) % [place] % (Auto) 13.8 H (4.7-12.5) % Eos % (Auto) 5.5 (0.7-5.8) Baso % (Auto) 0.5 (0.1-1.2) % Neut # (Auto) 8.33 H (1.56-6.13) K/mm3 Lymph # (Auto) 2.21 (1.18-3.74) K/mm3 [place] # (Auto) 1.82 H (0.24-0.36) K/mm3 Eos # (Auto) 0.73 H (0.04-0.36) K/mm3 Baso # (Auto) 0.07 (0.01-0.08) K/mm3 Manual Slide Review Abnormal smear Puncture Site ABG pH (7.35-7.45) ABG pCO2 (35.0-45.0) mmHg ABG pO2 (80.0-100.0) mmHg ABG HCO3 (22.0-26.0) meq/L ABG O2 Saturation (96.0-97.0) % ABG Base Excess (-2-2.0) Anup Test A-a Gradient mmHg O2 Delivery Device Oxygen Flow Rate FiO2 (21.00-100.00) % Sodium 144 (136-145) mEq/L Potassium 4.2 (3.5-5.1) mEq/L Chloride 106 (98-107) mEq/L Carbon Dioxide 39 H (21-32) mEq/L Anion Gap 3.2 L (5-15) BUN 12 (7-18) mg/dL Creatinine 0.7 (0.55-1.02) mg/dL Est Cr Clr Drug Dosing 62.92 mL/min Estimated GFR (MDRD) > 60 (>60) mL/min BUN/Creatinine Ratio 17.1 (14-18) Glucose 124 H (74-106) mg/dL Calcium 8.7 (8.5-10.1) mg/dL Magnesium 2.2 (1.8-2.4) mg/dl Total Bilirubin 0.3 (0.2-1.0) mg/dL AST 22 (15-37) U/L ALT 32 (14-59) U/L Alkaline Phosphatase 79 (46-116) U/L Troponin I < 0.017 (0.00-0.056) ng/mL NT-Pro-B Natriuret Pep (0-125) pg/mL Total Protein 6.3 L (6.4-8.2) g/dl Albumin 2.9 L (3.4-5.0) g/dl Globulin 3.4 gm/dL Albumin/Globulin Ratio 0.9 L (1-2) Urine Color Yellow (Yellow) Urine Appearance Slt cloudy H (Clear) Urine pH 6.5 (5.0-8.0) Ur Specific [place] 1.025 (1.005-1.030) Urine Protein Negative (Negative) Urine Glucose (UA) Negative (Negative) Urine Ketones Negative (Negative) Urine Occult Blood Negative (Negative) Urine Nitrite Negative (Negative) Urine Bilirubin Negative (Negative) Urine Urobilinogen 1.0 (0.2-1.0) Ur Leukocyte Esterase 2+ H (Negative) Urine RBC 0-5 (0-5) /hpf Urine WBC 10-20 H (0-5) /hpf Ur Squamous Epith Cells 5-10 H (0-5) /hpf Urine Bacteria Few (FEW) /hpf Urine Mucus Few (FEW) /hpf 05/19/19 05/19/19 Range/Units 10:55 11:26 WBC (3.98-10.04) K/mm3 RBC (3.98-5.22) M/mm3 Hgb (11.2-15.7) gm/dl Hct (34.1-44.9) % MCV (79.4-94.8) fl MCH (25.6-32.2) pg MCHC (32.2-35.5) g/dl RDW Std Deviation (36.4-46.3) fL Plt Count (182-369) K/mm3 MPV (9.4-12.3) fl Neut % (Auto) (34.0-71.1) % Lymph % (Auto) (19.3-51.7) % [place] % (Auto) (4.7-12.5) % Eos % (Auto) (0.7-5.8) Baso % (Auto) (0.1-1.2) % Neut # (Auto) (1.56-6.13) K/mm3 Lymph # (Auto) (1.18-3.74) K/mm3 [place] # (Auto) (0.24-0.36) K/mm3 Eos # (Auto) (0.04-0.36) K/mm3 Baso # (Auto) (0.01-0.08) K/mm3 Manual Slide Review Puncture Site Rt radial ABG pH 7.28 L (7.35-7.45) ABG pCO2 81.6 H* (35.0-45.0) mmHg ABG pO2 80.0 (80.0-100.0) mmHg ABG HCO3 36.7 H (22.0-26.0) meq/L ABG O2 Saturation 95.6 L (96.0-97.0) % ABG Base Excess 7.3 H (-2-2.0) Anup Test Positive A-a Gradient 47 mmHg O2 Delivery Device Nasal cannula Oxygen Flow Rate 3.0 FiO2 32.00 (21.00-100.00) % Sodium (136-145) mEq/L Potassium (3.5-5.1) mEq/L Chloride (98-107) mEq/L Carbon Dioxide (21-32) mEq/L Anion Gap (5-15) BUN (7-18) mg/dL Creatinine (0.55-1.02) mg/dL Est Cr Clr Drug Dosing mL/min Estimated GFR (MDRD) (>60) mL/min BUN/Creatinine Ratio (14-18) Glucose (74-106) mg/dL Calcium (8.5-10.1) mg/dL Magnesium (1.8-2.4) mg/dl Total Bilirubin (0.2-1.0) mg/dL AST (15-37) U/L ALT (14-59) U/L Alkaline Phosphatase (46-116) U/L Troponin I (0.00-0.056) ng/mL NT-Pro-B Natriuret Pep 49 (0-125) pg/mL Total Protein (6.4-8.2) g/dl Albumin (3.4-5.0) g/dl Globulin gm/dL Albumin/Globulin Ratio (1-2) Urine Color (Yellow) Urine Appearance (Clear) Urine pH (5.0-8.0) Ur Specific [place] (1.005-1.030) Urine Protein (Negative) Urine Glucose (UA) (Negative) Urine Ketones (Negative) Urine Occult Blood (Negative) Urine Nitrite (Negative) Urine Bilirubin (Negative) Urine Urobilinogen (0.2-1.0) Ur Leukocyte Esterase (Negative) Urine RBC (0-5) /hpf Urine WBC (0-5) /hpf Ur Squamous Epith Cells (0-5) /hpf Urine Bacteria (FEW) /hpf Urine Mucus (FEW) /hpf Meds: Medications Generic Name Dose Route Start Last Admin Trade Name Freq PRN Reason Stop Dose Admin Sodium Chloride 10 ml 05/19/19 10:45 05/19/19 10:55 Saline Flush FLUSH 10 ml ASDIRECTED PRN Administration Keep Vein Open Discontinued Medications Generic Name Dose Route Start Last Admin Trade Name Freq PRN Reason Stop Dose Admin Ceftriaxone Sodium 1 gm/ 100 mls @ 200 mls/hr 05/19/19 12:35 05/19/19 13:02 Sodium Chloride IV 05/19/19 13:04 200 mls/hr ONETIME ONE Administration - Radiology Interpretation Free Text/Narrative:: 50-year-old female who is mentally handicapped and in a correction situation was sent over for evaluation of hypoxemia with persistent sad staying in the 88 percentile. This is in spite of being on oxygen 3 L per nasal cannula. En route to the hospital the paramedics gave her an albuterol treatment and contained O2 sats at 3 L. In the ED her sats came up to 91-94%. They've remained that way throughout her hospital stay. She was just hospitalized for suspect pneumonia. Is known to be suffering respiratory failure with a persistent hypercarbia. Last admission the PCO2 was 71.8 on blood gas analysis. She ended up having her placed on oxygen at 3 L/m at all times at the time of discharge. She was felt to have a resolving pneumonia. She is to here to make sure there is nothing new or recurrent. - Re-Assessments/Exams Free Text/Narrative Re-Assessment/Exam: 05/19/19 11:34 Chest x-ray once again reveals probably mild cardiomegaly. Tortuous thoracic aorta. 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 ABGs have been done and revealed a pH of 7.28 with a PCO2 of 81.6. PO2 was 80. Sats are 93.7% on 3 L/m by nasal cannula. by definition she is therefore respiratory failure. 05/19/19 11:42 White count is elevated at 13.20 with auto differential showing 63% neutrophils. Hemoglobin is 12.1 with hematocrit of 41.5. MCV is elevated at 101.0. Platelet count is 251,000. Urinalysis shows slightly cloudy with 2+ leukocyte esterase. The micro-is pending 05/19/19 12:34 the urinalysis appears to be positive for infection. Leukocyte Estrace is 2+ positive. There are 10-20 WBCs per high-power field. Bacteria appreciated. Urine culture will be ordered. I have also spoken with her primary care physician Dr. Juwan Ty. Identified that she has a chronic hypercarbia which may cause transient confusion he would not tolerate any increase dose of oxygen. Her sats in the ED have been 91-94% which will be the best that she achieves. I will place her on Bactrim double strength 1 tablet twice a day for 6 more days starting tomorrow for urinary tract infection. Departure - Departure Time of Disposition: 13:12 Disposition: Home, Self-Care 01 Condition: Fair Clinical Impression: Chronic respiratory failure with hypoxia and hypercapnia, Lower urinary tract infection - Discharge Information *PRESCRIPTION DRUG MONITORING PROGRAM REVIEWED*: Not Applicable *COPY OF PRESCRIPTION DRUG MONITORING REPORT IN PATIENT ROGERS: Not Applicable Prescriptions: Sulfamethoxazole/Trimethoprim [Bactrim Ds Tablet] 1 each PO BID #12 tablet Instructions: Urinary Tract Infection, Adult Referrals: Juwan Ty MD [Primary Care Provider] - Forms: ED Department Discharge Additional Instructions: Evaluation the emergency room today in regards to persistent low oxygen levels at the correction today. You're on 3 L of oxygen at all times. Since discharge from the hospital. Oxygen levels were reportedly low at 88%. They improved to 91-94% after albuterol treatment in the ambulance. They have remained 91-94% in the ED as well. Is where their anticipated to be. 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 Chest x-ray is unchanged from the last one that was done when in hospital. Lab tests do not reveal any signs of pneumonia at this time. Oxygen level was maintain on 3 L/m while in the ED. Urinalysis suggested there is a low-grade infection in the lower urinary tract and therefore you were given a dose of Rocephin antibiotic while in the ED. He will need to take antibiotic Bactrim double strength 1 tablet twice daily for the next 6 days starting tomorrow to clear up urinary tract infection completely. Until you oxygen at 3 L/m at all times and no higher. - My Orders Last 24 Hours: My Active Orders 05/19/19 10:44 EKG Documentation Completion [RC] STAT Oxygen Therapy [RC] ASDIRECTED 05/19/19 10:45 Peripheral IV Care [RC] . DIRECTED Sodium Chloride 0.9% [Saline Flush] 10 ml FLUSH ASDIRECTED PRN Peripheral IV Insertion Adult [OM.PC] Stat 05/19/19 10:49 CULTURE URINE [RM] Routine - Assessment/Plan Last 24 Hours: My Active Orders 05/19/19 10:44 EKG Documentation Completion [RC] STAT Oxygen Therapy [RC] ASDIRECTED 05/19/19 10:45 Peripheral IV Care [RC] . DIRECTED Sodium Chloride 0.9% [Saline Flush] 10 ml FLUSH ASDIRECTED PRN Peripheral IV Insertion Adult [OM.PC] Stat 05/19/19 10:49 CULTURE URINE [RM] Routine
[2019-05-19] MEDS ORDERED: Sodium Chloride 0.9% 10 ML Syringe FLUSH PRN (10:45)
--- NOTE | 2019-05-19 12:01 | CR ---
Chest: Portable view of the chest was obtained. Comparison: Prior chest x-ray of 05/11/19. Elevated left hemidiaphragm again noted. Atelectasis is seen adjacent to the elevated left hemidiaphragm. Right lung is clear. Heart size difficult to evaluate due to silhouetting from the elevated left hemidiaphragm. Bony structures are grossly intact. Impression: 1. Elevated left hemidiaphragm causing adjacent atelectasis. 2. Nothing acute is otherwise seen. Diagnostic code #2
[2019-05-19] MEDS ORDERED: cefTRIAXone 1 GM in Sodium Chloride 0.9% 100 ML IV ONE (12:35)
== END 2019-05-19 14:55 | disposition home or self-care (01) ==
LOC: JD.ED 10:15
DX: J96.12 Chronic respiratory failure with hypercapnia (principal); J96.11 Chronic respiratory failure with hypoxia; N39.0 Urinary tract infection, site not specified; E11.9 Type 2 diabetes mellitus without complications; F41.9 Anxiety disorder, unspecified; I10 Essential (primary) hypertension; E66.9 Obesity, unspecified; Z68.30 Body mass index [BMI] 30.0-30.9, adult; Z88.0 Allergy status to penicillin; Z88.1 Allergy status to other antibiotic agents; Z79.899 Other long term (current) drug therapy; Z79.84 Long term (current) use of oral hypoglycemic drugs; Z68.41 Body mass index [BMI] 40.0-44.9, adult
CPT/HCPCS: 36415; 36600; 71045; 80053; 81001; 82803; 83735; 83880; 84484; 85025; 87086; 93005; 96365; 99285; J0696; J7030

== ENCOUNTER 2022-07-19 08:45 | Inpatient (IN) | payer MEDICARE, MEDICAID ==
[2022-07-19] MEDS ORDERED: Dextrose 5%-0.9% NaCl 1,000 ML IV SCH (09:15)
[2022-07-19] MEDS ORDERED: Acetaminophen 325 MG Tab PO ONE (09:42)
[2022-07-19] MEDS ORDERED: Dexamethasone 4 MG/ML SDV IVPUSH ONE (09:45)
[2022-07-19 10:07] LABS: ESTIMATED GFR 84 mL/min (>60)
[2022-07-19 10:11] LABS: HEMOGLOBIN A1C 6.4 %
[2022-07-19] MEDS ORDERED: Dexamethasone 4 MG/ML SDV ONE (10:57)
[2022-07-19] MEDS ORDERED: Lidocaine 2% 11 ML Jelly Filled Syringe MUCMEM ONE (12:43)
[2022-07-19 13:21] LABS: CORONAVIRUS COVID-19 NAA POSITIVE (NEGATIVE)
[2022-07-19] MEDS ORDERED: Acetaminophen 325 MG Tab PO PRN (13:54)
[2022-07-19] MEDS ORDERED: REMDESIVIR 200 MG in Sodium Chloride 0.9% 250 ML IV ONE ×2 (13:55→15:30)
[2022-07-19] MEDS ORDERED: Albuterol 0.083% 2.5 MG/3 ML Neb Soln NEB PRN (14:10)
[2022-07-19] MEDS: Albuterol/Ipratropium 3.0-0.5 MG/3 ML Neb Soln NEB SCH ×2 (17:54→21:09)
[2022-07-19] MEDS: cefTRIAXone 2 GM in Sodium Chloride 0.9% 100 ML IV SCH (18:09)
[2022-07-19] MEDS: Insulin Lispro 100 Unit/ML 3 ML KwikPen SUBCUT SCH ×2 (18:38→23:56)
[2022-07-19] MEDS: Citalopram 20 MG Tab PO SCH (18:44)
[2022-07-19] MEDS ORDERED: guaiFENesin 600 MG Tab.ER PO SCH (21:00)
[2022-07-19] MEDS: guaiFENesin 600 MG Tab.ER PO SCH (21:39)
[2022-07-19] MEDS: OLANZapine 5 MG Tab PO SCH (21:39)
[2022-07-20] MEDS: Albuterol/Ipratropium 3.0-0.5 MG/3 ML Neb Soln NEB SCH ×6 (02:13→21:04)
[2022-07-20 06:30] LABS: ESTIMATED GFR 102 mL/min (>60)
[2022-07-20] MEDS: Insulin Lispro 100 Unit/ML 3 ML KwikPen SUBCUT SCH ×4 (06:38→23:17)
[2022-07-20] MEDS: Dexamethasone 4 MG Tab PO SCH (10:06)
[2022-07-20] MEDS: guaiFENesin 600 MG Tab.ER PO SCH ×2 (10:07→23:19)
[2022-07-20] MEDS: Sennosides 8.6 MG Tab PO SCH (10:07)
[2022-07-20] MEDS: buPROPion 150 MG Tab.ER PO SCH (10:07)
[2022-07-20] MEDS: OLANZapine 5 MG Tab PO SCH ×2 (10:07→23:19)
[2022-07-20] MEDS: Pantoprazole 40 MG Tab.CR PO SCH (10:07)
[2022-07-20] MEDS: Enoxaparin 40 MG/0.4 ML Syringe SUBCUT SCH (10:08)
[2022-07-20] MEDS: REMDESIVIR 100 MG in Sodium Chloride 0.9% 250 ML IV SCH (15:04)
[2022-07-20] MEDS: cefTRIAXone 2 GM in Sodium Chloride 0.9% 100 ML IV SCH (17:29)
[2022-07-20] MEDS: Citalopram 20 MG Tab PO SCH (17:29)
[2022-07-21] MEDS: Albuterol/Ipratropium 3.0-0.5 MG/3 ML Neb Soln NEB SCH ×6 (01:43→21:19)
[2022-07-21] MEDS: Insulin Lispro 100 Unit/ML 3 ML KwikPen SUBCUT SCH ×4 (06:29→20:31)
[2022-07-21] MEDS: buPROPion 150 MG Tab.ER PO SCH (09:07)
[2022-07-21] MEDS: Dexamethasone 4 MG Tab PO SCH (09:07)
[2022-07-21] MEDS: Pantoprazole 40 MG Tab.CR PO SCH (09:07)
[2022-07-21] MEDS: OLANZapine 5 MG Tab PO SCH ×2 (09:08→20:22)
[2022-07-21] MEDS: Sennosides 8.6 MG Tab PO SCH (09:09)
[2022-07-21] MEDS: guaiFENesin 600 MG Tab.ER PO SCH ×2 (09:09→20:22)
[2022-07-21] MEDS: Enoxaparin 40 MG/0.4 ML Syringe SUBCUT SCH (09:09)
[2022-07-21] MEDS: REMDESIVIR 100 MG in Sodium Chloride 0.9% 250 ML IV SCH (14:01)
[2022-07-21] MEDS: cefTRIAXone 2 GM in Sodium Chloride 0.9% 100 ML IV SCH (16:35)
[2022-07-21] MEDS: Citalopram 20 MG Tab PO SCH (18:53)
[2022-07-22] MEDS: Albuterol/Ipratropium 3.0-0.5 MG/3 ML Neb Soln NEB SCH ×6 (01:18→21:11)
[2022-07-22] MEDS: Insulin Lispro 100 Unit/ML 3 ML KwikPen SUBCUT SCH ×4 (07:29→21:19)
[2022-07-22] MEDS: Enoxaparin 40 MG/0.4 ML Syringe SUBCUT SCH (09:04)
[2022-07-22] MEDS ORDERED: Potassium Chloride 20 MEQ Tab.ER PO SCH (09:30)
[2022-07-22] MEDS: Sennosides 8.6 MG Tab PO SCH (11:00)
[2022-07-22] MEDS: guaiFENesin 600 MG Tab.ER PO SCH ×2 (11:00→21:35)
[2022-07-22] MEDS: Dexamethasone 4 MG Tab PO SCH (11:00)
[2022-07-22] MEDS: Pantoprazole 40 MG Tab.CR PO SCH (11:00)
[2022-07-22] MEDS: OLANZapine 5 MG Tab PO SCH ×2 (11:01→21:36)
[2022-07-22] MEDS: buPROPion 150 MG Tab.ER PO SCH (11:01)
[2022-07-22] MEDS ORDERED: Sodium Chloride 0.9% 1,000 ML IV SCH (13:30)
[2022-07-22] MEDS: Potassium Chloride 10 MEQ in Premix Bag 1 BAG IV SCH ×4 (13:43→18:47)
[2022-07-22] MEDS: REMDESIVIR 100 MG in Sodium Chloride 0.9% 250 ML IV SCH (14:40)
[2022-07-22] MEDS: Cefepime 2 GM in Sodium Chloride 0.9% 50 ML IV SCH (16:08)
[2022-07-22] MEDS: cefTRIAXone 2 GM in Sodium Chloride 0.9% 100 ML IV SCH (16:15)
[2022-07-22] MEDS: Citalopram 20 MG Tab PO SCH (17:47)
[2022-07-23] MEDS: Albuterol/Ipratropium 3.0-0.5 MG/3 ML Neb Soln NEB SCH ×6 (02:02→21:25)
[2022-07-23] MEDS: Cefepime 2 GM in Sodium Chloride 0.9% 50 ML IV SCH ×2 (04:25→16:30)
[2022-07-23] MEDS: Insulin Lispro 100 Unit/ML 3 ML KwikPen SUBCUT SCH ×4 (08:14→21:41)
[2022-07-23] MEDS: OLANZapine 5 MG Tab PO SCH ×2 (09:16→21:57)
[2022-07-23] MEDS: Sennosides 8.6 MG Tab PO SCH (09:16)
[2022-07-23] MEDS: buPROPion 150 MG Tab.ER PO SCH (09:16)
[2022-07-23] MEDS: Pantoprazole 40 MG Tab.CR PO SCH (09:16)
[2022-07-23] MEDS: Dexamethasone 6 MG TABLET PO SCH (09:17)
[2022-07-23] MEDS: Enoxaparin 40 MG/0.4 ML Syringe SUBCUT SCH (09:17)
[2022-07-23] MEDS: guaiFENesin 600 MG Tab.ER PO SCH ×2 (09:28→21:57)
[2022-07-23] MEDS: REMDESIVIR 100 MG in Sodium Chloride 0.9% 250 ML IV SCH (15:04)
[2022-07-23] MEDS: Citalopram 20 MG Tab PO SCH (18:02)
[2022-07-24] MEDS: Albuterol/Ipratropium 3.0-0.5 MG/3 ML Neb Soln NEB SCH ×3 (01:47→09:31)
[2022-07-24] MEDS: Cefepime 2 GM in Sodium Chloride 0.9% 50 ML IV SCH (04:48)
[2022-07-24] MEDS: Insulin Lispro 100 Unit/ML 3 ML KwikPen SUBCUT SCH ×2 (07:48→11:38)
[2022-07-24] MEDS: Enoxaparin 40 MG/0.4 ML Syringe SUBCUT SCH (09:49)
[2022-07-24] MEDS: OLANZapine 5 MG Tab PO SCH (09:51)
[2022-07-24] MEDS: Pantoprazole 40 MG Tab.CR PO SCH (09:51)
[2022-07-24] MEDS: Sennosides 8.6 MG Tab PO SCH (09:51)
[2022-07-24] MEDS: buPROPion 150 MG Tab.ER PO SCH (09:51)
[2022-07-24] MEDS: guaiFENesin 600 MG Tab.ER PO SCH (09:51)
[2022-07-24] MEDS: Dexamethasone 6 MG TABLET PO SCH (09:52)
[2022-07-24 12:11] VITALS: BP 94/71; PULSE 73
== END 2022-07-24 14:56 | DRG 177 ==
LOC: JD.ED 08:45 → JD.MS 13:15
PROVIDERS: ADMIT Internal Medicine; ATTEND Internal Medicine
PROC: 8E0ZXY6 Isolation (ICD-10-PCS; principal; 2022-07-19)
PROC: XW033E5 Introduction of Remdesivir Anti-infective into Peripheral Vein, Percutaneous Approach, New Technology Group 5 (ICD-10-PCS; 2022-07-19)
PROC: 3E0333Z Introduction of Anti-inflammatory into Peripheral Vein, Percutaneous Approach (ICD-10-PCS; 2022-07-19)
PROC: 3E0DX3Z Introduction of Anti-inflammatory into Mouth and Pharynx, External Approach (ICD-10-PCS; 2022-07-24)
DX: U07.1 COVID-19 (principal); J96.21 Acute and chronic respiratory failure with hypoxia; R09.02 Hypoxemia; J96.22 Acute and chronic respiratory failure with hypercapnia; J44.1 Chronic obstructive pulmonary disease with (acute) exacerbation; G47.30 Sleep apnea, unspecified; F03.90 Unspecified dementia, unspecified severity, without behavioral disturbance, psychotic disturbance, mood disturbance, and anxiety; E11.9 Type 2 diabetes mellitus without complications; F33.2 Major depressive disorder, recurrent severe without psychotic features; Z28.310 Unvaccinated for COVID-19; Z66 Do not resuscitate; F20.9 Schizophrenia, unspecified; E78.00 Pure hypercholesterolemia, unspecified; H54.7 Unspecified visual loss; M54.9 Dorsalgia, unspecified; G89.29 Other chronic pain; D64.9 Anemia, unspecified; K59.00 Constipation, unspecified; I10 Essential (primary) hypertension; E11.65 Type 2 diabetes mellitus with hyperglycemia; Z99.81 Dependence on supplemental oxygen; Z88.0 Allergy status to penicillin; Z88.1 Allergy status to other antibiotic agents; Z79.84 Long term (current) use of oral hypoglycemic drugs; Z79.899 Other long term (current) drug therapy
CPT/HCPCS: 0240U; 36415; 36600; 71045; 80053; 81001; 82803; 82947; 83036; 83735; 83880; 84443; 85025; 85027; 85610; 85730; 86140; 87086; 87088; 87186; 93005; 94640; 94660; 94760; 94762; 96361; 96374; 99285; A9270-GY; J0692; J0696; J1100; J1650; J1815; J3480; J7030; J7042; J7050; J7620-GY; J8540

== ENCOUNTER 2025-02-03 10:01 | Inpatient (IN) | payer MEDICARE, MEDICAID ==
[2025-02-03] MEDS: Sodium Chloride 0.9% 10 ML Syringe FLUSH PRN (10:25)
[2025-02-03] MEDS: methylPREDNISolone Sodium Succinate 125 MG/2 ML SDV IVPUSH ONE (10:25)
[2025-02-03] MEDS: Magnesium Sulfate 2 GM/50 mL 2 GM/50 ML BAG IV ONE (10:25)
[2025-02-03] MEDS: Albuterol/Ipratropium 3.0-0.5 MG/3 ML Neb Soln NEB ONE (10:28)
[2025-02-03] MEDS ORDERED: Sodium Chloride 0.9% 10 ML Syringe FLUSH PRN (10:37)
[2025-02-03 10:46] LABS: BASOPHILS ABSOLUTE AUTO 0.1 K/mm3 (0.0-0.2); BASOPHILS PERCENT AUTO 0.5 % (0.0-1.0); EOSINOPHILS ABSOLUTE AUTO 0.1 K/mm3 (0.0-0.4); EOSINOPHILS PERCENT AUTO 0.5 % (0.0-6.0); HEMATOCRIT 43.1 % (37.0-47.0); HEMOGLOBIN 11.8 gm/dl (12.0-16.0); IMMATURE GRAN ABSOLUTE AUTO 0.03 K/mm3 (0.00-0.05); IMMATURE GRAN PERCENT AUTO 0.2 % (0.0-0.4); LYMPHOCYTES ABSOLUTE AUTO 1.6 K/mm3 (1.0-4.8); LYMPHOCYTES PERCENT AUTO 12.9 % (24.0-44.0); MEAN CORPUSCULAR HEMOGLOBIN 24.6 pg (28.0-32.0); MEAN CORPUSCULAR HGB CONC 27.4 g/dl (32.0-36.0); MEAN PLATELET VOLUME 10.5 fl (9.4-12.3); MONOCYTES ABSOLUTE AUTO 1.9 K/mm3 (0.0-0.8); NEUTROPHILS ABSOLUTE AUTO 8.9 K/mm3 (1.8-7.7); NEUTROPHILS PERCENT AUTO 70.9 % (41.0-71.0); PLATELET COUNT,PLT 225 K/mm3 (150-400); RED BLOOD CELL COUNT 4.79 M/mm3 (4.10-5.30); WHITE BLOOD CELL COUNT,WBC 12.48 K/mm3 (3.9-11.3)
[2025-02-03 11:05] LABS: INR 1.03; PROTHROMBIN TIME 10.9 SECONDS (9.7-12.0)
[2025-02-03] MEDS: cefTRIAXone 2 GM Vial IVPUSH ONE (11:09)
[2025-02-03 11:15] LABS: A/G RATIO 0.7 (1-2); ALBUMIN 3.2 g/dl (3.4-5.0); ANION GAP 5.2 (5-15); BILIRUBIN TOTAL 0.4 mg/dL (0.2-1.0); BUN/CREATININE RATIO 23.8 (14-18); CALCIUM 8.8 mg/dL (8.5-10.1); CREATININE 0.8 mg/dL (0.55-1.02); EST CRCL DRUG DOSING (CG) 63.93 mL/min; MAGNESIUM 2.4 mg/dL (1.8-2.4); POTASSIUM,K 4.2 mEq/L (3.5-5.1); PROTEIN TOTAL,TP 7.9 g/dl (6.4-8.2)
[2025-02-03 11:19] LABS: LACTIC ACID 1.5 mmol/L (0.4-2.0)
[2025-02-03 11:58] LABS: SLIDE REVIEW ABNORMAL SMEAR
[2025-02-03 12:20] LABS: O2 SATURATION ARTERIAL 92.6 % (96.0-97.0)
[2025-02-03 12:21] LABS: BASE EXCESS ARTERIAL 18.9 (-2-2.0); BICARBONATE,ARTERIAL 50.5 meq/L (22.0-26.0)
[2025-02-03] MEDS ORDERED: Acetaminophen 325 MG Tab PO PRN (12:25)
[2025-02-03] MEDS ORDERED: Azithromycin 500 MG in Sodium Chloride 0.9% 250 ML IV SCH (12:45)
[2025-02-03] MEDS ORDERED: Non-Formulary Medication 1 Each (Polyvinyl Alcohol/Povidone/Pf [Refresh Classic Eye Drops] EYEBOTH SCH (13:00)
[2025-02-03] MEDS: LORazepam 2 MG/ML SDV ONE (13:24)
[2025-02-03] MEDS: LORazepam 2 MG/ML SDV IVPUSH ONE ×2 (13:25→13:41)
[2025-02-03] MEDS: Carboxymethylcellulose Sodium 1% Ophth Gel 15 ML Bottle EYEBOTH SCH (13:40)
[2025-02-03] MEDS: Azithromycin 500 MG in Sodium Chloride 0.9% 250 ML IV SCH (13:41)
[2025-02-03] MEDS: Albuterol/Ipratropium 3.0-0.5 MG/3 ML Neb Soln NEB SCH (15:49)
[2025-02-03] MEDS: Latanoprost 0.005% Ophth Soln 2.5 ML Bottle EYEBOTH SCH (17:30)
[2025-02-03] MEDS: LORazepam 2 MG/ML SDV IVPUSH PRN (20:54)
[2025-02-03 21:15] LABS: O2 SATURATION ARTERIAL 98.2 % (96.0-97.0)
[2025-02-03 21:16] LABS: BASE EXCESS ARTERIAL 20.7 (-2-2.0); BICARBONATE,ARTERIAL 51.7 meq/L (22.0-26.0)
[2025-02-04 01:24] LABS: APPEARANCE,URINE CLEAR (Clear); BILIRUBIN,URINE NEGATIVE (Negative); COLOR,URINE YELLOW (Yellow); GLUCOSE,URINE NEGATIVE (Negative); KETONES,URINE NEGATIVE (Negative); LEUKOCYTE ESTERASE,URINE NEGATIVE (Negative); NITRITE,URINE NEGATIVE (Negative); OCCULT BLOOD,URINE NEGATIVE (Negative); PROTEIN,URINE 2+ (Negative); UROBILINOGEN,URINE 0.2 (0.2-1.0)
[2025-02-04 01:57] LABS: BACTERIA,URINE FEW /hpf (FEW); FINE GRANULAR CASTS,URINE 0-5 /lpf (0-5); HYALINE CASTS,URINE 0-5 /lpf (0-5); MUCUS,URINE MODERATE /hpf (FEW); RBC,URINE 0-5 /hpf (0-5); SQUAMOUS EPITHELIAL CELLS,UR 0-5 /hpf (0-5)
[2025-02-04 05:32] LABS: BASOPHILS PERCENT AUTO 0.1 % (0.0-1.0); HEMATOCRIT 37.4 % (37.0-47.0); IMMATURE GRAN ABSOLUTE AUTO 0.02 K/mm3 (0.00-0.05); IMMATURE GRAN PERCENT AUTO 0.3 % (0.0-0.4); LYMPHOCYTES PERCENT AUTO 14.2 % (24.0-44.0); MEAN CORPUSCULAR HEMOGLOBIN 24.8 pg (28.0-32.0); MEAN CORPUSCULAR HGB CONC 27.5 g/dl (32.0-36.0); MEAN CORPUSCULAR VOLUME 90.1 fl (83.0-99.0); MEAN PLATELET VOLUME 10.8 fl (9.4-12.3); MONOCYTES PERCENT AUTO 14.5 % (0.0-8.0); NEUTROPHILS ABSOLUTE AUTO 5.1 K/mm3 (1.8-7.7); NEUTROPHILS PERCENT AUTO 70.9 % (41.0-71.0); PLATELET COUNT,PLT 193 K/mm3 (150-400); RED BLOOD CELL COUNT 4.15 M/mm3 (4.10-5.30); WHITE BLOOD CELL COUNT,WBC 7.18 K/mm3 (3.9-11.3)
[2025-02-04 05:52] LABS: HEMOGLOBIN 10.3 gm/dl (12.0-16.0)
[2025-02-04 05:53] LABS: A/G RATIO 0.7 (1-2); ALBUMIN 2.5 g/dl (3.4-5.0); BILIRUBIN TOTAL 0.1 mg/dL (0.2-1.0); BUN/CREATININE RATIO 33.3 (14-18); CALCIUM 8.8 mg/dL (8.5-10.1); CREATININE 0.6 mg/dL (0.55-1.02); EST CRCL DRUG DOSING (CG) 85.24 mL/min; POTASSIUM,K 4.6 mEq/L (3.5-5.1); PROTEIN TOTAL,TP 6.3 g/dl (6.4-8.2)
[2025-02-04 05:58] LABS: SLIDE REVIEW ABNORMAL SMEAR
[2025-02-04 07:06] LABS: ANION GAP -1.4 (5-15)
[2025-02-04] MEDS ORDERED: 50% Dextrose in Water 50 ML Syringe IVPUSH PRN (08:52)
[2025-02-04] MEDS: Enoxaparin 40 MG/0.4 ML Syringe SUBCUT SCH (09:12)
[2025-02-04] MEDS: methylPREDNISolone Sodium Succinate 40 MG/1 ML SDV IVPUSH SCH (09:12)
[2025-02-04] MEDS: Dextrose 5%-0.45% NaCl 1,000 ML IV SCH (10:17)
[2025-02-04] MEDS: Levofloxacin/Dextrose 5%-Water 750 MG in Premix Bag 1 BAG IV SCH (10:17)
[2025-02-04] MEDS: Insulin Lispro 100 Unit/ML 3 ML KwikPen SUBCUT SCH (12:38)
[2025-02-04 14:08] LABS: BASE EXCESS VENOUS 23.4 (-4.0-2.0); O2 SATURATION VENOUS 66.2; PH,VENOUS 7.44 (7.30-7.40)
[2025-02-04] MEDS: OLANZapine 5 MG Tab PO SCH ×2 (18:33→22:02)
[2025-02-04] MEDS ORDERED: Non-Formulary Medication 1 Each (Bupropion 100 MG Tablet) PO SCH (21:00)
[2025-02-04] MEDS: Aspirin 81 MG Tab.Chew PO SCH (21:27)
[2025-02-04 21:54] LABS: BASE EXCESS ARTERIAL 22.7 (-2-2.0); BICARBONATE,ARTERIAL 51.3 meq/L (22.0-26.0); O2 SATURATION ARTERIAL 94.9 % (96.0-97.0)
[2025-02-04] MEDS: Rosuvastatin 10 MG Tab PO SCH (22:02)
[2025-02-04] MEDS: OLANZapine 10 MG Vial IM ONE (22:18)
[2025-02-04] MEDS: Aspirin 300 MG Supp RECTAL ONE (22:20)
[2025-02-05 05:29] LABS: BASOPHILS PERCENT AUTO 0.2 % (0.0-1.0); HEMATOCRIT 36.2 % (37.0-47.0); IMMATURE GRAN ABSOLUTE AUTO 0.02 K/mm3 (0.00-0.05); IMMATURE GRAN PERCENT AUTO 0.3 % (0.0-0.4); LYMPHOCYTES ABSOLUTE AUTO 0.6 K/mm3 (1.0-4.8); LYMPHOCYTES PERCENT AUTO 8.9 % (24.0-44.0); MEAN CORPUSCULAR HGB CONC 27.6 g/dl (32.0-36.0); MEAN PLATELET VOLUME 10.5 fl (9.4-12.3); MONOCYTES ABSOLUTE AUTO 0.3 K/mm3 (0.0-0.8); NEUTROPHILS ABSOLUTE AUTO 5.6 K/mm3 (1.8-7.7); NEUTROPHILS PERCENT AUTO 86.6 % (41.0-71.0); NRBC ABSOLUTE 0.02 (0.00-0.02); NRBC PERCENT 0.3 % (0.0-0.2); PLATELET COUNT,PLT 210 K/mm3 (150-400); RED BLOOD CELL COUNT 4.16 M/mm3 (4.10-5.30); WHITE BLOOD CELL COUNT,WBC 6.51 K/mm3 (3.9-11.3)
[2025-02-05 06:01] LABS: A/G RATIO 0.6 (1-2); ALBUMIN 2.4 g/dl (3.4-5.0); BILIRUBIN TOTAL 0.2 mg/dL (0.2-1.0); CALCIUM 8.9 mg/dL (8.5-10.1); CREATININE 0.6 mg/dL (0.55-1.02); EST CRCL DRUG DOSING (CG) 85.24 mL/min; PROTEIN TOTAL,TP 6.2 g/dl (6.4-8.2)
[2025-02-05 06:05] LABS: SLIDE REVIEW ABNORMAL SMEAR
[2025-02-05 08:00] LABS: TSH 0.271 uIU/mL (0.358-3.74)
[2025-02-05 08:34] LABS: HEMOGLOBIN A1C 6.1 %
[2025-02-05 08:41] LABS: T4 FREE 1.26 ng/dL (0.76-1.46)
[2025-02-05 09:46] LABS: O2 SATURATION ARTERIAL 92.3 % (96.0-97.0)
[2025-02-05 09:47] LABS: BASE EXCESS ARTERIAL 20.6 (-2-2.0); BICARBONATE,ARTERIAL 47.7 meq/L (22.0-26.0)
[2025-02-05] MEDS: Albuterol/Ipratropium 3.0-0.5 MG/3 ML Neb Soln NEB PRN (14:32)
[2025-02-05] MEDS: OLANZapine 10 MG Vial IM SCH (20:45)
[2025-02-05] MEDS: Aspirin 300 MG Supp RECTAL ONE (20:46)
[2025-02-05] MEDS: atorvaSTATin 40 MG Tab PO SCH (20:46)
[2025-02-06 04:28] LABS: HEMATOCRIT 40.6 % (37.0-47.0); HEMOGLOBIN 11.1 gm/dl (12.0-16.0); IMMATURE GRAN ABSOLUTE AUTO 0.01 K/mm3 (0.00-0.05); IMMATURE GRAN PERCENT AUTO 0.1 % (0.0-0.4); LYMPHOCYTES ABSOLUTE AUTO 0.6 K/mm3 (1.0-4.8); MEAN CORPUSCULAR HEMOGLOBIN 23.9 pg (28.0-32.0); MEAN CORPUSCULAR HGB CONC 27.3 g/dl (32.0-36.0); MEAN CORPUSCULAR VOLUME 87.3 fl (83.0-99.0); MEAN PLATELET VOLUME 9.9 fl (9.4-12.3); MONOCYTES ABSOLUTE AUTO 0.3 K/mm3 (0.0-0.8); MONOCYTES PERCENT AUTO 4.2 % (0.0-8.0); NEUTROPHILS ABSOLUTE AUTO 6.1 K/mm3 (1.8-7.7); NEUTROPHILS PERCENT AUTO 86.7 % (41.0-71.0); PLATELET COUNT,PLT 228 K/mm3 (150-400); RED BLOOD CELL COUNT 4.65 M/mm3 (4.10-5.30); WHITE BLOOD CELL COUNT,WBC 7.09 K/mm3 (3.9-11.3)
[2025-02-06 04:48] LABS: A/G RATIO 0.6 (1-2); ALBUMIN 2.5 g/dl (3.4-5.0); ANION GAP 6.4 (5-15); BILIRUBIN TOTAL 0.2 mg/dL (0.2-1.0); BUN/CREATININE RATIO 28.3 (14-18); CALCIUM 9.1 mg/dL (8.5-10.1); CREATININE 0.6 mg/dL (0.55-1.02); EST CRCL DRUG DOSING (CG) 85.24 mL/min; POTASSIUM,K 4.4 mEq/L (3.5-5.1); PROTEIN TOTAL,TP 6.6 g/dl (6.4-8.2)
[2025-02-06 07:44] LABS: SLIDE REVIEW ABNORMAL SMEAR
[2025-02-06] MEDS: OLANZapine 10 MG Vial IM SCH (20:51)
[2025-02-07] MEDS: methylPREDNISolone Sodium Succinate 40 MG/1 ML SDV IVPUSH SCH (09:48)
[2025-02-07 13:51] VITALS: BP 140/88; PULSE 90
[2025-02-07] MEDS ORDERED: OLANZapine 5 MG Tab PO SCH (21:00)
[2025-02-10 16:42] LABS: TP-PA Non Reactive (Non Reactive)
== END 2025-02-07 13:00 | DRG 193 ==
LOC: JD.ED 10:01 → JD.ICU 12:25
PROVIDERS: ADMIT Family Medicine; ATTEND Family Medicine
PROC: 4A133R1 Monitoring of Arterial Saturation, Peripheral, Percutaneous Approach (ICD-10-PCS; principal; 2025-02-03)
PROC: 5A09357 Assistance with Respiratory Ventilation, Less than 24 Consecutive Hours, Continuous Positive Airway Pressure (ICD-10-PCS; principal; 2025-02-03)
DX: A41.9 Sepsis, unspecified organism (principal); R65.20 Severe sepsis without septic shock; J18.9 Pneumonia, unspecified organism; R40.2443 Other coma, without documented Glasgow coma scale score, or with partial score reported, at hospital admission; G93.41 Metabolic encephalopathy; J96.21 Acute and chronic respiratory failure with hypoxia; J96.22 Acute and chronic respiratory failure with hypercapnia; J44.0 Chronic obstructive pulmonary disease with (acute) lower respiratory infection; J44.1 Chronic obstructive pulmonary disease with (acute) exacerbation; Z79.51 Long term (current) use of inhaled steroids; F03.918 Unspecified dementia, unspecified severity, with other behavioral disturbance; F03.94 Unspecified dementia, unspecified severity, with anxiety; E87.29 Other acidosis; Z66 Do not resuscitate; H40.9 Unspecified glaucoma; H54.7 Unspecified visual loss; E78.00 Pure hypercholesterolemia, unspecified; I10 Essential (primary) hypertension; K59.09 Other constipation; M54.9 Dorsalgia, unspecified; G47.33 Obstructive sleep apnea (adult) (pediatric); G89.29 Other chronic pain; F60.9 Personality disorder, unspecified; E11.9 Type 2 diabetes mellitus without complications; R13.12 Dysphagia, oropharyngeal phase; E66.9 Obesity, unspecified; D64.9 Anemia, unspecified; Z98.891 History of uterine scar from previous surgery; Z98.890 Other specified postprocedural states; Z88.0 Allergy status to penicillin; Z79.84 Long term (current) use of oral hypoglycemic drugs; Z79.899 Other long term (current) drug therapy; Z68.27 Body mass index [BMI] 27.0-27.9, adult; Z90.49 Acquired absence of other specified parts of digestive tract; Z88.8 Allergy status to other drugs, medicaments and biological substances; Z99.81 Dependence on supplemental oxygen; Z88.1 Allergy status to other antibiotic agents; Z90.89 Acquired absence of other organs
CPT/HCPCS: 36415; 36600; 71045; 80053; 82803; 83605; 83735; 83880; 84484; 85025; 85610; 86140; 87040 ×2; 93005; 94640; 94660; 96365; 96366; 96375; 99285; A9270; J0696; J2919; J3475; 70450; 70450-26; 80061; 81001; 82607; 82947; 83036; 84439; 84443; 86780; 92610-GN; 93010; 94762; 99223; 99233; 99239; J0456; J1650; J1956; J2060; J2359; J7050